=== PATIENT | male | born 1970 | race Hispanic/Latino ===

== ENCOUNTER 2018-07-17 14:35 | Emergency (ER) | payer OTHER ==
--- OUTSIDE RECORDS SUMMARY | 2018-07-17 14:46 | XMS REPORT | Continuity of Care Document ---
:1970 Author Organization Interface Problems Problem Status Onset Classification Date Comments Source Date Reported M62.838 OTHER 04/29/20 Diagnosis 06/28/2017 SNF: MUSCLE SPASM 17 [facility] M62.81 MUSCLE 04/29/20 Diagnosis 06/28/2017 SNF: WEAKNESS 17 [facility] E11.69 TYPE 2 04/29/20 Diagnosis 06/28/2017 SNF: DIABETES MELLITUS 17 [place] - WITH OTHER [facility] SPECIFIED [place] COMPLICATION G62.9 04/29/20 Diagnosis 06/28/2017 SNF: POLYNEUROPATHY, [place] UNSPECIFIED [facility] R27.9 UNSPECIFIED 04/29/20 Diagnosis 06/28/2017 SNF: LACK OF 17 [place] - COORDINATION [facility] G89.18 OTHER ACUTE 04/29/20 Diagnosis 06/28/2017 SNF: POSTPROCEDURAL 17 [place] - PAIN [facility] Abnormal gait 04/29/20 Diagnosis 06/28/2017 SNF: 17 [facility] G47.00 INSOMNIA, 04/29/20 Diagnosis 06/28/2017 SNF: UNSPECIFIED [facility] M62.59 MUSCLE 04/29/20 Diagnosis 06/28/2017 SNF: WASTING AND 17 [place] - ATROPHY, NOT [place] ELSEWHERE [place] CLASSIFIED, MULTIPLE SITES K59.00 04/29/20 Diagnosis 06/28/2017 SNF: CONSTIPATION, 17 [place] - UNSPECIFIED [facility] S82.102D 04/28/20 Diagnosis 06/28/2017 SNF: UNSPECIFIED 17 [place] - FRACTURE OF UPPER [facility] END OF LEFT TIBIA, [place] SUBSEQUENT ENCOUNTER FOR CLOSED FRACTURE WITH ROUTINE HEALING Z51.89 ENCOUNTER 04/28/20 Diagnosis 06/28/2017 SNF: FOR OTHER 17 [place] - SPECIFIED [facility] AFTERCARE [facility] G89.11 ACUTE PAIN 04/28/20 Diagnosis 06/28/2017 [facility] S52.501D 04/28/20 Diagnosis 06/28/2017 SNF: UNSPECIFIED 17 [place] - FRACTURE OF THE [place] LOWER END OF RIGHT [place] RADIUS, SUBSEQUENT ENCOUNTER FOR CLOSED FRACTURE WITH ROUTINE HEALING E11.9 TYPE 2 04/28/20 Diagnosis 06/28/2017 SNF: DIABETES MELLITUS 17 [place] - WITHOUT [place] COMPLICATIONS [place] Z47.89 ENCOUNTER 04/28/20 Diagnosis 06/28/2017 SNF: FOR OTHER 17 [place] - ORTHOPEDIC [place] AFTERCARE [place] Z91.81 HISTORY OF 04/28/20 Diagnosis 06/28/2017 [facility]: [facility]ING [facility] [place] [facility] [place] R WRIST FX Active 04/11/[address] CLOSED RT RADIAL Active 04/11/20 [facility] FX, LISFRANC Medical DISLOCATIO Center NEW CONSULT - Active 05/16/20 [facility] PANCREATIC MASS [address] [place] [address] Center 782.3 - EDEMA Active 01/23/20 [facility] [place] Diabetes Resolved Problem 05/01/2017 [facility] History of Resolved Problem 05/01/2017 [facility] multiple endocrine Medical neoplasia type 2 Center (<span ID="[id number]"> Confirmed</span>) UNSP FRACTURE OF Active [facility] RIGHT FOREARM, Medical INIT FOR Center DISLOCATION OF Active [facility] TARSOMETATARSAL Medical JOINT OF Center DISPLACED Active [facility] BICONDYLAR Medical FRACTURE OF LEFT Center TI Medications Medication Details Route Status Patient Ordering Order Source Instructions Provider Date Lantus Solution 26 UNIT(S) Subcutaneou Active 06/21/ SNF: 100 UNIT/ML SUBCUTANEOUSL s 2017 [place] - Y EVERY 12 [place] HOURS FOR [place] TYPE2 DM W/O COMPLICATIONS Lantus Solution Inject 24 Subcutaneou Active 06/04/ SNF: 100 UNIT/ML unit s 2016 [place] - subcutaneousl [place] y every 12 [place] hours related to TYPE 2 DIABETES MELLITUS WITHOUT COMPLICATIONS (E11.9) DiazePAM Tablet Give 1 tablet Oral Active 06/01/ SNF: 5 MG by mouth as 2017 [place] - needed for [place] anxiety [place] Ambien Tablet 10 Give 1 tablet Oral Active 05/25/ SNF: MG by mouth at 2017 [place] - bedtime for [place] Insomnia [facility] Lantus Solution Inject 22 Subcutaneou Active 05/20/ SNF: 100 UNIT/ML unit s 2017 [place] - subcutaneousl [place] y every 12 [place] hours related to TYPE 2 DIABETES MELLITUS WITHOUT COMPLICATIONS (E11.9) DiazePAM Tablet Give 1 tablet Oral Active 05/16/ SNF: 5 MG by mouth 2016 [place] - every 24 [place] hours as [place] needed for insomnia/anxi ety for 14 Days Give at bedtime Ambien Tablet 5 Give 2 tablet Oral Active 05/14/ SNF: MG by mouth at 2017 [place] - bedtime for [facility] insomnia for [place] 10 Days Give a total of 2 tabs to=10mg Ambien Tablet 5 Give 1 tablet Oral Active 05/12/ SNF: MG by mouth at 2017 [place] - bedtime for [facility] insomnia [facility] Zolpidem Give 1 tablet Oral Inactive 05/07/ SNF: Tartrate Tablet by mouth as 2017 [place] - 5 MG needed for [facility] insomnia PRN [place] at bedtime TraMADol HCl Give 1 tablet Oral Active 05/06/ SNF: Tablet 50 MG by mouth 2016 [place] - every 6 hours [place] as needed for [place] pain DiazePAM Tablet Give 1 tablet Oral Active 05/06/ SNF: 5 MG by mouth 2016 [place] - every 24 [place] hours as [place] needed for insomnia/anxi ety Give at bedtime Tylenol with Give 1 tablet Oral Active 05/06/ SNF: Codeine #3 by mouth 2016 [place] - Tablet 300-30 MG every 6 hours [place] as needed for [place] pain per Dr. Tashi blunt TraMADol HCl Give 1 tablet Oral Active 05/05/ SNF: Tablet 50 MG by mouth 2016 [place] - every 6 hours [place] as needed for [place] pain for 2 Weeks Zolpidem Give 1 tablet Oral Active 05/05/ SNF: Tartrate Tablet by mouth as 2016 [place] - 5 MG needed for [facility] insomnia for [place] 14 Days daily at bedtime Calcium Tablet Give 1 tablet Oral Active 05/05/ SNF: 600 MG by mouth two 2016 [place] - times a day [place] for [place] supplement Lantus Solution Inject 18 Subcutaneou Active 05/03/ SNF: 100 UNIT/ML unit s 2017 [place] - subcutaneousl [place] y every 12 [place] hours related to TYPE 2 DIABETES MELLITUS WITHOUT COMPLICATIONS (E11.9) Acetaminophen Give 2 tablet Oral Active 05/03/ SNF: Tablet 500 MG by mouth 2016 [place] - three times a [place] day for pain [place] (give 2 tabs to equal 1000 mg) NovoLOG Solution Inject 5 unit Subcutaneou Active 05/02/ SNF: 100 UNIT/ML subcutaneousl s 2017 [place] - y one time [place] only related [place] to TYPE 2 DIABETES MELLITUS WITHOUT COMPLICATIONS (E11.9) for 1 Day Baclofen Tablet Give 10 mg by Oral Inactive 05/01/ SNF: mouth two 2016 [place] - times a day [place] related to [facility] ENCOUNTER FOR OTHER ORTHOPEDIC AFTERCARE (Z47.89) Insulin Aspart Inject 5 unit Subcutaneou Active 05/01/ SNF: Solution 100 subcutaneousl s 2017 [place] - UNIT/ML y one time [place] only for [place] [id number] for 1 Day NovoLOG Solution Inject as per Subcutaneou Active SNF: 100 UNIT/ML sliding s 2017 [place] - scale: if 0 [place] - 150=0; Village 151+=5, subcutaneousl y before meals related to TYPE 2 DIABETES MELLITUS WITHOUT COMPLICATIONS (E11.9) Do not give if BS <150 NovoLOG Solution Inject 5 unit Subcutaneou Inactive 04/30/ SNF: 100 UNIT/ML subcutaneousl s 2017 [place] - y before [facility] meals related [place] to TYPE 2 DIABETES MELLITUS WITHOUT COMPLICATIONS (E11.9) Baclofen Tablet Give 5 mg by Oral Active 04/30/ SNF: mouth at 2017 [place] - bedtime [place] related to [place] ENCOUNTER FOR OTHER ORTHOPEDIC AFTERCARE (Z47.89) Acetaminophen Give 2 tablet Oral Active SNF: Tablet 500 MG by mouth 2016 [place] - three times a [place] day for pain [place] NovoLOG Solution Inject 5 unit Subcutaneou Active SNF: 100 UNIT/ML subcutaneousl s 2017 [place] - y before [facility] meals related [place] to TYPE 2 DIABETES MELLITUS WITHOUT COMPLICATIONS (E11.9) Lisinopril 1 TAB(S) BY Oral Active SNF: Tablet 5 MG MOUTH DAILY 2017 [place] - (HOLD FOR SBP [facility] [place] Cholecalciferol Give 1 tablet Oral Active SNF: Tablet 2000 UNIT by mouth one 2017 [place] - time a day [facility] for [place] supplement Lantus Solution Inject 27 Subcutaneou Active 04/29/ SNF: 100 UNIT/ML unit s 2017 [place] - subcutaneousl [place] y one time a [place] day related to TYPE 2 DIABETES MELLITUS WITHOUT COMPLICATIONS (E11.9) Docusate Sodium Give 1 Oral Active 04/29/ SNF: Capsule capsule by 2017 [place] - mouth two [place] times a day [place] for constipation Gabapentin 1 CAP(S) BY Oral Active : Capsule 300 MG MOUTH EVERY 8 2016 [place] - HOURS [place] [facility] Methocarbamol 2 TAB(S) BY Oral Active : Tablet 500 MG MOUTH EVERY 8 2016 [place] - HOURS [place] ([id number]) [facility] Enoxaparin 0.3 CC/ML Subcutaneou Active : Sodium Solution SUBCUTANEOUSL s 2016 [place] - 30 MG/0.3ML Y EVERY 12 [place] HOURS [facility] (0.3ML=30MG) Acetaminophen Give 2 tablet Oral Active : Tablet 500 MG by mouth 2016 [place] - every 6 hours [place] for pain [facility] Zolpidem Give 1 tablet Oral Active : Tartrate Tablet by mouth as 2017 [place] - 5 MG needed for [place] insomnia [facility] daily at bedtime TraMADol HCl Give 2 tablet Oral Active : Tablet 50 MG by mouth 2016 [place] - every 6 hours [place] as needed for [place] pain for 7 Days give 2 50mg tabs to equal 100mg Tuberculin PPD Inject 0.1 ml Intradermal Active : Solution 5 intradermally 2016 [place] - UNIT/0.1ML one time only [place] for TB SKIN [place] for 3 Days Document administratio n, 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 of [facility] tramadol 100 mg=2 tab, Active [place] hydrochloride 50 PO, Q6Hnow, 2016 Medical MG Oral Tablet PRN Pain Center 1-3/Temp > 100.4 F, X 7 day, # 30 tab, 0 Refill(s) zolpidem 5 mg 5 mg=1 tab, Active [place] oral tablet PO, Bedtime, 2017 Medical PRN Insomnia, Center 0 Refill(s) methocarbamol 1,000 mg=2 Active [place] 500 mg oral tab, PO, 2017 Medical tablet Q8Hnow, 0 Center Refill(s) lisinopril 5 mg 5 mg=1 tab, Active [facility] [place] oral tablet PO, Daily, 0 2016 Medical Refill(s) Center gabapentin 300 300 mg=1 cap, Active [place] MG Oral Capsule PO, Q8Hnow, 0 2016 Medical Refill(s) [place] Docusate Sodium 100 mg=1 cap, Active [place] 100 MG Oral PO, BID, 0 2016 Medical Capsule Refill(s) [place] Enoxaparin 30 mg=0.3 mL, Active [facility] SUB-Q, Q12H, 2017 Medical 0 Refill(s) [place] acetaminophen 1,000 mg=2 Active [facility] 500 mg oral tab, PO, 2016 Medical tablet Q6Hnow, 0 [place] Refill(s) Insulin Glargine 27 unit, Active [facility] 100 UNT/ML SUB-Q, Daily, 2017 Medical Injectable 0 Refill(s) [place] Solution Ambien 5 mg, 1 tab, No Longer [place] Route: PO, Active 2016 Medical Drug form: Center TAB, Bedtime, Dosing Weight 109.091, kg, PRN Insomnia, Start date: 04/27/17 10:18:00 MEDICATION TECH, Duration: 30 day, Stop date: 05/27/17 10:17:00 CSTNotes: (Same As: Ambien) potassium 20 mEq, 1 Inactive [place] chloride 20 mEq tab, Route: 2017 Medical oral tablet, PO, Drug [place] extended release form: ERTAB, ONCE, Dosing Weight 109.091, kg, Start date: 04/26/17 10:08:00 MEDICATION TECH, Stop date: 04/26/17 10:08:00 CSTNotes: (Same as: K-Dur 20) "Do Not Crush" With food and full glass of water Cholecalciferol 50,000 Inactive [place] IntlUnit, 2016 Medical Route: PO, [place] Drug form: TAB, qWeek, Dosing Weight 109.091, kg, Start date: 04/26/17 9:00:00 MEDICATION TECH, Duration: 30 day, Stop date: 05/26/17 8:59:00 MEDICATION TECH Lisinopril 5 mg, 1 tab, No Longer [facility] Route: PO, Active 2016 Medical Drug form: Center TAB, Daily, Dosing Weight 109.091, kg, Start date: 04/26/17 9:00:00 MEDICATION TECH, Duration: 30 day, Stop date: 05/26/17 8:59:00 CSTNotes: (Same as: Prinivil, Zestril) Vitamin D2 50,000 No Longer [place] IntlUnit, 1 Active 2016 Medical cap, Route: Center PO, Drug form: CAP, qWeek, Start date: 04/26/17 9:00:00 MEDICATION TECH, Duration: 30 day, Stop date: 05/24/17 9:00:00 CSTNotes: (Same as: Vitamin D) "Do Not Crush" Ambien 5 mg, 1 tab, No Longer [place] Route: PO, Active 2016 Medical Drug form: Center TAB, Bedtime, Dosing Weight 109.091, kg, PRN Insomnia, Start date: 04/24/17 18:28:00 MEDICATION TECH, Duration: 30 day, Stop date: 05/24/17 18:27:00 CSTNotes: (Same As: Ambien) Robaxin 1,000 mg, 2 No Longer [place] tab, Route: Active 2016 Medical PO, Drug Center form: TAB, Q8Hnow, Dosing Weight 109.091, kg, Start date: 04/23/17 10:00:00 MEDICATION TECH, Duration: 30 day, Stop date: 05/23/17 9:59:00 CSTNotes: (Same as:Robaxin) Cefazolin 2 gm, Route: No Longer [place] IVP, ABXQ8H, Active 2016 Medical Dosing Weight Center 109.091, kg, Start date: 04/21/17 20:00:00 MEDICATION TECH, Duration: 3 doses or times, Stop date: 04/22/17 12:00:00 MEDICATION TECH, ABX Indication: Surgical ProphylaxisNo ginger: (Same As: Pritesh Xie) MEDICATION WASTE Product Size: 1000 mg Product Wasted: ___ mg ropivacaine Route: NERVE No Longer [place] BLOCK, Active 2016 Medical Continuous Center Rate: 6, ml/hr, Side: Right Dosing Site: Sciatic popliteal, CROSSING GATEMAN dose 3 mL, CROSSING GATEMAN dose lockout: 30 minutes, 1 Hour limit: 12 mL, 200, mL, Start date: 04/21/17 15:52:00 MEDICATION TECH, Duration: 30, day, Drug Form: INJ, Total volume: 2...Notes: Same as: Naropin Insulin regular 10 unit, Inactive [facility] Route: IV, 2017 Medical ONCE, Dosing Center Weight 109.091, kg, Start date: 04/21/17 15:43:00 MEDICATION TECH, Stop date: 04/21/17 15:43:00 MEDICATION TECH Insulin regular 5 unit, Inactive [facility] Route: IV, 2016 Medical ONCE, Dosing Center Weight 109.091, kg, Start date: 04/21/17 14:54:00 MEDICATION TECH, Stop date: 04/21/17 14:54:00 MEDICATION TECH Promethazine 6.25 mg, Inactive [facility] Route: IVPB, 2016 Medical ONCE, Dosing Center Weight 109.091, kg, PRN Nausea & Vomiting, Start date: 04/21/17 14:54:00 MEDICATION TECH Ondansetron 4 mg, Route: Inactive [facility] IVP, ONCE, 2016 Medical Dosing Weight Center 109.091, kg, PRN Nausea & Vomiting, Start date: 04/21/17 14:54:00 MEDICATION TECH Hydralazine 10 mg, Route: Inactive [facility] IVP, Q20Min, 2016 Medical Dosing Weight Center 109.091, kg, PRN Elevated BP, Start date: 04/21/17 14:54:00 MEDICATION TECH, Duration: 2 doses or times, Stop date: Limited # of times Labetalol 10 mg, Route: Inactive [facility] IVP, Q5Min, 2016 Medical Dosing Weight Center 109.091, kg, PRN Elevated BP, Start date: 04/21/17 14:54:00 MEDICATION TECH, Duration: 5 doses or times, Stop date: Limited # of times esmolol 10 mg, Route: Inactive [facility] IVP, Q5Min, 2016 Medical Dosing Weight Center 109.091, kg, PRN Other -See Comment, Start date: 04/21/17 14:54:00 MEDICATION TECH, Duration: 5 doses or times, Stop date: Limited # of times Metoprolol 1 mg, Route: Inactive [facility] IVP, Q5Min, 2016 Medical Dosing Weight Center 109.091, kg, PRN Other -See Comment, Start date: 04/21/17 14:54:00 MEDICATION TECH, Duration: 5 doses or times, Stop date: Limited # of times Oxycodone 5 mg, Route: Inactive [place] PO, Drug 2016 Medical form: TAB, Center Q4H, Dosing Weight 109.091, kg, PRN Pain Score 4-6, Start date: 04/21/17 14:54:00 MEDICATION TECH, Duration: 30 day, Stop date: 05/21/17 14:53:00 MEDICATION TECH Flumazenil 0.2 mg, Inactive [facility] Route: IVP, 2016 Medical PRN, Dosing Center Weight 109.091, kg, PRN Benzodiazepin e Reversal, Initial dose, Start date: 04/21/17 14:54:00 MEDICATION TECH, Duration: 30 day, Stop date: 05/21/17 14:53:00 MEDICATION TECH Hydromorphone 0.5 mg, Inactive [facility] Route: IVP, 2016 Medical Q5Min, Dosing Center Weight 109.091, kg, PRN Pain Score 7-10, Start date: 04/21/17 14:54:00 MEDICATION TECH, Duration: 4 doses or times, Stop date: Limited # of times Naloxone 0.4 mg, Inactive [facility] Route: IVP, 2016 Medical Q2MIN, Dosing Center Weight 109.091, kg, PRN Narcotic Reversal, Start date: 04/21/17 14:54:00 MEDICATION TECH, Duration: 8 doses or times, Stop date: Limited # of times Meperidine 12.5 mg, Inactive [facility] Route: IVP, 2016 Medical Q30Min, Center Dosing Weight 109.091, kg, PRN Other -See Comment, For shivering, Start date: 04/21/17 14:54:00 MEDICATION TECH, Duration: 2 doses or times, Stop date: Limited # of times famotidine Route: IV, Inactive [place] (ANES) Drug form: 2017 Medical INJ, ONCE, Center Stop date: 04/21/17 14:35:00 MEDICATION TECH neostigmine Route: IV, Inactive [facility] (ANES) Drug form: 2017 Medical INJ, ONCE, Center Stop date: 04/21/17 14:30:00 MEDICATION TECH ondansetron Route: IV, Inactive [facility] (ANES) Drug form: 2017 Medical INJ, ONCE, Center Stop date: 04/21/17 14:30:00 MEDICATION TECH glycopyrrolate Route: IV, Inactive [place] (ANES) Drug form: 2017 Medical INJ, ONCE, Center Stop date: 04/21/17 14:30:00 MEDICATION TECH acetaminophen Route: IV, Inactive [place] (ANES) 10 mg Drug form: 2017 Medical INJ, Start Center date: 04/21/17 12:40:00 MEDICATION TECH, Stop date: 04/21/17 13:40:00 MEDICATION TECH niCARdipine Route: IV, Inactive [place] (ANES) Drug form: 2017 Medical INJ, ONCE, Center Stop date: 04/21/17 12:25:00 MEDICATION TECH hydromorphone Route: IV, Inactive [place] (ANES) Drug form: 2017 Medical INJ, ONCE, Center Stop date: 04/21/17 12:20:00 MEDICATION TECH fentaNYL (ANES) Route: IV, Inactive [place] Drug form: 2016 Medical INJ, ONCE, Center Stop date: 04/21/17 12:15:00 MEDICATION TECH rocuronium Route: IV, Inactive [place] (ANES) Drug form: 2016 Medical INJ, ONCE, Center Stop date: 04/21/17 12:15:00 MEDICATION TECH propofol (ANES) Route: IV, Inactive [place] Drug form: 2017 Medical INJ, ONCE, Center Stop date: 04/21/17 12:15:00 MEDICATION TECH lidocaine (ANES) Route: IV, Inactive [place] Drug form: 2016 Medical INJ, ONCE, Center Stop date: 04/21/17 12:15:00 MEDICATION TECH midazolam (ANES) Route: IV, Inactive [place] Drug form: 2016 Medical SOLN, ONCE, Center Stop date: 04/21/17 12:15:00 MEDICATION TECH ceFAZolin (ANES) Route: IV, Inactive [place] Drug form: 2017 Medical INJ, ONCE, Center Stop date: 04/21/17 11:55:00 MEDICATION TECH Lactated Ringers Route: IV, Inactive [place] Injection IV Total Volume: 2017 Medical (ANES) 1000 mL 1,000, Start Center date: 04/21/17 11:01:00 MEDICATION TECH, Stop date: 04/21/17 12:01:00 MEDICATION TECH D5W 1,000 mL 1,000 mL, Inactive [place] Rate: 100 2017 Medical ml/hr, Infuse Center over: 10 hr, Route: IV, Dosing Weight 109.091 kg, Total Volume: 1,000, Start date: 04/21/17 7:18:00 MEDICATION TECH, Duration: 30 day, Stop date: 05/21/17 7:17:00 MEDICATION TECH, 2.29, m2 normal saline 1,000 mL, No Longer [place] 0.9% IV 1,000 mL Rate: 75 Active 2017 Medical ml/hr, Infuse Center over: 13.3 hr, Route: IV, Dosing Weight 109.091 kg, Total Volume: 1,000, Priority: NOW, Start date: 04/20/17 20:16:00 MEDICATION TECH, Duration: 30 day, Stop date: 05/20/17 20:15:00 MEDICATION TECH, 2.29, m2 Lactulose 667 10 gm, 15 mL, No Longer [place] MG/ML Oral Route: PO, Active 2016 Medical Solution Drug form: [place] SYRP, BID, Dosing Weight 109.091, kg, Start date: 04/16/17 11:00:00 MEDICATION TECH, Duration: 3 day, Stop date: 04/19/17 9:00:00 CSTNotes: (Same as:Chronulac) Milk of Magnesia 30 ml, Route: Inactive [place] PO, Drug 2017 Medical Form: [facility], [place] Dosing Weight 109.091, kg, ONCE, Start date: 04/16/17 9:40:00 MEDICATION TECH, Stop date: 04/16/17 9:40:00 CSTNotes: (Same as: Milk of Magnesia, MOM) Morphine 2 mg, 0.5 mL, No Longer [place] Route: IVP, Active 2017 Medical Drug form: [place] SOLN, Q2H, Dosing Weight 109.091, kg, PRN Pain Score 7-10, Start date: 04/15/17 3:13:00 MEDICATION TECH, Duration: 30 day, Stop date: 05/15/17 3:12:00 CSTNotes: (Same as:MORPhine Sulfate) Morphine 2 mg, 0.5 mL, Inactive [place] Route: IVP, 2016 Medical Drug form: [place] SOLN, ONCE, Dosing Weight 109.091, kg, Start date: 04/14/17 23:17:00 MEDICATION TECH, Stop date: 04/14/17 23:17:00 CSTNotes: (Same as:MORPhine Sulfate) sennosides, RETIREMENT 17.2 mg, 2 No Longer [place] tab, Route: Active 2016 Medical PO, Drug Center Form: TAB, Dosing Weight 109.091, kg, Bedtime, Start date: 04/12/17 21:00:00 CDT, Duration: 30 day, Stop date: 05/11/17 21:00:00 CSTNotes: (Same as: Senokot) NovoLOG 70/30 20 unit, Inactive [facility] Route: SUB-Q, 2016 Medical ONCE, Dosing Center Weight 109.091, kg, Start date: 04/12/17 20:22:00 CDT, Stop date: 04/12/17 20:22:00 CDT insulin glargine 27 unit, 0.27 No Longer [place] mL, Route: Active 2016 Medical SUB-Q, Drug Center form: SOLN, Daily, Start date: 04/12/17 15:00:00 CDT, Stop date: 05/12/17 9:00:00 CSTNotes: Same as: Lantus) Do not hold insulin without contacting prescriber WASTE: F/P - Black; E - Municipal Trash Bin 1.5 ML Insulin 30 unit, No Longer [place] Glargine 300 SUB-Q, Daily, Active 2016 Medical UNT/ML Prefilled 0 Refill(s) Center Syringe [Toujeo] NovoLog 20 unit, No Longer [facility] SUB-Q, Active 2016 Medical TID-Before Center Meals, 0 Refill(s) Insulin regular 10 unit, Inactive [facility] Route: IV, 2016 Medical ONCE, Dosing Center Weight 109.091, kg, Start date: 04/12/17 9:44:00 CDT, Stop date: 04/12/17 9:44:00 CDT ketAMINE (ANES) Route: IV, Inactive [facility] Drug form: 2016 Medical INJ, ONCE, Center Stop date: 04/12/17 9:42:00 CDT Ondansetron 4 mg, 2 mL, Inactive [facility] Route: IVP2016 Medical Drug form: Center INJ, ONCE, Dosing Weight 109.091, kg, PRN Nausea & Vomiting, Start date: 04/12/17 9:41:00 CDTNotes: (Same as: Zofran) MEDICATION WASTE Product Size: 4 mg Product Wasted: ___ mg Hydralazine 10 mg, 0.5 Inactive [place] mL, Route: 2016 Medical IVP, Drug Center form: INJ, Q20Min, Dosing Weight 109.091, kg, PRN Elevated BP, Start date: 04/12/17 9:41:00 CDT, Duration: 2 doses or times, Stop date: Limited # of timesNotes: (Same as: Apresoline) Push over 5 minutes Metoprolol 1 mg, 1 mL, Inactive [facility] Route: IVP2016 Medical Drug form: Center INJ, Q5Min, Dosing Weight 109.091, kg, PRN Other -See Comment, Start date: 04/12/17 9:41:00 CDT, Duration: 5 doses or times, Stop date: Limited # of timesNotes: (Same as: Lopressor) Push over 2 minutes esmolol 10 mg, 1 mL, Inactive [facility] Route: IVP2016 Medical Drug form: Center INJ, Q5Min, Dosing Weight 109.091, kg, PRN Other -See Comment, Start date: 04/12/17 9:41:00 CDT, Duration: 5 doses or times, Stop date: Limited # of timesNotes: (Same as: Brevibloc) Labetalol 10 mg, 2 mL, Inactive [facility] Route: IVP2016 Medical Drug form: Center INJ, Q5Min, Dosing Weight 109.091, kg, PRN Elevated BP, Start date: 04/12/17 9:41:00 CDT, Duration: 5 doses or times, Stop date: Limited # of times Naloxone 0.4 mg, 1 mL, Inactive [facility] Route: IVP2016 Medical Drug form: Center INJ, Q2MIN, Dosing Weight 109.091, kg, PRN Narcotic Reversal, Start date: 04/12/17 9:41:00 CDT, Duration: 8 doses or times, Stop date: Limited # of timesNotes: (Same as: Narcan) Flumazenil 0.2 mg, 2 mL, Inactive [place] Route: IVP, 2016 Medical Drug form: Center INJ, PRN, Dosing Weight 109.091, kg, PRN Benzodiazepin e Reversal, Initial dose, Start date: 04/12/17 9:41:00 CDT, Duration: 1 day, Stop date: 04/13/17 8:40:00 CSTNotes: (Same as: Romazicon) Hydromorphone 0.5 mg, 0.25 Inactive [place] mL, Route: 2017 Medical IVP, Drug Center form: INJ, Q5Min, Dosing Weight 109.091, kg, PRN Pain Score 7-10, Start date: 04/12/17 9:41:00 CDT, Duration: 4 doses or times, Stop date: Limited # of timesNotes: (Same as: Dilaudid) Oxycodone 5 mg, 1 tab, Inactive [facility] Route: PO, 2016 Medical Drug form: Center TAB, Q4H, Dosing Weight 109.091, kg, PRN Pain Score 4-6, Start date: 04/12/17 9:41:00 CDT, Duration: 1 day, Stop date: 04/13/17 9:40:00 CSTNotes: (Same as: Roxicodone) neostigmine Route: IV, Inactive [facility] (ANES) Drug form: 2017 Medical INJ, ONCE, Center Stop date: 04/12/17 9:31:00 CDT phenylephrine Route: IV, Inactive [facility] (ANES) Drug form: 2017 Medical INJ, ONCE, Center Stop date: 04/12/17 9:31:00 CDT midazolam (ANES) Route: IV, Inactive [facility] Drug form: 2017 Medical SOLN, ONCE, Center Stop date: 04/12/17 9:31:00 CDT dexamethasone Route: IV, Inactive [facility] (ANES) Drug form: 2017 Medical INJ, ONCE, Center Stop date: 04/12/17 9:31:00 CDT glycopyrrolate Route: IV, Inactive [facility] (ANES) Drug form: 2016 Medical INJ, ONCE, Center Stop date: 04/12/17 9:31:00 CDT ondansetron Route: IV, Inactive [place] (ANES) Drug form: 2017 Medical INJ, ONCE, Center Stop date: 04/12/17 9:31:00 CDT fentaNYL (ANES) Route: IV, Inactive [facility] Drug form: 2017 Medical INJ, ONCE, Center Stop date: 04/12/17 9:31:00 CDT propofol (ANES) Route: IV, Inactive [facility] Drug form: 2017 Medical INJ, ONCE, Center Stop date: 04/12/17 9:31:00 CDT ro[place] Route: IV, Inactive [facility] (ANES) Drug form: 2017 Medical INJ, ONCE, Center Stop date: 04/12/17 9:31:00 CDT lidocaine (ANES) Route: IV, Inactive [facility] Drug form: 2016 Medical INJ, ONCE, Center Stop date: 04/12/17 9:31:00 CDT Insulin regular Route: IV, Inactive [place] (ANES) Drug form: 2016 Medical INJ, ONCE, Center Stop date: 04/12/17 9:25:00 CDT ceFAZolin (ANES) Route: IV, Inactive [facility] Drug form: 2017 Medical INJ, ONCE, Center Stop date: 04/12/17 9:20:00 CDT Docusate 100 mg, 1 No Longer [place] cap, Route: Active 2016 Medical PO, Drug Center form: CAP, BID, Dosing Weight 109.091, kg, Start date: 04/12/17 9:00:00 CDT, Duration: 30 day, Stop date: 05/11/17 17:00:00 CSTNotes: (Same as: Colace) (Do Not Crush) POLYETHYLENE 17 gm, 1 pkt, No Longer [facility] GLYCOL [id number] Route: PO, Active 2016 Medical Drug form: Center PWDR, Daily, Dosing Weight 109.091, kg, Start date: 04/12/17 9:00:00 CDT, Duration: 30 day, Stop date: 05/11/17 9:00:00 CSTNotes: Dissolve in 8 oz of water or juice. (Same as: Miralax) Enoxaparin 30 mg, 0.3 No Longer [place] mL, Route: Active 2016 Medical SUB-Q, Drug Center form: INJ, Q12H, Dosing Weight 109.091, kg, Start date: 04/12/17 9:00:00 CDT, Duration: 30 day, Stop date: 05/11/17 21:00:00 CSTNotes: (Same as: Lovenox) ketAMINE (ANES) Route: IV, Inactive [facility] (ANES) Drug form: 2016 Medical INJ, Start Center date: 04/12/17 8:49:00 CDT, Stop date: 04/12/17 9:49:00 CDT dexmedetomidine Route: IV, Inactive [facility] (ANES) (ANES) Drug form: 2016 Medical INJ, Start Center date: 04/12/17 8:48:00 CDT, Stop date: 04/12/17 9:48:00 CDT LR 1000 mL INJ Route: IV, Inactive [facility] (ANES) Total Volume: 2016 Medical 1,000, Start Center date: 04/12/17 8:27:00 CDT, Stop date: 04/12/17 9:27:00 CDT gabapentin 300 mg, 1 No Longer [facility] cap, Route: Active 2016 Medical PO, Drug Center form: CAP, Q8Hnow, Dosing Weight 109.091, kg, Start date: 04/12/17 5:00:00 CDT, Duration: 30 day, Stop date: 05/12/17 0:00:00 CSTNotes: (Same as: Neurontin) Acetaminophen 1,000 mg, 2 No Longer [facility] tab, Route: Active 2016 Medical PO, Drug Center form: TAB, Q6Hnow, Dosing Weight 109.091, kg, Start date: 04/12/17 5:00:00 CDT, Duration: 30 day, Stop date: 05/12/17 0:00:00 CSTNotes: Max acetaminophen 4000 mg/day (4 gm/day). (Same as: Tylenol Extra Strength) NovoLIN L 0 Refill(s) Inactive [place] [address] [facility] Insulin Lispro 2 unit, 0.02 No Longer [place] mL, Route: Active 2016 Medical SUB-Q, Drug Center form: SOLN, Bedtime, Dosing Weight 109.091, kg, PRN Blood Glucose Results, Start date: 04/12/17 4:18:00 CDT, Duration: 30 day, Stop date: 05/12/17 4:17:00 CSTNotes: (Same as: Humalog ) Roll in palms of hands gently; Do not shake `vigorously. "Single Patient Use Only " (Restricted to patients requiring a dose > 60 units) WASTE: F/P - Black; E - Municipal Trash Bin Stable for 28 days at room temperature. Expires in days from _Date Dextrose 50% 25 gm, 50 mL, No Longer [place] Syringe Route: IVP, Active 2016 Medical Drug Form: [place] INJ, Dosing Weight 109.091, kg, PRN, PRN Blood Glucose Results, Start date: 04/12/17 4:18:00 CDT, Duration: 30 day, Stop date: 05/12/17 3:17:00 MEDICATION TECH Glucagon 1 mg, Route: No Longer [place] IM, Drug Active 2016 Medical form: [place] PDR/INJ, PRN, Dosing Weight 109.091, kg, PRN Blood Glucose Results, Start date: 04/12/17 4:18:00 CDT, Duration: 30 day, Stop date: 05/12/17 3:17:00 MEDICATION TECH Melatonin 3 mg, 1 tab, No Longer [place] Route: PO, Active 2016 Medical Drug form: [place] TAB, Bedtime, Dosing Weight 109.091, kg, PRN Insomnia, Start date: 04/12/17 4:17:00 CDT, Duration: 30 day, Stop date: 05/12/17 4:16:00 CSTNotes: (Same as: Melatonin) Oxycodone 5 mg, 1 tab, No Longer [place] Hydrochloride 5 Route: PO, Active 2016 Medical MG Oral Tablet Drug form: [place] TAB, Q4H, Dosing Weight 109.091, kg, PRN Pain Score 4-6, Start date: 04/12/17 4:17:00 CDT, Duration: 30 day, Stop date: 05/12/17 4:16:00 CSTNotes: (Same as: Roxicodone) Morphine 2 mg, 0.5 mL, No Longer [place] Route: IVP, Active 2016 Medical Drug form: Center SOLN, Q4H, Dosing Weight 109.091, kg, PRN Pain Score 7-10, Start date: 04/12/17 4:17:00 CDT, Duration: 30 day, Stop date: 05/12/17 4:16:00 CSTNotes: (Same as:MORPhine Sulfate) Tramadol 100 mg, 2 No Longer [place] tab, Route: Active 2016 Medical PO, Drug Center form: TAB, Q6Hnow, Dosing Weight 109.091, kg, Start date: 04/12/17 4:17:00 CDT, Duration: 30 day, Stop date: 05/12/17 6:00:00 CSTNotes: Not to exceed 400mg/day. (Same As: Ultram) Saline Flush 10 ml, Route: No Longer [place] 0.9% IVP, Drug Active 2016 Medical Form: INJ, Center Dosing Weight 109.091, kg, PRN, PRN Line Flush, Start date: 04/12/17 4:16:00 CDT, Duration: 30 day, Stop date: 05/12/17 3:15:00 CSTNotes: (Same as: BD Posiflush) Ondansetron 4 mg, 2 mL, No Longer [place] Route: IVP, Active 2016 Medical Drug form: Center INJ, Q6H, Dosing Weight 109.091, kg, PRN Nausea & Vomiting, Start date: 04/12/17 4:16:00 CDT, Duration: 30 day, Stop date: 05/12/17 4:15:00 CSTNotes: (Same as: Zofran) MEDICATION WASTE Product Size: 4 mg Product Wasted: ___ mg sodium chloride 1,000 mL, No Longer [place] 0.9% 1000 ml INJ Rate: 125 Active 2017 Medical 1,000 mL ml/hr, Infuse Center over: 8 hr, Route: IV, Dosing Weight 109.091 kg, Total Volume: 1,000, Start date: 04/12/17 4:16:00 CDT, Duration: 30 day, Stop date: 05/12/17 4:15:00 MEDICATION TECH Morphine 4 mg, 1 mL, Inactive [place] Route: IVP, 2016 Medical Drug form: [place] SOLN, ONCE, Dosing Weight 109.091, kg, Priority: STAT, Start date: 04/12/17 2:45:00 CDT, Stop date: 04/12/17 2:45:00 CDTNotes: (Same as:MORPhine Sulfate) Morphine 4 mg, 1 mL, No Longer [place] Route: IVP, Active 2016 Medical Drug form: [place] SOLN, ONCE, Dosing Weight 109.091, kg, Priority: STAT, Start date: 04/11/17 21:45:00 CDT, Stop date: 04/11/17 21:45:00 CDTNotes: (Same as:MORPhine Sulfate) Zofran 4 mg, 2 mL, No Longer [place] Route: IVP, Active 2016 Medical Drug form: [place] INJ, ONCE, Dosing Weight 109.091, kg, Priority: STAT, Start date: 04/11/17 21:45:00 CDT, Stop date: 04/11/17 21:45:00 CDTNotes: (Same as: Zofran) MEDICATION WASTE Product Size: 4 mg Product Wasted: ___ mg Allergies, Adverse Reactions, Alerts Substance Category Reaction Severity Reaction Status Date Comments Source type Reported Immunizations Immunization Date Site Status Last Updated Comments Source Given Influenza, Not Given SNF: [facility] seasonal, 7 - [place] injectable [facility] pneumococcal Not Given SNF: [facility] polysaccharide 7 - [place] vaccine, 23 valent [facility] tuberculin skin completed jerrica SNF: [facility] test; purified 7 kathryn RN - [facility] protein derivative [facility] solution, intradermal Results Order Name Results Value Reference Date Interpretation Comments Source Range Blood sugar Blood sugar 258 mmol/L 06/27 [facility] Blood sugar Blood sugar 104 mmol/L 06/27 SNF: [facility] - [facility] Blood sugar Blood sugar 107 mmol/L 06/27 [facility] Blood sugar 107 mmol/L 06/27 [facility] Blood sugar Blood sugar 299 mmol/L 06/27 [facility]: [facility] Blood sugar Blood sugar 119 mmol/L 06/26 SN[facility]: [facility] Blood sugar Blood sugar 200 mmol/L 06/26 SN[facility]: /[facility] Blood sugar Blood sugar 99 mmol/L 06/26 SN[facility]: [facility] Blood sugar Blood sugar 99 mmol/L 06/26 SN[facility]: /2017 [facility] Blood sugar Blood sugar 232 mmol/L 06/26 SN[facility]: [facility] Blood sugar Blood sugar 136 mmol/L 06/25 SNF: /2017 [facility] Blood sugar Blood sugar 264 mmol/L 06/25 SNF: /2017 [facility] Blood sugar Blood sugar 148 mmol/L 06/25 SNF: /2017 [facility] Blood sugar Blood sugar 148 mmol/L 06/25 SNF: /2017 [facility] Blood sugar Blood sugar 214 mmol/L 06/25 SNF: /2017 [facility] Blood sugar Blood sugar 230 mmol/L 06/24 SNF: /2017 [facility] Blood sugar Blood sugar 89 mmol/L 06/24 SNF: /2017 [facility] Blood sugar Blood sugar 87 mmol/L 06/24 SNF: /2017 [facility] Blood sugar Blood sugar 87 mmol/L 06/24 [facility]: [facility] Blood sugar Blood sugar 277 mmol/L 06/24 SNF: /2017 [facility] Blood sugar Blood sugar 210 mmol/L 06/23 SNF: /[facility] Blood sugar Blood sugar 124 mmol/L 06/23 SNF: /2017 [facility] Blood sugar Blood sugar 164 mmol/L 06/23 SNF: /2017 [facility] Blood sugar Blood sugar 164 mmol/L 06/23 SNF: /2017 [facility] Blood sugar Blood sugar 169 mmol/L 06/23 SNF: /2017 [facility] Blood sugar Blood sugar 211 mmol/L 06/22 SNF: /2017 [facility] Blood sugar Blood sugar 988 mmol/L 06/22 SNF: /2017 [facility] Blood sugar Blood sugar 121 mmol/L 06/22 SNF: /2017 [facility] Blood sugar Blood sugar 121 mmol/L 06/22 SNF: /2017 [facility] Blood sugar Blood sugar 151 mmol/L 06/22 SNF: /2017 [facility] Blood sugar Blood sugar 137 mmol/L 06/21 SNF: /2017 [facility] Blood sugar Blood sugar 173 mmol/L 06/21 SNF: /2017 [facility] Blood sugar Blood sugar 133 mmol/L 06/21 SNF: /2017 [facility] Blood sugar Blood sugar 260 mmol/L 06/21 SNF: /2017 [facility] Blood sugar Blood sugar 112 mmol/L 06/20 SNF: /2017 [facility] Blood sugar Blood sugar 159 mmol/L 06/20 SNF: /2017 [facility] Blood sugar Blood sugar 226 mmol/L 06/20 SNF: /2017 [facility] Blood sugar Blood sugar 226 mmol/L 06/20 SNF: /2017 [facility] Blood sugar Blood sugar 173 mmol/L 06/20 SNF: /2017 [facility] Blood sugar Blood sugar 154 mmol/L 06/19 SNF: /2017 [facility] Blood sugar Blood sugar 321 mmol/L 06/19 SNF: /2017 [facility] Blood sugar Blood sugar 141 mmol/L 06/19 SNF: /2017 [facility] Blood sugar Blood sugar 141 mmol/L 06/19 SNF: /2017 [facility] Blood sugar Blood sugar 275 mmol/L 06/19 SNF: /2017 [facility] Blood sugar Blood sugar 141 mmol/L 06/18 SNF: /2017 [facility] Blood sugar Blood sugar 134 mmol/L 06/18 SNF: /2017 [facility] Blood sugar Blood sugar 123 mmol/L 06/18 SNF: /2017 [facility] Blood sugar Blood sugar 123 mmol/L 06/18 SNF: /2017 [facility] Blood sugar Blood sugar 180 mmol/L 06/18 SNF: /2017 [facility] Blood sugar Blood sugar 279 mmol/L 06/17 SNF: /2017 [facility] Blood sugar Blood sugar 127 mmol/L 06/17 SNF: /2017 [facility] Blood sugar Blood sugar 163 mmol/L 06/17 SNF: /2017 [facility] Blood sugar Blood sugar 163 mmol/L 06/17 SNF: /2017 [facility] Blood sugar Blood sugar 278 mmol/L 06/17 SNF: /2017 [facility] Blood sugar Blood sugar 147 mmol/L 06/16 SNF: /2017 [facility] Blood sugar Blood sugar 196 mmol/L 06/16 SNF: /2017 [facility] Blood sugar Blood sugar 129 mmol/L 06/16 SNF: /2017 [facility] Blood sugar Blood sugar 129 mmol/L 06/16 SNF: /2017 [facility] Blood sugar Blood sugar 209 mmol/L 06/16 SNF: /2017 [facility] Blood sugar Blood sugar 169 mmol/L 06/15 SNF: /2017 [facility] Blood sugar Blood sugar 250 mmol/L 06/15 SNF: /2017 [facility] Blood sugar Blood sugar 108 mmol/L 06/15 SNF: /2017 [facility] Blood sugar Blood sugar 108 mmol/L 06/15 SNF: /2017 [facility] Blood sugar Blood sugar 187 mmol/L 06/15 SNF: /2017 [facility] Blood sugar Blood sugar 122 mmol/L 06/14 SNF: /2017 [facility] Blood sugar Blood sugar 202 mmol/L 06/14 SNF: /2017 [facility] Blood sugar Blood sugar 79 mmol/L 06/14 SNF: /2017 [facility] Blood sugar Blood sugar 79 mmol/L 06/14 SNF: /2017 [facility] Blood sugar Blood sugar 258 mmol/L 06/14 SNF: /2017 [facility] Blood sugar Blood sugar 151 mmol/L 06/13 SNF: /2017 [facility] Blood sugar Blood sugar 165 mmol/L 06/13 SNF: /2017 [facility] Blood sugar Blood sugar 110 mmol/L 06/13 SNF: /2017 [facility] Blood sugar Blood sugar 110 mmol/L 06/13 SNF: /2017 [facility] Blood sugar Blood sugar 161 mmol/L 06/13 SNF: /2017 [facility] Blood sugar Blood sugar 137 mmol/L 06/12 SNF: /2017 [facility] Blood sugar Blood sugar 171 mmol/L 06/12 SNF: /2017 [facility] Blood sugar Blood sugar 89 mmol/L 06/12 SNF: /2017 [facility] Blood sugar Blood sugar 89 mmol/L 06/12 SNF: /2017 [facility] Blood sugar Blood sugar 127 mmol/L 06/12 SNF: /2017 [facility] Blood sugar Blood sugar 123 mmol/L 06/11 SNF: /2017 [facility] Blood sugar Blood sugar 107 mmol/L 06/11 SNF: /2017 [facility] Blood sugar Blood sugar 107 mmol/L 06/11 SNF: /2017 [facility] Blood sugar Blood sugar 140 mmol/L 06/11 SNF: /2017 [facility] Blood sugar Blood sugar 162 mmol/L 06/10 SNF: /2017 [facility] Blood sugar Blood sugar 183 mmol/L 06/10 SNF: /2017 [facility] Blood sugar Blood sugar 140 mmol/L 06/10 SNF: /2017 [facility] Blood sugar Blood sugar 140 mmol/L 06/10 SNF: /2017 [facility] Blood sugar Blood sugar 318 mmol/L 06/10 SNF: /2017 [facility] Blood sugar Blood sugar 136 mmol/L 06/09 SNF: /2017 [facility] Blood sugar Blood sugar 102 mmol/L 06/09 SNF: /2017 [facility] Blood sugar Blood sugar 102 mmol/L 06/09 SNF: /2017 [facility] Blood sugar Blood sugar 204 mmol/L 06/09 SNF: /2017 [facility] Blood sugar Blood sugar 127 mmol/L 06/08 SNF: /2016 [facility] Blood sugar Blood sugar 135 mmol/L 06/08 SNF: /2016 [facility] Blood sugar Blood sugar 89 mmol/L 06/08 SNF: /2016 [facility] Blood sugar Blood sugar 89 mmol/L 06/08 SNF: /2016 [facility] Blood sugar Blood sugar 294 mmol/L 06/08 SNF: /2016 [facility] Blood sugar Blood sugar 235 mmol/L 06/07 SNF: /2016 [facility] Blood sugar Blood sugar 109 mmol/L 06/07 SNF: /2016 [facility] Blood sugar Blood sugar 132 mmol/L 06/07 SNF: /2016 [facility] Blood sugar Blood sugar 132 mmol/L 06/07 SNF: /2016 [facility] Blood sugar Blood sugar 193 mmol/L 06/07 SNF: /2016 [facility] Blood sugar Blood sugar 199 mmol/L 06/06 SNF: /2016 [facility] Blood sugar Blood sugar 95 mmol/L 06/06 SNF: /2016 [facility] Blood sugar Blood sugar 239 mmol/L 06/06 SNF: /2016 [facility] Blood sugar Blood sugar 239 mmol/L 06/06 SNF: /2016 [facility] Blood sugar Blood sugar 275 mmol/L 06/06 SNF: /2016 [facility] Blood sugar Blood sugar 112 mmol/L 06/05 SNF: /2016 [facility] Blood sugar Blood sugar 121 mmol/L 06/05 SNF: /2016 [facility] Blood sugar Blood sugar 288 mmol/L 06/05 SNF: /2016 [facility] Blood sugar Blood sugar 288 mmol/L 06/05 SNF: /2016 [facility] Blood sugar Blood sugar 278 mmol/L 06/05 SNF: /2016 [facility] Blood sugar Blood sugar 89 mmol/L 06/04 SNF: /2016 [facility] Blood sugar Blood sugar 89 mmol/L 06/04 SNF: /2016 [facility] Blood sugar Blood sugar 121 mmol/L 06/04 SNF: /2016 [facility] Blood sugar Blood sugar 204 mmol/L 06/04 SNF: /2016 [facility] [place] Blood sugar Blood sugar 204 mmol/L 06/04 SNF: /2016 [facility] Blood sugar Blood sugar 262 mmol/L 06/04 SNF: /2016 [facility] Blood sugar Blood sugar 141 mmol/L 06/03 SNF: /2016 [facility] Blood sugar Blood sugar 200 mmol/L 06/03 SNF: /2016 [facility] Blood sugar Blood sugar 185 mmol/L 06/03 SNF: /2016 [facility] Blood sugar Blood sugar 185 mmol/L 06/03 SNF: /2016 [facility] Blood sugar Blood sugar 119 mmol/L 06/03 SNF: /2016 [facility] Blood sugar Blood sugar 289 mmol/L 06/02 SNF: /2016 [facility] Blood sugar Blood sugar 103 mmol/L 06/02 SNF: /2016 [facility] Blood sugar Blood sugar 255 mmol/L 06/02 SNF: /2016 [facility] Blood sugar Blood sugar 130 mmol/L 06/01 SNF: /2016 [facility] Blood sugar Blood sugar 238 mmol/L 06/01 SNF: /2016 [facility] Blood sugar Blood sugar 203 mmol/L 06/01 SNF: /2016 [facility] Blood sugar Blood sugar 203 mmol/L 06/01 SNF: /2016 [facility] Blood sugar Blood sugar 330 mmol/L 06/01 SNF: /2016 [facility] Blood sugar Blood sugar 107 mmol/L 05/31 SNF: /2016 [facility] Blood sugar Blood sugar 93 mmol/L 05/31 SNF: /2016 [facility] Blood sugar Blood sugar 129 mmol/L 05/31 SNF: /2016 [facility] Blood sugar Blood sugar 129 mmol/L 05/31 SNF: /2016 [facility] Blood sugar Blood sugar 222 mmol/L 05/31 SNF: /2016 [facility] Blood sugar Blood sugar 133 mmol/L 05/30 SNF: /2016 [facility] Blood sugar Blood sugar 201 mmol/L 05/30 SNF: /2016 [facility] Blood sugar Blood sugar 128 mmol/L 05/30 SNF: /2016 [facility] Blood sugar Blood sugar 128 mmol/L 05/30 SNF: /2016 [facility] Blood sugar Blood sugar 243 mmol/L 05/30 SNF: /2016 [facility] Blood sugar Blood sugar 128 mmol/L 05/29 SNF: /2016 [facility] Blood sugar Blood sugar 176 mmol/L 05/29 SNF: /2016 [facility] Blood sugar Blood sugar 139 mmol/L 05/29 SNF: /2016 [facility] Blood sugar Blood sugar 139 mmol/L 05/29 SNF: /2016 [facility] Blood sugar Blood sugar 153 mmol/L 05/29 SNF: /2016 [facility] Blood sugar Blood sugar 225 mmol/L 05/28 SNF: /2016 [facility] Blood sugar Blood sugar 176 mmol/L 05/28 SNF: /2016 [facility] Blood sugar Blood sugar 186 mmol/L 05/28 SNF: /2016 [facility] Blood sugar Blood sugar 186 mmol/L 05/28 SNF: /2016 [facility] Blood sugar Blood sugar 245 mmol/L 05/28 SNF: /2016 [facility] Blood sugar Blood sugar 203 mmol/L 05/27 SNF: /2016 [facility] Blood sugar Blood sugar 129 mmol/L 05/27 SNF: /2016 [facility] Blood sugar Blood sugar 129 mmol/L 05/27 SNF: /2016 [facility] Blood sugar Blood sugar 208 mmol/L 05/27 SNF: /2016 [facility] Blood sugar Blood sugar 144 mmol/L 05/26 SNF: /2016 [facility] Blood sugar Blood sugar 143 mmol/L 05/26 SNF: /2016 [facility] Blood sugar Blood sugar 144 mmol/L 05/26 SNF: /2016 [facility] Blood sugar Blood sugar 144 mmol/L 05/26 SNF: /2016 [facility] Blood sugar Blood sugar 168 mmol/L 05/26 SNF: /2016 [facility] Blood sugar Blood sugar 174 mmol/L 05/25 SNF: /2016 [facility] Blood sugar Blood sugar 144 mmol/L 05/25 SNF: /2016 [facility] Blood sugar Blood sugar 156 mmol/L 05/25 SNF: /2016 [facility] Blood sugar Blood sugar 156 mmol/L 05/25 SNF: /2016 [facility] Blood sugar Blood sugar 250 mmol/L 05/25 SNF: /2016 [facility] Blood sugar Blood sugar 119 mmol/L 05/24 SNF: /2016 [facility] Blood sugar Blood sugar 149 mmol/L 05/24 SNF: /2016 [facility] Blood sugar Blood sugar 150 mmol/L 05/24 SNF: /2016 [facility] Blood sugar Blood sugar 150 mmol/L 05/24 SNF: /2016 [facility] Blood sugar Blood sugar 207 mmol/L 05/24 SNF: /2016 [facility] Blood sugar Blood sugar 143 mmol/L 05/23 SNF: /2016 [facility] Blood sugar Blood sugar 178 mmol/L 05/23 SNF: /2016 [facility] Blood sugar Blood sugar 138 mmol/L 05/23 SNF: /2016 [facility] Blood sugar Blood sugar 138 mmol/L 05/23 SNF: /2016 [facility] Blood sugar Blood sugar 192 mmol/L 05/23 SNF: /2016 [facility] Blood sugar Blood sugar 65 mmol/L 05/22 SNF: /2016 [facility] Blood sugar Blood sugar 137 mmol/L 05/22 SNF: /2016 [facility] Blood sugar Blood sugar 202 mmol/L 05/22 SNF: /2016 [facility] Blood sugar Blood sugar 202 mmol/L 05/22 SNF: /2016 [facility] Blood sugar Blood sugar 218 mmol/L 05/22 SNF: /2016 [facility] Blood sugar Blood sugar 105 mmol/L 05/21 SNF: /2016 [facility] Blood sugar Blood sugar 177 mmol/L 05/21 SNF: /2016 [facility] Blood sugar Blood sugar 170 mmol/L 05/21 SNF: /2016 [facility] Blood sugar Blood sugar 170 mmol/L 05/21 SNF: /2016 [facility] Blood sugar Blood sugar 140 mmol/L 05/21 SNF: /2016 [facility] Blood sugar Blood sugar 201 mmol/L 05/20 SNF: /2016 [facility] Blood sugar Blood sugar 168 mmol/L 05/20 SNF: /2016 [facility] Blood sugar Blood sugar 124 mmol/L 05/20 SNF: /2016 [facility] Blood sugar Blood sugar 124 mmol/L 05/20 SNF: /2016 [facility] Blood sugar Blood sugar 217 mmol/L 05/20 SNF: /2016 [facility] Blood sugar Blood sugar 162 mmol/L 05/19 SNF: /2016 [facility] Blood sugar Blood sugar 242 mmol/L 05/19 SNF: /2016 [facility] Blood sugar Blood sugar 285 mmol/L 05/19 SNF: /2016 [facility] Blood sugar Blood sugar 203 mmol/L 05/18 SNF: /2016 [facility] Blood sugar Blood sugar 213 mmol/L 05/18 SNF: /2016 [facility] Blood sugar Blood sugar 128 mmol/L 05/18 SNF: /2016 [facility] Blood sugar Blood sugar 128 mmol/L 05/18 SNF: /2016 [facility] Blood sugar Blood sugar 184 mmol/L 05/18 SNF: /2016 [facility] Blood sugar Blood sugar 215 mmol/L 05/17 SNF: /2016 [facility] Blood sugar Blood sugar 176 mmol/L 05/17 SNF: /2016 [facility] Blood sugar Blood sugar 84 mmol/L 05/17 SNF: /2016 [facility] Blood sugar Blood sugar 84 mmol/L 05/17 SNF: /2016 [facility] Blood sugar Blood sugar 221 mmol/L 05/17 SNF: /2016 [facility] Blood sugar Blood sugar 115 mmol/L 05/16 SNF: /2016 [facility] Blood sugar Blood sugar 127 mmol/L 05/16 SNF: /2016 [facility] Blood sugar Blood sugar 115 mmol/L 05/16 SNF: /2016 [facility] Blood sugar Blood sugar 115 mmol/L 05/16 SNF: /2016 [facility] Blood sugar Blood sugar 270 mmol/L 05/16 SNF: /2016 [facility] Blood sugar Blood sugar 103 mmol/L 05/15 SNF: /2016 [facility] Blood sugar Blood sugar 154 mmol/L 05/15 SNF: /2016 [facility] Blood sugar Blood sugar 128 mmol/L 05/15 SNF: /2016 [facility] Blood sugar Blood sugar 128 mmol/L 05/15 SNF: /2016 [facility] Blood sugar Blood sugar 132 mmol/L 05/15 SNF: /2016 [facility] Blood sugar Blood sugar 315 mmol/L 05/14 [facility] /[facility] Blood sugar Blood sugar 107 mmol/L 05/14 SN[facility] /2016 [facility] Blood sugar Blood sugar 131 mmol/L 05/14 SNF: /2016 [facility] Blood sugar Blood sugar 131 mmol/L 05/14 SNF: /2016 [facility] Blood sugar Blood sugar 190 mmol/L 05/14 SNF: /2016 [facility] Blood sugar Blood sugar 204 mmol/L 05/13 SNF: /2016 [facility] Blood sugar Blood sugar 185 mmol/L 05/13 SNF: /2016 [facility] Blood sugar Blood sugar 128 mmol/L 05/13 SNF: /2016 [facility] Blood sugar Blood sugar 128 mmol/L 05/13 SNF: /2016 [facility] Blood sugar Blood sugar 162 mmol/L 05/13 SNF: /2016 [facility] Blood sugar Blood sugar 158 mmol/L 05/12 SNF: /2016 [facility] Blood sugar Blood sugar 199 mmol/L 05/12 SNF: /2016 [facility] Blood sugar Blood sugar 128 mmol/L 05/12 SNF: /2016 [facility] Blood sugar Blood sugar 128 mmol/L 05/12 SNF: /2016 [facility] Blood sugar Blood sugar 179 mmol/L 05/12 SNF: /2016 [facility] Blood sugar Blood sugar 146 mmol/L 05/11 SNF: /2016 [facility] Blood sugar Blood sugar 86 mmol/L 05/11 SNF: /2016 [facility] Blood sugar Blood sugar 116 mmol/L 05/11 SNF: /2016 [facility] Blood sugar Blood sugar 116 mmol/L 05/11 SNF: /2016 [facility] Blood sugar Blood sugar 222 mmol/L 05/11 SNF: /2016 [facility] Blood sugar Blood sugar 155 mmol/L 05/10 SNF: /2016 [facility] Blood sugar Blood sugar 101 mmol/L 05/10 SNF: /2016 [facility] Blood sugar Blood sugar 101 mmol/L 05/10 SNF: /2016 [facility] Blood sugar Blood sugar 101 mmol/L 05/10 SNF: /2016 [facility] Blood sugar Blood sugar 163 mmol/L 05/10 SNF: /2016 [facility] Blood sugar Blood sugar 166 mmol/L 05/09 SNF: /2016 [facility] Blood sugar Blood sugar 135 mmol/L 05/09 SNF: /2016 [facility] Blood sugar Blood sugar 116 mmol/L 05/09 SNF: /2016 [facility] Blood sugar Blood sugar 116 mmol/L 05/09 SNF: /2016 [facility] Blood sugar Blood sugar 165 mmol/L 05/09 SNF: /2016 [facility] Blood sugar Blood sugar 133 mmol/L 05/08 SNF: /2016 [facility] Blood sugar Blood sugar 137 mmol/L 05/08 SNF: /2016 [facility] Blood sugar Blood sugar 168 mmol/L 05/08 SNF: /2016 [facility] Blood sugar Blood sugar 168 mmol/L 05/08 SNF: /2016 [facility] Blood sugar Blood sugar 207 mmol/L 05/08 SNF: /2016 [facility] Blood sugar Blood sugar 147 mmol/L 05/07 SNF: /2016 [facility] Blood sugar Blood sugar 180 mmol/L 05/07 SNF: /2016 [facility] Blood sugar Blood sugar 180 mmol/L 05/07 SNF: /2016 [facility] Blood sugar Blood sugar 166 mmol/L 05/07 SNF: /2016 [facility] Blood sugar Blood sugar 131 mmol/L 05/06 SNF: /2016 [facility] Blood sugar Blood sugar 121 mmol/L 05/06 SNF: /2016 [facility] Blood sugar Blood sugar 119 mmol/L 05/06 SNF: /2016 [facility] Blood sugar Blood sugar 119 mmol/L 05/06 SNF: /2016 [facility] Blood sugar Blood sugar 145 mmol/L 05/06 SNF: /2016 [facility] Blood sugar Blood sugar 92 mmol/L 05/05 SNF: /2016 [facility] Blood sugar Blood sugar 161 mmol/L 05/05 SNF: /2016 [facility] Blood sugar Blood sugar 203 mmol/L 05/05 SNF: /2016 [facility] Blood sugar Blood sugar 203 mmol/L 05/05 SNF: /2016 [facility] Blood sugar Blood sugar 141 mmol/L 05/05 SNF: /2016 [facility] Blood sugar Blood sugar 177 mmol/L 05/04 SNF: /2016 [facility] Blood sugar Blood sugar 113 mmol/L 05/04 SNF: /2016 [facility] Blood sugar Blood sugar 148 mmol/L 05/04 SNF: /2016 [facility] Blood sugar Blood sugar 148 mmol/L 05/04 SNF: /2016 [facility] Blood sugar Blood sugar 243 mmol/L 05/04 SNF: /2016 [facility] Blood sugar Blood sugar 132 mmol/L 05/03 SNF: /2016 [facility] Blood sugar Blood sugar 221 mmol/L 05/03 SNF: /2016 [facility] Blood sugar Blood sugar 144 mmol/L 05/03 SNF: /2016 [facility] Blood sugar Blood sugar 144 mmol/L 05/03 SNF: /2016 [facility] Blood sugar Blood sugar 288 mmol/L 05/02 SNF: /2016 [facility] Blood sugar Blood sugar 341 mmol/L 05/02 SNF: /2016 [facility] Blood sugar Blood sugar 314 mmol/L 05/02 SNF: /2016 [facility] Blood sugar Blood sugar 341 mmol/L 05/02 SNF: /2016 [facility] Blood sugar Blood sugar 341 mmol/L 05/02 SNF: [facility] Blood sugar Blood sugar 185 mmol/L 05/01 SNF: [facility] Blood sugar Blood sugar 81 mmol/L 05/01 SNF: [facility] Blood sugar Blood sugar 178 mmol/L 05/01 SNF: /2016 [facility] Blood sugar Blood sugar 178 mmol/L 05/01 SNF: [facility] Blood sugar Blood sugar 209 mmol/L 05/01 SNF: /2016 [facility] Blood sugar Blood sugar 220 mmol/L 05/01 SNF: /2016 [facility] Blood sugar Blood sugar 148 mmol/L 04/30 SNF: /2016 [facility] Blood sugar Blood sugar 143 mmol/L 04/30 SNF: [facility] Blood sugar Blood sugar 200 mmol/L 04/30 SNF: [facility] Blood sugar Blood sugar 151 mmol/L 04/30 SNF: [facility] Blood sugar Blood sugar 198 mmol/L 04/29 SNF: [facility] Blood sugar Blood sugar 173 mmol/L 04/29 SNF: [facility] CHEM PANEL Magnesium Lvl 2.1 mg/dL 1.8 - 2.4 04/28 [facility]2016 [facility] CHEM PANEL eGFR 109 04/28 Result Comment: The eGFR is calculated using the CKD-EPI formula. In most young, healthy individuals the eGFR will be >90 mL/ min/1.73m2. The eGFR declines with age. An eGFR of 60-89 may be normal in [facility] mL/min/1.7 some populations, particularly the elderly, for whom the CKD-EPI formula has not been extensively validated. Use of the eGFR is not recommended in the following populations: [address] Individuals with unstable creatinine concentrations, including patients and those with serious co-morbid conditions. Patients with extremes in muscle mass or diet. The data above are obtained from the National Kidney Disease Education Program (NKDEP) which additionally recommends that when the eGFR is used in patients with extremes of body mass index for purposes of drug dosing, the eGFR should be multiplied by the estimated BMI. CHEM PANEL Glucose Lvl 113 mg/dL 70 - 99 04/28 [facility] CHEM PANEL Creatinine 0.77 mg/dL 0.50 - 04/28 [facility] Lvl 1.40 /2016 [facility] CHEM PANEL BUN 11 mg/dL 7 - 22 04/28 [facility] CHEM PANEL Calcium Lvl 10.3 mg/dL 8.5 - 10.5 04/28 [facility] CHEM PANEL CO2 25 meq/L 24 - 32 04/28 [facility] CHEM PANEL Chloride Lvl 103 meq/L 95 - 109 04/28 [facility] CHEM PANEL Potassium Lvl 3.6 meq/L 3.5 - 5.1 04/28 [facility] CHEM PANEL Sodium Lvl 137 meq/L 135 - 145 04/28 2016 [facility] CHEM PANEL AGAP 12.6 meq/L 10.0 - 04/28 [facility] 20.0 [facility] HEMATOLOGY RBC 4.33 M/CMM 4.70 - 04/28 [facility] 6.10 [facility] HEMATOLOGY WBC 8.4 K/CMM 3.7 - 10.4 04/28 [facility] HEMATOLOGY MCH 30.1 pg 27.0 - 04/28 [facility] 31.0 [facility] HEMATOLOGY MCHC 34.6 g/dL 32.0 - 04/28 [facility] 36.0 [facility] HEMATOLOGY RDW 13.2 % 11.5 - 04/28 [place] 14. [facility] HEMATOLOGY MPV 8.9 fL 7.4 - 10.4 04/28 [facility] HEMATOLOGY Platelet 857 K/CMM 133 - 450 04/28 [facility] HEMATOLOGY Hgb 13.1 g/dL 14.0 - 04/28 [place] 18.0 [facility] HEMATOLOGY MCV 87.1 fL 80.0 - 04/28 [place] 94.0 [facility] HEMATOLOGY Hct 37.8 % 42.0 - 04/28 54.0 [facility] HEMATOLOGY Monocytes # 0.6 K/CMM 0.0 - 0.8 04/28 [facility] HEMATOLOGY Eosinophils # 0.4 K/CMM 0.0 - 0.5 04/28 [facility] HEMATOLOGY Basophils 0.4 % 0.0 - 1.0 04/28 [facility] HEMATOLOGY Lymphocytes # 2.7 K/CMM 1.0 - 5.5 04/28 [facility] HEMATOLOGY Segs-Bands # 4.7 K/CMM 1.5 - 8.1 04/28 [facility] HEMATOLOGY Lymphocytes 31.5 % 20.0 - 04/28 [facility] 40.0 [facility] HEMATOLOGY Monocytes 7.6 % 2.0 - 12.0 04/28 [facility] HEMATOLOGY Eosinophils 4.9 % 0.0 - 4.0 04/28 [facility] HEMATOLOGY Segs 55.6 % 45.0 - 04/28 [facility] 75.0 [facility] Foot series Foot series EXAM: XR RIGHT FOOT 3 VIEWS 04/28 - [facility] DX DX - [facility] This report was dictated by a Transportation Escort/Fellow. I have personally reviewed the images as Center well as the Resident's interpretation and agree with the findings. DATE: 04/28/2017 8:01 AM MEDICATION TECH Read by: Lars Golden MD Resident: Lars Golden MD Dictated Date/time: 04/28/17 10:28 Electronically Signed by: Curtis Perez MD 04/28/17 18:19 FINAL REPORT INDICATION: Fracture COMPARISON: Foot radiograph dated 04/21/2017. TECHNIQUE: AP, lateral and oblique radiographs of the foot FINDINGS: Overlying cast material limits evaluation of fine bony detail. Redemonstration of internal fixation of the comminuted joint depression type calcaneal fracture with intra-articular extension. There is unchanged alignment of the stabilization hardware. A Kevin wi re is again seen transfixing the comminuted displaced fractures through the 1st metatarsal with unchanged alignment. No new fracture or malalignment is identified. Soft tissue swelling about the foot is seen. IMPRESSION: Unchanged internal fixation of the comminuted joint depression type calcaneal fracture with intra-articular extension and stable placement of a Kevin wire transfixing the comminuted displaced fractu re through the 1st metatarsal. No new fracture or malalignment is identified. MOLECULAR C difficile Negative Negative 04/27 [facility] DIAGNOSTIC Medical (04/27/17 8:44 AM) Center CHEM PANEL Magnesium Lvl 1.9 mg/dL 1.8 - 2.4 04/[address] [facility] [address] ELECTROLYTE AGAP 14.5 meq/L 10.0 - 04/27 [facility] 20.0 [facility] ELECTROLYTE eGFR 107 04/27 Result Comment: The eGFR is calculated using the CKD-EPI formula. In most young, healthy individuals the eGFR will be > 90 mL/min/1.73m2. The eGFR declines with age. An eGFR of 60-89 may be normal in [facility] mL/min/1.7 /2016 some populations, particularly the elderly, for whom the CKD-EPI formula has not been extensively validated. Use of the eGFR is not recommended in the following populations: [address] Individuals with unstable creatinine concentrations, including patients and those with serious co-morbid conditions. Patients with extremes in muscle mass or diet. The data above are obtained from the National Kidney Disease Education Program (NKDEP) which additionally recommends that when the eGFR is used in patients with extremes of body mass index for purposes of drug dosing, the eGFR should be multiplied by the estimated BMI. ELECTROLYTE CO2 25 meq/L 24 - 32 04/[address] ELECTROLYTE Calcium Lvl 10.0 mg/dL 8.5 - 10.5 04/[address] ELECTROLYTE Chloride Lvl 102 meq/L 95 - 109 04/[address] ELECTROLYTE Creatinine 0.80 mg/dL 0.50 - 04/27 [facility] Lvl 1.40 [facility] ELECTROLYTE Sodium Lvl 138 meq/L 135 - 145 04/[address] ELECTROLYTE Potassium Lvl 3.5 meq/L 3.5 - 5.1 04/[address] ELECTROLYTE Glucose Lvl 123 mg/dL 70 - 99 04/[address] ELECTROLYTE BUN 9 mg/dL 7 - 22 04/[address] HEMATOLOGY Basophils # 0.1 K/CMM 0.0 - 0.2 04/[address] HEMATOLOGY Eosinophils # 0.5 K/CMM 0.0 - 0.5 04/[address] HEMATOLOGY Monocytes # 0.8 K/CMM 0.0 - 0.8 04/[address] HEMATOLOGY Segs-Bands # 5.0 K/CMM 1.5 - 8.1 04/[address] HEMATOLOGY Lymphocytes # 2.7 K/CMM 1.0 - 5.5 04/27 [facility] HEMATOLOGY Basophils 1.0 % 0.0 - 1.0 04/27 [facility] HEMATOLOGY Lymphocytes 29.9 % 20.0 - 04/27 [place] 40.0 [facility] HEMATOLOGY Segs 55.4 % 45.0 - 04/27 [place] 75.0 [facility] HEMATOLOGY Monocytes 8.6 % 2.0 - 12.0 04/27 [facility] HEMATOLOGY Eosinophils 5.1 % 0.0 - 4.0 04/27 [facility] HEMATOLOGY Hgb 13.4 g/dL 14.0 - 04/27 [place] 18.0 [facility] HEMATOLOGY Hct 39.9 % 42.0 - 04/27 [place] 54.0 [facility] HEMATOLOGY RBC 4.50 M/CMM 4.70 - 04/27 [place] 6.10 [facility] HEMATOLOGY RDW 13.1 % 11.5 - 04/27 [place] 14.5 [facility] HEMATOLOGY MCH 29.8 pg 27.0 - 04/27 [place] 31.0 [facility] HEMATOLOGY MCHC 33.6 g/dL 32.0 - 04/27 [place] 36.0 [facility] HEMATOLOGY WBC 9.0 K/CMM 3.7 - 10.4 04/27 [facility] HEMATOLOGY MCV 88.6 fL 80.0 - 04/27 [place] 94.0 [facility] HEMATOLOGY MPV 9.3 fL 7.4 - 10.4 04/27 [facility] HEMATOLOGY Platelet 884 K/CMM 133 - 450 04/27 [facility] CHEM PANEL Magnesium Lvl 2.0 mg/dL 1.8 - 2.4 04/26 [facility] ELECTROLYTE AGAP 14.3 meq/L 10.0 - 04/26 [facility] S 20.0 [facility] ELECTROLYTE Creatinine 0.74 mg/dL 0.50 - 04/26 [facility] Lvl 1.40 [facility] ELECTROLYTE Sodium Lvl 140 meq/L 135 - 145 04/26 [facility] ELECTROLYTE Potassium Lvl 3.3 meq/L 3.5 - 5.1 04/26 [facility] ELECTROLYTE Glucose Lvl 98 mg/dL 70 - 99 04/[address] ELECTROLYTE BUN 9 mg/dL 7 - 22 04/[address] ELECTROLYTE eGFR 111 04/26 Result Comment: The eGFR is calculated using the CKD-EPI formula. In most young, healthy individuals the eGFR will be > 90 mL/min/1.73m2. The eGFR declines with age. An eGFR of 60-89 may be normal in [facility] mL/min/1. some populations, particularly the elderly, for whom the CKD-EPI formula has not been extensively validated. Use of the eGFR is not recommended in the following populations: [address] Individuals with unstable creatinine concentrations, including patients and those with serious co-morbid conditions. Patients with extremes in muscle mass or diet. The data above are obtained from the National Kidney Disease Education Program (NKDEP) which additionally recommends that when the eGFR is used in patients with extremes of body mass index for purposes of drug dosing, the eGFR should be multiplied by the estimated BMI. ELECTROLYTE Chloride Lvl 103 meq/L 95 - 109 04/[address] ELECTROLYTE CO2 26 meq/L 24 - 32 04/[address] ELECTROLYTE Calcium Lvl 9.8 mg/dL 8.5 - 10.5 04/[address] HEMATOLOGY Monocytes 8.1 % 2.0 - 12.0 04/[address] HEMATOLOGY Basophils 1.2 % 0.0 - 1.0 04/[address] HEMATOLOGY Eosinophils 4.3 % 0.0 - 4.0 04/[address] HEMATOLOGY Basophils # 0.1 K/CMM 0.0 - 0.2 04/[address] HEMATOLOGY Eosinophils # 0.4 K/CMM 0.0 - 0.5 04/[address] HEMATOLOGY Segs-Bands # 6.0 K/CMM 1.5 - 8.1 04/[address] HEMATOLOGY Lymphocytes # 2.7 K/CMM 1.0 - 5.5 04/[address] HEMATOLOGY Monocytes # 0.8 K/CMM 0.0 - 0.8 04/[address] HEMATOLOGY Segs 59.6 % 45.0 - 04/26 [facility] 75.0 /2016 [facility] HEMATOLOGY Lymphocytes 26.8 % 20.0 - 04/26 40.0 [facility] HEMATOLOGY MPV 9.1 fL 7.4 - 10.4 04/26 [facility] HEMATOLOGY Hct 37.8 % 42.0 - 04/26 [facility] 54.0 [facility] HEMATOLOGY MCV 88.8 fL 80.0 - 04/26 94.0 [facility] HEMATOLOGY MCHC 33.5 g/dL 32.0 - 04/26 [facility] 36.0 [facility] HEMATOLOGY MCH 29.7 pg 27.0 - 04/26 [facility] 31.0 [facility] HEMATOLOGY RDW 13.0 % 11.5 - 04/26 [facility] 14.5 [facility] HEMATOLOGY Platelet 903 K/CMM 133 - 450 04/[address] [place] [address] HEMATOLOGY WBC 10.1 K/CMM 3.7 - 10.4 04/[address] [place] [address] HEMATOLOGY RBC 4.26 M/CMM 4.70 - 04/26 [place] 6.10 [facility] HEMATOLOGY Hgb 12.7 g/dL 14.0 - 04/26 [facility] 18.0 [facility] HEMATOLOGY Basophils # 0.1 K/CMM 0.0 - 0.2 04/24 [facility] [address] [place] [address] CHEM PANEL Globulin 3.8 g/dL 2.7 - 4.2 04/23 [facility] [address] [place] [address] CHEM PANEL B/C Ratio 10 6 - 25 04/[address] CHEM PANEL A/G Ratio 0.7 0.7 - 1.6 04/[address] [place] [address] CHEM PANEL Alk Phos 149 unit/L 39 - 136 04/[address] CHEM PANEL AST 16 unit/L 0 - 37 04/[address] CHEM PANEL Bili Total 0.6 mg/dL 0.2 - 1.3 04/23 [facility] [address] [place] [address] CHEM PANEL Albumin Lvl 2.8 g/dL 3.5 - 5.0 04/[address] CHEM PANEL ALT 16 unit/L 0 - 65 04/[address] CHEM PANEL Total Protein 6.6 g/dL 6.4 - 8.4 04/[address] BLOOD BANK Antibody Scrn Negative 04/21 [facility] Medical (04/21/17 8:14 AM) [place] BLOOD BANK ABO/Rh O POS 04/21 [facility] Calcaneus Calcaneus EXAM: XR CALCANEUS 2 VIEWS 04/21 - [facility] series DX series - [facility] This report was dictated by a Transportation Escort/Fellow. I have personally reviewed the images as Center well as the Resident's interpretation and agree with the findings. DATE: 04/21/2017 9:50 AM MEDICATION TECH Read by: Faby Murcia MD Resident: Faby Murcia MD Dictated Date/time: 04/21/17 14:44 Electronically Signed by: Curtis Perez MD 04/21/17 17:03 FINAL REPORT INDICATION: Post Op Alignment - Post Op Alignment COMPARISON: 04/11/2017 right foot radiograph. TECHNIQUE: Axial and lateral radiographs of the calcaneus FINDINGS: The patient is status post internal fixation of the comminuted joint-depression type calcaneal fracture with intra-articular extension. Hardware projects in satisfactory alignment. A Kirschne r wire transfixes the comminuted displaced fracturs through the 1st metatarsal with improved alignment of fracture fragments. No new acute fracture or malalignment is identified. Surrounding soft tissue swelling is present. IMPRESSION 1. Interval fixation of comminuted joint depression type calcaneal fracture.. Satisfactory appearance of the hardware. 2. Interval fixation of the comminuted fracture through the 1st metatarsal , with improved alignment of fracture fragments. CHEM PANEL Vitamin D, 17.9 ng/mL 30.0 - 04/17 [facility] 25-OH, Total 100.0 [facility] HEMATOLOGY RBC Morph Normal 04/14 [facility] (04/14/17 4:45 AM) [place] HEMATOLOGY Plt Morph Normal 04/14 [facility] (04/14/17 4:45 AM) [place] HEMATOLOGY PTT 35.6 s 22.9 - 04/13 [place] 35.8 /2016 [facility] HEMATOLOGY PT 14.0 s 12.0 - 04/13 [facility] 14.7 [facility] HEMATOLOGY INR 1.08 0.85 - 04/13 [facility] 1. [facility] SPECIAL Hgb A1C 11.0 % <=5.6 % 04/13 [facility] CHEMISTRY [facility] Wrist Wrist EXAM: XR WRIST 3 VIEWS 04/13 - [facility] complete DX complete DX /2016 - [facility] DATE: 04/13/2017 8:50 AM MEDICATION TECH Read by: Hernan Smith MD Dictated Date/time: 04/13/17 15:00 Electronically Signed by: Hernan Smith MD 04/13/17 15:02 FINAL REPORT INDICATION: Right distal radius fracture post splint placement COMPARISON: Right wrist series 04/12/2017 TECHNIQUE: PA, lateral and oblique radiographs of the wrist Laterality: Right FINDINGS: Slightly improved alignment of the minimally displaced comminuted intra-articular distal radius fracture post closed reduction and splinting. Minimal step-off of the articular surface. Neutral tilt of the distal radius articular surface. Unchanged displaced dorsal triquetral avulsion fracture. Wrist soft tissue swelling. IMPRESSION: 1. Slight improved alignment of minimally displaced intra-articular distal radius fracture post closed reduction and splinting. 2. Unchanged dorsal triquetral avulsion fracture. URINE AND UA Turbidity Clear Clear 04/12 [facility] [address] [place] [address] (04/12/17 3:33 PM) [place] URINE AND UA pH 6.0 5.0 - 8.0 04/[address] URINE AND UA Protein 30 mg/dL Negative 04/12 [facility] mg/dL /[address] [place] [address] URINE AND UA Glucose >=1000 Negative 04/12 [facility] mg/dL mg/dL [facility] URINE AND UA Spec Grav 1.029 <=1.030 04/[address] URINE AND UA Ketones 20 mg/dL Negative 04/12 [facility] mg/dL [address] [place] [address] URINE AND UA Bili Negative Negative 04/12 [facility] [address] [place] [address] *NA* [place] (04/12/17 3:33 PM) URINE AND UA Nitrite Negative Negative 04/12 [facility] [address] [place] [address] (04/12/17 3:33 PM) [place] URINE AND UA Leuk Est Negative Negative 04/12 [facility] [address] [place] [address] (04/12/17 3:33 PM) [place] URINE AND UA Color Yellow Yellow 04/12 [facility] [address] [place] [address] *NA* [place] (04/12/17 3:33 PM) URINE AND UA Blood Negative Negative 04/12 [facility] [address] [place] [address] (04/12/17 3:33 PM) [place] URINE AND UA <=1.0 0.1 - 1.0 04/12 [facility] Urobilinogen mg/dL /2016 [facility] URINE AND UA Sq Epi None Seen 04/12 [facility] STOOL [facility] URINE AND UA WBC 5 /HPF 0 - 5 04/12 [facility] STOOL [facility] URINE AND UA RBC 1 /HPF 0 - 2 04/12 [facility] URINE AND UA Mucus Few /LPF None Seen 04/12 [facility] STOOL /LPF /2016 [facility] BLOOD BANK ABO/Rh O POS 04/12 [facility] RESULTS [facility] BLOOD BANK Antibody Scrn Negative 04/12 [facility] RESULTS Medical (04/12/17 4:29 AM) Center Tibia Tibia fibula EXAM: XR LEFT TIBIA-FIBULA 2 VIEWS 04/12 - [facility] fibula series - Medical series DX EXAM: XR LEFT ANKLE 3 VIEWS This report was dictated by a Transportation Escort/Fellow. I have personally reviewed the images as Center well as the Resident's interpretation and agree with the findings. Read by: Mendoza Nieto MD Resident: Mendoza Nieto MD Dictated Date/time: 04/12/17 06:28 DATE: 04/12/2017 2:02 AM CDT Electronically Signed by: Randolph Hutchinson 04/12/17 07:23 FINAL REPORT INDICATION: - fall COMPARISON: Knee radiograph dated 04/11/2017. TECHNIQUE: 2 views of the tibia-fibula, 3 views of the ankle FINDINGS: The leg binders somewhat limits evaluation. Tibia-fibula: Redemonstration of a lateral tibial plateau fracture. Comminuted fractures of the fibular head. Knee joint lipohemarthrosis. Ankle: No acute fracture or malalignment is identified. The ankle mortise is congruent. Soft tissues: Mild soft tissue swelling about the knee. IMPRESSION: 1. Interval splinting. 2. Redemonstration of comminuted minimally displaced fibular head and lateral tibial plateau fractures. [place] SECTION: ER Ankle 3 Ankle 3 views EXAM: XR LEFT TIBIA-FIBULA 2 VIEWS 04/12 - [facility] views DX DX - Medical EXAM: XR LEFT ANKLE 3 VIEWS This report was dictated by a Transportation Escort/Fellow. I have personally reviewed the images as Center well as the Resident's interpretation and agree with the findings. Read by: Mendoza Nieto MD Resident: Mendoza Nieto MD Dictated Date/time: 04/12/17 06:28 DATE: 04/12/2017 2:02 AM CDT Electronically Signed by: Randolph Hutchinson 04/12/17 07:23 FINAL REPORT INDICATION: - fall COMPARISON: Knee radiograph dated 04/11/2017. TECHNIQUE: 2 views of the tibia-fibula, 3 views of the ankle FINDINGS: The leg binders somewhat limits evaluation. Tibia-fibula: Redemonstration of a lateral tibial plateau fracture. Comminuted fractures of the fibular head. Knee joint lipohemarthrosis. Ankle: No acute fracture or malalignment is identified. The ankle mortise is congruent. Soft tissues: Mild soft tissue swelling about the knee. IMPRESSION: 1. Interval splinting. 2. Redemonstration of comminuted minimally displaced fibular head and lateral tibial plateau fractures. [place] SECTION: ER Knee wo Knee wo EXAM: CT LEFT KNEE WITHOUT CONTRAST 04/12 - [facility] contrast CT contrast CT /2016 - [facility] DATE: 04/12/2017 1:33 AM CDT Read by: Hernan Smith MD Dictated Date/time: 04/12/17 08:27 Electronically Signed by: Hernan Smith MD 04/12/17 08:32 FINAL REPORT INDICATION: Left tibial plateau fracture. COMPARISON: Left knee series 04/11/2017 TECHNIQUE: Noncontrast helical CT imaging of the left knee with multiplanar formats. Additional 3-D volume rendered images were obtained on scanner workstation. DLP: 185 mGy*cm DISCUSSION: There is nondisplaced impacted fracture of the lateral tibial plateau. Hairline coronal and sagittal fracture lines through the articular surface of the lateral tibial plateau. Minimally displaced commi nution of the fibular head with minimal widening of the proximal tibiofibular joint. No fracture of the patella or distal femur identified. Moderate lipohemarthrosis. Mild knee soft tissue swelling. IMPRESSION: 1. Nondisplaced impacted fracture of the lateral tibial plateau. 2. Minimally displaced comminution of the fibular head. 3. Moderate lipohemarthrosis. Foot wo Foot wo EXAM: CT RIGHT FOOT WITHOUT CONTRAST 04/12 [facility] contrast CT contrast CT /2016 [facility] DATE: 04/11/2017 11:26 PM CDT Read by: Hernan Smith MD Dictated Date/time: 04/12/17 08:37 Electronically Signed by: Hernan Smith MD 04/12/17 08:55 FINAL REPORT INDICATION: Right foot pain and fracture COMPARISON: Right foot radiographs 04/11/2017 TECHNIQUE: Noncontrast helical CT imaging of the right foot with multiplanar reformats. Additional 3-D volume rendered images were obtained on the scanner workstation. DLP: 186 mGy*cm DISCUSSION: Distal Leg: Distal tibia is intact. There is small bony avulsion of the fibular attachment of the superior peroneal retinaculum with minimal subluxation of the peroneal tendons. Hindfoot: The talus is intact. There is comminuted joint depression type calcaneal fracture. Fracture extends along the lateral and posterior margin of the posterior facet with the entire posterior fac et being attached to the constant fragment. No malalignment of the subtalar joint. No tongue-type component to the fracture. There is comminution of the cuboid facet with up to 6 mm depression. Midfoot: Tiny nondisplaced avulsion fracture of the navicular tubercle at the posterior tibial insertion. Tiny avulsed bone fragments at the plantar aspect of the navicular. Minimally displaced transve rse fracture to the dorsal aspect of the lateral cuneiform. LisFranc Joint: Comminuted minimally displaced first metatarsal base fracture. No malalignment of the first TMT joint. There is approximately 25 degrees plantar and medial angulation at the proximal met aphysis of the first metatarsal. Comminuted minimally displaced intra- articular second metatarsal base fracture with mild widening along the dorsal aspect second TMT joint. No fracture or malalignment of the third-fifth TMT joints. Footfoot: Completely displaced fracture through the second metatarsal neck with the metatarsal head displaced dorsal and laterally with 1 cm overriding of fracture fragments. There are minimally displac ed fractures of the fourth and fifth metatarsal necks. Minimally displaced comminuted intra-articular fracture of the first proximal phalanx head. Soft tissue: Diffuse soft tissue swelling of the ankle and hindfoot. No focal hematoma identified. IMPRESSION: 1. Comminuted joint depression type calcaneal fracture with intact posterior facet attached the constant fragment. Comminution and 6 mm depression of the cuboid facet. 2. Comminuted, intra-articular fractures of the first and second metatarsal bases. Minimal widening of the dorsal aspect of the second TMT joint. Otherwise normal alignment of the Lisfranc joint. 3. Extra-articular transverse fracture through the dorsal aspect of the lateral cuneiform. 4. Small bony avulsion of the fibular attachment of the superior peroneal retinaculum with minimal subluxation of the peroneal tendons. 5. Fracture of the second-fourth metatarsal necks. There is complete dorsal and lateral displacement of the second metatarsal head. 6. Minimally displaced comminuted intra-articular fracture of the first proximal phalanx head. 7. Tiny nondisplaced avulsion fracture of the navicular tubercle at the posterior tibial insertion. Tiny avulsed bone fragments at the plantar aspect of the navicular. Wrist Wrist EXAM: XR RIGHT WRIST 3 VIEWS 04/12 - [facility] complete DX complete DX - Medical This report was dictated by a Transportation Escort/Fellow. I have personally reviewed the images as Center well as the Resident's interpretation and agree with the findings. DATE: 04/12/2017 12:04 AM CDT Read by: Mendoza Nieto MD Resident: Mendoza Nieto MD Dictated Date/time: 04/12/17 04:18 Electronically Signed by: Randolph Hutchinson 04/12/17 06:54 FINAL REPORT INDICATION: - fall COMPARISON: Forearm radiograph from same day TECHNIQUE: PA, lateral and oblique radiographs of the wrist. FINDINGS: Comminuted, minimally displaced distal radial intra-articular fracture, with a sagittally oriented fracture line extending proximally into the distal radial metadiaphysis. Mildly displaced fracture of the triquetrum. Mild soft tissue swelling about the wrist. IMPRESSION: 1. Comminuted, minimally displaced distal radial intra-articular fracture , with a sagittally oriented fracture line extending proximally into the distal radial metadiaphysis. 2. Mildly displaced fracture of the triquetrum. [place] SECTION: ER Ankle 3 Ankle 3 views EXAM: XR RIGHT ANKLE 3 VIEWS 04/11 - [place] views DX DX - Medical EXAM: XR RIGHT FOOT 3 VIEWS This report was dictated by a Transportation Escort/Fellow. I have personally reviewed the images as Center well as the Resident's interpretation and agree with the findings. Read by: Mendoza Nieto MD Resident: Mendoza Nieto MD Dictated Date/time: 04/11/17 22:05 DATE: 04/11/2017 9:06 PM CDT Electronically Signed by: Kemar Rodriguez MD 04/12/17 01:10 FINAL REPORT INDICATION: - fell from ladder, lisfranc, malleolar fx? COMPARISON: None. TECHNIQUE: 3 views of the ankle, 3 views of the foot. FINDINGS: Overlying splint material limits fine bony and soft tissue evaluation. No definite ankle fractures noted. Comminuted joint depression type calcaneal fracture present with intra- articular involvement at the calcaneocuboid and subtalar joints. Comminuted fracture of the first metatarsal proximally, with questionable intra-articular extension. Comminuted and displaced fractures of the second through fourth metatarsal heads with probable intra-articular involvement. Possible comminuted intra-articular fracture of the fifth digit proximal phalanx distally. Questionable fracture through the second digit proximal phalanx base. Questionable fracture through the first digit proximal phalanx distal shaft. IMPRESSION: Comminuted joint depression type calcaneal fracture with intra-articular involvement at the calcaneocuboid and subtalar joints. Comminuted fracture of the first metatarsal proximally with questionable intra-articular extension. Comminuted and displaced fractures of the 2nd-4th metatarsal heads with probable intra-articular involvement. Possible intra-articular fracture of the fifth digit proximal phalanx distally. Questionable fracture through the second digit proximal phalanx base. Questionable fracture through the first digit proximal phalanx distal shaft. Elbow 3 Elbow 3 views EXAM: XR RIGHT FOREARM 2 VIEWS 04/11 - [facility] views DX - Medical EXAM: XR RIGHT ELBOW 3 VIEWS This report was dictated by a Transportation Escort/Fellow. I have personally reviewed the images as Center well as the Resident's interpretation and agree with the findings. Read by: Saad Esquivel MD Resident: Saad Esquivel MD Dictated Date/time: 04/11/17 22:10 DATE: 04/11/2017 9:06 PM CDT Electronically Signed by: Kemar Rodriguez MD 04/12/17 01:29 FINAL REPORT INDICATION: - radius fx COMPARISON: None. TECHNIQUE: 2 views of the forearm, 3 views of the elbow [place] SECTION: ER FINDINGS: Overlying splint decreases bone and soft tissue visibility. Forearm: Minimally displaced longitudinal distal radial metadiaphyseal intra- articular fracture present. Minimally displaced triquetral fracture on the dorsum of the wrist. Elbow: No acute fracture or malalignment is identified. No elbow joint effusion is present. Soft tissues: Soft tissue evaluation is obscured by overlying splint material. IMPRESSION: Minimally displaced longitudinal fracture of the distal radial metadiaphysis. Minimally displaced triquetral fracture on the dorsum of the wrist. Knee 3 Knee 3 views EXAM: XR LEFT KNEE 3 VIEWS 04/11 - [place] views DX DX - Medical This report was dictated by a Transportation Escort/Fellow. I have personally reviewed the images as Center well as the Resident's interpretation and agree with the findings. DATE: 04/11/2017 9:06 PM CDT Read by: Mendoza Nieto MD Resident: Mendoza Nieto MD Dictated Date/time: 04/11/17 22:14 Electronically Signed by: Kemar Rodriguez MD 04/12/17 01:19 FINAL REPORT INDICATION: - left knee tender COMPARISON: None. TECHNIQUE: 3 views of the knee FINDINGS: Nondisplaced fracture of the lateral tibial plateau noted. Minimally displaced fracture through the fibular head. Joint alignment is normal. Large lipohemarthrosis present. Mild soft tissue swelling about the lateral aspect of the knee. IMPRESSION: Nondisplaced fracture of the lateral tibial plateau. Minimally displaced fracture of the fibular head. Large lipohemarthrosis of the knee. Foot series Foot series EXAM: XR RIGHT ANKLE 3 VIEWS 04/11 - [place] DX DX - Medical EXAM: XR RIGHT FOOT 3 VIEWS This report was dictated by a Transportation Escort/Fellow. I have personally reviewed the images as Center well as the Resident's interpretation and agree with the findings. Read by: Mendoza Nieto MD Resident: Mendoza Nieto MD Dictated Date/time: 04/11/17 22:05 DATE: 04/11/2017 9:06 PM CDT Electronically Signed by: Kemar Rodriguez MD 04/12/17 01:10 FINAL REPORT INDICATION: - fell from ladder, lisfranc, malleolar fx? COMPARISON: None. TECHNIQUE: 3 views of the ankle, 3 views of the foot. FINDINGS: Overlying splint material limits fine bony and soft tissue evaluation. No definite ankle fractures noted. Comminuted joint depression type calcaneal fracture present with intra- articular involvement at the calcaneocuboid and subtalar joints. Comminuted fracture of the first metatarsal proximally, with questionable intra-articular extension. Comminuted and displaced fractures of the second through fourth metatarsal heads with probable intra-articular involvement. Possible comminuted intra-articular fracture of the fifth digit proximal phalanx distally. Questionable fracture through the second digit proximal phalanx base. Questionable fracture through the first digit proximal phalanx distal shaft. IMPRESSION: Comminuted joint depression type calcaneal fracture with intra-articular involvement at the calcaneocuboid and subtalar joints. Comminuted fracture of the first metatarsal proximally with questionable intra-articular extension. Comminuted and displaced fractures of the 2nd-4th metatarsal heads with probable intra-articular involvement. Possible intra-articular fracture of the fifth digit proximal phalanx distally. Questionable fracture through the second digit proximal phalanx base. Questionable fracture through the first digit proximal phalanx distal shaft. Forearm 2 Forearm 2 EXAM: XR RIGHT FOREARM 2 VIEWS 04/11 - [facility] views DX views - Medical EXAM: XR RIGHT ELBOW 3 VIEWS This report was dictated by a Transportation Escort/Fellow. I have personally reviewed the images as Center well as the Resident's interpretation and agree with the findings. Read by: Saad Esquivel MD Resident: Saad Esquivel MD Dictated Date/time: 04/11/17 22:10 DATE: 04/11/2017 9:06 PM CDT Electronically Signed by: Kemar Rodriguez MD 04/12/17 01:29 FINAL REPORT INDICATION: - radius fx COMPARISON: None. TECHNIQUE: 2 views of the forearm, 3 views of the elbow [place] SECTION: ER FINDINGS: Overlying splint decreases bone and soft tissue visibility. Forearm: Minimally displaced longitudinal distal radial metadiaphyseal intra- articular fracture present. Minimally displaced triquetral fracture on the dorsum of the wrist. Elbow: No acute fracture or malalignment is identified. No elbow joint effusion is present. Soft tissues: Soft tissue evaluation is obscured by overlying splint material. IMPRESSION: Minimally displaced longitudinal fracture of the distal radial metadiaphysis. Minimally displaced triquetral fracture on the dorsum of the wrist. Vital Signs Vital Sign Value Date Comments Source Systolic (mm Hg) 147 06/27/2017 SN[facility]: [facility] [place] Diastolic (mm Hg) 96 06/27/2017 SNF: [facility] Temperature Oral (F) 97.8 F 06/27/2017 [facility] Heart Rate 69 {beats}/min 06/27/2017 [facility]: [facility] [place] Respitory Rate 20 06/27/2017 SNF: [facility] [place] Systolic (mm Hg) 118 06/27/2017 SNF: [facility] [place] Diastolic (mm Hg) 61 06/27/2017 [facility] Systolic (mm Hg) 124 06/26/2017 SNF: [facility] [place] Diastolic (mm Hg) 68 06/26/2017 SNF: [facility] [place] Systolic (mm Hg) 144 06/25/2017 [facility]: [facility] Diastolic (mm Hg) 81 06/25/2017 SN[facility]: [facility] Systolic (mm Hg) 114 06/24/2017 SN[facility]: [facility] Diastolic (mm Hg) 72 06/24/2017 SNF: [facility] Temperature Oral (F) 97.9 F 06/24/2017 SN[facility]: [facility] Heart Rate 69 {beats}/min 06/24/2017 SN[facility]: [facility] Respitory Rate 18 06/24/2017 SN[facility]: [facility] Systolic (mm Hg) 125 06/24/2017 [place] [facility] [place] Diastolic (mm Hg) 71 06/24/2017 [facility] Weight 207.2 06/23/2017 SNF: [facility] [place] Systolic (mm Hg) 142 06/23/2017 SNF: [facility] [place] Diastolic (mm Hg) 96 06/23/2017 SNF: [facility] [place] Systolic (mm Hg) 123 06/22/2017 SNF: [facility] [place] Diastolic (mm Hg) 79 06/22/2017 [facility] Temperature Oral (F) 97.6 F 06/22/2017 SNF: [facility] [place] Heart Rate 70 {beats}/min 06/22/2017 SNF: [facility] [place] Respitory Rate 20 06/22/2017 SNF: [facility] [place] Systolic (mm Hg) 114 06/22/2017 SNF: [facility] [place] Diastolic (mm Hg) 74 06/22/2017 SNF: [facility] [place] Systolic (mm Hg) 122 06/21/2017 SNF: [facility] [place] Diastolic (mm Hg) 80 06/21/2017 SNF: [facility] [place] Temperature Oral (F) 97.9 F 06/21/2017 SNF: [facility] [place] Heart Rate 77 {beats}/min 06/21/2017 SNF: [facility] [place] Respitory Rate 20 06/21/2017 SNF: [facility] [place] Systolic (mm Hg) 126 06/21/2017 SNF: [facility] [place] Diastolic (mm Hg) 88 06/21/2017 SNF: [facility] [place] Systolic (mm Hg) 126 06/20/2017 SNF: [facility] [place] Diastolic (mm Hg) 89 06/20/2017 SNF: [facility] [place] Systolic (mm Hg) 144 06/19/2017 SNF: [facility] [place] Diastolic (mm Hg) 95 06/19/2017 SNF: [facility] [place] Temperature Oral (F) 96.9 F 06/19/2017 SNF: [facility] [place] Heart Rate 75 {beats}/min 06/19/2017 SNF: [facility] [place] Respitory Rate 18 06/19/2017 SNF: [facility] [place] Systolic (mm Hg) 151 06/19/2017 SNF: [facility] [place] Diastolic (mm Hg) 99 06/19/2017 SNF: [facility] [place] Systolic (mm Hg) 133 06/18/2017 SNF: [facility] [place] Diastolic (mm Hg) 86 06/18/2017 SNF: [facility] [place] Systolic (mm Hg) 145 06/17/2017 SNF: [facility] [place] Diastolic (mm Hg) 87 06/17/2017 SNF: [facility] [place] Heart Rate 81 {beats}/min 06/17/2017 SNF: [facility] [place] Systolic (mm Hg) 112 06/16/2017 [facility] Diastolic (mm Hg) 70 06/16/2017 SNF: [facility] [place] Systolic (mm Hg) 114 06/15/2017 SNF: [facility] [place] Diastolic (mm Hg) 77 06/15/2017 SNF: [facility] Temperature Oral (F) 98 F 06/15/2017 SN[facility]: [facility] Heart Rate 68 {beats}/min 06/15/2017 SN[facility]: [facility] Respitory Rate 18 06/15/2017 SN[facility]: [facility] Systolic (mm Hg) 124 06/15/2017 SN[facility]: [facility] Diastolic (mm Hg) 77 06/15/2017 SNF: [facility] [place] Systolic (mm Hg) 131 06/14/2017 SN[facility]: [facility] Diastolic (mm Hg) 92 06/14/2017 SN[facility]: [facility] Systolic (mm Hg) 130 06/13/2017 SN[facility]: [facility] [place] Diastolic (mm Hg) 81 06/13/2017 SNF: [facility] Temperature Oral (F) 98.4 F 06/13/2017 SNF: [facility] [place] Heart Rate 111 {beats}/min 06/13/2017 [facility]: [facility] Respitory Rate 20 06/13/2017 SN[facility]: [facility] [place] Systolic (mm Hg) 153 06/13/2017 SN[facility]: [facility] [place] Diastolic (mm Hg) 77 06/13/2017 SN[facility]: [facility] Systolic (mm Hg) 137 06/12/2017 SN[facility]: [facility] Diastolic (mm Hg) 82 06/12/2017 SN[facility]: [facility] Systolic (mm Hg) 117 06/11/2017 SN[facility]: [facility] Diastolic (mm Hg) 70 06/11/2017 SNF: [facility] Temperature Oral (F) 97.2 F 06/11/2017 SNF: [facility] [place] Heart Rate 82 {beats}/min 06/11/2017 SN[facility]: [facility] Respitory Rate 18 06/11/2017 SN[facility]: [facility] Systolic (mm Hg) 123 06/11/2017 [facility] Diastolic (mm Hg) 70 06/11/2017 SNF: [facility] [place] Systolic (mm Hg) 135 06/10/2017 SNF: [facility] [place] Diastolic (mm Hg) 102 06/10/2017 [facility]: [facility] Temperature Oral (F) 97.6 F 06/10/2017 SNF: [facility] [place] Heart Rate 90 {beats}/min 06/10/2017 SNF: [facility] [place] Respitory Rate 18 06/10/2017 SNF: [facility] [place] Systolic (mm Hg) 124 06/10/2017 SNF: [facility] [place] Diastolic (mm Hg) 83 06/10/2017 SNF: [facility] [place] Systolic (mm Hg) 126 06/09/2017 SNF: [facility] [place] Diastolic (mm Hg) 86 06/09/2017 [facility]: [facility] Temperature Oral (F) 96.7 F 06/09/2017 SN[facility]: [facility] [place] Heart Rate 84 {beats}/min 06/09/2017 SNF: [facility] [place] Respitory Rate 20 06/09/2017 SNF: [facility] [place] Systolic (mm Hg) 132 06/09/2017 SNF: [facility] [place] Diastolic (mm Hg) 74 06/09/2017 [facility] Systolic (mm Hg) 124 06/08/2017 SN[facility]: [facility] Diastolic (mm Hg) 83 06/08/2017 [facility]: [facility] Temperature Oral (F) 96.5 F 06/08/2017 SN[facility]: [facility] [place] Heart Rate 93 {beats}/min 06/08/2017 SNF: [facility] [place] Respitory Rate 20 06/08/2017 SNF: [facility] [place] Systolic (mm Hg) 108 06/08/2017 SNF: [facility] [place] Diastolic (mm Hg) 81 06/08/2017 [facility] Systolic (mm Hg) 123 06/07/2017 SNF: [facility] [place] Diastolic (mm Hg) 82 06/07/2017 SNF: [facility] [place] Temperature Oral (F) 97 F 06/07/2017 SNF: [facility] [place] Heart Rate 74 {beats}/min 06/07/2017 SNF: [facility] [place] Respitory Rate 16 06/07/2017 SNF: [facility] [place] Systolic (mm Hg) 120 06/07/2017 SNF: [facility] [place] Diastolic (mm Hg) 74 06/07/2017 SNF: [facility] [place] Systolic (mm Hg) 118 06/06/2017 SNF: [facility] [place] Diastolic (mm Hg) 73 06/06/2017 SNF: [facility] [place] Temperature Oral (F) 97.7 F 06/06/2017 SNF: [facility] [place] Heart Rate 78 {beats}/min 06/06/2017 SNF: [facility] [place] Respitory Rate 18 06/06/2017 SNF: [facility] [place] Systolic (mm Hg) 135 06/06/2017 SNF: [facility] [place] Diastolic (mm Hg) 74 06/06/2017 SNF: [facility] [place] Systolic (mm Hg) 119 06/05/2017 SNF: [facility] [place] Diastolic (mm Hg) 75 06/05/2017 SNF: [facility] [place] Temperature Oral (F) 97.5 F 06/05/2017 SNF: [facility] [place] Heart Rate 76 {beats}/min 06/05/2017 SNF: [facility] [place] Respitory Rate 18 06/05/2017 SNF: [facility] [place] Systolic (mm Hg) 121 06/05/2017 SNF: [facility] [place] Diastolic (mm Hg) 67 06/05/2017 SNF: [facility] [place] Systolic (mm Hg) 135 06/04/2017 SNF: [facility] [place] Diastolic (mm Hg) 99 06/04/2017 SNF: [facility] [place] Systolic (mm Hg) 117 06/03/2017 SNF: [facility] [place] Diastolic (mm Hg) 78 06/03/2017 SNF: [facility] [place] Systolic (mm Hg) 118 06/02/2017 SNF: [facility] [place] Diastolic (mm Hg) 73 06/02/2017 SN[facility]: [facility] [place] Temperature Oral (F) 97.7 F 06/02/2017 SNF: [facility] [place] Heart Rate 69 {beats}/min 06/02/2017 [facility] [facility] [place] Respitory Rate 18 06/02/2017 SNF: [facility] [place] Systolic (mm Hg) 146 06/02/2017 SNF: [facility] [place] Diastolic (mm Hg) 63 06/02/2017 SNF: [facility] [place] Systolic (mm Hg) 139 06/01/2017 SNF: [facility] [place] Diastolic (mm Hg) 94 06/01/2017 SNF: [facility] [place] Temperature Oral (F) 98.4 F 06/01/2017 [facility] Heart Rate 83 {beats}/min 06/01/2017 [facility] 18 06/01/2017 SN[facility]: [facility] [place] Systolic (mm Hg) 124 06/01/2017 [facility] Diastolic (mm Hg) 76 06/01/2017 [facility] Temperature Oral (F) 98.9 F 06/01/2017 [facility] Heart Rate 85 {beats}/min 06/01/2017 [facility] Resp[facility] Rate 18 06/01/2017 SNF: [facility] [place] Systolic (mm Hg) 117 06/01/2017 SNF: [facility] [place] Diastolic (mm Hg) 67 06/01/2017 [facility] Systolic (mm Hg) 117 05/31/2017 SN[facility] [facility] [place] Diastolic (mm Hg) 73 05/31/2017 [facility] Temperature Oral (F) 97.6 F 05/31/2017 [facility] Heart Rate 79 {beats}/min 05/31/2017 SNF: [facility] - [place] Respitory Rate 18 05/31/2017 SNF: [facility] [place] Systolic (mm Hg) 141 05/31/2017 SNF: [facility] [place] Diastolic (mm Hg) 78 05/31/2017 SNF: [facility] [place] Systolic (mm Hg) 135 05/30/2017 SNF: [facility] [place] Diastolic (mm Hg) 95 05/30/2017 SNF: [facility] [place] Temperature Oral (F) 98.2 F 05/30/2017 SNF: [facility] [place] Heart Rate 85 {beats}/min 05/30/2017 SNF: [facility] [place] Respitory Rate 18 05/30/2017 SNF: [facility] [place] Systolic (mm Hg) 135 05/30/2017 SNF: [facility] [place] Diastolic (mm Hg) 95 05/30/2017 SNF: [facility] [place] Systolic (mm Hg) 119 05/29/2017 SNF: [facility] [place] Diastolic (mm Hg) 86 05/29/2017 SNF: [facility] - [place] Temperature Oral (F) 97.7 F 05/29/2017 [facility] Heart Rate 96 {beats}/min 05/29/2017 SNF: [facility] - [place] Respitory Rate 20 05/29/2017 SNF: [facility] [place] Systolic (mm Hg) 147 05/29/2017 SNF: [facility] [place] Diastolic (mm Hg) 84 05/29/2017 SNF: [facility] [place] Systolic (mm Hg) 129 05/28/2017 SNF: [facility] [place] Diastolic (mm Hg) 67 05/28/2017 [facility] Temperature Oral (F) 98.2 F 05/28/2017 [facility] Heart Rate 90 {beats}/min 05/28/2017 SNF: [facility] - [place] Respitory Rate 22 05/28/2017 SNF: [facility] [place] Systolic (mm Hg) 140 05/28/2017 SNF: [facility] [place] Diastolic (mm Hg) 96 05/28/2017 SNF: [facility] [place] Systolic (mm Hg) 134 05/27/2017 SNF: [facility] [place] Diastolic (mm Hg) 93 05/27/2017 SNF: [facility] - [place] Temperature Oral (F) 97.4 F 05/27/2017 [facility] Heart Rate 88 {beats}/min 05/27/2017 [facility] Respitory Rate 19 05/27/2017 [facility] Systolic (mm Hg) 128 05/27/2017 [facility] Diastolic (mm Hg) 98 05/27/2017 [facility] Systolic (mm Hg) 101 05/26/2017 [facility] Diastolic (mm Hg) 55 05/26/2017 [facility] Temperature Oral (F) 97.4 F 05/26/2017 [facility] Heart Rate 82 {beats}/min 05/26/2017 [facility] Resp[facility] Rate 18 05/26/2017 SN[facility]: [facility] Systolic (mm Hg) 131 05/26/2017 SNF: [facility] Diastolic (mm Hg) 93 05/26/2017 SN[facility]: [facility] Systolic (mm Hg) 122 05/25/2017 [facility] Diastolic (mm Hg) 80 05/25/2017 [facility] Temperature Oral (F) 98.8 F 05/25/2017 SN[facility]: [facility] Heart Rate 85 {beats}/min 05/25/2017 [facility] Resp[facility] Rate 18 05/25/2017 SN[facility]: [facility] Systolic (mm Hg) 121 05/25/2017 SN[facility]: [facility] Diastolic (mm Hg) 72 05/25/2017 SN[facility]: [facility] Systolic (mm Hg) 133 05/24/2017 [facility] Diastolic (mm Hg) 90 05/24/2017 [facility]: [facility] Temperature Oral (F) 98.3 F 05/24/2017 SN[facility]: [facility] Heart Rate 82 {beats}/min 05/24/2017 [facility] Resp[facility] Rate 18 05/24/2017 SNF: [facility] [place] Systolic (mm Hg) 152 05/24/2017 SNF: [facility] [place] Diastolic (mm Hg) 69 05/24/2017 SNF: [facility] [place] Systolic (mm Hg) 122 05/23/2017 SNF: [facility] [place] Diastolic (mm Hg) 73 05/23/2017 SNF: [facility] [place] Temperature Oral (F) 97.4 F 05/23/2017 SNF: [facility] [place] Heart Rate 65 {beats}/min 05/23/2017 SNF: [facility] [place] Respitory Rate 18 05/23/2017 SNF: [facility] [place] Systolic (mm Hg) 125 05/23/2017 SNF: [facility] [place] Diastolic (mm Hg) 71 05/23/2017 SNF: [facility] [place] Systolic (mm Hg) 136 05/22/2017 SNF: [facility] [place] Diastolic (mm Hg) 82 05/22/2017 SNF: [facility] [place] Systolic (mm Hg) 134 05/21/2017 SNF: [facility] [place] Diastolic (mm Hg) 95 05/21/2017 SNF: [facility] [place] Systolic (mm Hg) 142 05/20/2017 SNF: [facility] [place] Diastolic (mm Hg) 90 05/20/2017 SNF: [facility] [place] Temperature Oral (F) 96.7 F 05/20/2017 SNF: [facility] [place] Heart Rate 95 {beats}/min 05/20/2017 SNF: [facility] [place] Respitory Rate 16 05/20/2017 SNF: [facility] [place] Systolic (mm Hg) 106 05/20/2017 SNF: [facility] [place] Diastolic (mm Hg) 74 05/20/2017 SNF: [facility] [place] Temperature Oral (F) 98.4 F 05/19/2017 SNF: [facility] [place] Heart Rate 116 {beats}/min 05/19/2017 SNF: [facility] [place] Respitory Rate 16 05/19/2017 SNF: [facility] [place] Systolic (mm Hg) 128 05/19/2017 SNF: [facility] [place] Diastolic (mm Hg) 91 05/19/2017 SNF: [facility] [place] Temperature Oral (F) 98.4 F 05/19/2017 SNF: [facility] [place] Heart Rate 78 {beats}/min 05/19/2017 SNF: [facility] [place] Respitory Rate 18 05/19/2017 SNF: [facility] [place] Systolic (mm Hg) 122 05/19/2017 SNF: [facility] [place] Diastolic (mm Hg) 74 05/19/2017 SNF: [facility] [place] Systolic (mm Hg) 139 05/18/2017 SNF: [facility] [place] Diastolic (mm Hg) 90 05/18/2017 SNF: [facility] [place] Temperature Oral (F) 97.3 F 05/18/2017 SNF: [facility] [place] Heart Rate 80 {beats}/min 05/18/2017 SNF: [facility] [place] Respitory Rate 18 05/18/2017 SNF: [facility] [place] Systolic (mm Hg) 126 05/18/2017 SNF: [facility] [place] Diastolic (mm Hg) 74 05/18/2017 SNF: [facility] [place] Systolic (mm Hg) 116 05/17/2017 SNF: [facility] [place] Diastolic (mm Hg) 69 05/17/2017 SNF: [facility] [place] Temperature Oral (F) 97 F 05/17/2017 SNF: [facility] [place] Heart Rate 82 {beats}/min 05/17/2017 SNF: [facility] [place] Respitory Rate 18 05/17/2017 SNF: [facility] [place] Systolic (mm Hg) 129 05/17/2017 SNF: [facility] [place] Diastolic (mm Hg) 69 05/17/2017 SNF: [facility] [place] Systolic (mm Hg) 116 05/16/2017 SNF: [facility] [place] Diastolic (mm Hg) 77 05/16/2017 SNF: [facility] [place] Heart Rate 79 {beats}/min 05/16/2017 SNF: [facility] [place] Systolic (mm Hg) 145 05/16/2017 SNF: [facility] [place] Diastolic (mm Hg) 102 05/16/2017 SNF: [facility] [place] Systolic (mm Hg) 145 05/15/2017 SNF: [facility] [place] Diastolic (mm Hg) 95 05/15/2017 SNF: [facility] [place] Systolic (mm Hg) 135 05/14/2017 SNF: [facility] [place] Diastolic (mm Hg) 84 05/14/2017 SNF: [facility] [place] Systolic (mm Hg) 130 05/13/2017 SNF: [facility] [place] Diastolic (mm Hg) 96 05/13/2017 [facility] Heart Rate 86 {beats}/min 05/13/2017 SNF: [facility] [place] Temperature Oral (F) 98.4 F 05/13/2017 SNF: [facility] [place] Heart Rate 73 {beats}/min 05/13/2017 SNF: [facility] [place] Respitory Rate 20 05/13/2017 SNF: [facility] [place] Systolic (mm Hg) 120 05/13/2017 SNF: [facility] [place] Diastolic (mm Hg) 69 05/13/2017 SNF: [facility] [place] Systolic (mm Hg) 127 05/12/2017 SNF: [facility] [place] Diastolic (mm Hg) 78 05/12/2017 [facility] Temperature Oral (F) 97.4 F 05/12/2017 SNF: [facility] [place] Heart Rate 59 {beats}/min 05/12/2017 SNF: [facility] [place] Respitory Rate 18 05/12/2017 SNF: [facility] [place] Systolic (mm Hg) 115 05/12/2017 [facility]: [facility] [place] Diastolic (mm Hg) 56 05/12/2017 [facility] Temperature Oral (F) 97 F 05/12/2017 [facility] Heart Rate 74 {beats}/min 05/12/2017 SNF: [facility] [place] Respitory Rate 20 05/12/2017 SNF: [facility] [place] Systolic (mm Hg) 117 05/12/2017 SNF: [facility] [place] Diastolic (mm Hg) 66 05/12/2017 SNF: [facility] [place] Systolic (mm Hg) 115 05/11/2017 SNF: [facility] [place] Diastolic (mm Hg) 84 05/11/2017 [facility] Temperature Oral (F) 97.6 F 05/11/2017 SNF: [facility] [place] Heart Rate 75 {beats}/min 05/11/2017 SNF: [facility] [place] Respitory Rate 18 05/11/2017 SNF: [facility] [place] Systolic (mm Hg) 122 05/11/2017 SNF: [facility] [place] Diastolic (mm Hg) 75 05/11/2017 SNF: [facility] [place] Temperature Oral (F) 97.6 F 05/11/2017 SNF: [facility] [place] Heart Rate 70 {beats}/min 05/11/2017 SNF: [facility] [place] Respitory Rate 20 05/11/2017 SNF: [facility] [place] Systolic (mm Hg) 121 05/11/2017 SNF: [facility] [place] Diastolic (mm Hg) 73 05/11/2017 SNF: [facility] [place] Systolic (mm Hg) 127 05/10/2017 SNF: [facility] [place] Diastolic (mm Hg) 83 05/10/2017 SNF: [facility] [place] Temperature Oral (F) 97.2 F 05/10/2017 SNF: [facility] [place] Heart Rate 76 {beats}/min 05/10/2017 SNF: [facility] [place] Respitory Rate 16 05/10/2017 SNF: [facility] [place] Systolic (mm Hg) 125 05/10/2017 SNF: [facility] [place] Diastolic (mm Hg) 76 05/10/2017 SNF: [facility] [place] Temperature Oral (F) 97.4 F 05/10/2017 SNF: [facility] [place] Heart Rate 74 {beats}/min 05/10/2017 SNF: [facility] [place] Respitory Rate 18 05/10/2017 SNF: [facility] [place] Systolic (mm Hg) 122 05/10/2017 SNF: [facility] [place] Diastolic (mm Hg) 74 05/10/2017 SNF: [facility] [place] Height 66 05/09/2017 SNF: [facility] [place] Weight 210.8 05/09/2017 SNF: [facility] [place] Systolic (mm Hg) 137 05/09/2017 SNF: [facility] [place] Diastolic (mm Hg) 96 05/09/2017 SNF: [facility] [place] Temperature Oral (F) 97.7 F 05/09/2017 SNF: [facility] [place] Heart Rate 67 {beats}/min 05/09/2017 SNF: [facility] [place] Respitory Rate 10 05/09/2017 SNF: [facility] [place] Systolic (mm Hg) 116 05/09/2017 SNF: [facility] [place] Diastolic (mm Hg) 71 05/09/2017 SNF: [facility] [place] Systolic (mm Hg) 127 05/08/2017 SNF: [facility] [place] Diastolic (mm Hg) 89 05/08/2017 SNF: [facility] [place] Systolic (mm Hg) 139 05/07/2017 SNF: [facility] [place] Diastolic (mm Hg) 80 05/07/2017 SNF: [facility] [place] Systolic (mm Hg) 125 05/05/2017 SNF: [facility] [place] Diastolic (mm Hg) 85 05/05/2017 SNF: [facility] [place] Heart Rate 80 {beats}/min 05/05/2017 SNF: [facility] [place] Systolic (mm Hg) 135 05/04/2017 SNF: [facility] [place] Diastolic (mm Hg) 93 05/04/2017 SNF: [facility] [place] Systolic (mm Hg) 123 05/03/2017 SNF: [facility] [place] Diastolic (mm Hg) 72 05/03/2017 SNF: [facility] [place] Temperature Oral (F) 98.9 F 05/02/2017 SNF: [facility] [place] Heart Rate 102 {beats}/min 05/02/2017 SNF: [facility] [place] Respitory Rate 20 05/02/2017 SNF: [facility] [place] Systolic (mm Hg) 115 05/02/2017 SNF: [facility] [place] Diastolic (mm Hg) 73 05/02/2017 SNF: [facility] [place] Systolic (mm Hg) 130 05/02/2017 SNF: [facility] [place] Diastolic (mm Hg) 98 05/02/2017 SNF: [facility] [place] Heart Rate 111 {beats}/min 05/02/2017 [facility] [facility] [place] Systolic (mm Hg) 136 05/01/2017 [facility]: [facility] [place] Diastolic (mm Hg) 84 05/01/2017 SN[facility]: [facility] [place] Systolic (mm Hg) 132 04/30/2017 SNF: [facility] [place] Diastolic (mm Hg) 89 04/30/2017 [facility]: [facility] [place] Temperature Oral (F) 97.5 F 04/30/2017 SN[facility]: [facility] [place] Heart Rate 77 {beats}/min 04/30/2017 SNF: [facility] [place] Respitory Rate 18 04/30/2017 SNF: [facility] [place] Systolic (mm Hg) 124 04/30/2017 SNF: [facility] [place] Diastolic (mm Hg) 77 04/30/2017 SNF: [facility] [place] Systolic (mm Hg) 128 04/29/2017 SNF: [facility] [place] Diastolic (mm Hg) 87 04/29/2017 [place] [facility] [place] Temperature Oral (F) 98.2 F 04/29/2017 [facility]: [facility] [place] Heart Rate 69 {beats}/min 04/29/2017 SNF: [facility] [place] Respitory Rate 22 04/29/2017 SNF: [facility] [place] Systolic (mm Hg) 147 04/29/2017 SNF: [facility] [place] Diastolic (mm Hg) 82 04/29/2017 [facility]: [facility] [place] Temperature Oral (F) 97.7 F 04/29/2017 SNF: [facility] [place] Respitory Rate 18 04/29/2017 SNF: [facility] [place] Heart Rate 77 {beats}/min 04/29/2017 SNF: [facility] [place] Systolic (mm Hg) 139 04/29/2017 SNF: [facility] [place] Diastolic (mm Hg) 75 04/29/2017 SNF: [facility] [place] Heart Rate 75 04/28/2017 [facility] Temperature Oral (F) 97.9 F 04/28/2017 [facility] Systolic (mm Hg) 133 04/28/2017 [facility] Diastolic (mm Hg) 82 04/28/2017 [facility] Respitory Rate 18 04/28/2017 [facility] Heart Rate 75 04/28/2017 [facility] Temperature Oral (F) 98.2 F 04/28/2017 [facility] Systolic (mm Hg) 124 04/28/2017 [facility] Diastolic (mm Hg) 76 04/28/2017 [facility] Respitory Rate 18 04/28/2017 [facility] Respitory Rate 18 04/28/2017 [facility] Temperature Oral (F) 98.6 F 04/28/2017 [facility] Systolic (mm Hg) 131 04/28/2017 [facility] Diastolic (mm Hg) 79 04/28/2017 [facility] Heart Rate 76 04/28/2017 [facility] Weight 109.091 04/12/2017 [facility] BMI Calculated 38.82 04/12/2017 [facility] Height 167.64 cm 04/12/2017 [facility] BMI Calculated 38.82 04/12/2017 [facility] Weight 109.091 04/12/2017 [facility] Height 167.64 cm 04/12/2017 [facility] Encounters Location Location Encounter Encounter Reason Attending ADM DC Status Source Details Type Number For Provider Date Date Visit OD [id number] - DAMON 01/27 Active [facility] /2011 [facility] Inpatient [id number] Nayana Cueva 04/12 04/28 [facility] /2016 [facility] Procedures Procedure Code Date Perfomer Comments Source Cholecystectomy [id number] [facility] Excision of pancreas [id number] [facility]
--- OUTSIDE RECORDS SUMMARY | 2018-07-17 14:48 | XMS REPORT | Summary of Care ---
:[address] [facility] Address [address] [place] [id number] Encounter HQ Anaidr_pa(FIN) [id number] Date(s): 04/11/17 - 04/28/[address] Professional Services provided by [facility] [place] [address]- Discharge Disposition: Longterm Facility Attending Physician: Steve Henley MD Admitting Physician: Nayana Cueva DO Vital Signs Most recent to oldest 1 2 3 [Reference Range]: Height 167.64 cm 167.64 cm (04/12/17 5:18 AM) (04/11/17 8:33 PM) Temperature Oral [96.4-99.1 97.9 DegF 98.2 DegF 98.6 DegF DegF] (04/28/17 4:10 PM) (04/28/17 12:19 PM) (04/28/17 8:10 AM) Blood Pressure 133/82 mmHg 124/76 mmHg 131/79 mmHg [90-140/60-90 mmHg] (04/28/17 4:10 PM) (04/28/17 12:19 PM) (04/28/17 8:10 AM ) Respiratory Rate [14-20 18 BRMIN 18 BRMIN 18 BRMIN BRMIN] (04/28/17 4:10 PM) (04/28/17 12:19 PM) (04/28/17 8:10 AM) Peripheral Pulse Rate 75 bpm 75 bpm 76 bpm [60-100 bpm] (04/28/17 4:10 PM) (04/28/17 12:19 PM) (04/28/17 8:10 AM) Weight 109.091 kg 109.091 kg (04/12/17 5:18 AM) (04/11/17 8:33 PM) Body Mass Index 38.82 m2 38.82 m2 (04/12/17 5:18 AM) (04/11/17 8:33 PM) Problem List Condition Effective Dates Status Health Status Informant Diabetes(Confirmed) Resolved 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 (Same as: Tylenol Extra Strength) Start Date: 04/12/17 Stop Date: 04/28/17 Status: Discontinuedacetaminophen (ANES) 10 mg Route: IV, Drug form: INJ, Start date: 04/21/17 12:40:00 OPERATIONS REPRESENTATIVE, Stop date: 13:40:00 OPERATIONS REPRESENTATIVE Start Date: 04/21/17 Stop Date: 04/21/17 Status: Completedacetaminophen 500 mg oral tablet 1,000 mg=2 tab, PO, Q6Hnow, 0 Refill(s) Start Date: 04/28/17 Status: OrderedAmbien 5 mg, 1 tab, Route: PO, Drug form: TAB, Bedtime, Dosing Weight 109.091, kg, PRN Insomnia, Start date: 04/27/17 10:18:00 OPERATIONS REPRESENTATIVE, Duration: 30 day, Stop date: 10:17:00 OPERATIONS REPRESENTATIVE Notes: (Same As: Ambien) Start Date: 04/27/17 Stop Date: 04/28/17 Status: DiscontinuedAmbien 5 mg, 1 tab, Route: PO, Drug form: TAB, Bedtime, Dosing Weight 109.091, kg, PRN Insomnia, Start date: 04/24/17 18:28:00 OPERATIONS REPRESENTATIVE, Duration: 30 day, Stop date: 18:27:00 OPERATIONS REPRESENTATIVE Notes: (Same As: Ambien) Start Date: 04/24/17 Stop Date: 04/28/17 Status: DiscontinuedANES esmolol 10 mg, 1 mL, Route: IVP, Drug form: INJ, Q5Min, Dosing Weight 109.091, kg, PRN Other -See Comment, Start date: 04/12/17 9:41:00 CDT, Duration: 5 doses or times , Stop date: Limited # of times Notes: (Same as: Brevibloc) Start Date: 04/12/17 Stop Date: 04/12/17 Status: DiscontinuedANES esmolol 10 mg, Route: IVP, Q5Min, Dosing Weight 109.091, kg, PRN Other -See Comment, Start date: 04/21/17 14:54:00 OPERATIONS REPRESENTATIVE, Duration: 5 doses or times, Stop date: Limited # of times Start Date: 04/21/17 Stop Date: 04/21/17 Status: DiscontinuedANES flumazenil 0.2 mg, 2 mL, Route: IVP, Drug form: INJ, PRN, Dosing Weight 109.091, kg, PRN Benzodiazepine Reversal, Initial dose, Start date: 04/12/17 9:41:00 CDT, Duration: 1 day, Stop date: 04/13/17 8:40:00 OPERATIONS REPRESENTATIVE Notes: (Same as: Romazicon) Start Date: 04/12/17 Stop Date: 04/12/17 Status: DiscontinuedANES flumazenil 0.2 mg, Route: IVP, PRN, Dosing Weight 109.091, kg, PRN Benzodiazepine Reversal , Initial dose, Startdate: 04/21/17 14:54:00 OPERATIONS REPRESENTATIVE, Duration: 30 day, Stop date: 05/21/17 14:53:00 OPERATIONS REPRESENTATIVE Start Date: 04/21/17 Stop Date: 04/21/17 Status: DiscontinuedANES hydrALAZINE 10 mg, 0.5 mL, Route: IVP, Drug form: INJ, Q20Min, Dosing Weight 109.091, kg, PRN Elevated BP, Startdate: 04/12/17 9:41:00 CDT, Duration: 2 doses or times, Stop date: Limited # of times Notes: (Same as: Apresoline)Push over 5 minutes Start Date: 04/12/17 Stop Date: 04/12/17 Status: DiscontinuedANES hydrALAZINE 10 mg, Route: IVP, Q20Min, Dosing Weight 109.091, kg, PRN Elevated BP, Start date: 04/21/17 14:54:00CST, Duration: 2 doses or times, Stop date: Limited # of times Start Date: 04/21/17 Stop Date: 04/21/17 Status: DiscontinuedANES HYDROmorphone 0.5 mg, 0.25 mL, Route: IVP, Drug form: INJ, Q5Min, Dosing Weight 109.091, kg, PRN Pain Score 7-10, Start date: 04/12/17 9:41:00 CDT, Duration: 4 doses or times, Stop date: Limited # of times Notes: (Same as: Dilaudid) Start Date: 04/12/17 Stop Date: 04/12/17 Status: DiscontinuedANES HYDROmorphone 0.5 mg, Route: IVP, Q5Min, Dosing Weight 109.091, kg, PRN Pain Score 7-10, Start date: 04/21/17 14:54:00 OPERATIONS REPRESENTATIVE, Duration: 4 doses or times, Stop date: Limited # of times Start Date: 04/21/17 Stop Date: 04/21/17 Status: DiscontinuedANES labetalol 10 mg, 2 mL, Route: IVP, Drug form: INJ, Q5Min, Dosing Weight 109.091, kg, PRN Elevated BP, Start date: 04/12/17 9:41:00 CDT, Duration: 5 doses or times, Stop date: Limited # of times Start Date: 04/12/17 Stop Date: 04/12/17 Status: DiscontinuedANES labetalol 10 mg, Route: IVP, Q5Min, Dosing Weight 109.091, kg, PRN Elevated BP, Start date : 04/21/17 14:54:00 OPERATIONS REPRESENTATIVE, Duration: 5 doses or times, Stop date: Limited # of times Start Date: 04/21/17 Stop Date: 04/21/17 Status: DiscontinuedANES meperidine 12.5 mg, Route: IVP, Q30Min, Dosing Weight 109.091, kg, PRN Other -See Comment, For shivering, Startdate: 04/21/17 14:54:00 OPERATIONS REPRESENTATIVE, Duration: 2 doses or times, Stop date: Limited # of times Start Date: 04/21/17 Stop Date: 04/21/17 Status: DiscontinuedANES metoprolol 1 mg, 1 mL, Route: IVP, Drug form: INJ, Q5Min, Dosing Weight 109.091, kg, PRN Other -See Comment, Start date: 04/12/17 9:41:00 CDT, Duration: 5 doses or times , Stop date: Limited # of times Notes: (Same as: Lopressor)Push over 2 minutes Start Date: 04/12/17 Stop Date: 04/12/17 Status: DiscontinuedANES metoprolol 1 mg, Route: IVP, Q5Min, Dosing Weight 109.091, kg, PRN Other -See Comment, Start date: 04/21/17 14:54:00 OPERATIONS REPRESENTATIVE, Duration: 5 doses or times, Stop date: Limited # of times Start Date: 04/21/17 Stop Date: 04/21/17 Status: DiscontinuedANES naloxone 0.4 mg, 1 mL, Route: IVP, Drug form: INJ, Q2MIN, Dosing Weight 109.091, kg, PRN Narcotic Reversal, Start date: 04/12/17 9:41:00 CDT, Duration: 8 doses or times , Stop date: Limited # of times Notes: (Same as: Narcan) Start Date: 04/12/17 Stop Date: 04/12/17 Status: DiscontinuedANES naloxone 0.4 mg, Route: IVP, Q2MIN, Dosing Weight 109.091, kg, PRN Narcotic Reversal, Start date: 04/21/17 14:54:00 OPERATIONS REPRESENTATIVE, Duration: 8 doses or times, Stop date: Limited # of times Start Date: 04/21/17 Stop Date: 04/21/17 Status: DiscontinuedANES ondansetron 4 mg, 2 mL, Route: IVP, Drug form: INJ, ONCE, Dosing Weight 109.091, kg, PRN Nausea & Vomiting, Start date: 04/12/17 9:41:00 CDT Notes: (Same as: Meri) MEDICATION WASTE Product Size: 4 mgProduct Wasted: ___ mg Start Date: 04/12/17 Stop Date: 04/12/17 Status: DiscontinuedANES ondansetron 4 mg, Route: IVP, ONCE, Dosing Weight 109.091, kg, PRN Nausea & Vomiting, Start date: 04/21/17 14:54:00 OPERATIONS REPRESENTATIVE Start Date: 04/21/17 Stop Date: 04/21/17 Status: DiscontinuedANES oxyCODONE 5 mg, 1 tab, Route: PO, Drug form: TAB, Q4H, Dosing Weight 109.091, kg, PRN Pain Score 4-6, Start date: 04/12/17 9:41:00 CDT, Duration: 1 day, Stop date: 9:40:00 OPERATIONS REPRESENTATIVE Notes: (Same as: Roxicodone) Start Date: 04/12/17 Stop Date: 04/12/17 Status: DiscontinuedANES oxyCODONE 5 mg, Route: PO, Drug form: TAB, Q4H, Dosing Weight 109.091, kg, PRN Pain Score 4-6, Start date: 04/21/17 14:54:00 OPERATIONS REPRESENTATIVE, Duration: 30 day, Stop date: 05/21/17 14 :53:00 OPERATIONS REPRESENTATIVE Start Date: 04/21/17 Stop Date: 04/21/17 Status: DiscontinuedANES promethazine 6.25 mg, Route: IVPB, ONCE, Dosing Weight 109.091, kg, PRN Nausea & Vomiting , Start date: 04/21/17 14:54:00 OPERATIONS REPRESENTATIVE Start Date: 04/21/17 Stop Date: 04/21/17 Status: DiscontinuedceFAZolin (ANES) Route: IV, Drug form: INJ, ONCE, Stop date: 04/12/17 9:20:00 CDT Start Date: 04/12/17 Stop Date: 04/12/17 Status: CompletedceFAZolin (ANES) Route: IV, Drug form: INJ, ONCE, Stop date: 04/21/17 11:55:00 OPERATIONS REPRESENTATIVE Start Date: 04/21/17 Stop Date: 04/21/17 Status: CompletedceFAZolin (SCIP) + sterile water 20 mL 2 gm, Route: IVP, ABXQ8H, Dosing Weight 109.091, kg, Start date: 04/21/17 20:00: 00 OPERATIONS REPRESENTATIVE, Duration: 3 doses or times, Stop date: 04/22/17 12:00:00 OPERATIONS REPRESENTATIVE, ABX Indication: Surgical Prophylaxis Notes: (Same As: Pritesh Xie) MEDICATION WASTE Product Size: 1000 mgProduct Wasted: ___ mg Start Date: 04/21/17 Stop Date: 04/22/17 Status: Completedcholecalciferol 50,000 IntlUnit, Route: PO, Drug form: TAB, qWeek, Dosing Weight 109.091, kg, Start date: 04/26/17 9:00:00 OPERATIONS REPRESENTATIVE, Duration: 30 day, Stop date: 05/26/17 8:59:00 OPERATIONS REPRESENTATIVE Start Date: 04/26/17 Stop Date: 04/26/17 Status: GyojpecH8M 1,000 mL 1,000 mL, Rate: 100 ml/hr, Infuse over: 10 hr, Route: IV, Dosing Weight 109.091 kg, Total Volume: 1,000, Start date: 04/21/17 7:18:00 OPERATIONS REPRESENTATIVE, Duration: 30 day, Stop date: 05/21/17 7:17:00 OPERATIONS REPRESENTATIVE, 2.29, m2 Start Date: 04/21/17 Stop Date: 04/21/17 Status: Discontinueddexamethasone (ANES) Route: IV, Drug form: INJ, ONCE, Stop date: 04/12/17 9:31:00 CDT Start Date: 04/12/17 Stop Date: 04/12/17 Status: Completeddexmedetomidine (ANES) (ANES) Route: IV, Drug form: INJ, Start date: 04/12/17 8:48:00 CDT, Stop date: 9:48:00 CDT Start Date: 04/12/17 Stop Date: 04/12/17 Status: CompletedDextrose 50% Syringe 25 gm, 50 mL, Route: IVP, Drug Form: INJ, Dosing Weight 109.091, kg, PRN, PRN Blood Glucose Results,Start date: 04/12/17 4:18:00 CDT, Duration: 30 day, Stop date: 05/12/17 3:17:00 OPERATIONS REPRESENTATIVE Start Date: 04/12/17 Stop Date: 04/28/17 Status: DiscontinuedDextrose 50% Syringe 12.5 gm, 25 mL, Route: IVP, Drug Form: INJ, Dosing Weight 109.091, kg, PRN, PRN Blood Glucose Results, Start date: 04/12/17 4:18:00 CDT, Duration: 30 day, Stop date: 05/12/17 3:17:00 OPERATIONS REPRESENTATIVE Start Date: 04/12/17 Stop Date: 04/28/17 Status: Discontinueddocusate 100 mg, 1 cap, Route: PO, Drug form: CAP, BID, Dosing Weight 109.091, kg, Start date: 04/12/17 9:00:00 CDT, Duration: 30 day, Stop date: 05/11/17 17:00:00 OPERATIONS REPRESENTATIVE Notes: (Same as: Colace) (Do Not Crush) Start Date: 04/12/17 Stop Date: 04/28/17 Status: Discontinueddocusate sodium 100 mg oral capsule 100 mg=1 cap, PO, BID, 0 Refill(s) Start Date: 04/28/17 Status: Orderedenoxaparin 30 mg=0.3 mL, SUB-Q, Q12H, 0 Refill(s) Start Date: 04/28/17 Status: Orderedenoxaparin 30 mg, 0.3 mL, Route: SUB-Q, Drug form: INJ, Q12H, Dosing Weight 109.091, kg, Start date: 04/12/17 9:00:00 CDT, Duration: 30 day, Stop date: 05/11/17 21:00: 00 OPERATIONS REPRESENTATIVE Notes: (Same as: Lovenox) Start Date: 04/12/17 Stop Date: 04/28/17 Status: Discontinuedfamotidine (ANES) Route: IV, Drug form: INJ, ONCE, Stop date: 04/21/17 14:35:00 OPERATIONS REPRESENTATIVE Start Date: 04/21/17 Stop Date: 04/21/17 Status: CompletedfentaNYL (ANES) Route: IV, Drug form: INJ, ONCE, Stop date: 04/12/17 9:31:00 CDT Start Date: 04/12/17 Stop Date: 04/12/17 Status: CompletedfentaNYL (ANES) Route: IV, Drug form: INJ, ONCE, Stop date: 04/21/17 12:15:00 OPERATIONS REPRESENTATIVE Start Date: 04/21/17 Stop Date: 04/21/17 Status: Completedgabapentin 300 mg, 1 cap, Route: PO, Drug form: CAP, Q8Hnow, Dosing Weight 109.091, kg, Start date: 04/12/17 5:00:00 CDT, Duration: 30 day, Stop date: 05/12/17 0:00:00 OPERATIONS REPRESENTATIVE Notes: (Same as: Neurontin) Start Date: 04/12/17 Stop Date: 04/28/17 Status: Discontinuedgabapentin 300 mg oral capsule 300 mg=1 cap, PO, Q8Hnow, 0 Refill(s) Start Date: 04/28/17 Status: Orderedglucagon 1 mg, Route: IM, Drug form: PDR/INJ, PRN, Dosing Weight 109.091, kg, PRN Blood Glucose Results, Start date: 04/12/17 4:18:00 CDT, Duration: 30 day, Stop date: 05/12/17 3:17:00 OPERATIONS REPRESENTATIVE Start Date: 04/12/17 Stop Date: 04/28/17 Status: Discontinuedglycopyrrolate (ANES) Route: IV, Drug form: INJ, ONCE, Stop date: 04/21/17 14:30:00 OPERATIONS REPRESENTATIVE Start Date: 04/21/17 Stop Date: 04/21/17 Status: Completedglycopyrrolate (ANES) Route: IV, Drug form: INJ, ONCE, Stop date: 04/12/17 9:31:00 CDT Start Date: 04/12/17 Stop Date: 04/12/17 Status: Completedhydromorphone (ANES) Route: IV, Drug form: INJ, ONCE, Stop date: 04/21/17 12:20:00 OPERATIONS REPRESENTATIVE Start Date: 04/21/17 Stop Date: 04/21/17 Status: Completedinsulin glargine 27 unit, 0.27 mL, Route: SUB-Q, Drug form: SOLN, Daily, Start date: 04/12/17 15: 00:00 CDT, Stop date: 05/12/17 9:00:00 OPERATIONS REPRESENTATIVE Notes: Same as: Lantus)Do not hold insulin without contacting prescriberWASTE: F /P - Black; E - Municipal Trash Bin Start Date: 04/12/17 Stop Date: 04/28/17 Status: Discontinuedinsulin glargine 100 units/mL subcutaneous solution 27 unit, SUB-Q, Daily, 0 Refill(s) Start Date: 04/28/17 Status: Orderedinsulin lispro 2 unit, 0.02 mL, Route: SUB-Q, Drug form: SOLN, Bedtime, Dosing Weight 109.091, kg, PRN Blood Glucose Results, Start date: 04/12/17 4:18:00 CDT, Duration: 30 day, Stop date: 05/12/17 4:17:00 OPERATIONS REPRESENTATIVE Notes: (Same as: Humalog ) Roll in palms of hands gently; Do not shake ` vigorously. "Single PatientUse Only " (Restricted to patients requiring a dose > 60 units)WASTE: F/P - Black; E - Municipal Trash Bin Stable for 28 days at room temperature.Expires in days from Date Start Date: 04/12/17 Stop Date: 04/28/17 Status: Discontinuedinsulin lispro 3 unit, 0.03 mL, Route: SUB-Q, Drug form: SOLN, Bedtime, Dosing Weight 109.091, kg, PRN Blood Glucose Results, Start date: 04/12/17 4:18:00 CDT, Duration: 30 day, Stop date: 05/12/17 4:17:00 OPERATIONS REPRESENTATIVE Notes: (Same as: Humalog ) Roll in palms of hands gently; Do not shake ` vigorously. "Single PatientUse Only " (Restricted to patients requiring a dose > 60 units)WASTE: F/P - Black; E - Municipal Trash Bin Stable for 28 days at room temperature.Expires in days from Date Start Date: 04/12/17 Stop Date: 04/28/17 Status: Discontinuedinsulin lispro 4 unit, 0.04 mL, Route: SUB-Q, Drug form: SOLN, Bedtime, Dosing Weight 109.091, kg, PRN Blood Glucose Results, Start date: 04/12/17 4:18:00 CDT, Duration: 30 day, Stop date: 05/12/17 4:17:00 OPERATIONS REPRESENTATIVE Notes: (Same as: Humalog ) Roll in palms of hands gently; Do not shake ` vigorously. "Single PatientUse Only " (Restricted to patients requiring a dose > 60 units)WASTE: F/P - Black; E - Municipal Trash Bin Stable for 28 days at room temperature.Expires in days from Date Start Date: 04/12/17 Stop Date: 04/28/17 Status: Discontinuedinsulin lispro 1 unit, 0.01 mL, Route: SUB-Q, Drug form: SOLN, Bedtime, Dosing Weight 109.091, kg, PRN Blood Glucose Results, Start date: 04/12/17 4:18:00 CDT, Duration: 30 day, Stop date: 05/12/17 4:17:00 OPERATIONS REPRESENTATIVE Notes: (Same as: Humalog ) Roll in palms of hands gently; Do not shake ` vigorously. "Single PatientUse Only " (Restricted to patients requiring a dose > 60 units)WASTE: F/P - Black; E - Municipal Trash Bin Stable for 28 days at room temperature.Expires in days from Date Start Date: 04/12/17 Stop Date: 04/28/17 Status: Discontinuedinsulin lispro 4 unit, 0.04 mL, Route: SUB-Q, Drug form: SOLN, TID-Before Meals, Dosing Weight 109.091, kg, PRN Blood Glucose Results, Start date: 04/12/17 4:18:00 CDT, Duration: 30 day, Stop date: 05/12/17 4:17:00 OPERATIONS REPRESENTATIVE Notes: (Same as: Humalog ) Roll in palms of hands gently; Do not shake ` vigorously. "Single PatientUse Only " (Restricted to patients requiring a dose > 60 units)WASTE: F/P - Black; E - Municipal Trash Bin Stable for 28 days at room temperature.Expires in days from Date Start Date: 04/12/17 Stop Date: 04/28/17 Status: Discontinuedinsulin lispro 2 unit, 0.02 mL, Route: SUB-Q, Drug form: SOLN, TID-Before Meals, Dosing Weight 109.091, kg, PRN Blood Glucose Results, Start date: 04/12/17 4:18:00 CDT, Duration: 30 day, Stop date: 05/12/17 4:17:00 OPERATIONS REPRESENTATIVE Notes: (Same as: Humalog ) Roll in palms of hands gently; Do not shake ` vigorously. "Single PatientUse Only " (Restricted to patients requiring a dose > 60 units)WASTE: F/P - Black; E - Municipal Trash Bin Stable for 28 days at room temperature.Expires in days from Date Start Date: 04/12/17 Stop Date: 04/28/17 Status: Discontinuedinsulin lispro 6 unit, 0.06 mL, Route: SUB-Q, Drug form: SOLN, TID-Before Meals, Dosing Weight 109.091, kg, PRN Blood Glucose Results, Start date: 04/12/17 4:18:00 CDT, Duration: 30 day, Stop date: 05/12/17 4:17:00 OPERATIONS REPRESENTATIVE Notes: (Same as: Humalog ) Roll in palms of hands gently; Do not shake ` vigorously. "Single PatientUse Only " (Restricted to patients requiring a dose > 60 units)WASTE: F/P - Black; E - Municipal Trash Bin Stable for 28 days at room temperature.Expires in days from Date Start Date: 04/12/17 Stop Date: 04/28/17 Status: Discontinuedinsulin lispro 8 unit, 0.08 mL, Route: SUB-Q, Drug form: SOLN, TID-Before Meals, Dosing Weight 109.091, kg, PRN Blood Glucose Results, Start date: 04/12/17 4:18:00 CDT, Duration: 30 day, Stop date: 05/12/17 4:17:00 OPERATIONS REPRESENTATIVE Notes: (Same as: Humalog ) Roll in palms of hands gently; Do not shake ` vigorously. "Single PatientUse Only " (Restricted to patients requiring a dose > 60 units)WASTE: F/P - Black; E - Municipal Trash Bin Stable for 28 days at room temperature.Expires in days from Date Start Date: 04/12/17 Stop Date: 04/28/17 Status: Discontinuedinsulin lispro 10 unit, 0.1 mL, Route: SUB-Q, Drug form: SOLN, TID-Before Meals, Dosing Weight 109.091, kg, PRN Blood Glucose Results, Start date: 04/12/17 4:18:00 CDT, Duration: 30 day, Stop date: 05/12/17 4:17:00 OPERATIONS REPRESENTATIVE Notes: (Same as: Humalog ) Roll in palms of hands gently; Do not shake ` vigorously. "Single PatientUse Only " (Restricted to patients requiring a dose > 60 units)WASTE: F/P - Black; E - Municipal Trash Bin Stable for 28 days at room temperature.Expires in days from Date Start Date: 04/12/17 Stop Date: 04/28/17 Status: DiscontinuedInsulin regular 5 unit, Route: IV, ONCE, Dosing Weight 109.091, kg, Start date: 04/21/17 14:54: 00 OPERATIONS REPRESENTATIVE, Stop date: 04/21/17 14:54:00 OPERATIONS REPRESENTATIVE Start Date: 04/21/17 Stop Date: 04/21/17 Status: CompletedInsulin regular 10 unit, Route: IV, ONCE, Dosing Weight 109.091, kg, Start date: 04/21/17 15:43: 00 OPERATIONS REPRESENTATIVE, Stop date: 04/21/17 15:43:00 OPERATIONS REPRESENTATIVE Start Date: 04/21/17 Stop Date: 04/21/17 Status: CompletedInsulin regular 10 unit, Route: IV, ONCE, Dosing Weight 109.091, kg, Start date: 04/12/17 9:44: 00 CDT, Stop date: 04/12/17 9:44:00 CDT Start Date: 04/12/17 Stop Date: 04/12/17 Status: CompletedInsulin regular (ANES) Route: IV, Drug form: INJ, ONCE, Stop date: 04/12/17 9:25:00 CDT Start Date: 04/12/17 Stop Date: 04/12/17 Status: CompletedketAMINE (ANES) Route: IV, Drug form: INJ, ONCE, Stop date: 04/12/17 9:42:00 CDT Start Date: 04/12/17 Stop Date: 04/12/17 Status: CompletedketAMINE (ANES) (ANES) Route: IV, Drug form: INJ, Start date: 04/12/17 8:49:00 CDT, Stop date: 9:49:00 CDT Start Date: 04/12/17 Stop Date: 04/12/17 Status: DeletedLactated Ringers Injection IV (ANES) 1000 mL Route: IV, Total Volume: 1,000, Start date: 04/21/17 11:01:00 OPERATIONS REPRESENTATIVE, Stop date: 12:01:00 OPERATIONS REPRESENTATIVE Start Date: 04/21/17 Stop Date: 04/21/17 Status: Completedlactulose 10 g/15 mL oral syrup 10 gm, 15 mL, Route: PO, Drug form: SYRP, BID, Dosing Weight 109.091, kg, Start date: 04/16/17 11:00:00 OPERATIONS REPRESENTATIVE, Duration: 3 day, Stop date: 04/19/17 9:00:00 OPERATIONS REPRESENTATIVE Notes: (Same as:Chronulac) Start Date: 04/16/17 Stop Date: 04/19/17 Status: Completedlidocaine (ANES) Route: IV, Drug form: INJ, ONCE, Stop date: 04/12/17 9:31:00 CDT Start Date: 04/12/17 Stop Date: 04/12/17 Status: Completedlidocaine (ANES) Route: IV, Drug form: INJ, ONCE, Stop date: 04/21/17 12:15:00 OPERATIONS REPRESENTATIVE Start Date: 04/21/17 Stop Date: 04/21/17 Status: Completedlisinopril 5 mg, 1 tab, Route: PO, Drug form: TAB, Daily, Dosing Weight 109.091, kg, Start date: 04/26/17 9:00:00 OPERATIONS REPRESENTATIVE, Duration: 30 day, Stop date: 05/26/17 8:59:00 OPERATIONS REPRESENTATIVE Notes: (Same as: Prinivil, Zestril) Start Date: 04/26/17 Stop Date: 04/28/17 Status: Discontinuedlisinopril 5 mg oral tablet 5 mg=1 tab, PO, Daily, 0 Refill(s) Start Date: 04/28/17 Status: OrderedLR 1000 mL INJ (ANES) Route: IV, Total Volume: 1,000, Start date: 04/12/17 8:27:00 CDT, Stop date: 09/23 9:27:00 CDT Start Date: 04/12/17 Stop Date: 04/12/17 Status: Completedmelatonin 3 mg, 1 tab, Route: PO, Drug form: TAB, Bedtime, Dosing Weight 109.091, kg, PRN Insomnia, Start date: 04/12/17 4:17:00 CDT, Duration: 30 day, Stop date: 4:16:00 OPERATIONS REPRESENTATIVE Notes: (Same as: Melatonin) Start Date: 04/12/17 Stop Date: 04/28/17 Status: Discontinuedmethocarbamol 500 mg oral tablet 1,000 mg=2 tab, PO, Q8Hnow, 0 Refill(s) Start Date: 04/28/17 Status: Orderedmidazolam (ANES) Route: IV, Drug form: SOLN, ONCE, Stop date: 04/12/17 9:31:00 CDT Start Date: 04/12/17 Stop Date: 04/12/17 Status: Completedmidazolam (ANES) Route: IV, Drug form: SOLN, ONCE, Stop date: 04/21/17 12:15:00 OPERATIONS REPRESENTATIVE Start Date: 04/21/17 Stop Date: 04/21/17 Status: CompletedMilk of Magnesia 30 ml, Route: PO, Drug Form: SUSP, Dosing Weight 109.091, kg, ONCE, Start date: 04/16/17 9:40:00 OPERATIONS REPRESENTATIVE, Stop date: 04/16/17 9:40:00 OPERATIONS REPRESENTATIVE Notes: (Same as: Milk of Magnesia, MOM) Start Date: 04/16/17 Stop Date: 04/16/17 Status: Completedmorphine Sulfate 4 mg, 1 mL, Route: IVP, Drug form: SOLN, ONCE, Dosing Weight 109.091, kg, Priority: STAT, Start date: 04/12/17 2:45:00 CDT, Stop date: 04/12/17 2:45:00 CDT Notes: (Same as:MORPhine Sulfate) Start Date: 04/12/17 Stop Date: 04/12/17 Status: Completedmorphine Sulfate 4 mg, 1 mL, Route: IVP, Drug form: SOLN, ONCE, Dosing Weight 109.091, kg, Priority: STAT, Start date: 04/11/17 21:45:00 CDT, Stop date: 04/11/17 21:45:00 CDT Notes: (Same as:MORPhine Sulfate) Start Date: 04/11/17 Stop Date: 04/12/17 Status: Completedmorphine Sulfate 2 mg, 0.5 mL, Route: IVP, Drug form: SOLN, Q2H, Dosing Weight 109.091, kg, PRN Pain Score 7-10, Start date: 04/15/17 3:13:00 OPERATIONS REPRESENTATIVE, Duration: 30 day, Stop date: 05/15/17 3:12:00 OPERATIONS REPRESENTATIVE Notes: (Same as:MORPhine Sulfate) Start Date: 04/15/17 Stop Date: 04/22/17 Status: Discontinuedmorphine Sulfate 2 mg, 0.5 mL, Route: IVP, Drug form: SOLN, Q4H, Dosing Weight 109.091, kg, PRN Pain Score 7-10, Start date: 04/12/17 4:17:00 CDT, Duration: 30 day, Stop date: 05/12/17 4:16:00 OPERATIONS REPRESENTATIVE Notes: (Same as:MORPhine Sulfate) Start Date: 04/12/17 Stop Date: 04/14/17 Status: Discontinuedmorphine Sulfate 2 mg, 0.5 mL, Route: IVP, Drug form: SOLN, ONCE, Dosing Weight 109.091, kg, Start date: 04/14/17 23:17:00 OPERATIONS REPRESENTATIVE, Stop date: 04/14/17 23:17:00 OPERATIONS REPRESENTATIVE Notes: (Same as:MORPhine Sulfate) Start Date: 04/14/17 Stop Date: 04/14/17 Status: Completedneostigmine (ANES) Route: IV, Drug form: INJ, ONCE, Stop date: 04/21/17 14:30:00 OPERATIONS REPRESENTATIVE Start Date: 04/21/17 Stop Date: 04/21/17 Status: Completedneostigmine (ANES) Route: IV, Drug form: INJ, ONCE, Stop date: 04/12/17 9:31:00 CDT Start Date: 04/12/17 Stop Date: 04/12/17 Status: CompletedniCARdipine (ANES) Route: IV, Drug form: INJ, ONCE, Stop date: 04/21/17 12:25:00 OPERATIONS REPRESENTATIVE Start Date: 04/21/17 Stop Date: 04/21/17 Status: Completednormal saline 0.9% IV 1,000 mL 1,000 mL, Rate: 75 ml/hr, Infuse over: 13.3 hr, Route: IV, Dosing Weight 109.091 kg, Total Volume: 1,000, Priority: NOW, Start date: 04/20/17 20:16:00 OPERATIONS REPRESENTATIVE, Duration: 30 day, Stop date: 05/20/17 20:15:00 OPERATIONS REPRESENTATIVE, 2.29, m2 Start Date: 04/20/17 Stop Date: 04/28/17 Status: DiscontinuedNovoLIN L 0 Refill(s) Start Date: 04/12/17 Stop Date: 04/12/17 Status: DeletedNovoLOG 20 unit, SUB-Q, TID-Before Meals, 0 Refill(s) Start Date: 04/12/17 Stop Date: 04/28/17 Status: DiscontinuedNovoLOG 70/30 20 unit, Route: SUB-Q, ONCE, Dosing Weight 109.091, kg, Start date: 04/12/17 20: 22:00 CDT, Stop date: 04/12/17 20:22:00 CDT Start Date: 04/12/17 Stop Date: 04/12/17 Status: Discontinuedondansetron 4 mg, 2 mL, Route: IVP, Drug form: INJ, Q6H, Dosing Weight 109.091, kg, PRN Nausea & Vomiting, Start date: 04/12/17 4:16:00 CDT, Duration: 30 day, Stop date: 05/12/17 4:15:00 OPERATIONS REPRESENTATIVE Notes: (Same as: Meri) MEDICATION WASTE Product Size: 4 mgProduct Wasted: ___ mg Start Date: 04/12/17 Stop Date: 04/28/17 Status: Discontinuedondansetron (ANES) Route: IV, Drug form: INJ, ONCE, Stop date: 04/21/17 14:30:00 OPERATIONS REPRESENTATIVE Start Date: 04/21/17 Stop Date: 04/21/17 Status: Completedondansetron (ANES) Route: IV, Drug form: INJ, ONCE, Stop date: 04/12/17 9:31:00 CDT Start Date: 04/12/17 Stop Date: 04/12/17 Status: CompletedoxyCODONE 5 mg immediate release 5 mg, 1 tab, Route: PO, Drug form: TAB, Q4H, Dosing Weight 109.091, kg, PRN Pain Score 4-6, Start date: 04/12/17 4:17:00 CDT, Duration: 30 day, Stop date: 05/12/17 4:16:00 OPERATIONS REPRESENTATIVE Notes: (Same as: Roxicodone) Start Date: 04/12/17 Stop Date: 04/28/17 Status: DiscontinuedoxyCODONE 5 mg immediate release 10 mg, 2 tab, Route: PO, Drug form: TAB, Q4H, Dosing Weight 109.091, kg, PRN Pain Score 7-10, Start date: 04/12/17 4:17:00 CDT, Duration: 30 day, Stop date: 05/12/17 4:16:00 OPERATIONS REPRESENTATIVE Notes: (Same as: Roxicodone) Start Date: 04/12/17 Stop Date: 04/28/17 Status: Discontinuedphenylephrine (ANES) Route: IV, Drug form: INJ, ONCE, Stop date: 04/12/17 9:31:00 CDT Start Date: 04/12/17 Stop Date: 04/12/17 Status: Completedpolyethylene glycol 3350 17 gm, 1 pkt, Route: PO, Drug form: PWDR, Daily, Dosing Weight 109.091, kg, Start date: 04/12/17 9:00:00 CDT, Duration: 30 day, Stop date: 05/11/17 9:00:00 OPERATIONS REPRESENTATIVE Notes: Dissolve in 8 oz of water or juice.(Same as: Miralax) Start Date: 04/12/17 Stop Date: 04/24/17 Status: Discontinuedpotassium chloride 20 mEq oral tablet, extended release 20 mEq, 1 tab, Route: PO, Drug form: ERTAB, ONCE, Dosing Weight 109.091, kg, Start date: 04/26/17 10:08:00 OPERATIONS REPRESENTATIVE, Stop date: 04/26/17 10:08:00 OPERATIONS REPRESENTATIVE Notes: (Same as: K-Dur 20)"Do Not Crush" With food and full glass of water Start Date: 04/26/17 Stop Date: 04/26/17 Status: Completedpropofol (ANES) Route: IV, Drug form: INJ, ONCE, Stop date: 04/12/17 9:31:00 CDT Start Date: 04/12/17 Stop Date: 04/12/17 Status: Completedpropofol (ANES) Route: IV, Drug form: INJ, ONCE, Stop date: 04/21/17 12:15:00 OPERATIONS REPRESENTATIVE Start Date: 04/21/17 Stop Date: 04/21/17 Status: CompletedRobaxin 1,000 mg, 2 tab, Route: PO, Drug form: TAB, Q8Hnow, Dosing Weight 109.091, kg, Start date: 04/23/17 10:00:00 OPERATIONS REPRESENTATIVE, Duration: 30 day, Stop date: 05/23/17 9:59: 00 OPERATIONS REPRESENTATIVE Notes: (Same as:Robaxin) Start Date: 04/23/17 Stop Date: 04/28/17 Status: Discontinuedrocuronium (ANES) Route: IV, Drug form: INJ, ONCE, Stop date: 04/12/17 9:31:00 CDT Start Date: 04/12/17 Stop Date: 04/12/17 Status: Completedrocuronium (ANES) Route: IV, Drug form: INJ, ONCE, Stop date: 04/21/17 12:15:00 OPERATIONS REPRESENTATIVE Start Date: 04/21/17 Stop Date: 04/21/17 Status: CompletedRopivacaine 0.2% nerve block CADD 200 mL Route: NERVE BLOCK, Continuous Rate: 6, ml/hr, Side: Right Dosing Site: Sciatic popliteal, NURSE UNIT MANAGER dose 3 mL, NURSE UNIT MANAGER dose lockout: 30 minutes, 1 Hour limit: 12 mL, 200 , mL, Start date: 04/21/17 15:52:00 OPERATIONS REPRESENTATIVE, Duration: 30, day, Drug Form: INJ, Total volume: 2... Notes: Same as: Naropin Start Date: 04/21/17 Stop Date: 04/28/17 Status: DiscontinuedSaline Flush 0.9% 10 ml, Route: IVP, Drug Form: INJ, Dosing Weight 109.091, kg, PRN, PRN Line Flush, Start date: 04/12/17 4:16:00 CDT, Duration: 30 day, Stop date: 05/12/17 3 :15:00 OPERATIONS REPRESENTATIVE Notes: (Same as: BD Posiflush) Start Date: 04/12/17 Stop Date: 04/28/17 Status: Discontinuedsenna 17.2 mg, 2 tab, Route: PO, Drug Form: TAB, Dosing Weight 109.091, kg, Bedtime, Start date: 04/12/17 21:00:00 CDT, Duration: 30 day, Stop date: 05/11/17 21:00: 00 OPERATIONS REPRESENTATIVE Notes: (Same as: Mary Grace) Start Date: 04/12/17 Stop Date: 04/25/17 Status: Discontinuedsodium chloride 0.9% 1000 ml INJ 1,000 mL 1,000 mL, Rate: 125 ml/hr, Infuse over: 8 hr, Route: IV, Dosing Weight 109.091 kg, Total Volume: 1,000, Start date: 04/12/17 4:16:00 CDT, Duration: 30 day, Stop date: 05/12/17 4:15:00 OPERATIONS REPRESENTATIVE Start Date: 04/12/17 Stop Date: 04/15/17 Status: DiscontinuedToujeo SoloStar 300 units/mL subcutaneous solution 30 unit, SUB-Q, Daily, 0 Refill(s) Start Date: 04/12/17 Stop Date: 04/28/17 Status: Discontinuedtramadol 100 mg, 2 tab, Route: PO, Drug form: TAB, Q6Hnow, Dosing Weight 109.091, kg, Start date: 04/12/17 4:17:00 CDT, Duration: 30 day, Stop date: 05/12/17 6:00:00 OPERATIONS REPRESENTATIVE Notes: Not to exceed 400mg/day. (Same As: Ultram) Start Date: 04/12/17 Stop Date: 04/28/17 Status: Discontinuedtramadol 50 mg oral tablet 100 mg=2 tab, PO, Q6Hnow, PRN Pain 1-3/Temp > 100.4 F, X 7 day, # 30 tab, 0 Refill(s) Start Date: 04/28/17 Stop Date: 05/05/17 Status: OrderedVitamin D2 50,000 IntlUnit, 1 cap, Route: PO, Drug form: CAP, qWeek, Start date: 04/26/17 9 :00:00 OPERATIONS REPRESENTATIVE, Duration: 30 day, Stop date: 05/24/17 9:00:00 OPERATIONS REPRESENTATIVE Notes: (Same as: Vitamin D) "Do Not Crush" Start Date: 04/26/17 Stop Date: 04/28/17 Status: DiscontinuedZofran 4 mg, 2 mL, Route: IVP, Drug form: INJ, ONCE, Dosing Weight 109.091, kg, Priority: STAT, Start date:04/11/17 21:45:00 CDT, Stop date: 04/11/17 21:45:00 CDT Notes: (Same as: Zofran) MEDICATION WASTE Product Size: 4 mgProduct Wasted: ___ mg Start Date: 04/11/17 Stop Date: 04/12/17 Status: Completedzolpidem 5 mg oral tablet 5 mg=1 tab, PO, Bedtime, PRN Insomnia, 0 Refill(s) Start Date: 04/28/17 Status: Ordered Results BLOOD BANK RESULTS Most recent to oldest [Reference Range]: 1 2 3 ABO/Rh O POS O POS *Unknown* *Unknown* (04/21/17 8:14 AM) (04/12/17 4:29 AM) Antibody Scrn Negative Negative (04/21/17 8:14 AM) (04/12/17 4:29 AM) ELECTROLYTES Most recent to oldest 1 2 3 [Reference Range]: Sodium Lvl [135-145 mEq/L] 137 mEq/L 138 mEq/L 140 mEq/L (04/28/17 5:46 AM) (04/27/17 6:01 AM) (04/26/17 6:07 AM) Potassium Lvl [3.5-5.1 3.6 mEq/L 3.5 mEq/L 3.3 mEq/L mEq/L] (04/28/17 5:46 AM) (04/27/17 6:01 AM) *LOW* (04/26/17 6:07 AM) Chloride Lvl [95-109 mEq/L] 103 mEq/L 102 mEq/L 103 mEq/L (04/28/17 5:46 AM) (04/27/17 6:01 AM) (04/26/17 6:07 AM) CO2 [24-32 mEq/L] 25 mEq/L 25 mEq/L 26 mEq/L (04/28/17 5:46 AM) (04/27/17 6:01 AM) (04/26/17 6:07 AM) AGAP [10.0-20.0 mEq/L] 12.6 mEq/L 14.5 mEq/L 14.3 mEq/L (04/28/17 5:46 AM) (04/27/17 6:01 AM) (04/26/17 6:07 AM) CHEM PANEL Most recent to oldest 1 2 3 [Reference Range]: Creatinine Lvl [0.50-1.40 0.77 mg/dL 0.80 mg/dL 0.74 mg/dL mg/dL] (04/28/17 5:46 AM) (04/27/17 6:01 AM) (04/26/17 6:07 AM) eGFR 109 mL/min/1.73m2 1 107 mL/min/1.73m2 2 111 mL/min/1.73m2 3 *NA* *NA* *NA* (04/28/17 5:46 AM) (04/27/17 6:01 AM) (04/26/17 6:07 AM) BUN [7-22 mg/dL] 11 mg/dL 9 mg/dL 9 mg/dL (04/28/17 5:46 AM) (04/27/17 6:01 AM) (04/26/17 6:07 AM) B/C Ratio [6-25] 10 (04/23/17 4:50 AM) Glucose Lvl [70-99 mg/dL] 113 mg/dL 123 mg/dL 98 mg/dL *HI* *HI* (04/26/17 6:07 AM) (04/28/17 5:46 AM) (04/27/17 6:01 AM) Total Protein [6.4-8.4 6.6 g/dL g/dL] (04/23/17 4:50 AM) Albumin Lvl [3.5-5.0 g/dL] 2.8 g/dL *LOW* (04/23/17 4:50 AM) Globulin [2.7-4.2 g/dL] 3.8 g/dL (04/23/17 4:50 AM) A/G Ratio [0.7-1.6] 0.7 (04/23/17 4:50 AM) Calcium Lvl [8.5-10.5 10.3 mg/dL 10.0 mg/dL 9.8 mg/dL mg/dL] (04/28/17 5:46 AM) (04/27/17 6:01 AM) (04/26/17 6:07 AM) Magnesium Lvl [1.8-2.4 2.1 mg/dL 1.9 mg/dL 2.0 mg/dL mg/dL] (04/28/17 5:46 AM) (04/27/17 6:01 AM) (04/26/17 6:07 AM) ALT [0-65 unit/L] 16 unit/L (04/23/17 4:50 AM) AST [0-37 unit/L] 16 unit/L (04/23/17 4:50 AM) Alk Phos [39-136 unit/L] 149 unit/L *HI* (04/23/17 4:50 AM) Bili Total [0.2-1.3 mg/dL] 0.6 mg/dL (04/23/17 4:50 AM) Vitamin D, 25-OH, Total 17.9 ng/mL [30.0-100.0 ng/mL] *LOW* (04/17/17 5:23 AM) 1Result Comment: The eGFR is calculated using the CKD-EPI formula. In most young , healthy individualsthe eGFR will be >90 mL/min/1.73m2. The eGFR declines with age. An eGFR of 60-89 may be normal insome populations, particularly the elderly, for whom the CKD-EPI formula has not been extensively validated. Use of the eGFR is not recommended in the following populations: Individuals with unstable creatinine concentrations, including patients and those with serious co-morbid conditions. Patients with extremes in muscle mass or diet. The data above are obtained from the National Kidney Disease Education Program ( NKDEP) which additionally recommends that when the eGFR is used in patients with extremes of body mass index for purposesof drug dosing, the eGFR should be multiplied by the estimated BMI.2Result Comment: The eGFR is calculated using the CKD-EPI formula. In most young, healthy individualsthe eGFR will be >90 mL/min/1.73m2. The eGFR declines with age. An eGFR of 60-89 may be normal insome populations, particularly the elderly, for whom the CKD-EPI formula has not been extensively validated. Use of the eGFR is not recommended in the following populations: Individuals with unstable creatinine concentrations, including patients and those with serious co-morbid conditions. Patients with extremes in muscle mass or diet. The data above are obtained from the National Kidney Disease Education Program ( NKDEP) which additionally recommends that when the eGFR is used in patients with extremes of body mass index for purposesof drug dosing, the eGFR should be multiplied by the estimated BMI.3Result Comment: The eGFR is calculated using the CKD-EPI formula. In most young, healthy individualsthe eGFR will be >90 mL/min/1.73m2. The eGFR declines with age. An eGFR of 60-89 may be normal insome populations, particularly the elderly, for whom the CKD-EPI formula has not been extensively validated. Use of the eGFR is not recommended in the following populations: Individuals with unstable creatinine concentrations, including patients and those with serious co-morbid conditions. Patients with extremes in muscle mass or diet. The data above are obtained from the National Kidney Disease Education Program ( NKDEP) which additionally recommends that when the eGFR is used in patients with extremes of body mass index for purposesof drug dosing, the eGFR should be multiplied by the estimated BMI.SPECIAL CHEMISTRY Most recent to oldest [Reference Range]: 1 2 3 Hgb A1C [<=5.6 %] 11.0 % *HI* (04/13/17 5:18 AM) URINE AND STOOL Most recent to oldest [Reference Range]: 1 2 3 UA Turbidity [Clear] Clear (04/12/17 3:33 PM) UA Color [Yellow] Yellow *NA* (04/12/17 3:33 PM) UA pH [5.0-8.0] 6.0 (04/12/17 3:33 PM) UA Spec Grav [<=1.030] 1.029 (04/12/17 3:33 PM) UA Glucose [Negative mg/dL] >=1000 mg/dL *ABN* (04/12/17 3:33 PM) UA Blood [Negative] Negative (04/12/17 3:33 PM) UA Ketones [Negative mg/dL] 20 mg/dL *ABN* (04/12/17 3:33 PM) UA Protein [Negative mg/dL] 30 mg/dL *ABN* (04/12/17 3:33 PM) UA Urobilinogen [0.1-1.0 mg/dL] <=1.0 mg/dL *NA* (04/12/17 3:33 PM) UA Bili [Negative] Negative *NA* (04/12/17 3:33 PM) UA Leuk Est [Negative] Negative (04/12/17 3:33 PM) UA Nitrite [Negative] Negative (04/12/17 3:33 PM) UA WBC [0-5 /HPF] 5 /HPF (04/12/17 3:33 PM) UA RBC [0-2 /HPF] 1 /HPF (04/12/17 3:33 PM) UA Sq Epi None Seen *NA* (04/12/17 3:33 PM) UA Mucus [None Seen /LPF] Few /LPF *NA* (04/12/17 3:33 PM) HEMATOLOGY Most recent to oldest 1 2 3 [Reference Range]: WBC [3.7-10.4 K/CMM] 8.4 K/CMM 9.0 K/CMM 10.1 K/CMM (04/28/17 5:46 AM) (04/27/17 6:01 AM) (04/26/17 6:07 AM) RBC [4.70-6.10 M/CMM] 4.33 M/CMM 4.50 M/CMM 4.26 M/CMM *LOW* *LOW* *LOW* (04/28/17 5:46 AM) (04/27/17 6:01 AM) (04/26/17 6:07 AM) Hgb [14.0-18.0 g/dL] 13.1 g/dL 13.4 g/dL 12.7 g/dL *LOW* *LOW* *LOW* (04/28/17 5:46 AM) (04/27/17 6:01 AM) (04/26/17 6:07 AM) Hct [42.0-54.0 %] 37.8 % 39.9 % 37.8 % *LOW* *LOW* *LOW* (04/28/17 5:46 AM) (04/27/17 6:01 AM) (04/26/17 6:07 AM) MCV [80.0-94.0 fL] 87.1 fL 88.6 fL 88.8 fL (04/28/17 5:46 AM) (04/27/17 6:01 AM) (04/26/17 6:07 AM) MCH [27.0-31.0 pg] 30.1 pg 29.8 pg 29.7 pg (04/28/17 5:46 AM) (04/27/17 6:01 AM) (04/26/17 6:07 AM) MCHC [32.0-36.0 g/dL] 34.6 g/dL 33.6 g/dL 33.5 g/dL (04/28/17 5:46 AM) (04/27/17 6:01 AM) (04/26/17 6:07 AM) RDW [11.5-14.5 %] 13.2 % 13.1 % 13.0 % (04/28/17 5:46 AM) (04/27/17 6:01 AM) (04/26/17 6:07 AM) Platelet [133-450 K/CMM] 857 K/CMM 884 K/CMM 903 K/CMM *HI* *HI* *HI* (04/28/17 5:46 AM) (04/27/17 6:01 AM) (04/26/17 6:07 AM) MPV [7.4-10.4 fL] 8.9 fL 9.3 fL 9.1 fL (04/28/17 5:46 AM) (04/27/17 6:01 AM) (04/26/17 6:07 AM) Segs [45.0-75.0 %] 55.6 % 55.4 % 59.6 % (04/28/17 5:46 AM) (04/27/17 6:01 AM) (04/26/17 6:07 AM) Lymphocytes [20.0-40.0 %] 31.5 % 29.9 % 26.8 % (04/28/17 5:46 AM) (04/27/17 6:01 AM) (04/26/17 6:07 AM) Monocytes [2.0-12.0 %] 7.6 % 8.6 % 8.1 % (04/28/17 5:46 AM) (04/27/17 6:01 AM) (04/26/17 6:07 AM) Eosinophils [0.0-4.0 %] 4.9 % 5.1 % 4.3 % *HI* *HI* *HI* (04/28/17 5:46 AM) (04/27/17 6:01 AM) (04/26/17 6:07 AM) Basophils [0.0-1.0 %] 0.4 % 1.0 % 1.2 % (04/28/17 5:46 AM) (04/27/17 6:01 AM) *HI* (04/26/17 6:07 AM) Segs-Bands # [1.5-8.1 4.7 K/CMM 5.0 K/CMM 6.0 K/CMM K/CMM] (04/28/17 5:46 AM) (04/27/17 6:01 AM) (04/26/17 6:07 AM) Lymphocytes # [1.0-5.5 2.7 K/CMM 2.7 K/CMM 2.7 K/CMM K/CMM] (04/28/17 5:46 AM) (04/27/17 6:01 AM) (04/26/17 6:07 AM) Monocytes # [0.0-0.8 K/CMM] 0.6 K/CMM 0.8 K/CMM 0.8 K/CMM (04/28/17 5:46 AM) (04/27/17 6:01 AM) (04/26/17 6:07 AM) Eosinophils # [0.0-0.5 0.4 K/CMM 0.5 K/CMM 0.4 K/CMM K/CMM] (04/28/17 5:46 AM) (04/27/17 6:01 AM) (04/26/17 6:07 AM) Basophils # [0.0-0.2 K/CMM] 0.1 K/CMM 0.1 K/CMM 0.1 K/CMM (04/27/17 6:01 AM) (04/26/17 6:07 AM) (04/24/17 3:17 AM) RBC Morph Normal (04/14/17 4:45 AM) Plt Morph Normal (04/14/17 4:45 AM) PT [12.0-14.7 seconds] 14.0 seconds (04/13/17 5:18 AM) INR [0.85-1.17] 1.08 (04/13/17 5:18 AM) PTT [22.9-35.8 seconds] 35.6 seconds (04/13/17 5:18 AM) MOLECULAR DIAGNOSTIC Most recent to oldest [Reference Range]: 1 2 3 C difficile DNA [Negative] Negative (04/27/17 8:44 AM) Immunizations No data available for this section Procedures Procedure Date Related Diagnosis Body Site Cholecystectomy Excision of pancreas Social History Social History Type Response Substance Abuse Use: None. Alcohol Never Smoking Status Never smoker; Ready to change: No; Concerns about tobacco use in household: No; Exposure to Tobacco Smoke None; Cigarette Smoking Last 365 Days No; Reg Smoking Cessation Counseling No Assessment and Plan Extracted from: Title: ORTHO TRAUMA Author: Dionne Bridges Date: 04/28/17 Progress Note - Daily [facility] Completed: Friday, APR 28, 2017, 10: 19 by Dionne Bridges RM: [id number] - 01, 3JP ARTIE BETTENCOURT JR 46y (: 1970) M Attending: Steve Henley MD Service: Internal Medicine Reason for Admission: CLOSED RT RADIAL FX, LISFRANC DISLOCATION, CLOSED FX Working DRG: Foot procedures w CC Code status: Full Code [Ordered] Current diet: Isolation: Contact [Ordered] Allergies: NKDA SUBJECTIVE Patient doing well. Waiting for transfer to a SNF. OBJECTIVE 24hr Labs 04/28 0845 POC Performing Locatio See Note Glucose POC 135 H 04/28 0546 Glucose Lvl 113 H BUN 11 Creatinine Lvl 0.77 Sodium Lvl 137 Potassium Lvl 3.6 Chloride Lvl 103 CO2 25 AGAP 12.6 Calcium Lvl 10.3 eGFR 109 Magnesium Lvl 2.1 WBC 8.4 RBC 4.33 L Hgb 13.1 L Hct 37.8 L MCV 87.1 MCH 30.1 MCHC 34.6 RDW 13.2 Platelet 857 H MPV 8.9 Segs 55.6 Monocytes 7.6 Lymphocytes 31.5 Eosinophils 4.9 H Basophils 0.4 Segs-Bands # 4.7 Lymphocytes # 2.7 Monocytes # 0.6 Eosinophils # 0.4 04/27 1158 POC Performing Locatio See Note Glucose POC 117 H 04/27 0844 C difficile DNA Negative [place] still necessary (Yes/No): Line still necessary (Yes/No): Vitals Tmp(F) Pulse BP RR SpO2 FIO2 04/28 08:10 98.6 76 131/79 18 97 --- 04/28 05:41 98.6 71 126/79 18 98 --- 04/28 00:00 98.4 72 142/89 18 98 --- 04/27 20:16 98.3 79 128/78 18 97 --- 04/27 15:41 98.6 70 123/74 18 96 --- 24 Hr Tmax: 98.9F (37.17c) at 04/27 11:21 Vital Signs are the last 5 in the past 48 hours. Date Wt(kg) Wt(lb) Ht(cm) Ht(in) Method 04/12 109.09 240.00 167.64 66.00 Measured 04/11 (initial) 109.09 240.00 Estimated 04/11 167.64 66.00 Stated I&O Record In Out Bal 04/28 24hr Tot 0 0 0 04/27 24hr Tot 0 0 0 Medications (30) Active Scheduled Meds (9): 04/12/17 acetaminophen 1,000 mg PO Q6Hnow 04/12/17 docusate 100 mg PO BID 04/12/17 enoxaparin 30 mg SUB-Q Q12H 04/26/17 ergocalciferol (Vitamin D2) 50,000 IntlUnit PO qWeek 04/12/17 gabapentin 300 mg PO Q8Hnow 04/12/17 insulin glargine 27 unit SUB-Q Daily 0 ml/hr 04/26/17 lisinopril 5 mg PO Daily 04/23/17 methocarbamol (Robaxin) 1,000 mg PO Q8Hnow 04/12/17 tramadol 100 mg PO Q6Hnow Unscheduled Meds: None PRN Meds (19): 04/12/17 Dextrose 50% in Water IV (Dextrose 50% Syringe) 12.5 gm IVP PRN 04/12/17 Dextrose 50% in Water IV (Dextrose 50% Syringe) 25 gm IVP PRN 04/12/17 glucagon 1 mg IM PRN 04/12/17 insulin lispro 2 unit SUB-Q TID-Before Meals 04/12/17 insulin lispro 4 unit SUB-Q TID-Before Meals 04/12/17 insulin lispro 6 unit SUB-Q TID-Before Meals 04/12/17 insulin lispro 8 unit SUB-Q TID-Before Meals 04/12/17 insulin lispro 10 unit SUB-Q TID-Before Meals 04/12/17 insulin lispro 1 unit SUB-Q Bedtime 04/12/17 insulin lispro 2 unit SUB-Q Bedtime 04/12/17 insulin lispro 3 unit SUB-Q Bedtime 04/12/17 insulin lispro 4 unit SUB-Q Bedtime 04/12/17 melatonin 3 mg PO Bedtime 04/12/17 ondansetron 4 mg IVP Q6H 04/12/17 oxyCODONE (oxyCODONE 5 mg immediate release) 5 mg PO Q4H 04/12/17 oxyCODONE (oxyCODONE 5 mg immediate release) 10 mg PO Q4H 04/12/17 sodium chloride (Saline Flush 0.9%) 10 ml IVP PRN 04/24/17 zolpidem (Ambien) 5 mg PO Bedtime 04/27/17 zolpidem (Ambien) 5 mg PO Bedtime One Time Meds: None Continuous Infusions (2): 04/20/17 Sodium Chloride 0.9% IV 1,000 mL (normal saline 0.9% IV 1,000 mL) 1, 000 mL 75 ml/hr 04/21/17 ropivacaine 200 mL (Ropivacaine 0.2% nerve block CADD 200 mL) 200 mL 6 ml/hr PHYSICAL EXAM LLE: brisk CR, SILT DP/SP/T/saph/sural, +EHL/FHL/GSC/TA, knee immobilizer in place RLE: brisk CR, SILT DP/SP/T, +EHL/FHL/GSC/TA, splint c/d/i ASSESSMENT 1. R tibial plateau fx - non op 2. R calc fx POD 7 ORIF R calc 3. R Lisfranc fx/dl PLAN 1. Pain: pain well controlled 2. Current DVT prophylaxis: Lovenox, LLE ANGELA/SCD 3. Anemia: NA 4. I.D.: no antibiotics from Ortho standpoint 5. PT/OT: following 6. Anticipated dispo: SNF 7. Bowel egimen: Colace 8. Please call if you have any questions. For nights or weekends please page the Ortho resident professor of public administration. 9. Dressings: Ortho to change. 10. WBS/activity: NWB BLE 11. patient will need Lovenox 30mg BID for 21 days. 12. requested Ortho Hand service to see patient and possibly change RUE surgar tong splint to a short arm cast. 13. Ortho Trauma to follow up R foot films. Dionne Bridges PA-C Physician Cellular Biologist [facility] MSN [id number] Extracted from: Title: History and Physical Author: Marzena Chan MD Date: 04/12/17 46yo M with a PMH of MEN 1 with pancreatic lesion s/p biopsy, now with DM who presents after fall from 10-15 foot ladder. Pt found to have multiple traumatic fractures and pending OR today. Acute pain due to trauma - Start multimodal therapy + bowel regimen as per orders - Reports pain currently controlled Closed fracture of left tibial plateau - ORS following, brace in place - No intervention planned per ortho note, f/u recs - PT consult post-op - pain control as above Ordered: Admit/Condition, 04/12/17 4:16:00 CDT, Status: Inpatient, Acute, Expected LOS: 2 Midnights, Steve Henley MD, Naveed SINGH Review/Approve Yes, Isolation: No Isolation/Standard Precautions Admit/Condition, 04/12/17 2:17:00 CDT, Status: Inpatient, Acute, Location: 6 or 8 ng, Expected LOS: 3 or Greater Midnights, Steve Henley MD, Naveed SINGH Review/Approve Yes Closed right radial fracture - ORS following, per note no surgery planned at this time - Dressing in place, f/u ORS recommendations - pain control as above - OT consult Ordered: Admit/Condition, 04/12/17 4:16:00 CDT, Status: Inpatient, Acute, Expected LOS: 2 Midnights, Steve Henley MD, Naveed SINGH Review/Approve Yes, Isolation: No Isolation/Standard Precautions Admit/Condition, 04/12/17 2:17:00 CDT, Status: Inpatient, Acute, Location: 6 or 8 ng, Expected LOS: 3 or Greater Midnights, Steve Henley MD, Admit MD Review/Approve Yes Fractured metatarsal bone - ORS following and planning CRPP - pain control as above - PT consult post-op - NWB RLE History of type 1 MEN - Continue outpt management - s/p parathyroidectomy and followed at [facility] Leukocytosis - Likely reactive to multiple trauma fx, cont to monitor for signs of infection Lisfranc dislocation - ORS following, appreciate input - Pending ORIF today, NPO - pain control as above Ordered: Admit/Condition, 04/12/17 4:16:00 CDT, Status: Inpatient, Acute, Expected LOS: 2 Midnights, Steve Henley MD, Admit MD Review/Approve Yes, Isolation: No Isolation/Standard Precautions Admit/Condition, 04/12/17 2:17:00 CDT, Status: Inpatient, Acute, Location: 6 or 8 ng, Expected LOS: 3 or Greater Midnights, Steve Henley MD, Admit MD Review/Approve Yes Pre-op evaluation Denies past medical history ofischemic heart disease, prior heart failure, renal insufficiency, or cerebrovascular disease. Pt does have DM. Prior surgeries: parathyroidectomy in 20s, cholecystectomy and pancreatic biopsy more recently Able to perform > 4 METS Low-moderate risk for low-intermediate risk surgery EKG pending, not done in ED No prior left heart cath or stress test RCRI:1 points Proceed to OR pending EKG Risk and benefits to be discussedwith surgeon Right calcaneal fracture - NWB RLE per ORS - Pending delayed fashion ORIF today, NPO - pain control as above - PT consult post-op - CT scan pending Type 2 diabetes, HbA1C goal < 7% - 2/2 MEN - Pt currently NPO - SSI and diabetic diet once eating - Check A1C lovenox sq pending OR
--- OUTSIDE RECORDS SUMMARY | 2018-07-17 14:49 | XMS REPORT | Summary of Care ---
:1970 Author Name Orquidea Kern Address [facility] Unavailable , Care Team Providers Name Role Phone CONSTANZA PARADA M.D. Unavailable Unavailable Constanza Parada MD Unavailable Unavailable Unavailable Unavailable Unavailable Functional Status Name Dates Details Functional status health issues are not documented Status: Name Dates Details Cognitive status health issues are not documented Status: Problems Name Dates Details Closed displaced fracture of first metatarsal bone of right foot (825.25, S92.311A) Status: Active Right wrist pain (719.43, M25.531) Status: Active Other closed intra-articular fracture of distal end of right radius, initial encounter (813.42, S52.571A) Status: Active Closed displaced fracture of triquetrum of right wrist, initial encounter ( 814.03, S62.111A) Status: Active Knee injury, left, initial encounter (959.7, S89.92XA) Status: Active Closed displaced intra-articular fracture of right calcaneus (825.0, S92.061A) Status: Active Fracture of lateral malleolus of right ankle (824.2, S82.61XA) Status: Active Medications Name Dates Details DiazePAM 5 MG Oral Tablet i po q bedtime prn insomnia and anxiety Quantity: 30 Refills: 0 CONSTANZA PARADA M.D. Start : 06-May-2017 Active Acetaminophen-Codeine #3 300-30 MG Oral Tablet i-ii po q 6-8H prn pain Quantity: 50 Refills: 0 CONSTANZA PARADA M.D. Start : 06-May-2017 Active TraMADol HCl - 50 MG Oral Tablet i po q 6-8H PRN Pain Quantity: 50 Refills: 0 CONSTANZA PARADA M.D. Start : 06-May-2017 Active Allergies and Adverse Reactions Name Dates Details No Known Drug Allergies (Allergy) Status: Active Procedures Procedure Dates Details [U] XR CALCANEUS (HEEL) 2 VWS, MIN. RIGHT 97490 Date: 21-Apr-2018 [U] XRAY FOOT MIN 3 VWS RIGHT [id number] Date: 21-Apr-2018 Immunization Name Dates Details Immunizations not documented Social History Name Dates Details Unknown if ever smoked Vital Signs Date Test Result Details No Known Vitals to report Results Date Description Value Details Results not documented Plan of Care Name Dates Details Planned Observations Planned Goals not documented Planned Encounters Appointment; CONSTANZA PARADA M.D. On: 28-Apr-2018 14:00 Interventions Provided Labs/Procedures/Imaging[U] XR CALCANEUS (HEEL) 2 VWS, MIN. RIGHT 01597; To Be Done: 28 Apr 2018[U] XRAY FOOT MIN 3 VWS RIGHT [id number]; To Be Done: 28 Apr 2018 Instructions Name Dates Details Instructions not documented Encounters Appointment; CONSTANZA PARADA M.D. On: 06-May-2017 9:00 Encounter Diagnosis: Problem not documented Appointment; NANCY DURAN M.D. On: 07-May-2017 13:00 Encounter Diagnosis: Problem not documented Appointment; NANCY DURAN M.D. On: 21-May-2017 13:00 Encounter Diagnosis: Problem not documented Appointment; CONSTANZA PARADA M.D. On: 10-Jun-2017 9:30 Encounter Diagnosis: Problem not documented Appointment; CONSTANZA PARADA M.D. On: 22-Jul-2017 10:15 Encounter Diagnosis: Problem not documented Appointment; CONSTANZA PARADA M.D. On: 30-Sep-2017 10:00 Encounter Diagnosis: Problem not documented Appointment; CONSTANZA PARADA M.D. On: 23-Dec-2017 14:00 Encounter Diagnosis: Problem not documented Appointment; CONSTANZA PARADA M.D. On: 28-Apr-2018 14:00 Encounter Diagnosis: Problem not documented
--- OUTSIDE RECORDS SUMMARY | 2018-07-17 14:49 | XMS REPORT ---
:1970 Author Name Lalit MARGYLanette Address [address] [facility] Unavailable [facility] [id number] Care Team Providers Name Role Phone Dr. Alexis Ochoa Unavailable Unavailable Allergies Type Substance Reaction Status propensity to adverse reactions No active allergies found for Resident Problems Problem Effective Dates Problem Status S82.102D UNSPECIFIED FRACTURE OF UPPER END OF LEFT 04/28/2017 Active TIBIA, SUBSEQUENT ENCOUNTER FOR CLOSED FRACTURE WITH ROUTINE HEALING M62.838 OTHER MUSCLE SPASM 04/29/2017 Active M62.81 MUSCLE WEAKNESS (GENERALIZED) 04/29/2017 Active E11.69 TYPE 2 DIABETES MELLITUS WITH OTHER SPECIFIED 04/29/2017 Active COMPLICATION Z51.89 ENCOUNTER FOR OTHER SPECIFIED AFTERCARE 04/28/2017 Active G62.9 POLYNEUROPATHY, UNSPECIFIED 04/29/2017 Active G89.11 ACUTE PAIN DUE TO TRAUMA 04/28/2017 Active S52.501D UNSPECIFIED FRACTURE OF THE LOWER END OF 04/28/2017 Active RIGHT RADIUS, SUBSEQUENT ENCOUNTER FOR CLOSED FRACTURE WITH ROUTINE HEALING E11.9 TYPE 2 DIABETES MELLITUS WITHOUT COMPLICATIONS 04/28/2017 Active Z47.89 ENCOUNTER FOR OTHER ORTHOPEDIC AFTERCARE 04/28/2017 Active R27.9 UNSPECIFIED LACK OF COORDINATION 04/29/2017 Active G89.18 OTHER ACUTE POSTPROCEDURAL PAIN 04/29/2017 Active Abnormal gait (finding) 04/29/2017 Active G47.00 INSOMNIA, UNSPECIFIED 04/29/2017 Active Z91.81 HISTORY OF FALLING 04/28/2017 Active M62.59 MUSCLE WASTING AND ATROPHY, NOT ELSEWHERE 04/29/2017 Active CLASSIFIED, MULTIPLE SITES K59.00 CONSTIPATION, UNSPECIFIED 04/29/2017 Active Medications Medication Dose Form Route Sig Text Dates Status Zolpidem Tartrate 1 tablet Tablet Oral Give 1 tablet by 04/28/20 Aborted Tablet 5 MG mouth as needed 17 for insomnia 17:45:00 daily at bedtime 017 11:10:00 Acetaminophen 2 tablet Tablet Oral Give 2 tablet by 04/28/20 Aborted Tablet 500 MG mouth every 6 17 hours for pain 18:00:00 017 13:39:00 Enoxaparin Sodium 30 mg Solution Subcutaneous 0.3 CC/ML 04/28/20 Aborted Solution 30 SUBCUTANEOUSLY 17 MG/0.3ML EVERY 12 HOURS 20:00:00 (0.3ML=30MG) 017 8:13:00 Gabapentin Capsule 1 capsule Capsule Oral 1 CAP(S) BY MOUTH 04/28/20 Aborted 300 MG EVERY 8 HOURS 17 22:00:00 017 10:00:00 Methocarbamol 2 tablet Tablet Oral 2 TAB(S) BY MOUTH 04/28/20 Aborted Tablet 500 MG EVERY 8 HOURS 17 ([id number]) 22:00:00 017 15:33:00 Lisinopril Tablet 1 tablet Tablet Oral 1 TAB(S) BY MOUTH 04/29/20 Aborted 5 MG DAILY (HOLD FOR 17 SBP <110) 8:00:00 06/27/19 18 19:59:00 Cholecalciferol 1 tablet Tablet Oral Give 1 tablet by 04/29/20 Aborted Tablet 2000 UNIT mouth one time a 17 day for 8:00:00 supplement 06/27/19 18 19:59:00 NovoLOG Solution 5 unit Solution Subcutaneous Inject 5 unit 04/29/20 Aborted 100 UNIT/ML subcutaneously 17 before meals 16:00:00 related to TYPE 2 DIABETES MELLITUS 017 WITHOUT 9:37:00 COMPLICATIONS (E11.9) Baclofen Tablet 5 mg Tablet Oral Give 5 mg by 04/29/20 Aborted mouth at bedtime 17 related to 20:00:00 ENCOUNTER FOR OTHER ORTHOPEDIC 017 AFTERCARE 11:05:00 (Z47.89) Acetaminophen 2 tablet Tablet Oral Give 2 tablet by 04/29/20 Aborted Tablet 500 MG mouth three times 17 a day for pain 20:00:00 017 16:47:00 NovoLOG Solution Solution Subcutaneous Inject as per 04/30/20 Aborted 100 UNIT/ML sliding scale: if 17 0 - 150=0; 12:00:00 151+=5, subcutaneously 018 before meals 19:59:00 related to TYPE 2 DIABETES MELLITUS WITHOUT COMPLICATIONS (E11.9) Do not give if BS <150 NovoLOG Solution 5 unit Solution Subcutaneous Inject 5 unit 04/30/20 Aborted 100 UNIT/ML subcutaneously 17 before meals 11:00:00 related to TYPE 2 DIABETES MELLITUS 017 WITHOUT 9:42:00 COMPLICATIONS (E11.9) Baclofen Tablet 10 mg Tablet Oral Give 10 mg by 04/30/20 Aborted mouth two times a 17 day related to 20:00:00 ENCOUNTER FOR OTHER ORTHOPEDIC 017 AFTERCARE 11:38:00 (Z47.89) Baclofen Tablet 10 mg Tablet Oral Give 10 mg by 04/30/20 Aborted mouth two times a 17 day for muscle 20:00:00 spasms related to ENCOUNTER FOR 017 OTHER ORTHOPEDIC 13:56:00 AFTERCARE (Z47.89) Lantus Solution 27 unit Solution Subcutaneous Inject 27 unit 04/29/20 Aborted 100 UNIT/ML subcutaneously 17 one time a day 8:00:00 related to TYPE 2 05/02/20 DIABETES MELLITUS 17 WITHOUT 19:03:00 COMPLICATIONS (E11.9) Docusate Sodium 1 capsule Capsule Oral Give 1 capsule by 04/29/20 Aborted Capsule mouth two times a 17 day for 8:00:00 constipation 05/07/20 17 17:21:00 Acetaminophen 2 tablet Tablet Oral Give 2 tablet by 05/02/20 Aborted Tablet 500 MG mouth three times 17 a day for pain 20:00:00 (give 2 tabs to equal 1000 mg) 017 15:55:00 Calcium Tablet 600 1 tablet Tablet Oral Give 1 tablet by 05/05/20 Aborted MG mouth two times a 17 day for 16:00:00 supplement 017 18:15:00 Tylenol with 1 tablet Tablet Oral Give 1 tablet by 05/06/20 Aborted Codeine #3 Tablet mouth every 6 17 300-30 MG hours as needed 13:30:00 for pain per Tashi blunt 018 19:59:00 DiazePAM Tablet 5 1 tablet Tablet Oral Give 1 tablet by 05/06/20 Aborted MG mouth every 24 17 hours as needed 13:45:00 for insomnia/anxiety 017 Give at bedtime 10:36:00 TraMADol HCl 1 tablet Tablet Oral Give 1 tablet by 05/06/20 Aborted Tablet 50 MG mouth every 6 17 hours as needed 18:00:00 for pain 018 19:59:00 Zolpidem Tartrate 1 tablet Tablet Oral Give 1 tablet by 05/06/20 Aborted Tablet 5 MG mouth as needed 17 for insomnia PRN 22:05:00 at bedtime 017 22:05:00 Lantus Solution 18 unit Solution Subcutaneous Inject 18 unit 05/03/20 Aborted 100 UNIT/ML subcutaneously 17 every 12 hours 8:00:00 related to TYPE 2 05/19/20 DIABETES MELLITUS 17 WITHOUT 15:41:00 COMPLICATIONS (E11.9) Ambien Tablet 5 MG 1 tablet Tablet Oral Give 1 tablet by 05/11/20 Aborted mouth at bedtime 17 for insomnia 20:00:00 017 14:43:00 Lantus Solution 22 unit Solution Subcutaneous Inject 22 unit 05/19/20 Aborted 100 UNIT/ML subcutaneously 17 every 12 hours 20:00:00 related to TYPE 2 DIABETES MELLITUS 017 WITHOUT 18:04:00 COMPLICATIONS (E11.9) Ambien Tablet 10 1 tablet Tablet Oral Give 1 tablet by 05/24/20 Aborted MG mouth at bedtime 17 for Insomnia 22:00:00 018 19:59:00 DiazePAM Tablet 5 1 tablet Tablet Oral Give 1 tablet by 06/01/20 Aborted MG mouth as needed 17 for anxiety 2:45:00 06/27/19 18 19:59:00 Lantus Solution 24 unit Solution Subcutaneous Inject 24 unit 06/03/20 Aborted 100 UNIT/ML subcutaneously 17 every 12 hours 20:00:00 related to TYPE 2 DIABETES MELLITUS 018 WITHOUT 13:45:00 COMPLICATIONS (E11.9) Lantus Solution 26 unit Solution Subcutaneous 26 UNIT(S) 06/20/19 Aborted 100 UNIT/ML SUBCUTANEOUSLY 18 EVERY 12 HOURS 20:00:00 FOR TYPE2 DM W/O COMPLICATIONS 018 19:59:00 Tuberculin PPD 0.1 ml Solution Intradermal Inject 0.1 ml 04/28/20 Completed Solution 5 intradermally one 17 UNIT/0.1ML time only for TB 17:17:00 SKIN for 3 Days Document 017 administration, 17:16:00 lot # & deal architect in immunization section of [facility] Insulin Aspart 5 unit Solution Subcutaneous Inject 5 unit 04/30/20 Completed Solution 100 subcutaneously 17 UNIT/ML one time only for 20:00:00 GF=195 for 1 Day 017 19:59:00 NovoLOG Solution 5 unit Solution Subcutaneous Inject 5 unit 05/02/20 Completed 100 UNIT/ML subcutaneously 17 one time only 11:40:00 related to TYPE 2 DIABETES MELLITUS 017 WITHOUT 11:39:00 COMPLICATIONS (E11.9) for 1 Day TraMADol HCl 2 tablet Tablet Oral Give 2 tablet by 04/28/20 Completed Tablet 50 MG mouth every 6 17 hours as needed 17:45:00 for pain for 7 Days give 2 50mg 017 tabs to equal 17:44:00 100mg Zolpidem Tartrate 1 tablet Tablet Oral Give 1 tablet by 05/05/20 Aborted Tablet 5 MG mouth as needed 17 for insomnia for 17:45:00 14 Days daily at bedtime 017 13:23:00 TraMADol HCl 1 tablet Tablet Oral Give 1 tablet by 05/05/20 Aborted Tablet 50 MG mouth every 6 17 hours as needed 18:00:00 for pain for 2 Weeks 017 13:37:00 Zolpidem Tartrate 1 tablet Tablet Oral Give 1 tablet by 05/06/20 Aborted Tablet 5 MG mouth as needed 17 for insomnia for 22:05:00 14 Days PRN at bedtime 017 10:40:00 Ambien Tablet 5 MG 2 tablet Tablet Oral Give 2 tablet by 05/13/20 Completed mouth at bedtime 17 for insomnia for 20:00:00 10 Days Give a total of 2 tabs 017 to=10mg 19:59:00 DiazePAM Tablet 5 1 tablet Tablet Oral Give 1 tablet by 05/16/20 Completed MG mouth every 24 17 hours as needed 13:45:00 for insomnia/anxiety 017 for 14 Days Give 13:44:00 at bedtime Results Date Test Result Interpretation Reference Range Status Notes Blood sugar 04/29/2017 Blood sugar 173.0 mmol/L 8:56:34 04/29/2017 Blood sugar 198.0 mmol/L 16:30:01 04/30/2017 Blood sugar 151.0 mmol/L 6:45:07 04/30/2017 Blood sugar 200.0 mmol/L 9:34:50 04/30/2017 Blood sugar 143.0 mmol/L 11:54:07 04/30/2017 Blood sugar 148.0 mmol/L 16:55:51 04/30/2017 Blood sugar 220.0 mmol/L 20:00:00 04/30/2017 Blood sugar 209.0 mmol/L 21:00:00 05/01/2017 Blood sugar 178.0 mmol/L 9:32:48 05/01/2017 Blood sugar 178.0 mmol/L 9:34:34 05/01/2017 Blood sugar 81.0 mmol/L 12:18:10 05/01/2017 Blood sugar 185.0 mmol/L 16:48:00 05/02/2017 Blood sugar 341.0 mmol/L 8:25:42 05/02/2017 Blood sugar 341.0 mmol/L 8:32:38 05/02/2017 Blood sugar 314.0 mmol/L 11:46:51 05/02/2017 Blood sugar 341.0 mmol/L 11:47:08 05/02/2017 Blood sugar 288.0 mmol/L 16:29:24 05/03/2017 Blood sugar 144.0 mmol/L 7:58:50 05/03/2017 Blood sugar 144.0 mmol/L 7:59:20 05/03/2017 Blood sugar 221.0 mmol/L 12:14:20 05/03/2017 Blood sugar 132.0 mmol/L 16:06:17 05/03/2017 Blood sugar 243.0 mmol/L 20:20:49 05/04/2017 Blood sugar 148.0 mmol/L 7:43:51 05/04/2017 Blood sugar 148.0 mmol/L 7:44:04 05/04/2017 Blood sugar 113.0 mmol/L 12:31:55 05/04/2017 Blood sugar 177.0 mmol/L 16:18:00 05/04/2017 Blood sugar 141.0 mmol/L 20:20:48 05/05/2017 Blood sugar 203.0 mmol/L 7:52:25 05/05/2017 Blood sugar 203.0 mmol/L 7:52:38 05/05/2017 Blood sugar 161.0 mmol/L 12:04:08 05/05/2017 Blood sugar 92.0 mmol/L 16:52:30 05/05/2017 Blood sugar 145.0 mmol/L 21:32:24 05/06/2017 Blood sugar 119.0 mmol/L 7:47:23 05/06/2017 Blood sugar 119.0 mmol/L 7:55:51 05/06/2017 Blood sugar 121.0 mmol/L 12:22:39 05/06/2017 Blood sugar 131.0 mmol/L 17:01:03 05/06/2017 Blood sugar 166.0 mmol/L 21:09:33 05/07/2017 Blood sugar 180.0 mmol/L 8:45:10 05/07/2017 Blood sugar 180.0 mmol/L 8:45:36 05/07/2017 Blood sugar 147.0 mmol/L 17:37:03 05/07/2017 Blood sugar 207.0 mmol/L 19:45:37 05/08/2017 Blood sugar 168.0 mmol/L 8:42:54 05/08/2017 Blood sugar 168.0 mmol/L 8:43:16 05/08/2017 Blood sugar 137.0 mmol/L 12:28:18 05/08/2017 Blood sugar 133.0 mmol/L 17:51:57 05/08/2017 Blood sugar 165.0 mmol/L 19:49:03 05/09/2017 Blood sugar 116.0 mmol/L 8:18:59 05/09/2017 Blood sugar 116.0 mmol/L 8:21:06 05/09/2017 Blood sugar 135.0 mmol/L 12:13:22 05/09/2017 Blood sugar 166.0 mmol/L 16:20:33 05/09/2017 Blood sugar 163.0 mmol/L 19:47:47 05/10/2017 Blood sugar 101.0 mmol/L 8:19:33 05/10/2017 Blood sugar 101.0 mmol/L 8:20:50 05/10/2017 Blood sugar 101.0 mmol/L 11:59:00 05/10/2017 Blood sugar 155.0 mmol/L 16:46:38 05/10/2017 Blood sugar 222.0 mmol/L 21:45:27 05/11/2017 Blood sugar 116.0 mmol/L 8:27:40 05/11/2017 Blood sugar 116.0 mmol/L 8:28:01 05/11/2017 Blood sugar 86.0 mmol/L 12:09:00 05/11/2017 Blood sugar 146.0 mmol/L 17:52:46 05/11/2017 Blood sugar 179.0 mmol/L 20:41:20 05/12/2017 Blood sugar 128.0 mmol/L 8:02:13 05/12/2017 Blood sugar 128.0 mmol/L 8:03:13 05/12/2017 Blood sugar 199.0 mmol/L 11:58:10 05/12/2017 Blood sugar 158.0 mmol/L 17:37:19 05/12/2017 Blood sugar 162.0 mmol/L 21:17:49 05/13/2017 Blood sugar 128.0 mmol/L 7:43:39 05/13/2017 Blood sugar 128.0 mmol/L 7:44:15 05/13/2017 Blood sugar 185.0 mmol/L 11:48:46 05/13/2017 Blood sugar 204.0 mmol/L 16:10:24 05/13/2017 Blood sugar 190.0 mmol/L 22:01:14 05/14/2017 Blood sugar 131.0 mmol/L 8:03:49 05/14/2017 Blood sugar 131.0 mmol/L 8:05:45 05/14/2017 Blood sugar 107.0 mmol/L 12:22:52 05/14/2017 Blood sugar 315.0 mmol/L 17:44:03 05/14/2017 Blood sugar 132.0 mmol/L 19:54:05 05/15/2017 Blood sugar 128.0 mmol/L 8:03:40 05/15/2017 Blood sugar 128.0 mmol/L 8:03:49 05/15/2017 Blood sugar 154.0 mmol/L 12:11:17 05/15/2017 Blood sugar 103.0 mmol/L 16:34:09 05/15/2017 Blood sugar 270.0 mmol/L 21:15:49 05/16/2017 Blood sugar 115.0 mmol/L 7:54:21 05/16/2017 Blood sugar 115.0 mmol/L 7:54:38 05/16/2017 Blood sugar 127.0 mmol/L 12:09:49 05/16/2017 Blood sugar 115.0 mmol/L 17:11:56 05/16/2017 Blood sugar 221.0 mmol/L 20:57:14 05/17/2017 Blood sugar 84.0 mmol/L 8:04:18 05/17/2017 Blood sugar 84.0 mmol/L 8:04:43 05/17/2017 Blood sugar 176.0 mmol/L 13:12:25 05/17/2017 Blood sugar 215.0 mmol/L 16:38:15 05/17/2017 Blood sugar 184.0 mmol/L 19:48:48 05/18/2017 Blood sugar 128.0 mmol/L 7:33:55 05/18/2017 Blood sugar 128.0 mmol/L 7:34:38 05/18/2017 Blood sugar 213.0 mmol/L 12:01:23 05/18/2017 Blood sugar 203.0 mmol/L 17:13:07 05/18/2017 Blood sugar 285.0 mmol/L 21:03:04 05/19/2017 Blood sugar 242.0 mmol/L 12:48:52 05/19/2017 Blood sugar 162.0 mmol/L 17:24:05 05/19/2017 Blood sugar 217.0 mmol/L 21:53:12 05/20/2017 Blood sugar 124.0 mmol/L 8:37:24 05/20/2017 Blood sugar 124.0 mmol/L 8:40:03 05/20/2017 Blood sugar 168.0 mmol/L 12:50:41 05/20/2017 Blood sugar 201.0 mmol/L 17:47:00 05/20/2017 Blood sugar 140.0 mmol/L 22:15:14 05/21/2017 Blood sugar 170.0 mmol/L 8:17:24 05/21/2017 Blood sugar 170.0 mmol/L 8:22:40 05/21/2017 Blood sugar 177.0 mmol/L 12:29:08 05/21/2017 Blood sugar 105.0 mmol/L 16:28:14 05/21/2017 Blood sugar 218.0 mmol/L 19:15:12 05/22/2017 Blood sugar 202.0 mmol/L 8:32:29 05/22/2017 Blood sugar 202.0 mmol/L 8:33:25 05/22/2017 Blood sugar 137.0 mmol/L 11:38:16 05/22/2017 Blood sugar 65.0 mmol/L 17:18:57 05/22/2017 Blood sugar 192.0 mmol/L 20:33:25 05/23/2017 Blood sugar 138.0 mmol/L 8:07:28 05/23/2017 Blood sugar 138.0 mmol/L 8:09:58 05/23/2017 Blood sugar 178.0 mmol/L 12:22:23 05/23/2017 Blood sugar 143.0 mmol/L 16:13:58 05/23/2017 Blood sugar 207.0 mmol/L 20:03:19 05/24/2017 Blood sugar 150.0 mmol/L 7:39:36 05/24/2017 Blood sugar 150.0 mmol/L 7:39:55 05/24/2017 Blood sugar 149.0 mmol/L 12:27:58 05/24/2017 Blood sugar 119.0 mmol/L 16:37:12 05/24/2017 Blood sugar 250.0 mmol/L 20:59:17 05/25/2017 Blood sugar 156.0 mmol/L 8:10:28 05/25/2017 Blood sugar 156.0 mmol/L 8:10:43 05/25/2017 Blood sugar 144.0 mmol/L 12:07:28 05/25/2017 Blood sugar 174.0 mmol/L 18:22:51 05/25/2017 Blood sugar 168.0 mmol/L 19:19:09 05/26/2017 Blood sugar 144.0 mmol/L 7:59:29 05/26/2017 Blood sugar 144.0 mmol/L 7:59:39 05/26/2017 Blood sugar 143.0 mmol/L 12:19:10 05/26/2017 Blood sugar 144.0 mmol/L 16:11:34 05/26/2017 Blood sugar 208.0 mmol/L 20:50:08 05/27/2017 Blood sugar 129.0 mmol/L 7:31:48 05/27/2017 Blood sugar 129.0 mmol/L 7:32:04 05/27/2017 Blood sugar 203.0 mmol/L 16:59:31 05/27/2017 Blood sugar 245.0 mmol/L 20:17:53 05/28/2017 Blood sugar 186.0 mmol/L 8:02:27 05/28/2017 Blood sugar 186.0 mmol/L 8:02:48 05/28/2017 Blood sugar 176.0 mmol/L 11:44:22 05/28/2017 Blood sugar 225.0 mmol/L 17:33:40 05/28/2017 Blood sugar 153.0 mmol/L 21:25:42 05/29/2017 Blood sugar 139.0 mmol/L 8:21:31 05/29/2017 Blood sugar 139.0 mmol/L 8:21:55 05/29/2017 Blood sugar 176.0 mmol/L 12:30:20 05/29/2017 Blood sugar 128.0 mmol/L 16:32:01 05/29/2017 Blood sugar 243.0 mmol/L 22:06:41 05/30/2017 Blood sugar 128.0 mmol/L 8:26:48 05/30/2017 Blood sugar 128.0 mmol/L 8:27:39 05/30/2017 Blood sugar 201.0 mmol/L 13:03:18 05/30/2017 Blood sugar 133.0 mmol/L 16:27:24 05/30/2017 Blood sugar 222.0 mmol/L 21:21:07 05/31/2017 Blood sugar 129.0 mmol/L 7:53:57 05/31/2017 Blood sugar 129.0 mmol/L 7:54:09 05/31/2017 Blood sugar 93.0 mmol/L 12:57:22 05/31/2017 Blood sugar 107.0 mmol/L 16:40:08 05/31/2017 Blood sugar 330.0 mmol/L 19:44:53 06/01/2017 Blood sugar 203.0 mmol/L 7:41:42 06/01/2017 Blood sugar 203.0 mmol/L 7:41:53 06/01/2017 Blood sugar 238.0 mmol/L 11:27:50 06/01/2017 Blood sugar 130.0 mmol/L 17:47:57 06/01/2017 Blood sugar 255.0 mmol/L 22:52:49 06/02/2017 Blood sugar 103.0 mmol/L 7:32:02 06/02/2017 Blood sugar 289.0 mmol/L 11:38:24 06/02/2017 Blood sugar 119.0 mmol/L 20:31:58 06/03/2017 Blood sugar 185.0 mmol/L 9:00:25 06/03/2017 Blood sugar 185.0 mmol/L 9:00:38 06/03/2017 Blood sugar 200.0 mmol/L 12:12:16 06/03/2017 Blood sugar 141.0 mmol/L 16:29:20 06/03/2017 Blood sugar 262.0 mmol/L 22:30:59 06/04/2017 Blood sugar 204.0 mmol/L 8:16:04 06/04/2017 Blood sugar 204.0 mmol/L 8:16:33 06/04/2017 Blood sugar 121.0 mmol/L 12:05:51 06/04/2017 Blood sugar 89.0 mmol/L 17:44:55 06/04/2017 Blood sugar 89.0 mmol/L 17:46:34 06/04/2017 Blood sugar 278.0 mmol/L 21:00:44 06/05/2017 Blood sugar 288.0 mmol/L 7:56:35 06/05/2017 Blood sugar 288.0 mmol/L 7:56:54 06/05/2017 Blood sugar 121.0 mmol/L 12:12:43 06/05/2017 Blood sugar 112.0 mmol/L 17:02:31 06/05/2017 Blood sugar 275.0 mmol/L 21:29:46 06/06/2017 Blood sugar 239.0 mmol/L 8:11:48 06/06/2017 Blood sugar 239.0 mmol/L 8:12:02 06/06/2017 Blood sugar 95.0 mmol/L 12:07:13 06/06/2017 Blood sugar 199.0 mmol/L 16:59:24 06/06/2017 Blood sugar 193.0 mmol/L 19:52:37 06/07/2017 Blood sugar 132.0 mmol/L 8:11:32 06/07/2017 Blood sugar 132.0 mmol/L 8:11:45 06/07/2017 Blood sugar 109.0 mmol/L 11:52:48 06/07/2017 Blood sugar 235.0 mmol/L 16:08:59 06/07/2017 Blood sugar 294.0 mmol/L 21:03:23 06/08/2017 Blood sugar 89.0 mmol/L 8:39:29 06/08/2017 Blood sugar 89.0 mmol/L 8:39:37 06/08/2017 Blood sugar 135.0 mmol/L 12:21:10 06/08/2017 Blood sugar 127.0 mmol/L 17:10:27 06/08/2017 Blood sugar 204.0 mmol/L 21:59:12 06/09/2017 Blood sugar 102.0 mmol/L 7:55:29 06/09/2017 Blood sugar 102.0 mmol/L 7:56:41 06/09/2017 Blood sugar 136.0 mmol/L 12:10:57 06/09/2017 Blood sugar 318.0 mmol/L 20:48:35 06/10/2017 Blood sugar 140.0 mmol/L 8:13:21 06/10/2017 Blood sugar 140.0 mmol/L 8:16:34 06/10/2017 Blood sugar 183.0 mmol/L 12:25:51 06/10/2017 Blood sugar 162.0 mmol/L 17:10:26 06/10/2017 Blood sugar 140.0 mmol/L 20:27:20 06/11/2017 Blood sugar 107.0 mmol/L 8:54:30 06/11/2017 Blood sugar 107.0 mmol/L 12:35:25 06/11/2017 Blood sugar 123.0 mmol/L 16:35:23 06/11/2017 Blood sugar 127.0 mmol/L 21:58:09 06/12/2017 Blood sugar 89.0 mmol/L 8:43:10 06/12/2017 Blood sugar 89.0 mmol/L 8:44:53 06/12/2017 Blood sugar 171.0 mmol/L 12:21:28 06/12/2017 Blood sugar 137.0 mmol/L 16:53:49 06/12/2017 Blood sugar 161.0 mmol/L 21:55:59 06/13/2017 Blood sugar 110.0 mmol/L 8:21:30 06/13/2017 Blood sugar 110.0 mmol/L 8:23:59 06/13/2017 Blood sugar 165.0 mmol/L 12:06:44 06/13/2017 Blood sugar 151.0 mmol/L 16:23:06 06/13/2017 Blood sugar 258.0 mmol/L 22:04:10 06/14/2017 Blood sugar 79.0 mmol/L 7:41:45 06/14/2017 Blood sugar 79.0 mmol/L 7:43:41 06/14/2017 Blood sugar 202.0 mmol/L 13:57:53 06/14/2017 Blood sugar 122.0 mmol/L 15:43:00 06/14/2017 Blood sugar 187.0 mmol/L 19:27:55 06/15/2017 Blood sugar 108.0 mmol/L 8:44:29 06/15/2017 Blood sugar 108.0 mmol/L 8:44:39 06/15/2017 Blood sugar 250.0 mmol/L 11:54:06 06/15/2017 Blood sugar 169.0 mmol/L 15:58:00 06/15/2017 Blood sugar 209.0 mmol/L 20:28:42 06/16/2017 Blood sugar 129.0 mmol/L 8:39:32 06/16/2017 Blood sugar 129.0 mmol/L 8:41:44 06/16/2017 Blood sugar 196.0 mmol/L 12:29:27 06/16/2017 Blood sugar 147.0 mmol/L 16:32:58 06/16/2017 Blood sugar 278.0 mmol/L 21:59:35 06/17/2017 Blood sugar 163.0 mmol/L 7:30:01 06/17/2017 Blood sugar 163.0 mmol/L 7:30:14 06/17/2017 Blood sugar 127.0 mmol/L 11:28:45 06/17/2017 Blood sugar 279.0 mmol/L 16:30:41 06/17/2017 Blood sugar 180.0 mmol/L 21:57:47 06/18/2017 Blood sugar 123.0 mmol/L 8:43:30 06/18/2017 Blood sugar 123.0 mmol/L 8:43:42 06/18/2017 Blood sugar 134.0 mmol/L 12:04:25 06/18/2017 Blood sugar 141.0 mmol/L 16:23:12 06/18/2017 Blood sugar 275.0 mmol/L 21:39:14 06/19/2017 Blood sugar 141.0 mmol/L 7:01:40 06/19/2017 Blood sugar 141.0 mmol/L 7:01:56 06/19/2017 Blood sugar 321.0 mmol/L 12:24:07 06/19/2017 Blood sugar 154.0 mmol/L 18:13:55 06/19/2017 Blood sugar 173.0 mmol/L 19:31:00 06/20/2017 Blood sugar 226.0 mmol/L 8:05:29 06/20/2017 Blood sugar 226.0 mmol/L 8:05:45 06/20/2017 Blood sugar 159.0 mmol/L 11:55:30 06/20/2017 Blood sugar 112.0 mmol/L 16:42:32 06/20/2017 Blood sugar 260.0 mmol/L 20:37:22 06/21/2017 Blood sugar 133.0 mmol/L 8:14:23 06/21/2017 Blood sugar 173.0 mmol/L 12:14:54 06/21/2017 Blood sugar 137.0 mmol/L 16:29:14 06/21/2017 Blood sugar 151.0 mmol/L 19:49:28 06/22/2017 Blood sugar 121.0 mmol/L 8:15:33 06/22/2017 Blood sugar 121.0 mmol/L 8:15:48 06/22/2017 Blood sugar 988.0 mmol/L 11:55:41 06/22/2017 Blood sugar 211.0 mmol/L 16:49:29 06/22/2017 Blood sugar 169.0 mmol/L 20:26:26 06/23/2017 Blood sugar 164.0 mmol/L 8:28:48 06/23/2017 Blood sugar 164.0 mmol/L 8:29:00 06/23/2017 Blood sugar 124.0 mmol/L 12:05:50 06/23/2017 Blood sugar 210.0 mmol/L 18:04:20 06/23/2017 Blood sugar 277.0 mmol/L 19:23:30 06/24/2017 Blood sugar 87.0 mmol/L 8:09:12 06/24/2017 Blood sugar 87.0 mmol/L 8:09:34 06/24/2017 Blood sugar 89.0 mmol/L 11:36:48 06/24/2017 Blood sugar 230.0 mmol/L 17:32:25 06/24/2017 Blood sugar 214.0 mmol/L 21:18:46 06/25/2017 Blood sugar 148.0 mmol/L 8:13:35 06/25/2017 Blood sugar 148.0 mmol/L 8:13:49 06/25/2017 Blood sugar 264.0 mmol/L 12:09:34 06/25/2017 Blood sugar 136.0 mmol/L 16:33:21 06/25/2017 Blood sugar 232.0 mmol/L 22:04:38 06/26/2017 Blood sugar 99.0 mmol/L 8:48:58 06/26/2017 Blood sugar 99.0 mmol/L 8:49:10 06/26/2017 Blood sugar 200.0 mmol/L 12:01:55 06/26/2017 Blood sugar 119.0 mmol/L 16:31:55 06/26/2017 Blood sugar 299.0 mmol/L 21:37:13 06/27/2017 Blood sugar 107.0 mmol/L 7:31:41 06/27/2017 Blood sugar 107.0 mmol/L 7:32:00 06/27/2017 Blood sugar 104.0 mmol/L 12:12:40 06/27/2017 Blood sugar 258.0 mmol/L 16:00:12 Vital signs Description Observation Date INTRAVASCULAR SYSTOLIC 139.0 mm[Hg] 04/28/2017 22:49:00 INTRAVASCULAR DIASTOLIC 75.0 mm[Hg] 04/28/2017 22:49:00 HEART BEAT 77.0 {beats}/min 04/28/2017 22:50:00 RESPIRATION RATE 18.0 /min 04/28/2017 22:53:00 BODY TEMPERATURE 97.7 [degF] 04/28/2017 23:01:00 BODY TEMPERATURE 98.2 [degF] 04/29/2017 1:12:00 HEART BEAT 69.0 {beats}/min 04/29/2017 1:12:00 RESPIRATION RATE 22.0 /min 04/29/2017 1:12:00 INTRAVASCULAR SYSTOLIC 147.0 mm[Hg] 04/29/2017 1:12:00 INTRAVASCULAR DIASTOLIC 82.0 mm[Hg] 04/29/2017 1:12:00 PAIN LEVEL 8.0 {score} 04/29/2017 4:38:25 PAIN LEVEL 2.0 {score} 04/29/2017 5:19:34 INTRAVASCULAR SYSTOLIC 128.0 mm[Hg] 04/29/2017 8:07:01 INTRAVASCULAR DIASTOLIC 87.0 mm[Hg] 04/29/2017 8:07:01 PAIN LEVEL 2.0 {score} 04/29/2017 20:43:18 BODY TEMPERATURE 97.5 [degF] 04/30/2017 0:56:00 HEART BEAT 77.0 {beats}/min 04/30/2017 0:56:00 RESPIRATION RATE 18.0 /min 04/30/2017 0:56:00 INTRAVASCULAR SYSTOLIC 124.0 mm[Hg] 04/30/2017 0:56:00 INTRAVASCULAR DIASTOLIC 77.0 mm[Hg] 04/30/2017 0:56:00 PAIN LEVEL 9.0 {score} 04/30/2017 3:21:04 PAIN LEVEL 2.0 {score} 04/30/2017 4:14:20 PAIN LEVEL 0.0 {score} 04/30/2017 9:47:16 INTRAVASCULAR SYSTOLIC 132.0 mm[Hg] 04/30/2017 9:47:37 INTRAVASCULAR DIASTOLIC 89.0 mm[Hg] 04/30/2017 9:47:37 PAIN LEVEL 0.0 {score} 04/30/2017 14:42:59 PAIN LEVEL 6.0 {score} 05/01/2017 2:40:00 PAIN LEVEL 2.0 {score} 05/01/2017 5:29:20 PAIN LEVEL 4.0 {score} 05/01/2017 8:48:12 INTRAVASCULAR SYSTOLIC 136.0 mm[Hg] 05/01/2017 8:48:31 INTRAVASCULAR DIASTOLIC 84.0 mm[Hg] 05/01/2017 8:48:31 PAIN LEVEL 4.0 {score} 05/01/2017 13:20:39 PAIN LEVEL 3.0 {score} 05/01/2017 19:38:31 INTRAVASCULAR SYSTOLIC 130.0 mm[Hg] 05/02/2017 10:12:00 INTRAVASCULAR DIASTOLIC 98.0 mm[Hg] 05/02/2017 10:12:00 HEART BEAT 111.0 {beats}/min 05/02/2017 10:12:00 PAIN LEVEL 0.0 {score} 05/02/2017 10:17:20 PAIN LEVEL 4.0 {score} 05/02/2017 14:24:43 BODY TEMPERATURE 98.9 [degF] 05/02/2017 14:47:00 HEART BEAT 102.0 {beats}/min 05/02/2017 14:47:00 RESPIRATION RATE 20.0 /min 05/02/2017 14:47:00 INTRAVASCULAR SYSTOLIC 115.0 mm[Hg] 05/02/2017 14:47:00 INTRAVASCULAR DIASTOLIC 73.0 mm[Hg] 05/02/2017 14:47:00 PAIN LEVEL 5.0 {score} 05/02/2017 19:56:45 INTRAVASCULAR SYSTOLIC 123.0 mm[Hg] 05/03/2017 10:35:43 INTRAVASCULAR DIASTOLIC 72.0 mm[Hg] 05/03/2017 10:35:43 INTRAVASCULAR SYSTOLIC 135.0 mm[Hg] 05/04/2017 7:54:30 INTRAVASCULAR DIASTOLIC 93.0 mm[Hg] 05/04/2017 7:54:30 PAIN LEVEL 3.0 {score} 05/04/2017 7:54:58 PAIN LEVEL 2.0 {score} 05/04/2017 12:53:26 PAIN LEVEL 3.0 {score} 05/04/2017 12:58:15 PAIN LEVEL 3.0 {score} 05/04/2017 15:12:18 PAIN LEVEL 0.0 {score} 05/04/2017 20:17:05 PAIN LEVEL 2.0 {score} 05/04/2017 23:05:13 PAIN LEVEL 1.0 {score} 05/05/2017 0:09:20 INTRAVASCULAR SYSTOLIC 125.0 mm[Hg] 05/05/2017 9:07:00 INTRAVASCULAR DIASTOLIC 85.0 mm[Hg] 05/05/2017 9:07:00 HEART BEAT 80.0 {beats}/min 05/05/2017 9:07:00 PAIN LEVEL 0.0 {score} 05/05/2017 19:19:40 PAIN LEVEL 2.0 {score} 05/05/2017 22:45:33 PAIN LEVEL 2.0 {score} 05/05/2017 23:43:00 PAIN LEVEL 6.0 {score} 05/06/2017 12:28:15 PAIN LEVEL 4.0 {score} 05/06/2017 13:52:37 PAIN LEVEL 4.0 {score} 05/06/2017 13:54:43 PAIN LEVEL 4.0 {score} 05/06/2017 22:43:01 PAIN LEVEL 1.0 {score} 05/07/2017 0:15:57 PAIN LEVEL 4.0 {score} 05/07/2017 9:37:21 INTRAVASCULAR SYSTOLIC 139.0 mm[Hg] 05/07/2017 9:37:30 INTRAVASCULAR DIASTOLIC 80.0 mm[Hg] 05/07/2017 9:37:30 PAIN LEVEL 5.0 {score} 05/07/2017 22:35:43 PAIN LEVEL 7.0 {score} 05/07/2017 23:51:36 PAIN LEVEL 2.0 {score} 05/08/2017 2:21:07 PAIN LEVEL 8.0 {score} 05/08/2017 5:41:46 PAIN LEVEL 1.0 {score} 05/08/2017 8:05:07 PAIN LEVEL 3.0 {score} 05/08/2017 11:11:34 INTRAVASCULAR SYSTOLIC 127.0 mm[Hg] 05/08/2017 11:11:50 INTRAVASCULAR DIASTOLIC 89.0 mm[Hg] 05/08/2017 11:11:50 PAIN LEVEL 4.0 {score} 05/08/2017 13:31:03 PAIN LEVEL 3.0 {score} 05/08/2017 20:48:35 BODY TEMPERATURE 97.7 [degF] 05/08/2017 21:42:00 HEART BEAT 67.0 {beats}/min 05/08/2017 21:42:00 RESPIRATION RATE 10.0 /min 05/08/2017 21:42:00 INTRAVASCULAR SYSTOLIC 116.0 mm[Hg] 05/08/2017 21:42:00 INTRAVASCULAR DIASTOLIC 71.0 mm[Hg] 05/08/2017 21:42:00 PAIN LEVEL 3.0 {score} 05/09/2017 0:11:00 PAIN LEVEL 0.0 {score} 05/09/2017 4:41:12 PAIN LEVEL 0.0 {score} 05/09/2017 10:33:48 INTRAVASCULAR SYSTOLIC 137.0 mm[Hg] 05/09/2017 10:33:55 INTRAVASCULAR DIASTOLIC 96.0 mm[Hg] 05/09/2017 10:33:55 BODY WEIGHT (MEASURED) 210.8 [lb_av] 05/09/2017 13:57:00 PAIN LEVEL 0.0 {score} 05/09/2017 13:59:19 BODY HEIGHT (MEASURED) 66.0 [in_i] 05/09/2017 14:05:00 BODY TEMPERATURE 97.4 [degF] 05/09/2017 19:25:00 HEART BEAT 74.0 {beats}/min 05/09/2017 19:25:00 RESPIRATION RATE 18.0 /min 05/09/2017 19:25:00 INTRAVASCULAR SYSTOLIC 122.0 mm[Hg] 05/09/2017 19:25:00 INTRAVASCULAR DIASTOLIC 74.0 mm[Hg] 05/09/2017 19:25:00 PAIN LEVEL 2.0 {score} 05/09/2017 22:39:17 BODY TEMPERATURE 97.2 [degF] 05/09/2017 23:33:00 HEART BEAT 76.0 {beats}/min 05/09/2017 23:33:00 RESPIRATION RATE 16.0 /min 05/09/2017 23:33:00 INTRAVASCULAR SYSTOLIC 125.0 mm[Hg] 05/09/2017 23:33:00 INTRAVASCULAR DIASTOLIC 76.0 mm[Hg] 05/09/2017 23:33:00 PAIN LEVEL 8.0 {score} 05/09/2017 23:37:44 PAIN LEVEL 5.0 {score} 05/10/2017 0:59:58 PAIN LEVEL 2.0 {score} 05/10/2017 3:20:41 PAIN LEVEL 2.0 {score} 05/10/2017 3:20:51 PAIN LEVEL 8.0 {score} 05/10/2017 4:48:04 PAIN LEVEL 2.0 {score} 05/10/2017 5:29:29 INTRAVASCULAR SYSTOLIC 127.0 mm[Hg] 05/10/2017 9:27:43 INTRAVASCULAR DIASTOLIC 83.0 mm[Hg] 05/10/2017 9:27:43 PAIN LEVEL 0.0 {score} 05/10/2017 9:30:59 PAIN LEVEL 0.0 {score} 05/10/2017 14:34:58 BODY TEMPERATURE 97.6 [degF] 05/10/2017 22:38:00 HEART BEAT 70.0 {beats}/min 05/10/2017 22:38:00 RESPIRATION RATE 20.0 /min 05/10/2017 22:38:00 INTRAVASCULAR SYSTOLIC 121.0 mm[Hg] 05/10/2017 22:38:00 INTRAVASCULAR DIASTOLIC 73.0 mm[Hg] 05/10/2017 22:38:00 PAIN LEVEL 4.0 {score} 05/10/2017 23:58:11 BODY TEMPERATURE 97.6 [degF] 05/11/2017 0:51:00 HEART BEAT 75.0 {beats}/min 05/11/2017 0:51:00 RESPIRATION RATE 18.0 /min 05/11/2017 0:51:00 INTRAVASCULAR SYSTOLIC 122.0 mm[Hg] 05/11/2017 0:51:00 INTRAVASCULAR DIASTOLIC 75.0 mm[Hg] 05/11/2017 0:51:00 PAIN LEVEL 2.0 {score} 05/11/2017 1:39:34 PAIN LEVEL 2.0 {score} 05/11/2017 1:39:48 PAIN LEVEL 9.0 {score} 05/11/2017 3:29:50 PAIN LEVEL 2.0 {score} 05/11/2017 5:37:56 INTRAVASCULAR SYSTOLIC 115.0 mm[Hg] 05/11/2017 10:31:02 INTRAVASCULAR DIASTOLIC 84.0 mm[Hg] 05/11/2017 10:31:02 PAIN LEVEL 2.0 {score} 05/11/2017 10:33:07 BODY TEMPERATURE 97.0 [degF] 05/11/2017 19:07:00 HEART BEAT 74.0 {beats}/min 05/11/2017 19:07:00 RESPIRATION RATE 20.0 /min 05/11/2017 19:07:00 INTRAVASCULAR SYSTOLIC 117.0 mm[Hg] 05/11/2017 19:07:00 INTRAVASCULAR DIASTOLIC 66.0 mm[Hg] 05/11/2017 19:07:00 BODY TEMPERATURE 97.4 [degF] 05/12/2017 0:08:00 HEART BEAT 59.0 {beats}/min 05/12/2017 0:08:00 RESPIRATION RATE 18.0 /min 05/12/2017 0:08:00 INTRAVASCULAR SYSTOLIC 115.0 mm[Hg] 05/12/2017 0:08:00 INTRAVASCULAR DIASTOLIC 56.0 mm[Hg] 05/12/2017 0:08:00 PAIN LEVEL 3.0 {score} 05/12/2017 9:50:59 INTRAVASCULAR SYSTOLIC 127.0 mm[Hg] 05/12/2017 9:51:10 INTRAVASCULAR DIASTOLIC 78.0 mm[Hg] 05/12/2017 9:51:10 PAIN LEVEL 8.0 {score} 05/12/2017 21:19:32 BODY TEMPERATURE 98.4 [degF] 05/12/2017 23:23:00 HEART BEAT 73.0 {beats}/min 05/12/2017 23:23:00 RESPIRATION RATE 20.0 /min 05/12/2017 23:23:00 INTRAVASCULAR SYSTOLIC 120.0 mm[Hg] 05/12/2017 23:23:00 INTRAVASCULAR DIASTOLIC 69.0 mm[Hg] 05/12/2017 23:23:00 INTRAVASCULAR SYSTOLIC 130.0 mm[Hg] 05/13/2017 8:43:00 INTRAVASCULAR DIASTOLIC 96.0 mm[Hg] 05/13/2017 8:43:00 HEART BEAT 86.0 {beats}/min 05/13/2017 8:43:00 PAIN LEVEL 8.0 {score} 05/14/2017 4:42:20 PAIN LEVEL 2.0 {score} 05/14/2017 5:34:23 INTRAVASCULAR SYSTOLIC 135.0 mm[Hg] 05/14/2017 7:53:25 INTRAVASCULAR DIASTOLIC 84.0 mm[Hg] 05/14/2017 7:53:25 INTRAVASCULAR SYSTOLIC 145.0 mm[Hg] 05/15/2017 10:05:53 INTRAVASCULAR DIASTOLIC 95.0 mm[Hg] 05/15/2017 10:05:53 PAIN LEVEL 6.0 {score} 05/15/2017 21:15:09 PAIN LEVEL 3.0 {score} 05/15/2017 22:21:10 INTRAVASCULAR SYSTOLIC 145.0 mm[Hg] 05/16/2017 8:14:02 INTRAVASCULAR DIASTOLIC 102.0 mm[Hg] 05/16/2017 8:14:02 INTRAVASCULAR SYSTOLIC 116.0 mm[Hg] 05/16/2017 14:57:00 INTRAVASCULAR DIASTOLIC 77.0 mm[Hg] 05/16/2017 14:57:00 HEART BEAT 79.0 {beats}/min 05/16/2017 14:57:00 BODY TEMPERATURE 97.0 [degF] 05/16/2017 22:46:00 HEART BEAT 82.0 {beats}/min 05/16/2017 22:46:00 RESPIRATION RATE 18.0 /min 05/16/2017 22:46:00 INTRAVASCULAR SYSTOLIC 129.0 mm[Hg] 05/16/2017 22:46:00 INTRAVASCULAR DIASTOLIC 69.0 mm[Hg] 05/16/2017 22:46:00 PAIN LEVEL 4.0 {score} 05/17/2017 0:54:01 PAIN LEVEL 0.0 {score} 05/17/2017 5:06:29 INTRAVASCULAR SYSTOLIC 116.0 mm[Hg] 05/17/2017 10:54:46 INTRAVASCULAR DIASTOLIC 69.0 mm[Hg] 05/17/2017 10:54:46 BODY TEMPERATURE 97.3 [degF] 05/17/2017 23:52:00 HEART BEAT 80.0 {beats}/min 05/17/2017 23:52:00 RESPIRATION RATE 18.0 /min 05/17/2017 23:52:00 INTRAVASCULAR SYSTOLIC 126.0 mm[Hg] 05/17/2017 23:52:00 INTRAVASCULAR DIASTOLIC 74.0 mm[Hg] 05/17/2017 23:52:00 INTRAVASCULAR SYSTOLIC 139.0 mm[Hg] 05/18/2017 9:28:15 INTRAVASCULAR DIASTOLIC 90.0 mm[Hg] 05/18/2017 9:28:15 BODY TEMPERATURE 98.4 [degF] 05/18/2017 23:26:00 HEART BEAT 78.0 {beats}/min 05/18/2017 23:26:00 RESPIRATION RATE 18.0 /min 05/18/2017 23:26:00 INTRAVASCULAR SYSTOLIC 122.0 mm[Hg] 05/18/2017 23:26:00 INTRAVASCULAR DIASTOLIC 74.0 mm[Hg] 05/18/2017 23:26:00 BODY TEMPERATURE 98.4 [degF] 05/19/2017 14:38:00 HEART BEAT 116.0 {beats}/min 05/19/2017 14:38:00 RESPIRATION RATE 16.0 /min 05/19/2017 14:38:00 INTRAVASCULAR SYSTOLIC 128.0 mm[Hg] 05/19/2017 14:38:00 INTRAVASCULAR DIASTOLIC 91.0 mm[Hg] 05/19/2017 14:38:00 BODY TEMPERATURE 96.7 [degF] 05/19/2017 23:12:00 HEART BEAT 95.0 {beats}/min 05/19/2017 23:12:00 RESPIRATION RATE 16.0 /min 05/19/2017 23:12:00 INTRAVASCULAR SYSTOLIC 106.0 mm[Hg] 05/19/2017 23:12:00 INTRAVASCULAR DIASTOLIC 74.0 mm[Hg] 05/19/2017 23:12:00 PAIN LEVEL 6.0 {score} 05/20/2017 6:55:46 PAIN LEVEL 2.0 {score} 05/20/2017 9:41:22 INTRAVASCULAR SYSTOLIC 142.0 mm[Hg] 05/20/2017 9:42:07 INTRAVASCULAR DIASTOLIC 90.0 mm[Hg] 05/20/2017 9:42:07 INTRAVASCULAR SYSTOLIC 134.0 mm[Hg] 05/21/2017 8:13:19 INTRAVASCULAR DIASTOLIC 95.0 mm[Hg] 05/21/2017 8:13:19 INTRAVASCULAR SYSTOLIC 136.0 mm[Hg] 05/22/2017 9:52:31 INTRAVASCULAR DIASTOLIC 82.0 mm[Hg] 05/22/2017 9:52:31 BODY TEMPERATURE 97.4 [degF] 05/23/2017 0:36:00 HEART BEAT 65.0 {beats}/min 05/23/2017 0:36:00 RESPIRATION RATE 18.0 /min 05/23/2017 0:36:00 INTRAVASCULAR SYSTOLIC 125.0 mm[Hg] 05/23/2017 0:36:00 INTRAVASCULAR DIASTOLIC 71.0 mm[Hg] 05/23/2017 0:36:00 INTRAVASCULAR SYSTOLIC 122.0 mm[Hg] 05/23/2017 9:25:40 INTRAVASCULAR DIASTOLIC 73.0 mm[Hg] 05/23/2017 9:25:40 BODY TEMPERATURE 98.3 [degF] 05/23/2017 23:18:00 HEART BEAT 82.0 {beats}/min 05/23/2017 23:18:00 RESPIRATION RATE 18.0 /min 05/23/2017 23:18:00 INTRAVASCULAR SYSTOLIC 152.0 mm[Hg] 05/23/2017 23:18:00 INTRAVASCULAR DIASTOLIC 69.0 mm[Hg] 05/23/2017 23:18:00 PAIN LEVEL 5.0 {score} 05/24/2017 0:50:34 PAIN LEVEL 0.0 {score} 05/24/2017 6:02:42 INTRAVASCULAR SYSTOLIC 133.0 mm[Hg] 05/24/2017 9:15:58 INTRAVASCULAR DIASTOLIC 90.0 mm[Hg] 05/24/2017 9:15:58 BODY TEMPERATURE 98.8 [degF] 05/24/2017 23:35:00 HEART BEAT 85.0 {beats}/min 05/24/2017 23:35:00 RESPIRATION RATE 18.0 /min 05/24/2017 23:35:00 INTRAVASCULAR SYSTOLIC 121.0 mm[Hg] 05/24/2017 23:35:00 INTRAVASCULAR DIASTOLIC 72.0 mm[Hg] 05/24/2017 23:35:00 INTRAVASCULAR SYSTOLIC 122.0 mm[Hg] 05/25/2017 10:56:18 INTRAVASCULAR DIASTOLIC 80.0 mm[Hg] 05/25/2017 10:56:18 BODY TEMPERATURE 97.4 [degF] 05/26/2017 0:04:00 HEART BEAT 82.0 {beats}/min 05/26/2017 0:04:00 RESPIRATION RATE 18.0 /min 05/26/2017 0:04:00 INTRAVASCULAR SYSTOLIC 131.0 mm[Hg] 05/26/2017 0:04:00 INTRAVASCULAR DIASTOLIC 93.0 mm[Hg] 05/26/2017 0:04:00 PAIN LEVEL 8.0 {score} 05/26/2017 6:21:42 INTRAVASCULAR SYSTOLIC 101.0 mm[Hg] 05/26/2017 10:32:31 INTRAVASCULAR DIASTOLIC 55.0 mm[Hg] 05/26/2017 10:32:31 PAIN LEVEL 0.0 {score} 05/26/2017 14:17:25 BODY TEMPERATURE 97.4 [degF] 05/26/2017 23:49:00 HEART BEAT 88.0 {beats}/min 05/26/2017 23:49:00 RESPIRATION RATE 19.0 /min 05/26/2017 23:49:00 INTRAVASCULAR SYSTOLIC 128.0 mm[Hg] 05/26/2017 23:49:00 INTRAVASCULAR DIASTOLIC 98.0 mm[Hg] 05/26/2017 23:49:00 INTRAVASCULAR SYSTOLIC 134.0 mm[Hg] 05/27/2017 7:15:56 INTRAVASCULAR DIASTOLIC 93.0 mm[Hg] 05/27/2017 7:15:56 BODY TEMPERATURE 98.2 [degF] 05/28/2017 3:49:00 HEART BEAT 90.0 {beats}/min 05/28/2017 3:49:00 RESPIRATION RATE 22.0 /min 05/28/2017 3:49:00 INTRAVASCULAR SYSTOLIC 140.0 mm[Hg] 05/28/2017 3:49:00 INTRAVASCULAR DIASTOLIC 96.0 mm[Hg] 05/28/2017 3:49:00 INTRAVASCULAR SYSTOLIC 129.0 mm[Hg] 05/28/2017 8:09:24 INTRAVASCULAR DIASTOLIC 67.0 mm[Hg] 05/28/2017 8:09:24 BODY TEMPERATURE 97.7 [degF] 05/28/2017 23:39:00 HEART BEAT 96.0 {beats}/min 05/28/2017 23:39:00 RESPIRATION RATE 20.0 /min 05/28/2017 23:39:00 INTRAVASCULAR SYSTOLIC 147.0 mm[Hg] 05/28/2017 23:39:00 INTRAVASCULAR DIASTOLIC 84.0 mm[Hg] 05/28/2017 23:39:00 PAIN LEVEL 7.0 {score} 05/29/2017 1:51:56 PAIN LEVEL 1.0 {score} 05/29/2017 3:07:45 INTRAVASCULAR SYSTOLIC 119.0 mm[Hg] 05/29/2017 8:14:37 INTRAVASCULAR DIASTOLIC 86.0 mm[Hg] 05/29/2017 8:14:37 BODY TEMPERATURE 98.2 [degF] 05/29/2017 23:33:00 HEART BEAT 85.0 {beats}/min 05/29/2017 23:33:00 RESPIRATION RATE 18.0 /min 05/29/2017 23:33:00 INTRAVASCULAR SYSTOLIC 135.0 mm[Hg] 05/29/2017 23:33:00 INTRAVASCULAR DIASTOLIC 95.0 mm[Hg] 05/29/2017 23:33:00 PAIN LEVEL 7.0 {score} 05/29/2017 23:51:32 PAIN LEVEL 2.0 {score} 05/30/2017 0:49:00 INTRAVASCULAR SYSTOLIC 135.0 mm[Hg] 05/30/2017 8:15:24 INTRAVASCULAR DIASTOLIC 95.0 mm[Hg] 05/30/2017 8:15:24 BODY TEMPERATURE 97.6 [degF] 05/30/2017 23:27:00 HEART BEAT 79.0 {beats}/min 05/30/2017 23:27:00 RESPIRATION RATE 18.0 /min 05/30/2017 23:27:00 INTRAVASCULAR SYSTOLIC 141.0 mm[Hg] 05/30/2017 23:27:00 INTRAVASCULAR DIASTOLIC 78.0 mm[Hg] 05/30/2017 23:27:00 PAIN LEVEL 8.0 {score} 05/31/2017 1:13:02 PAIN LEVEL 1.0 {score} 05/31/2017 5:04:18 INTRAVASCULAR SYSTOLIC 117.0 mm[Hg] 05/31/2017 10:45:31 INTRAVASCULAR DIASTOLIC 73.0 mm[Hg] 05/31/2017 10:45:31 BODY TEMPERATURE 98.9 [degF] 05/31/2017 21:08:00 HEART BEAT 85.0 {beats}/min 05/31/2017 21:08:00 RESPIRATION RATE 18.0 /min 05/31/2017 21:08:00 INTRAVASCULAR SYSTOLIC 117.0 mm[Hg] 05/31/2017 21:08:00 INTRAVASCULAR DIASTOLIC 67.0 mm[Hg] 05/31/2017 21:08:00 BODY TEMPERATURE 98.4 [degF] 06/01/2017 0:13:00 HEART BEAT 83.0 {beats}/min 06/01/2017 0:13:00 RESPIRATION RATE 18.0 /min 06/01/2017 0:13:00 INTRAVASCULAR SYSTOLIC 124.0 mm[Hg] 06/01/2017 0:13:00 INTRAVASCULAR DIASTOLIC 76.0 mm[Hg] 06/01/2017 0:13:00 PAIN LEVEL 7.0 {score} 06/01/2017 2:40:47 PAIN LEVEL 1.0 {score} 06/01/2017 5:28:18 INTRAVASCULAR SYSTOLIC 139.0 mm[Hg] 06/01/2017 8:28:40 INTRAVASCULAR DIASTOLIC 94.0 mm[Hg] 06/01/2017 8:28:40 BODY TEMPERATURE 97.7 [degF] 06/01/2017 23:19:00 HEART BEAT 69.0 {beats}/min 06/01/2017 23:19:00 RESPIRATION RATE 18.0 /min 06/01/2017 23:19:00 INTRAVASCULAR SYSTOLIC 146.0 mm[Hg] 06/01/2017 23:19:00 INTRAVASCULAR DIASTOLIC 63.0 mm[Hg] 06/01/2017 23:19:00 PAIN LEVEL 3.0 {score} 06/02/2017 0:58:34 PAIN LEVEL 0.0 {score} 06/02/2017 5:08:57 INTRAVASCULAR SYSTOLIC 118.0 mm[Hg] 06/02/2017 11:26:45 INTRAVASCULAR DIASTOLIC 73.0 mm[Hg] 06/02/2017 11:26:45 PAIN LEVEL 3.0 {score} 06/03/2017 0:32:39 PAIN LEVEL 0.0 {score} 06/03/2017 5:06:13 INTRAVASCULAR SYSTOLIC 117.0 mm[Hg] 06/03/2017 8:55:28 INTRAVASCULAR DIASTOLIC 78.0 mm[Hg] 06/03/2017 8:55:28 PAIN LEVEL 7.0 {score} 06/04/2017 1:52:24 PAIN LEVEL 0.0 {score} 06/04/2017 3:27:04 INTRAVASCULAR SYSTOLIC 135.0 mm[Hg] 06/04/2017 9:19:53 INTRAVASCULAR DIASTOLIC 99.0 mm[Hg] 06/04/2017 9:19:53 BODY TEMPERATURE 97.5 [degF] 06/04/2017 23:14:00 HEART BEAT 76.0 {beats}/min 06/04/2017 23:14:00 RESPIRATION RATE 18.0 /min 06/04/2017 23:14:00 INTRAVASCULAR SYSTOLIC 121.0 mm[Hg] 06/04/2017 23:14:00 INTRAVASCULAR DIASTOLIC 67.0 mm[Hg] 06/04/2017 23:14:00 PAIN LEVEL 7.0 {score} 06/05/2017 2:16:53 PAIN LEVEL 2.0 {score} 06/05/2017 3:46:11 INTRAVASCULAR SYSTOLIC 119.0 mm[Hg] 06/05/2017 10:51:33 INTRAVASCULAR DIASTOLIC 75.0 mm[Hg] 06/05/2017 10:51:33 BODY TEMPERATURE 97.7 [degF] 06/05/2017 23:53:00 HEART BEAT 78.0 {beats}/min 06/05/2017 23:53:00 RESPIRATION RATE 18.0 /min 06/05/2017 23:53:00 INTRAVASCULAR SYSTOLIC 135.0 mm[Hg] 06/05/2017 23:53:00 INTRAVASCULAR DIASTOLIC 74.0 mm[Hg] 06/05/2017 23:53:00 PAIN LEVEL 3.0 {score} 06/06/2017 1:48:00 PAIN LEVEL 0.0 {score} 06/06/2017 4:47:49 INTRAVASCULAR SYSTOLIC 118.0 mm[Hg] 06/06/2017 9:45:23 INTRAVASCULAR DIASTOLIC 73.0 mm[Hg] 06/06/2017 9:45:23 BODY TEMPERATURE 97.0 [degF] 06/07/2017 0:13:00 HEART BEAT 74.0 {beats}/min 06/07/2017 0:13:00 RESPIRATION RATE 16.0 /min 06/07/2017 0:13:00 INTRAVASCULAR SYSTOLIC 120.0 mm[Hg] 06/07/2017 0:13:00 INTRAVASCULAR DIASTOLIC 74.0 mm[Hg] 06/07/2017 0:13:00 PAIN LEVEL 7.0 {score} 06/07/2017 0:30:43 PAIN LEVEL 2.0 {score} 06/07/2017 4:43:18 INTRAVASCULAR SYSTOLIC 123.0 mm[Hg] 06/07/2017 10:53:22 INTRAVASCULAR DIASTOLIC 82.0 mm[Hg] 06/07/2017 10:53:22 BODY TEMPERATURE 96.5 [degF] 06/07/2017 23:19:00 HEART BEAT 93.0 {beats}/min 06/07/2017 23:19:00 RESPIRATION RATE 20.0 /min 06/07/2017 23:19:00 INTRAVASCULAR SYSTOLIC 108.0 mm[Hg] 06/07/2017 23:19:00 INTRAVASCULAR DIASTOLIC 81.0 mm[Hg] 06/07/2017 23:19:00 PAIN LEVEL 7.0 {score} 06/08/2017 2:27:15 PAIN LEVEL 2.0 {score} 06/08/2017 3:21:39 INTRAVASCULAR SYSTOLIC 124.0 mm[Hg] 06/08/2017 9:14:05 INTRAVASCULAR DIASTOLIC 83.0 mm[Hg] 06/08/2017 9:14:05 BODY TEMPERATURE 96.7 [degF] 06/08/2017 23:31:00 HEART BEAT 84.0 {beats}/min 06/08/2017 23:31:00 RESPIRATION RATE 20.0 /min 06/08/2017 23:31:00 INTRAVASCULAR SYSTOLIC 132.0 mm[Hg] 06/08/2017 23:31:00 INTRAVASCULAR DIASTOLIC 74.0 mm[Hg] 06/08/2017 23:31:00 PAIN LEVEL 7.0 {score} 06/09/2017 0:56:30 PAIN LEVEL 0.0 {score} 06/09/2017 5:02:34 INTRAVASCULAR SYSTOLIC 126.0 mm[Hg] 06/09/2017 10:44:23 INTRAVASCULAR DIASTOLIC 86.0 mm[Hg] 06/09/2017 10:44:23 BODY TEMPERATURE 97.6 [degF] 06/09/2017 23:05:00 HEART BEAT 90.0 {beats}/min 06/09/2017 23:05:00 RESPIRATION RATE 18.0 /min 06/09/2017 23:05:00 INTRAVASCULAR SYSTOLIC 124.0 mm[Hg] 06/09/2017 23:05:00 INTRAVASCULAR DIASTOLIC 83.0 mm[Hg] 06/09/2017 23:05:00 PAIN LEVEL 8.0 {score} 06/10/2017 1:30:00 PAIN LEVEL 2.0 {score} 06/10/2017 5:24:00 INTRAVASCULAR SYSTOLIC 135.0 mm[Hg] 06/10/2017 8:02:20 INTRAVASCULAR DIASTOLIC 102.0 mm[Hg] 06/10/2017 8:02:20 PAIN LEVEL 7.0 {score} 06/10/2017 8:02:32 PAIN LEVEL 7.0 {score} 06/10/2017 12:00:00 PAIN LEVEL 2.0 {score} 06/10/2017 14:18:24 BODY TEMPERATURE 97.2 [degF] 06/10/2017 23:43:00 HEART BEAT 82.0 {beats}/min 06/10/2017 23:43:00 RESPIRATION RATE 18.0 /min 06/10/2017 23:43:00 INTRAVASCULAR SYSTOLIC 123.0 mm[Hg] 06/10/2017 23:43:00 INTRAVASCULAR DIASTOLIC 70.0 mm[Hg] 06/10/2017 23:43:00 PAIN LEVEL 6.0 {score} 06/11/2017 3:12:53 PAIN LEVEL 0.0 {score} 06/11/2017 5:05:42 INTRAVASCULAR SYSTOLIC 117.0 mm[Hg] 06/11/2017 10:09:19 INTRAVASCULAR DIASTOLIC 70.0 mm[Hg] 06/11/2017 10:09:19 PAIN LEVEL 7.0 {score} 06/11/2017 10:10:01 PAIN LEVEL 5.0 {score} 06/11/2017 12:51:46 PAIN LEVEL 5.0 {score} 06/11/2017 13:26:33 PAIN LEVEL 2.0 {score} 06/11/2017 22:22:32 INTRAVASCULAR SYSTOLIC 137.0 mm[Hg] 06/12/2017 10:56:02 INTRAVASCULAR DIASTOLIC 82.0 mm[Hg] 06/12/2017 10:56:02 BODY TEMPERATURE 98.4 [degF] 06/12/2017 23:38:00 HEART BEAT 111.0 {beats}/min 06/12/2017 23:38:00 RESPIRATION RATE 20.0 /min 06/12/2017 23:38:00 INTRAVASCULAR SYSTOLIC 153.0 mm[Hg] 06/12/2017 23:38:00 INTRAVASCULAR DIASTOLIC 77.0 mm[Hg] 06/12/2017 23:38:00 INTRAVASCULAR SYSTOLIC 130.0 mm[Hg] 06/13/2017 9:23:40 INTRAVASCULAR DIASTOLIC 81.0 mm[Hg] 06/13/2017 9:23:40 PAIN LEVEL 7.0 {score} 06/14/2017 0:58:55 PAIN LEVEL 1.0 {score} 06/14/2017 1:30:35 INTRAVASCULAR SYSTOLIC 131.0 mm[Hg] 06/14/2017 7:39:21 INTRAVASCULAR DIASTOLIC 92.0 mm[Hg] 06/14/2017 7:39:21 BODY TEMPERATURE 98.0 [degF] 06/14/2017 23:09:00 HEART BEAT 68.0 {beats}/min 06/14/2017 23:09:00 RESPIRATION RATE 18.0 /min 06/14/2017 23:09:00 INTRAVASCULAR SYSTOLIC 124.0 mm[Hg] 06/14/2017 23:09:00 INTRAVASCULAR DIASTOLIC 77.0 mm[Hg] 06/14/2017 23:09:00 INTRAVASCULAR SYSTOLIC 114.0 mm[Hg] 06/15/2017 7:54:10 INTRAVASCULAR DIASTOLIC 77.0 mm[Hg] 06/15/2017 7:54:10 PAIN LEVEL 1.0 {score} 06/16/2017 3:26:52 PAIN LEVEL 0.0 {score} 06/16/2017 6:47:37 INTRAVASCULAR SYSTOLIC 112.0 mm[Hg] 06/16/2017 10:49:07 INTRAVASCULAR DIASTOLIC 70.0 mm[Hg] 06/16/2017 10:49:07 INTRAVASCULAR SYSTOLIC 145.0 mm[Hg] 06/17/2017 7:22:00 INTRAVASCULAR DIASTOLIC 87.0 mm[Hg] 06/17/2017 7:22:00 HEART BEAT 81.0 {beats}/min 06/17/2017 7:22:00 PAIN LEVEL 5.0 {score} 06/17/2017 17:19:04 PAIN LEVEL 3.0 {score} 06/17/2017 18:42:57 INTRAVASCULAR SYSTOLIC 133.0 mm[Hg] 06/18/2017 7:49:13 INTRAVASCULAR DIASTOLIC 86.0 mm[Hg] 06/18/2017 7:49:13 BODY TEMPERATURE 96.9 [degF] 06/18/2017 23:10:00 HEART BEAT 75.0 {beats}/min 06/18/2017 23:10:00 RESPIRATION RATE 18.0 /min 06/18/2017 23:10:00 INTRAVASCULAR SYSTOLIC 151.0 mm[Hg] 06/18/2017 23:10:00 INTRAVASCULAR DIASTOLIC 99.0 mm[Hg] 06/18/2017 23:10:00 INTRAVASCULAR SYSTOLIC 144.0 mm[Hg] 06/19/2017 8:07:56 INTRAVASCULAR DIASTOLIC 95.0 mm[Hg] 06/19/2017 8:07:56 INTRAVASCULAR SYSTOLIC 126.0 mm[Hg] 06/20/2017 8:50:33 INTRAVASCULAR DIASTOLIC 89.0 mm[Hg] 06/20/2017 8:50:33 BODY TEMPERATURE 97.9 [degF] 06/21/2017 5:14:00 HEART BEAT 77.0 {beats}/min 06/21/2017 5:14:00 RESPIRATION RATE 20.0 /min 06/21/2017 5:14:00 INTRAVASCULAR SYSTOLIC 126.0 mm[Hg] 06/21/2017 5:14:00 INTRAVASCULAR DIASTOLIC 88.0 mm[Hg] 06/21/2017 5:14:00 INTRAVASCULAR SYSTOLIC 122.0 mm[Hg] 06/21/2017 11:47:32 INTRAVASCULAR DIASTOLIC 80.0 mm[Hg] 06/21/2017 11:47:32 BODY TEMPERATURE 97.6 [degF] 06/22/2017 0:41:00 HEART BEAT 70.0 {beats}/min 06/22/2017 0:41:00 RESPIRATION RATE 20.0 /min 06/22/2017 0:41:00 INTRAVASCULAR SYSTOLIC 114.0 mm[Hg] 06/22/2017 0:41:00 INTRAVASCULAR DIASTOLIC 74.0 mm[Hg] 06/22/2017 0:41:00 INTRAVASCULAR SYSTOLIC 123.0 mm[Hg] 06/22/2017 8:09:48 INTRAVASCULAR DIASTOLIC 79.0 mm[Hg] 06/22/2017 8:09:48 PAIN LEVEL 6.0 {score} 06/23/2017 5:56:08 INTRAVASCULAR SYSTOLIC 142.0 mm[Hg] 06/23/2017 9:43:17 INTRAVASCULAR DIASTOLIC 96.0 mm[Hg] 06/23/2017 9:43:17 PAIN LEVEL 5.0 {score} 06/23/2017 9:43:37 BODY WEIGHT (MEASURED) 207.2 [lb_av] 06/23/2017 10:25:00 BODY TEMPERATURE 97.9 [degF] 06/23/2017 23:35:00 HEART BEAT 69.0 {beats}/min 06/23/2017 23:35:00 RESPIRATION RATE 18.0 /min 06/23/2017 23:35:00 INTRAVASCULAR SYSTOLIC 125.0 mm[Hg] 06/23/2017 23:35:00 INTRAVASCULAR DIASTOLIC 71.0 mm[Hg] 06/23/2017 23:35:00 INTRAVASCULAR SYSTOLIC 114.0 mm[Hg] 06/24/2017 7:37:51 INTRAVASCULAR DIASTOLIC 72.0 mm[Hg] 06/24/2017 7:37:51 INTRAVASCULAR SYSTOLIC 144.0 mm[Hg] 06/25/2017 7:52:09 INTRAVASCULAR DIASTOLIC 81.0 mm[Hg] 06/25/2017 7:52:09 INTRAVASCULAR SYSTOLIC 124.0 mm[Hg] 06/26/2017 10:25:16 INTRAVASCULAR DIASTOLIC 68.0 mm[Hg] 06/26/2017 10:25:16 BODY TEMPERATURE 97.8 [degF] 06/27/2017 0:06:00 HEART BEAT 69.0 {beats}/min 06/27/2017 0:06:00 RESPIRATION RATE 20.0 /min 06/27/2017 0:06:00 INTRAVASCULAR SYSTOLIC 118.0 mm[Hg] 06/27/2017 0:06:00 INTRAVASCULAR DIASTOLIC 61.0 mm[Hg] 06/27/2017 0:06:00 INTRAVASCULAR SYSTOLIC 147.0 mm[Hg] 06/27/2017 11:01:28 INTRAVASCULAR DIASTOLIC 96.0 mm[Hg] 06/27/2017 11:01:28 Immunizations Vaccine Date Status Reason Influenza, seasonal, injectable 05/13/2017 Refused Family Refused pneumococcal polysaccharide vaccine, 23 05/13/2017 Refused Family Refused valent tuberculin skin test; purified protein 04/29/2017 15:50:00 Completed derivative solution, intradermal Social History Smoking Status Start Date End Date Unknown if ever smoked 06/27/2017 21:00:47
--- NOTE | 2018-07-17 15:36 | RAD REPORT ---
EXAM DESCRIPTION: RAD - Chest Pa And Lat (2 Views) - 07/17/2018 3:16 pm CLINICAL HISTORY: Cough, weakness COMPARISON: None. TECHNIQUE: PA and lateral views of the chest were obtained. FINDINGS: The lungs are underinflated. No focal consolidation, mass or failure finding. No acute brooke g parenchymal process suspected. Heart size is normal and central vasculature is within normal limi ts. No pleural effusion or pneumothorax seen. No acute bony finding noted. No aortic abnormality. IMPRESSION: No acute cardiopulmonary process.
[2018-07-17 18:42] LABS: Absolute Lymphocytes (CBC) 1.9 K/uL (0.7-4.9); Absolute Monocytes 1.2 K/uL (0.1-1.3); Absolute Neutrophil 4.1 K/uL (1.8-8.0); Eosinophils % 0.9 % (0-4.4); Hematocrit 49.7 % (39.6-49.0); Lymphocytes % 25.6 % (15.3-44.8); MPV 9.2 fL (7.6-11.3); Monocytes % 16.5 % (3.3-12.3); Protime INR 1.1; RBC Red Blood Cell Count 5.65 M/uL (4.33-5.43)
[2018-07-17] MEDS ORDERED: NA CHLORIDE 0.9% 1,000 ML ONE (18:44)
[2018-07-17] MEDS ORDERED: ACETAMINOPHEN 325 MG TABLET ONE (18:44)
[2018-07-17 19:09] LABS: ALT/SGPT 38 U/L (12-78); AST/SGOT 38 U/L (15-37); Albumin 3.4 g/dL (3.4-5.0); Alkaline Phosphatase 128 U/L (45-117); BUN Blood Urea Nitrogen 16 mg/dL (7-18); Bicarbonate 26 mmol/L (21-32); Bilirubin Direct < 0.1 mg/dL (0-0.2); Bilirubin Total 0.2 mg/dL (0.2-1.0); Glucose Level 204 mg/dL (74-106); NT PRO-BNP 27 pg/mL (<125); Potassium 4.1 mmol/L (3.5-5.1); Protein, Total 7.6 g/dL (6.4-8.2); Sodium Level 137 mmol/L (136-145); Troponin (Emerg Dept Use Only) < 0.02 ng/mL (0.0-0.045)
[2018-07-17] MEDS ORDERED: OSELTAMIVIR 75 MG CAP ONE (20:22)
--- NOTE | 2018-07-17 20:24 | EDPHYS ---
Physician Documentation [facility] Name: Ketan Pierre Jr Age: 48 yrs Sex: Male : 1970 Arrival Date: 07/17/2018 Time: 14:38 Bed 27 Private MD: Unknown, Unknown ED Physician Rickie Jenkins HPI: 07/17 17:29 This 48 yrs old Male presents to ER via Ambulatory with complaints of Chest jmm Pain, Cough. 17:29 The patient or guardian reports cough. Onset: The symptoms/episode began/occurred jmm gradually, 2 day(s) ago. Associated signs and symptoms: Pertinent positives: chest pain, fever, sore throat. This is a 48 year old male with a history of dm, that presents to the ED with complaints of cough, chest pain, fever beginning 2 days ago. Patient states having a cough this past Friday which resolved. Patient was called in a zpack which the patient states has not provided relief. . Historical: - Allergies: 14:49 NKA; sv - Home Meds: 17:33 Insulin: Regular Sub-Q [Active]; mg2 - PMHx: 14:49 Diabetes - IDDM; pancreatic growth; sv - PSHx: 14:49 Cholecystectomy; parathyroid glands removed; most of pancreas removed; splenectomy; sv - Immunization history:: Flu vaccine is not up to date. - Social history:: Smoking status: Patient/guardian denies using tobacco. - Ebola Screening: : No symptoms or risks identified at this time. ROS: 17:29 Constitutional: Positive for body aches, fever. jmm 17:29 Cardiovascular: Positive for chest pain, with cough. 17:29 Respiratory: Positive for cough. 17:29 All other systems are negative. Exam: 17:29 Constitutional: This is a well developed, well nourished patient who is awake, alert, jmm and in no acute distress. Head/Face: atraumatic. Eyes: EOMI, no conjunctival erythema appreciated ENT: Moist Mucus Membranes Neck: Trachea midline, Supple Chest/axilla: Normal chest wall appearance and motion. 17:29 Cardiovascular: Regular rate and rhythm. No edema appreciated Back: Normal ROM Skin: General appearance color normal MS/ Extremity: Moves all extremities, no obvious deformities appreciated, no edema noted to the lower extremities Neuro: Awake and alert, normal gait Psych: Behavior is normal, Mood is normal, Patient is cooperative and pleasant 17:29 Cardiovascular: Rate: normal, Rhythm: regular. 17:29 Respiratory: the patient does not display signs of respiratory distress, Respirations: normal, Breath sounds: are clear throughout. 17:29 Abdomen/GI: Inspection: abdomen appears normal, Bowel sounds: normal, Palpation: abdomen is soft and non-tender, in all quadrants. Vital Signs: 14:50 BP 150 / 90; Pulse 93; Resp 16; Temp 99.8; Pulse Ox 96% ; Weight 95.25 kg; Height 5 ft. sv 6 in. (167.64 cm); 17:33 Pulse 84; Resp 18; Temp 99.7(O); Pulse Ox 97% on R/A; Pain 4/10; mg2 18:39 BP 143 / 94; Pulse 88; Resp 18; Temp 99.4(O); Pulse Ox 96% on R/A; mg2 19:47 BP 153 / 94; Pulse 82; Resp 18; Pulse Ox 96% on R/A; mg2 14:50 Body Mass Index 33.89 (95.25 kg, 167.64 cm) sv MDM: 18:00 Patient medically screened. tracie 20:23 Data reviewed: vital signs, nurses notes. Counseling: I had a detailed discussion with masoud the patient and/or guardian regarding: the historical points, exam findings, and any diagnostic results supporting the discharge/admit diagnosis, lab results, radiology results, the need for outpatient follow up, to return to the emergency department if symptoms worsen or persist or if there are any questions or concerns that arise at home. ED course: Patient is alert and non toxic in appearance in the ED. No signs of resp distress in the ED. Patient will be prescribde tamiflu due to history of splenectomy. Patient advised to follow up with Dr. Austin on Friday and otherwise advised to return to the ED if symptoms worsen. patient understood and agrees with the plan of care. . 07/17 14:53 Order name: Flu; Complete Time: 17:29 07/17 14:53 Order name: Strep; Complete Time: 17:29 07/17 15:29 Order name: Throat Culture [facility] 07/17 18:07 Order name: Basic Metabolic Panel; Complete Time: 19:14 [facility] 07/17 18:07 Order name: CBC with Diff [facility] 07/17 18:07 Order name: LFT's; Complete Time: 19:14 [facility] 07/17 14:53 Order name: Chest Pa And Lat (2 Views) XRAY; Complete Time: 17:29 sv 07/17 18:07 Order name: Magnesium; Complete Time: 19:14 [facility] 07/17 18:07 Order name: NT PRO-BNP; Complete Time: 19:14 [facility] 07/17 18:07 Order name: PT-INR; Complete Time: 18:49 [facility] 07/17 18:07 Order name: Troponin (emerg Dept Use Only); Complete Time: 19:14 [facility] 07/17 18:07 Order name: EKG; Complete Time: 18:08 [facility] 07/17 18:07 Order name: Cardiac monitoring; Complete Time: 18:39 [facility] 07/17 18:07 Order name: EKG - Nurse/Tech; Complete Time: 18:39 [facility] 07/17 18:07 Order name: IV Saline Lock; Complete Time: 18:39 [facility] 07/17 18:07 Order name: Labs collected and sent; Complete Time: 18:39 [facility] 07/17 18:07 Order name: O2 Per Protocol; Complete Time: 18:39 [facility] 07/17 18:07 Order name: O2 Sat Monitoring; Complete Time: 18:39 jmm Administered Medications: 18:38 Drug: NS 0.9% 1000 ml Route: IV; Rate: 1 bolus; Site: right antecubital; mg2 19:19 Follow up: Response: No adverse reaction; IV Status: Completed infusion mg2 18:38 Drug: Tylenol 650 mg Route: PO; mg2 19:19 Follow up: Response: No adverse reaction; Marked relief of symptoms mg2 20:13 Drug: Tamiflu 75 mg Route: PO; mg2 20:35 Follow up: Response: No adverse reaction bb Disposition: 07/17/18 20:24 Discharged to Home. Impression: Influenza due to certain identified influenza viruses. - Condition is Stable. - Discharge Instructions: Influenza, Adult. - Prescriptions for Tamiflu 75 mg Oral Capsule - take 1 tablet by ORAL route every 12 hours for 5 days; 10 tablet. - Medication Reconciliation Form, Thank You Letter, Antibiotic Education, Prescription Opioid Use, Work release form form. - Follow up: Arnie Austin MD; When: 1 - 2 days; Reason: Recheck today's complaints, Continuance of care, Re-evaluation by your physician. Addendum: 07/20/2018 09:05 Co-signature as Attending Physician, Rickie Jenkins MD I agree with the assessment and c rivas plan of care. Signatures: Dispatcher [employer] Verena Kevin, RN Rickie Ewing MD MD cha Mickail, Joel, PA PA Marlyn Mcdonough RN RN Valentino Chappell RN RN mg2 Corrections: (The following items were deleted from the chart) 07/17 20:35 20:24 07/17/2018 20:24 Discharged to Home. Impression: Influenza due to certain bb identified influenza viruses. Condition is Stable. Forms are Medication Reconciliation Form, Thank You Letter, Antibiotic Education, Prescription Opioid Use. Follow up: Arnie Austin; When: 1 - 2 days; Reason: Recheck today's complaints, Continuance of care, Re-evaluation by your physician. masoud
--- NOTE | 2018-07-17 20:24 | ER ---
Nurse's Notes [facility] Name: Ketan Pierre Jr Age: 48 yrs Sex: Male : 1970 Arrival Date: 07/17/2018 Time: 14:38 Bed 27 Private MD: Unknown, Unknown Diagnosis: Influenza due to certain identified influenza viruses Presentation: 07/17 14:47 Presenting complaint: Patient states: generalized weakness, fever Tmax 102, productive sv cough, chest pain with cough only since Friday. Transition of care: patient was not received from another setting of care. Onset of symptoms was July 10, 2018. Care prior to arrival: Medication(s) given: Tylenol, given at 1300 Zpack given by his PCP. 14:47 Method Of Arrival: Ambulatory sv 14:47 Acuity: ROCK 3 sv 17:33 Risk Assessment: Do you want to hurt yourself or someone else? Patient reports no mg2 desire to harm self or others. Initial Sepsis Screen: Does the patient meet any 2 criteria? No. Patient's initial sepsis screen is negative. Does the patient have a suspected source of infection? No. Patient's initial sepsis screen is negative. Triage Assessment: 14:51 General: Appears in no apparent distress. uncomfortable, Behavior is calm, cooperative, sv appropriate for age. Neuro: Level of Consciousness is awake, alert, obeys commands, Oriented to person, place, time, situation, Gait is steady. Respiratory: Reports cough that is productive, pain with cough Respiratory effort is even, unlabored, Respiratory pattern is regular, symmetrical. Historical: - Allergies: 14:49 NKA; sv - Home Meds: 17:33 Insulin: Regular Sub-Q [Active]; mg2 - PMHx: 14:49 Diabetes - IDDM; pancreatic growth; sv - PSHx: 14:49 Cholecystectomy; parathyroid glands removed; most of pancreas removed; splenectomy; sv - Immunization history:: Flu vaccine is not up to date. - Social history:: Smoking status: Patient/guardian denies using tobacco. - Ebola Screening: : No symptoms or risks identified at this time. Screenin:32 Abuse screen: Denies threats or abuse. Denies injuries from another. Nutritional mg2 screening: No deficits noted. Tuberculosis screening: No symptoms or risk factors identified. Fall Risk None identified. Assessment: 17:30 General: Appears in no apparent distress. comfortable, Behavior is calm, cooperative. mg2 Pain: Complains of pain in chest Pain does not radiate. Pain currently is 4 out of 10 on a pain scale. Quality of pain is described as aching, Pain began gradually, 2-3 days ago. Is intermittent. Neuro: Level of Consciousness is awake, alert, obeys commands, Oriented to person, place, time, situation. Cardiovascular: Capillary refill < 3 seconds Patient's skin is warm and dry. Respiratory: Airway is patent Respiratory effort is even, unlabored, Respiratory pattern is regular, symmetrical. Respiratory: Reports cough that is productive. GI: No signs and/or symptoms were reported involving the gastrointestinal system. : No signs and/or symptoms were reported regarding the genitourinary system. EENT: No signs and/or symptoms were reported regarding the EENT system. Derm: Skin is intact, is healthy with good turgor, Skin is pink, warm \T\ dry. normal. Musculoskeletal: Circulation, motion, and sensation intact. Capillary refill < 3 seconds. 20:33 Reassessment: Patient is alert, oriented x 3, equal unlabored respirations, skin bb warm/dry/pink. pt verbalized understanding of and agrees to plan of care discharge instructions given pt ambulated with steady gait to exit accompanied by family. Vital Signs: 14:50 BP 150 / 90; Pulse 93; Resp 16; Temp 99.8; Pulse Ox 96% ; Weight 95.25 kg; Height 5 ft. sv 6 in. (167.64 cm); 17:33 Pulse 84; Resp 18; Temp 99.7(O); Pulse Ox 97% on R/A; Pain 4/10; mg2 18:39 BP 143 / 94; Pulse 88; Resp 18; Temp 99.4(O); Pulse Ox 96% on R/A; mg2 19:47 BP 153 / 94; Pulse 82; Resp 18; Pulse Ox 96% on R/A; mg2 14:50 Body Mass Index 33.89 (95.25 kg, 167.64 cm) sv ED Course: 14:38 Patient arrived in ED. ag5 14:38 Unknown, Unknown is Private Physician. ag5 14:49 Triage completed. sv 14:51 Arm band placed on. sv 15:16 Chest Pa And Lat (2 Views) XRAY In Process Unspecified. EDMS 17:25 Valentino Cortez, RN is Primary Nurse. mg2 17:29 Doe Rodrigues PA is PHCP. [facility] 17:29 Rickie Jenkins MD is Attending Physician. [facility] 17:32 No provider procedures requiring assistance completed. Patient maintains SpO2 mg2 saturation greater than 95% on room air. 17:33 Patient has correct armband on for positive identification. Pulse ox on. NIBP on. Door mg2 closed. 18:39 Inserted saline lock: 20 gauge in right antecubital area, using aseptic technique. mg2 Blood collected. 20:24 Arnie Austin MD is Referral Physician. jmm 20:35 IV discontinued, intact, bleeding controlled, No redness/swelling at site. Pressure bb dressing applied. Administered Medications: 18:38 Drug: NS 0.9% 1000 ml Route: IV; Rate: 1 bolus; Site: right antecubital; mg2 19:19 Follow up: Response: No adverse reaction; IV Status: Completed infusion mg2 18:38 Drug: Tylenol 650 mg Route: PO; mg2 19:19 Follow up: Response: No adverse reaction; Marked relief of symptoms mg2 20:13 Drug: Tamiflu 75 mg Route: PO; mg2 20:35 Follow up: Response: No adverse reaction bb Outcome: 20:24 Discharge ordered by MD. [facility] 20:34 Discharged to home ambulatory, with family. bb 20:34 Condition: stable 20:34 Instructed on discharge instructions, follow up and referral plans. medication usage, Demonstrated understanding of instructions, follow-up care, medications, Prescriptions given X 1. 20:35 Patient left the ED. bb Signatures: Dispatcher [employer] ED[facility] Verena Franklin RN RN Doe Rodrigues PA PA [facility] Marlyn Cm RN RN bb Valentino Cortez, RN RN mg2 Mariah Warner ag5 Corrections: (The following items were deleted from the chart) 14:51 14:47 Care prior to arrival: Medication(s) given: Zpack given by his PCP sv sv 14:51 14:50 Pulse 93bpm; Resp 16bpm; Pulse Ox 96%; Temp 99.8F; 95.25 kg; Height 5 ft. 6 in.; sv BMI: 33.8; sv
[2018-07-17 22:02] LABS: Blood Morphology Comment NOT SEEN (NOT SEEN); Platelet Estimate ADEQ
--- NOTE | 2018-07-18 06:34 | EKG ---
Test Date: 2018-07-17 Test Time: 18:26:18 [employer] Machine Operator Helper: MG MEASUREMENT RESULTS: Intervals: Rate: 86 ID: [id number] QRSD: 98 QT: 348 QTc: 416 [place]: P: 60 ID: [id number] QRS: -52 T: 52 INTERPRETIVE STATEMENTS: Normal sinus rhythm Possible Left atrial enlargement Incomplete right bundle branch block Left axis Abnormal ECG No previous ECG available for comparison Electronically Signed On 07-18-18 06:27:21 CUPROUS CHLORIDE OPERATOR by Elio Villar
== END 2018-07-17 20:35 | disposition home or self-care (01) ==
LOC: ER 14:35
DX: J10.1 Influenza due to other identified influenza virus with other respiratory manifestations (principal); E11.9 Type 2 diabetes mellitus without complications; Z79.4 Long term (current) use of insulin
CPT/HCPCS: 36415; 71046; 80048; 80076; 83735; 83880; 84484; 85025; 85610; 87070; 87081; 87804; 93005; 96360; 99284; J7030

== ENCOUNTER 2018-09-19 00:43 | Emergency (ER) | payer OTHER ==
--- OUTSIDE RECORDS SUMMARY | 2018-09-19 00:57 | XMS REPORT | Continuity of Care Document ---
:1970 Author Organization Interface Problems Problem Status Onset Classification Date Comments Source Date Reported M62.838 OTHER 04/29/20 Diagnosis 06/28/2017 SNF: MUSCLE SPASM 17 [facility] M62.81 MUSCLE 04/29/20 Diagnosis 06/28/2017 SNF: WEAKNESS 17 [facility] E11.69 TYPE 2 04/29/20 Diagnosis 06/28/2017 SNF: DIABETES MELLITUS 17 [place] - WITH OTHER [facility] SPECIFIED [place] COMPLICATION G62.9 04/29/20 Diagnosis 06/28/2017 SNF: POLYNEUROPATHY, [place] UNSPECIFIED [facility] R27.9 UNSPECIFIED 04/29/20 Diagnosis 06/28/2017 SNF: LACK OF 17 [place] - COORDINATION [facility] G89.18 OTHER ACUTE 04/29/20 Diagnosis 06/28/2017 SNF: POSTPROCEDURAL 17 [place] - PAIN [facility] Abnormal gait 04/29/20 Diagnosis 06/28/2017 SNF: [facility] G47.00 INSOMNIA, 04/29/20 Diagnosis 06/28/2017 SNF: UNSPECIFIED [facility] M62.59 MUSCLE 04/29/20 Diagnosis 06/28/2017 SNF: WASTING AND 17 [place] - ATROPHY, NOT [place] ELSEWHERE [place] CLASSIFIED, MULTIPLE SITES K59.00 04/29/20 Diagnosis 06/28/2017 SNF: CONSTIPATION, 17 [place] - UNSPECIFIED [facility] S82.102D 04/28/20 Diagnosis 06/28/2017 SNF: UNSPECIFIED 17 [place] - FRACTURE OF UPPER [facility] END OF LEFT TIBIA, [place] SUBSEQUENT ENCOUNTER FOR CLOSED FRACTURE WITH ROUTINE HEALING Z51.89 ENCOUNTER 04/28/20 Diagnosis 06/28/2017 SNF: FOR OTHER 17 [place] - SPECIFIED [facility] AFTERCARE [facility] G89.11 ACUTE PAIN 04/28/20 Diagnosis 06/28/2017 [facility] S52.501D 04/28/20 Diagnosis 06/28/2017 SNF: UNSPECIFIED 17 [...] Diagnosis 06/28/2017 [facility]: FALLING [facility] [place] [facility] [place] R WRIST FX Active 04/11/[address] CLOSED RT RADIAL Active 04/11/20 [facility] FX, LISFRANC Medical DISLOCATIO Center NEW CONSULT - Active 05/16/20 [facility] PANCREATIC MASS [address] [place] [address] Center 782.3 - EDEMA Active 01/23/20 [facility] [place] Diabetes Resolved Problem 05/01/2017 [facility] History of Resolved Problem 05/01/2017 [facility] multiple endocrine Medical neoplasia type 2 Center (<span ID="[id number]"> Confirmed</span>) UNSP FRACTURE OF Active [facility] RIGHT FOREARM, Medical INIT FOR Center DISLOCATION OF Active [facility] TARSOMETATARSAL Medical JOINT OF Center DISPLACED Active [facility] BICONDYLAR Medical FRACTURE OF LEFT Center TI [...] 2017 [place] - bedtime for [place] Insomnia [facility] Lantus Solution Inject 22 Subcutaneou Active 05/20/ [...] mouth at 2017 [place] - bedtime for [facility] insomnia for [place] 10 Days Give a total of 2 tabs to=10mg Ambien Tablet 5 Give 1 tablet Oral Active 05/12/ SNF: MG by mouth at 2017 [place] - bedtime for [facility] insomnia [facility] Zolpidem Give 1 tablet Oral Inactive 05/07/ SNF: Tartrate Tablet by mouth as 2017 [place] - 5 MG needed for [facility] insomnia PRN [place] at bedtime TraMADol [...] 2016 [place] - 5 MG needed for [facility] insomnia for [place] 14 Days daily [...] - times a day [place] related to [facility] ENCOUNTER FOR OTHER ORTHOPEDIC AFTERCARE (Z47.89) Insulin Aspart Inject 5 unit Subcutaneou Active 05/01/ SNF: Solution 100 subcutaneousl s 2017 [place] - UNIT/ML y one time [place] only for [id number] for 1 Day NovoLOG Solution Inject as per Subcutaneou Active SNF: 100 UNIT/ML sliding s 2017 [place] - scale: if 0 [place] - 150=0; [place] 151+=5, subcutaneousl y before meals related to TYPE 2 DIABETES MELLITUS WITHOUT COMPLICATIONS (E11.9) Do not give if BS <150 NovoLOG Solution Inject 5 unit Subcutaneou Inactive 04/30/ SNF: 100 UNIT/ML subcutaneousl s 2017 [place] - y before [facility] meals related [place] to TYPE 2 DIABETES MELLITUS WITHOUT COMPLICATIONS (E11.9) Baclofen Tablet Give 5 mg by Oral Active 04/30/ SNF: mouth at 2017 [place] - bedtime [place] related to [place] ENCOUNTER FOR OTHER ORTHOPEDIC AFTERCARE (Z47.89) Acetaminophen Give 2 tablet Oral Active SNF: Tablet 500 MG by mouth 2016 [place] - three times a [place] day for pain [place] NovoLOG Solution Inject 5 unit Subcutaneou Active SNF: 100 UNIT/ML subcutaneousl s 2017 [place] - y before [facility] meals related [place] to TYPE 2 DIABETES MELLITUS WITHOUT COMPLICATIONS (E11.9) Lisinopril 1 TAB(S) BY Oral Active SNF: Tablet 5 MG MOUTH DAILY 2017 [place] - (HOLD FOR SBP [facility] [place] Cholecalciferol Give 1 tablet Oral Active SNF: Tablet 2000 UNIT by mouth one 2017 [place] - time a day [facility] for [place] supplement Lantus Solution Inject [...] EVERY 8 2016 [place] - HOURS [place] [facility] Methocarbamol 2 TAB(S) BY Oral Active : Tablet 500 MG MOUTH EVERY 8 2016 [place] - HOURS [place] ([id number]) [facility] Enoxaparin 0.3 CC/ML Subcutaneou Active : Sodium Solution SUBCUTANEOUSL s 2016 [place] - 30 MG/0.3ML Y EVERY 12 [place] HOURS [facility] (0.3ML=30MG) Acetaminophen Give 2 tablet Oral Active : Tablet 500 MG by mouth 2016 [place] - every 6 hours [place] for pain [facility] Zolpidem Give 1 tablet Oral Active : Tartrate Tablet by mouth as 2017 [place] - 5 MG needed for [place] insomnia [facility] daily at bedtime TraMADol HCl Give 2 [...] Days Document administratio n, 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 of [facility] tramadol [...] Capsule PO, Q8Hnow, 0 2016 Medical Refill(s) [place] Docusate Sodium 100 mg=1 cap, Active [place] 100 MG Oral PO, BID, 0 2016 Medical Capsule Refill(s) [place] Enoxaparin 30 mg=0.3 mL, Active [facility] SUB-Q, Q12H, 2017 Medical 0 Refill(s) [place] acetaminophen 1,000 mg=2 Active [facility] 500 mg oral tab, PO, 2016 Medical tablet Q6Hnow, 0 [place] Refill(s) Insulin Glargine 27 unit, Active [facility] 100 UNT/ML SUB-Q, Daily, 2017 Medical Injectable 0 Refill(s) [place] Solution Ambien 5 mg, 1 tab, No Longer [place] Route: PO, Active 2016 Medical Drug form: Center TAB, Bedtime, Dosing Weight 109.091, kg, PRN Insomnia, Start date: 04/27/17 10:18:00 FLEET ADMINISTRATIVE ASSISTANT, Duration: 30 day, Stop date: 05/27/17 10:17:00 CSTNotes: (Same As: Ambien) potassium 20 mEq, 1 Inactive [place] chloride 20 mEq tab, Route: 2017 Medical oral tablet, PO, Drug [place] extended release form: ERTAB, ONCE, Dosing Weight 109.091, kg, Start date: 04/26/17 10:08:00 FLEET ADMINISTRATIVE ASSISTANT, Stop date: 04/26/17 10:08:00 CSTNotes: (Same as: K-Dur 20) "Do Not Crush" With food and full glass of water Cholecalciferol 50,000 Inactive [place] IntlUnit, 2016 Medical Route: PO, [place] Drug form: TAB, qWeek, Dosing Weight 109.091, kg, Start date: 04/26/17 9:00:00 FLEET ADMINISTRATIVE ASSISTANT, Duration: 30 day, Stop date: 05/26/17 8:59:00 FLEET ADMINISTRATIVE ASSISTANT Lisinopril 5 mg, 1 tab, No Longer [facility] Route: PO, Active 2016 Medical Drug form: Center TAB, Daily, Dosing Weight 109.091, kg, Start date: 04/26/17 9:00:00 FLEET ADMINISTRATIVE ASSISTANT, Duration: 30 day, Stop date: 05/26/17 8:59:00 CSTNotes: (Same as: Prinivil, Zestril) Vitamin D2 50,000 No Longer [place] IntlUnit, 1 Active 2016 Medical cap, Route: Center PO, Drug form: CAP, qWeek, Start date: 04/26/17 9:00:00 FLEET ADMINISTRATIVE ASSISTANT, Duration: 30 day, Stop date: 05/24/17 9:00:00 CSTNotes: (Same as: Vitamin D) "Do Not Crush" Ambien 5 mg, 1 tab, No Longer [place] Route: PO, Active 2016 Medical Drug form: Center TAB, Bedtime, Dosing Weight 109.091, kg, PRN Insomnia, Start date: 04/24/17 18:28:00 FLEET ADMINISTRATIVE ASSISTANT, Duration: 30 day, Stop date: 05/24/17 18:27:00 CSTNotes: (Same As: Ambien) Robaxin 1,000 mg, 2 No Longer [place] tab, Route: Active 2016 Medical PO, Drug Center form: TAB, Q8Hnow, Dosing Weight 109.091, kg, Start date: 04/23/17 10:00:00 FLEET ADMINISTRATIVE ASSISTANT, Duration: 30 day, Stop date: 05/23/17 9:59:00 CSTNotes: (Same as:Robaxin) Cefazolin 2 gm, Route: No Longer [place] IVP, ABXQ8H, Active 2016 Medical Dosing Weight Center 109.091, kg, Start date: 04/21/17 20:00:00 FLEET ADMINISTRATIVE ASSISTANT, Duration: 3 doses or times, Stop date: 04/22/17 12:00:00 FLEET ADMINISTRATIVE ASSISTANT, ABX Indication: Surgical ProphylaxisNo ginger: (Same As: Pritesh Xie) MEDICATION WASTE Product Size: 1000 mg Product Wasted: ___ mg ropivacaine Route: NERVE No Longer [place] BLOCK, Active 2016 Medical Continuous Center Rate: 6, ml/hr, Side: Right Dosing Site: Sciatic popliteal, [place] dose 3 mL, [place] dose lockout: 30 minutes, 1 Hour limit: 12 mL, 200, mL, Start date: 04/21/17 15:52:00 FLEET ADMINISTRATIVE ASSISTANT, Duration: 30, day, Drug Form: INJ, Total volume: 2...Notes: Same as: Naropin Insulin regular 10 unit, Inactive [facility] Route: IV, 2017 Medical ONCE, Dosing Center Weight 109.091, kg, Start date: 04/21/17 15:43:00 FLEET ADMINISTRATIVE ASSISTANT, Stop date: 04/21/17 15:43:00 FLEET ADMINISTRATIVE ASSISTANT Insulin regular 5 unit, Inactive [facility] Route: IV, 2016 Medical ONCE, Dosing Center Weight 109.091, kg, Start date: 04/21/17 14:54:00 FLEET ADMINISTRATIVE ASSISTANT, Stop date: 04/21/17 14:54:00 FLEET ADMINISTRATIVE ASSISTANT Promethazine 6.25 mg, Inactive [facility] Route: IVPB, 2016 Medical ONCE, Dosing Center Weight 109.091, kg, PRN Nausea & Vomiting, Start date: 04/21/17 14:54:00 FLEET ADMINISTRATIVE ASSISTANT Ondansetron 4 mg, Route: Inactive [facility] IVP, ONCE, 2016 Medical Dosing Weight Center 109.091, kg, PRN Nausea & Vomiting, Start date: 04/21/17 14:54:00 FLEET ADMINISTRATIVE ASSISTANT Hydralazine 10 mg, Route: Inactive [facility] IVP, Q20Min, 2016 Medical Dosing Weight Center 109.091, kg, PRN Elevated BP, Start date: 04/21/17 14:54:00 FLEET ADMINISTRATIVE ASSISTANT, Duration: 2 doses or times, Stop date: Limited # of times Labetalol 10 mg, Route: Inactive [facility] IVP, Q5Min, 2016 Medical Dosing Weight Center 109.091, kg, PRN Elevated BP, Start date: 04/21/17 14:54:00 FLEET ADMINISTRATIVE ASSISTANT, Duration: 5 doses or times, Stop date: Limited # of times esmolol 10 mg, Route: Inactive [facility] IVP, Q5Min, 2016 Medical Dosing Weight Center 109.091, kg, PRN Other -See Comment, Start date: 04/21/17 14:54:00 FLEET ADMINISTRATIVE ASSISTANT, Duration: 5 doses or times, Stop date: Limited # of times Metoprolol 1 mg, Route: Inactive [facility] IVP, Q5Min, 2016 Medical Dosing Weight Center 109.091, kg, PRN Other -See Comment, Start date: 04/21/17 14:54:00 FLEET ADMINISTRATIVE ASSISTANT, Duration: 5 doses or times, Stop date: Limited # of times Oxycodone 5 mg, Route: Inactive [place] PO, Drug 2016 Medical form: TAB, Center Q4H, Dosing Weight 109.091, kg, PRN Pain Score 4-6, Start date: 04/21/17 14:54:00 FLEET ADMINISTRATIVE ASSISTANT, Duration: 30 day, Stop date: 05/21/17 14:53:00 FLEET ADMINISTRATIVE ASSISTANT Flumazenil 0.2 mg, Inactive [facility] Route: IVP, 2016 Medical PRN, Dosing Center Weight 109.091, kg, PRN Benzodiazepin e Reversal, Initial dose, Start date: 04/21/17 14:54:00 FLEET ADMINISTRATIVE ASSISTANT, Duration: 30 day, Stop date: 05/21/17 14:53:00 FLEET ADMINISTRATIVE ASSISTANT Hydromorphone 0.5 mg, Inactive [facility] Route: IVP, 2016 Medical Q5Min, Dosing Center Weight 109.091, kg, PRN Pain Score 7-10, Start date: 04/21/17 14:54:00 FLEET ADMINISTRATIVE ASSISTANT, Duration: 4 doses or times, Stop date: Limited # of times Naloxone 0.4 mg, Inactive [facility] Route: IVP, 2016 Medical Q2MIN, Dosing Center Weight 109.091, kg, PRN Narcotic Reversal, Start date: 04/21/17 14:54:00 FLEET ADMINISTRATIVE ASSISTANT, Duration: 8 doses or times, Stop date: Limited # of times Meperidine 12.5 mg, Inactive [facility] Route: IVP, 2016 Medical Q30Min, Center Dosing Weight 109.091, kg, PRN Other -See Comment, For shivering, Start date: 04/21/17 14:54:00 FLEET ADMINISTRATIVE ASSISTANT, Duration: 2 doses or times, Stop date: Limited # of times famotidine Route: IV, Inactive [place] (ANES) Drug form: 2017 Medical INJ, ONCE, Center Stop date: 04/21/17 14:35:00 FLEET ADMINISTRATIVE ASSISTANT neostigmine Route: IV, Inactive [facility] (ANES) Drug form: 2017 Medical INJ, ONCE, Center Stop date: 04/21/17 14:30:00 FLEET ADMINISTRATIVE ASSISTANT ondansetron Route: IV, Inactive [facility] (ANES) Drug form: 2017 Medical INJ, ONCE, Center Stop date: 04/21/17 14:30:00 FLEET ADMINISTRATIVE ASSISTANT glycopyrrolate Route: IV, Inactive [place] (ANES) Drug form: 2017 Medical INJ, ONCE, Center Stop date: 04/21/17 14:30:00 FLEET ADMINISTRATIVE ASSISTANT acetaminophen Route: IV, Inactive [place] (ANES) 10 mg Drug form: 2017 Medical INJ, Start Center date: 04/21/17 12:40:00 FLEET ADMINISTRATIVE ASSISTANT, Stop date: 04/21/17 13:40:00 FLEET ADMINISTRATIVE ASSISTANT niCARdipine Route: IV, Inactive [place] (ANES) Drug form: 2017 Medical INJ, ONCE, Center Stop date: 04/21/17 12:25:00 FLEET ADMINISTRATIVE ASSISTANT hydromorphone Route: IV, Inactive [place] (ANES) Drug form: 2017 Medical INJ, ONCE, Center Stop date: 04/21/17 12:20:00 FLEET ADMINISTRATIVE ASSISTANT fentaNYL (ANES) Route: IV, Inactive [place] Drug form: 2016 Medical INJ, ONCE, Center Stop date: 04/21/17 12:15:00 FLEET ADMINISTRATIVE ASSISTANT rocuronium Route: IV, Inactive [place] (ANES) Drug form: 2016 Medical INJ, ONCE, Center Stop date: 04/21/17 12:15:00 FLEET ADMINISTRATIVE ASSISTANT propofol (ANES) Route: IV, Inactive [place] Drug form: 2017 Medical INJ, ONCE, Center Stop date: 04/21/17 12:15:00 FLEET ADMINISTRATIVE ASSISTANT lidocaine (ANES) Route: IV, Inactive [place] Drug form: 2016 Medical INJ, ONCE, Center Stop date: 04/21/17 12:15:00 FLEET ADMINISTRATIVE ASSISTANT midazolam (ANES) Route: IV, Inactive [place] Drug form: 2016 Medical SOLN, ONCE, Center Stop date: 04/21/17 12:15:00 FLEET ADMINISTRATIVE ASSISTANT ceFAZolin (ANES) Route: IV, Inactive [place] Drug form: 2017 Medical INJ, ONCE, Center Stop date: 04/21/17 11:55:00 FLEET ADMINISTRATIVE ASSISTANT Lactated Ringers Route: IV, Inactive [place] Injection IV Total Volume: 2017 Medical (ANES) 1000 mL 1,000, Start Center date: 04/21/17 11:01:00 FLEET ADMINISTRATIVE ASSISTANT, Stop date: 04/21/17 12:01:00 FLEET ADMINISTRATIVE ASSISTANT D5W 1,000 mL 1,000 mL, Inactive [place] Rate: 100 2017 Medical ml/hr, Infuse Center over: 10 hr, Route: IV, Dosing Weight 109.091 kg, Total Volume: 1,000, Start date: 04/21/17 7:18:00 FLEET ADMINISTRATIVE ASSISTANT, Duration: 30 day, Stop date: 05/21/17 7:17:00 FLEET ADMINISTRATIVE ASSISTANT, 2.29, m2 normal saline 1,000 mL, No Longer [place] 0.9% IV 1,000 mL Rate: 75 Active 2017 Medical ml/hr, Infuse Center over: 13.3 hr, Route: IV, Dosing Weight 109.091 kg, Total Volume: 1,000, Priority: NOW, Start date: 04/20/17 20:16:00 FLEET ADMINISTRATIVE ASSISTANT, Duration: 30 day, Stop date: 05/20/17 20:15:00 FLEET ADMINISTRATIVE ASSISTANT, 2.29, m2 Lactulose 667 10 gm, 15 mL, No Longer [place] MG/ML Oral Route: PO, Active 2016 Medical Solution Drug form: [place] SYRP, BID, Dosing Weight 109.091, kg, Start date: 04/16/17 11:00:00 FLEET ADMINISTRATIVE ASSISTANT, Duration: 3 day, Stop date: 04/19/17 9:00:00 CSTNotes: (Same as:Chronulac) Milk of Magnesia 30 ml, Route: Inactive [place] PO, Drug 2017 Medical Form: [facility], [place] Dosing Weight 109.091, kg, ONCE, Start date: 04/16/17 9:40:00 FLEET ADMINISTRATIVE ASSISTANT, Stop date: 04/16/17 9:40:00 CSTNotes: (Same as: Milk of Magnesia, MOM) Morphine 2 mg, 0.5 mL, No Longer [place] Route: IVP, Active 2017 Medical Drug form: [place] SOLN, Q2H, Dosing Weight 109.091, kg, PRN Pain Score 7-10, Start date: 04/15/17 3:13:00 FLEET ADMINISTRATIVE ASSISTANT, Duration: 30 day, Stop date: 05/15/17 3:12:00 CSTNotes: (Same as:MORPhine Sulfate) Morphine 2 mg, 0.5 mL, Inactive [place] Route: IVP, 2016 Medical Drug form: [place] SOLN, ONCE, Dosing Weight 109.091, kg, Start date: 04/14/17 23:17:00 FLEET ADMINISTRATIVE ASSISTANT, Stop date: 04/14/17 23:17:00 CSTNotes: (Same as:MORPhine Sulfate) sennosides, JAIL 17.2 mg, 2 No Longer [place] tab, Route: Active 2016 Medical PO, Drug Center Form: TAB, Dosing Weight 109.091, kg, Bedtime, Start date: 04/12/17 21:00:00 CDT, Duration: 30 day, Stop date: 05/11/17 21:00:00 CSTNotes: (Same as: Senokot) NovoLOG 70/30 20 unit, Inactive [facility] Route: SUB-Q, 2016 Medical ONCE, Dosing Center [...] Syringe [Toujeo] NovoLog 20 unit, No Longer [facility] SUB-Q, Active 2016 Medical TID-Before Center Meals, 0 Refill(s) Insulin regular 10 unit, Inactive [facility] Route: IV, 2016 Medical ONCE, Dosing Center Weight 109.091, kg, Start date: 04/12/17 9:44:00 CDT, Stop date: 04/12/17 9:44:00 CDT ketAMINE (ANES) Route: IV, Inactive [facility] Drug form: 2016 Medical INJ, ONCE, Center Stop date: 04/12/17 9:42:00 CDT Ondansetron 4 mg, 2 mL, Inactive [facility] Route: IVP2016 Medical Drug form: Center INJ, ONCE, Dosing Weight 109.091, kg, PRN Nausea & Vomiting, Start date: 04/12/17 9:41:00 CDTNotes: (Same as: Zofran) MEDICATION WASTE Product Size: 4 mg Product Wasted: ___ mg Hydralazine 10 mg, 0.5 Inactive [place] mL, Route: 2016 Medical IVP, Drug Center form: INJ, Q20Min, Dosing Weight 109.091, kg, PRN Elevated BP, Start date: 04/12/17 9:41:00 CDT, Duration: 2 doses or times, Stop date: Limited # of timesNotes: (Same as: Apresoline) Push over 5 minutes Metoprolol 1 mg, 1 mL, Inactive [facility] Route: IVP2016 Medical Drug form: Center INJ, Q5Min, Dosing Weight 109.091, kg, PRN Other -See Comment, Start date: 04/12/17 9:41:00 CDT, Duration: 5 doses or times, Stop date: Limited # of timesNotes: (Same as: Lopressor) Push over 2 minutes esmolol 10 mg, 1 mL, Inactive [facility] Route: IVP2016 Medical Drug form: Center INJ, Q5Min, Dosing Weight 109.091, kg, PRN Other -See Comment, Start date: 04/12/17 9:41:00 CDT, Duration: 5 doses or times, Stop date: Limited # of timesNotes: (Same as: Brevibloc) Labetalol 10 mg, 2 mL, Inactive [facility] Route: IVP2016 Medical Drug form: Center INJ, Q5Min, Dosing Weight 109.091, kg, PRN Elevated BP, Start date: 04/12/17 9:41:00 CDT, Duration: 5 doses or times, Stop date: Limited # of times Naloxone 0.4 mg, 1 mL, Inactive [facility] Route: IVP2016 Medical Drug form: Center INJ, Q2MIN, Dosing Weight 109.091, kg, PRN Narcotic Reversal, Start date: 04/12/17 9:41:00 CDT, Duration: 8 doses or times, Stop date: Limited # of timesNotes: (Same as: Narcan) Flumazenil 0.2 mg, 2 mL, Inactive [place] Route: IVP, 2016 Medical Drug form: Center INJ, PRN, Dosing Weight 109.091, kg, PRN Benzodiazepin e Reversal, Initial dose, Start date: 04/12/17 9:41:00 CDT, Duration: 1 day, Stop date: 04/13/17 8:40:00 CSTNotes: (Same as: Romazicon) Hydromorphone 0.5 mg, 0.25 Inactive [place] mL, Route: 2017 Medical IVP, Drug Center form: INJ, Q5Min, Dosing Weight 109.091, kg, PRN Pain Score 7-10, Start date: 04/12/17 9:41:00 CDT, Duration: 4 doses or times, Stop date: Limited # of timesNotes: (Same as: Dilaudid) Oxycodone 5 mg, 1 tab, Inactive [facility] Route: PO, 2016 Medical Drug form: Center TAB, Q4H, Dosing Weight 109.091, kg, PRN Pain Score 4-6, Start date: 04/12/17 9:41:00 CDT, Duration: 1 day, Stop date: 04/13/17 9:40:00 CSTNotes: (Same as: Roxicodone) neostigmine Route: IV, Inactive [facility] (ANES) Drug form: 2017 Medical INJ, ONCE, Center Stop date: 04/12/17 9:31:00 CDT phenylephrine Route: IV, Inactive [facility] (ANES) Drug form: 2017 Medical INJ, ONCE, Center Stop date: 04/12/17 9:31:00 CDT midazolam (ANES) Route: IV, Inactive [facility] Drug form: 2017 Medical SOLN, ONCE, Center Stop date: 04/12/17 9:31:00 CDT dexamethasone Route: IV, Inactive [facility] (ANES) Drug form: 2017 Medical INJ, ONCE, Center Stop date: 04/12/17 9:31:00 CDT glycopyrrolate Route: IV, Inactive [facility] (ANES) Drug form: 2016 Medical INJ, ONCE, Center Stop date: 04/12/17 9:31:00 CDT ondansetron Route: IV, Inactive [place] (ANES) Drug form: 2017 Medical INJ, ONCE, Center Stop date: 04/12/17 9:31:00 CDT fentaNYL (ANES) Route: IV, Inactive [facility] Drug form: 2017 Medical INJ, ONCE, Center Stop date: 04/12/17 9:31:00 CDT propofol (ANES) Route: IV, Inactive [facility] Drug form: 2017 Medical INJ, ONCE, Center Stop date: 04/12/17 9:31:00 CDT rocuronium Route: IV, Inactive [place] (ANES) Drug form: 2017 Medical INJ, ONCE, Center Stop date: 04/12/17 9:31:00 CDT lidocaine (ANES) Route: IV, Inactive [facility] Drug form: 2016 Medical INJ, ONCE, Center Stop date: 04/12/17 9:31:00 CDT Insulin regular Route: IV, Inactive [place] (ANES) Drug form: 2016 Medical INJ, ONCE, Center Stop date: 04/12/17 9:25:00 CDT ceFAZolin (ANES) Route: IV, Inactive [facility] Drug form: 2017 Medical INJ, ONCE, Center [...] Miralax) Enoxaparin 30 mg, 0.3 No Longer [place] mL, Route: Active 2016 Medical SUB-Q, Drug Center form: INJ, Q12H, Dosing Weight 109.091, kg, Start date: 04/12/17 9:00:00 CDT, Duration: 30 day, Stop date: 05/11/17 21:00:00 CSTNotes: (Same as: Lovenox) ketAMINE (ANES) Route: IV, Inactive [facility] (ANES) Drug form: 2016 Medical INJ, Start Center date: 04/12/17 8:49:00 CDT, Stop date: 04/12/17 9:49:00 CDT dexmedetomidine Route: IV, Inactive [facility] (ANES) (ANES) Drug form: 2016 Medical INJ, Start Center date: 04/12/17 8:48:00 CDT, Stop date: 04/12/17 9:48:00 CDT LR 1000 mL INJ Route: IV, Inactive [facility] (ANES) Total Volume: 2016 Medical 1,000, Start Center date: 04/12/17 8:27:00 CDT, Stop date: 04/12/17 9:27:00 CDT gabapentin 300 mg, 1 No Longer [facility] cap, Route: Active 2016 Medical PO, Drug Center form: CAP, Q8Hnow, Dosing Weight 109.091, kg, Start date: 04/12/17 5:00:00 CDT, Duration: 30 day, Stop date: 05/12/17 0:00:00 CSTNotes: (Same as: Neurontin) Acetaminophen 1,000 mg, 2 No Longer [facility] tab, Route: Active 2016 Medical PO, Drug Center form: TAB, Q6Hnow, Dosing Weight 109.091, kg, Start date: 04/12/17 5:00:00 CDT, Duration: 30 day, Stop date: 05/12/17 0:00:00 CSTNotes: Max acetaminophen 4000 mg/day (4 gm/day). (Same as: Tylenol Extra Strength) NovoLIN L 0 Refill(s) Inactive [place] [id number] [facility] Insulin Lispro 2 unit, 0.02 No Longer [place] mL, Route: Active 2016 Medical SUB-Q, Drug [...] 50% 25 gm, 50 mL, No Longer [place] Syringe Route: IVP, Active 2016 Medical Drug Form: [place] INJ, Dosing Weight 109.091, kg, PRN, PRN Blood Glucose Results, Start date: 04/12/17 4:18:00 CDT, Duration: 30 day, Stop date: 05/12/17 3:17:00 FLEET ADMINISTRATIVE ASSISTANT Glucagon 1 mg, Route: No Longer [place] IM, Drug Active 2016 Medical form: [place] PDR/INJ, PRN, Dosing Weight 109.091, kg, PRN Blood Glucose Results, Start date: 04/12/17 4:18:00 CDT, Duration: 30 day, Stop date: 05/12/17 3:17:00 FLEET ADMINISTRATIVE ASSISTANT Melatonin 3 mg, 1 tab, No Longer [place] Route: PO, Active 2016 Medical Drug form: [place] TAB, Bedtime, Dosing Weight 109.091, kg, PRN Insomnia, Start date: 04/12/17 4:17:00 CDT, Duration: 30 day, Stop date: 05/12/17 4:16:00 CSTNotes: (Same as: Melatonin) Oxycodone 5 mg, 1 tab, No Longer [place] Hydrochloride 5 Route: PO, Active 2016 Medical MG Oral Tablet Drug form: [place] TAB, Q4H, Dosing Weight 109.091, kg, PRN Pain Score 4-6, Start date: 04/12/17 4:17:00 CDT, Duration: 30 day, Stop date: 05/12/17 4:16:00 CSTNotes: (Same as: Roxicodone) Morphine 2 mg, 0.5 mL, No Longer [place] Route: IVP, Active 2016 Medical Drug form: [facility] SOLN, Q4H, Dosing Weight 109.091, kg, PRN Pain Score 7-10, Start date: 04/12/17 4:17:00 CDT, Duration: 30 day, Stop date: 05/12/17 4:16:00 CSTNotes: (Same as:MORPhine Sulfate) Tramadol 100 mg, 2 No Longer [place] tab, Route: Active 2016 Medical PO, Drug Center form: TAB, Q6Hnow, Dosing Weight 109.091, kg, Start date: 04/12/17 4:17:00 CDT, Duration: 30 day, Stop date: 05/12/17 6:00:00 CSTNotes: Not to exceed 400mg/day. (Same As: Ultram) Saline Flush 10 ml, Route: No Longer [place] 0.9% IVP, Drug Active 2016 Medical Form: INJ, Center Dosing Weight 109.091, kg, PRN, PRN Line Flush, Start date: 04/12/17 4:16:00 CDT, Duration: 30 day, Stop date: 05/12/17 3:15:00 CSTNotes: (Same as: BD Posiflush) Ondansetron 4 mg, 2 mL, No Longer [place] Route: IVP, Active 2016 Medical Drug form: [facility] INJ, Q6H, Dosing Weight 109.091, kg, PRN Nausea & Vomiting, Start date: 04/12/17 4:16:00 CDT, Duration: 30 day, Stop date: 05/12/17 4:15:00 CSTNotes: (Same as: Zofran) MEDICATION WASTE Product Size: 4 mg Product Wasted: ___ mg sodium chloride 1,000 mL, No Longer [place] 0.9% 1000 ml INJ Rate: 125 Active 2017 Medical 1,000 mL ml/hr, Infuse Center over: 8 hr, Route: IV, Dosing Weight 109.091 kg, Total Volume: 1,000, Start date: 04/12/17 4:16:00 CDT, Duration: 30 day, Stop date: 05/12/17 4:15:00 FLEET ADMINISTRATIVE ASSISTANT Morphine 4 mg, 1 mL, Inactive [place] Route: IVP, 2016 Medical Drug form: [place] SOLN, ONCE, Dosing Weight 109.091, kg, Priority: STAT, Start date: 04/12/17 2:45:00 CDT, Stop date: 04/12/17 2:45:00 CDTNotes: (Same as:MORPhine Sulfate) Morphine 4 mg, 1 mL, No Longer [place] Route: IVP, Active 2016 Medical Drug form: [place] SOLN, ONCE, Dosing Weight 109.091, kg, Priority: STAT, Start date: 04/11/17 21:45:00 CDT, Stop date: 04/11/17 21:45:00 CDTNotes: (Same as:MORPhine Sulfate) Zofran 4 mg, 2 mL, No Longer [place] Route: IVP, Active 2016 Medical Drug form: [place] INJ, ONCE, Dosing Weight 109.091, kg, Priority: [...] SNF: [facility] seasonal, 7 - [place] injectable [facility] pneumococcal Not Given SNF: [facility] polysaccharide 7 - [place] vaccine, 23 valent [facility] tuberculin skin completed jerrica SNF: [facility] test; purified 7 kathryn RN - [facility] protein derivative [facility] solution, intradermal Results Order Name Results Value Reference Date Interpretation Comments Source Range Blood sugar Blood sugar 258 mmol/L 06/27 [facility] Blood sugar Blood sugar 104 mmol/L 06/27 SNF: [facility] - [facility] Blood sugar Blood sugar 107 mmol/L 06/27 [facility]: [facility] Blood sugar Blood sugar 107 mmol/L 06/27 SNF: /2017 [facility] Blood sugar Blood sugar 299 mmol/L 06/27 SNF: /2017 [facility] Blood sugar Blood sugar 119 mmol/L 06/26 SNF: /2017 [facility] Blood sugar Blood sugar 200 mmol/L 06/26 SNF: /2017 [facility] Blood sugar Blood sugar 99 mmol/L 06/26 SNF: /2017 [facility] Blood sugar Blood sugar 99 mmol/L 06/26 SNF: /2017 [facility] Blood sugar Blood sugar 232 mmol/L 06/26 SNF: /2017 [facility] Blood sugar Blood sugar 136 mmol/L 06/25 SNF: /2017 [facility] Blood sugar Blood sugar 264 mmol/L 06/25 SNF: /2017 [facility] Blood sugar Blood sugar 148 mmol/L 06/25 SNF: /2017 [facility] Blood sugar Blood sugar 148 mmol/L 06/25 SNF: /2017 [facility] Blood sugar Blood sugar 214 mmol/L 06/25 SNF: /2017 [facility] Blood sugar Blood sugar 230 mmol/L 06/24 SNF: /2017 [facility] Blood sugar Blood sugar 89 mmol/L 06/24 SNF: /2017 [facility] Blood sugar Blood sugar 87 mmol/L 06/24 SNF: /2017 [facility] Blood sugar Blood sugar 87 mmol/L 06/24 SNF: /2017 [facility] Blood sugar Blood sugar 277 mmol/L 06/24 SNF: /2017 [facility] Blood sugar Blood sugar 210 mmol/L 06/23 SNF: /2017 [facility] Blood sugar Blood sugar 124 mmol/L 06/23 SNF: /2017 [facility] Blood sugar Blood sugar 164 mmol/L 06/23 SNF: /2017 [facility] Blood sugar Blood sugar 164 mmol/L 06/23 SNF: /2017 [facility] Blood sugar Blood sugar 169 mmol/L 06/23 SNF: /2017 [facility] Blood sugar Blood sugar 211 mmol/L 06/22 SNF: /2017 [facility] Blood sugar Blood sugar 988 mmol/L 06/22 SNF: /2017 [facility] Blood sugar Blood sugar 121 mmol/L 06/22 SNF: /2017 [facility] Blood sugar Blood sugar 121 mmol/L 06/22 SNF: /2017 [facility] Blood sugar Blood sugar 151 mmol/L 06/22 SNF: /2017 [facility] Blood sugar Blood sugar 137 mmol/L 06/21 SNF: /2017 [facility] Blood sugar Blood sugar 173 mmol/L 06/21 SNF: /2017 [facility] Blood sugar Blood sugar 133 mmol/L 06/21 SNF: /2017 [facility] Blood sugar Blood sugar 260 mmol/L 06/21 SNF: /2017 [facility] Blood sugar Blood sugar 112 mmol/L 06/20 SNF: /2017 [facility] Blood sugar Blood sugar 159 mmol/L 06/20 SNF: /2017 [facility] Blood sugar Blood sugar 226 mmol/L 06/20 SNF: /2017 [facility] Blood sugar Blood sugar 226 mmol/L 06/20 SNF: /2017 [facility] Blood sugar Blood sugar 173 mmol/L 06/20 SNF: /2017 [facility] Blood sugar Blood sugar 154 mmol/L 06/19 SNF: /2017 [facility] Blood sugar Blood sugar 321 mmol/L 06/19 SNF: /2017 [facility] Blood sugar Blood sugar 141 mmol/L 06/19 SNF: /2017 [facility] Blood sugar Blood sugar 141 mmol/L 06/19 SNF: /2017 [facility] Blood sugar Blood sugar 275 mmol/L 06/19 SNF: /2017 [facility] Blood sugar Blood sugar 141 mmol/L 06/18 SNF: /2017 [facility] Blood sugar Blood sugar 134 mmol/L 06/18 SNF: /2017 [facility] Blood sugar Blood sugar 123 mmol/L 06/18 SNF: /2017 [facility] Blood sugar Blood sugar 123 mmol/L 06/18 SNF: /2017 [facility] Blood sugar Blood sugar 180 mmol/L 06/18 SNF: /2017 [facility] Blood sugar Blood sugar 279 mmol/L 06/17 SNF: /2017 [facility] Blood sugar Blood sugar 127 mmol/L 06/17 SNF: /2017 [facility] Blood sugar Blood sugar 163 mmol/L 06/17 SNF: /2017 [facility] Blood sugar Blood sugar 163 mmol/L 06/17 SNF: /2017 [facility] Blood sugar Blood sugar 278 mmol/L 06/17 SNF: /2017 [facility] Blood sugar Blood sugar 147 mmol/L 06/16 SNF: /2017 [facility] Blood sugar Blood sugar 196 mmol/L 06/16 SNF: /2017 [facility] Blood sugar Blood sugar 129 mmol/L 06/16 SNF: /2017 [facility] Blood sugar Blood sugar 129 mmol/L 06/16 SNF: /2017 [facility] Blood sugar Blood sugar 209 mmol/L 06/16 SNF: /2017 [facility] Blood sugar Blood sugar 169 mmol/L 06/15 SNF: /2017 [facility] Blood sugar Blood sugar 250 mmol/L 06/15 SNF: /2017 [facility] Blood sugar Blood sugar 108 mmol/L 06/15 SNF: /2017 [facility] Blood sugar Blood sugar 108 mmol/L 06/15 SNF: /2017 [facility] Blood sugar Blood sugar 187 mmol/L 06/15 SNF: /2017 [facility] Blood sugar Blood sugar 122 mmol/L 06/14 SNF: /2017 [facility] Blood sugar Blood sugar 202 mmol/L 06/14 SNF: /2017 [facility] Blood sugar Blood sugar 79 mmol/L 06/14 SNF: /2017 [facility] Blood sugar Blood sugar 79 mmol/L 06/14 SNF: /2017 [facility] Blood sugar Blood sugar 258 mmol/L 06/14 SNF: /2017 [facility] Blood sugar Blood sugar 151 mmol/L 06/13 SNF: /2017 [facility] Blood sugar Blood sugar 165 mmol/L 06/13 SNF: /2017 [facility] Blood sugar Blood sugar 110 mmol/L 06/13 SNF: /2017 [facility] Blood sugar Blood sugar 110 mmol/L 06/13 SNF: /2017 [facility] Blood sugar Blood sugar 161 mmol/L 06/13 SNF: /2017 [facility] Blood sugar Blood sugar 137 mmol/L 06/12 SNF: /2017 [facility] Blood sugar Blood sugar 171 mmol/L 06/12 SNF: /2017 [facility] Blood sugar Blood sugar 89 mmol/L 06/12 SNF: /2017 [facility] Blood sugar Blood sugar 89 mmol/L 06/12 SNF: /2017 [facility] Blood sugar Blood sugar 127 mmol/L 06/12 SNF: /2017 [facility] Blood sugar Blood sugar 123 mmol/L 06/11 SNF: /2017 [facility] Blood sugar Blood sugar 107 mmol/L 06/11 SNF: /2017 [facility] Blood sugar Blood sugar 107 mmol/L 06/11 SNF: /2017 [facility] Blood sugar Blood sugar 140 mmol/L 06/11 SNF: /2017 [facility] Blood sugar Blood sugar 162 mmol/L 06/10 SNF: /2017 [facility] Blood sugar Blood sugar 183 mmol/L 06/10 SNF: /2017 [facility] Blood sugar Blood sugar 140 mmol/L 06/10 SNF: /2017 [facility] Blood sugar Blood sugar 140 mmol/L 06/10 SNF: /2017 [facility] Blood sugar Blood sugar 318 mmol/L 06/10 SNF: /2017 [facility] Blood sugar Blood sugar 136 mmol/L 06/09 SNF: /2017 [facility] Blood sugar Blood sugar 102 mmol/L 06/09 SNF: /2017 [facility] Blood sugar Blood sugar 102 mmol/L 06/09 SNF: /2017 [facility] Blood sugar Blood sugar 204 mmol/L 06/09 SNF: /2017 [facility] Blood sugar Blood sugar 127 mmol/L 06/08 SNF: /2016 [facility] Blood sugar Blood sugar 135 mmol/L 06/08 SNF: /2016 [facility] Blood sugar Blood sugar 89 mmol/L 06/08 SNF: /2016 [facility] Blood sugar Blood sugar 89 mmol/L 06/08 SNF: /2016 [facility] Blood sugar Blood sugar 294 mmol/L 06/08 SNF: /2016 [facility] Blood sugar Blood sugar 235 mmol/L 06/07 SNF: /2016 [facility] Blood sugar Blood sugar 109 mmol/L 06/07 SNF: /2016 [facility] Blood sugar Blood sugar 132 mmol/L 06/07 SNF: /2016 [facility] Blood sugar Blood sugar 132 mmol/L 06/07 SNF: /2016 [facility] Blood sugar Blood sugar 193 mmol/L 06/07 SNF: /2016 [facility] Blood sugar Blood sugar 199 mmol/L 06/06 SNF: /2016 [facility] Blood sugar Blood sugar 95 mmol/L 06/06 SNF: /2016 [facility] Blood sugar Blood sugar 239 mmol/L 06/06 SNF: /2016 [facility] Blood sugar Blood sugar 239 mmol/L 06/06 SNF: /2016 [facility] Blood sugar Blood sugar 275 mmol/L 06/06 SNF: /2016 [facility] Blood sugar Blood sugar 112 mmol/L 06/05 SNF: /2016 [facility] Blood sugar Blood sugar 121 mmol/L 06/05 SNF: /2016 [facility] Blood sugar Blood sugar 288 mmol/L 06/05 SNF: /2016 [facility] Blood sugar Blood sugar 288 mmol/L 06/05 SNF: /2016 [facility] Blood sugar Blood sugar 278 mmol/L 06/05 SNF: /2016 [facility] Blood sugar Blood sugar 89 mmol/L 06/04 SNF: /2016 [facility] Blood sugar Blood sugar 89 mmol/L 06/04 SNF: /2016 [facility] Blood sugar Blood sugar 121 mmol/L 06/04 SNF: /2016 [facility] Blood sugar Blood sugar 204 mmol/L 06/04 SNF: /2016 [facility] [place] Blood sugar Blood sugar 204 mmol/L 06/04 SNF: /2016 [facility] Blood sugar Blood sugar 262 mmol/L 06/04 SNF: /2016 [facility] Blood sugar Blood sugar 141 mmol/L 06/03 SNF: /2016 [facility] Blood sugar Blood sugar 200 mmol/L 06/03 SNF: /2016 [facility] Blood sugar Blood sugar 185 mmol/L 06/03 SNF: /2016 [facility] Blood sugar Blood sugar 185 mmol/L 06/03 SNF: /2016 [facility] Blood sugar Blood sugar 119 mmol/L 06/03 SNF: /2016 [facility] Blood sugar Blood sugar 289 mmol/L 06/02 SNF: /2016 [facility] Blood sugar Blood sugar 103 mmol/L 06/02 SNF: /2016 [facility] Blood sugar Blood sugar 255 mmol/L 06/02 SNF: /2016 [facility] Blood sugar Blood sugar 130 mmol/L 06/01 SNF: /2016 [facility] Blood sugar Blood sugar 238 mmol/L 06/01 SNF: /2016 [facility] Blood sugar Blood sugar 203 mmol/L 06/01 SNF: /2016 [facility] Blood sugar Blood sugar 203 mmol/L 06/01 SNF: /2016 [facility] Blood sugar Blood sugar 330 mmol/L 06/01 SNF: /2016 [facility] Blood sugar Blood sugar 107 mmol/L 05/31 SNF: /2016 [facility] Blood sugar Blood sugar 93 mmol/L 05/31 SNF: /2016 [facility] Blood sugar Blood sugar 129 mmol/L 05/31 SNF: /2016 [facility] Blood sugar Blood sugar 129 mmol/L 05/31 SNF: /2016 [facility] Blood sugar Blood sugar 222 mmol/L 05/31 SNF: /2016 [facility] Blood sugar Blood sugar 133 mmol/L 05/30 SNF: /2016 [facility] Blood sugar Blood sugar 201 mmol/L 05/30 SNF: /2016 [facility] Blood sugar Blood sugar 128 mmol/L 05/30 SNF: /2016 [facility] Blood sugar Blood sugar 128 mmol/L 05/30 SNF: /2016 [facility] Blood sugar Blood sugar 243 mmol/L 05/30 SNF: /2016 [facility] Blood sugar Blood sugar 128 mmol/L 05/29 SNF: /2016 [facility] Blood sugar Blood sugar 176 mmol/L 05/29 SNF: /2016 [facility] Blood sugar Blood sugar 139 mmol/L 05/29 SNF: /2016 [facility] Blood sugar Blood sugar 139 mmol/L 05/29 SNF: /2016 [facility] Blood sugar Blood sugar 153 mmol/L 05/29 SNF: /2016 [facility] Blood sugar Blood sugar 225 mmol/L 05/28 SNF: /2016 [facility] Blood sugar Blood sugar 176 mmol/L 05/28 SNF: /2016 [facility] Blood sugar Blood sugar 186 mmol/L 05/28 SNF: /2016 [facility] Blood sugar Blood sugar 186 mmol/L 05/28 SNF: /2016 [facility] Blood sugar Blood sugar 245 mmol/L 05/28 SNF: /2016 [facility] Blood sugar Blood sugar 203 mmol/L 05/27 SNF: /2016 [facility] Blood sugar Blood sugar 129 mmol/L 05/27 SNF: /2016 [facility] Blood sugar Blood sugar 129 mmol/L 05/27 SNF: /2016 [facility] Blood sugar Blood sugar 208 mmol/L 05/27 SNF: /2016 [facility] Blood sugar Blood sugar 144 mmol/L 05/26 SNF: /2016 [facility] Blood sugar Blood sugar 143 mmol/L 05/26 SNF: /2016 [facility] Blood sugar Blood sugar 144 mmol/L 05/26 SNF: /2016 [facility] Blood sugar Blood sugar 144 mmol/L 05/26 SNF: /2016 [facility] Blood sugar Blood sugar 168 mmol/L 05/26 SNF: /2016 [facility] Blood sugar Blood sugar 174 mmol/L 05/25 SNF: /2016 [facility] Blood sugar Blood sugar 144 mmol/L 05/25 SNF: /2016 [facility] Blood sugar Blood sugar 156 mmol/L 05/25 SNF: /2016 [facility] Blood sugar Blood sugar 156 mmol/L 05/25 SNF: /2016 [facility] Blood sugar Blood sugar 250 mmol/L 05/25 SNF: /2016 [facility] Blood sugar Blood sugar 119 mmol/L 05/24 SNF: /2016 [facility] Blood sugar Blood sugar 149 mmol/L 05/24 SNF: /2016 [facility] Blood sugar Blood sugar 150 mmol/L 05/24 SNF: /2016 [facility] Blood sugar Blood sugar 150 mmol/L 05/24 SNF: /2016 [facility] Blood sugar Blood sugar 207 mmol/L 05/24 SNF: /2016 [facility] Blood sugar Blood sugar 143 mmol/L 05/23 SNF: /2016 [facility] Blood sugar Blood sugar 178 mmol/L 05/23 SNF: /2016 [facility] Blood sugar Blood sugar 138 mmol/L 05/23 SNF: /2016 [facility] Blood sugar Blood sugar 138 mmol/L 05/23 SNF: /2016 [facility] Blood sugar Blood sugar 192 mmol/L 05/23 SNF: /2016 [facility] Blood sugar Blood sugar 65 mmol/L 05/22 SNF: /2016 [facility] Blood sugar Blood sugar 137 mmol/L 05/22 SNF: /2016 [facility] Blood sugar Blood sugar 202 mmol/L 05/22 SNF: /2016 [facility] Blood sugar Blood sugar 202 mmol/L 05/22 SNF: /2016 [facility] Blood sugar Blood sugar 218 mmol/L 05/22 SNF: /2016 [facility] Blood sugar Blood sugar 105 mmol/L 05/21 SNF: /2016 [facility] Blood sugar Blood sugar 177 mmol/L 05/21 SNF: /2016 [facility] Blood sugar Blood sugar 170 mmol/L 05/21 SNF: /2016 [facility] Blood sugar Blood sugar 170 mmol/L 05/21 SNF: /2016 [facility] Blood sugar Blood sugar 140 mmol/L 05/21 SNF: /2016 [facility] Blood sugar Blood sugar 201 mmol/L 05/20 SNF: /2016 [facility] Blood sugar Blood sugar 168 mmol/L 05/20 SNF: /2016 [facility] Blood sugar Blood sugar 124 mmol/L 05/20 SNF: /2016 [facility] Blood sugar Blood sugar 124 mmol/L 05/20 SNF: /2016 [facility] Blood sugar Blood sugar 217 mmol/L 05/20 SNF: /2016 [facility] Blood sugar Blood sugar 162 mmol/L 05/19 SNF: /2016 [facility] Blood sugar Blood sugar 242 mmol/L 05/19 SNF: /2016 [facility] Blood sugar Blood sugar 285 mmol/L 05/19 SNF: /2016 [facility] Blood sugar Blood sugar 203 mmol/L 05/18 SNF: /2016 [facility] Blood sugar Blood sugar 213 mmol/L 05/18 SNF: /2016 [facility] Blood sugar Blood sugar 128 mmol/L 05/18 SNF: /2016 [facility] Blood sugar Blood sugar 128 mmol/L 05/18 SNF: /2016 [facility] Blood sugar Blood sugar 184 mmol/L 05/18 SNF: /2016 [facility] Blood sugar Blood sugar 215 mmol/L 05/17 SNF: /2016 [facility] Blood sugar Blood sugar 176 mmol/L 05/17 SNF: /2016 [facility] Blood sugar Blood sugar 84 mmol/L 05/17 SNF: /2016 [facility] Blood sugar Blood sugar 84 mmol/L 05/17 SNF: /2016 [facility] Blood sugar Blood sugar 221 mmol/L 05/17 SNF: /2016 [facility] Blood sugar Blood sugar 115 mmol/L 05/16 SNF: /2016 [facility] Blood sugar Blood sugar 127 mmol/L 05/16 SNF: /2016 [facility] Blood sugar Blood sugar 115 mmol/L 05/16 SNF: /2016 [facility] Blood sugar Blood sugar 115 mmol/L 05/16 SNF: /2016 [facility] Blood sugar Blood sugar 270 mmol/L 05/16 SNF: /2016 [facility] Blood sugar Blood sugar 103 mmol/L 05/15 SNF: /2016 [facility] Blood sugar Blood sugar 154 mmol/L 05/15 SNF: /2016 [facility] Blood sugar Blood sugar 128 mmol/L 05/15 SNF: /2016 [facility] Blood sugar Blood sugar 128 mmol/L 05/15 SNF: /2016 [facility] Blood sugar Blood sugar 132 mmol/L 05/15 SNF: /2016 [facility] Blood sugar Blood sugar 315 mmol/L 05/14 SNF: /2016 [facility] Blood sugar Blood sugar 107 mmol/L 05/14 SNF: /2016 [facility] Blood sugar Blood sugar 131 mmol/L 05/14 SNF: /2016 [facility] Blood sugar Blood sugar 131 mmol/L 05/14 SNF: /2016 [facility] Blood sugar Blood sugar 190 mmol/L 05/14 SNF: /2016 [facility] Blood sugar Blood sugar 204 mmol/L 05/13 SNF: /2016 [facility] Blood sugar Blood sugar 185 mmol/L 05/13 SNF: /2016 [facility] Blood sugar Blood sugar 128 mmol/L 05/13 SNF: /2016 [facility] Blood sugar Blood sugar 128 mmol/L 05/13 SNF: /2016 [facility] Blood sugar Blood sugar 162 mmol/L 05/13 SNF: /2016 [facility] Blood sugar Blood sugar 158 mmol/L 05/12 SNF: /2016 [facility] Blood sugar Blood sugar 199 mmol/L 05/12 SNF: /2016 [facility] Blood sugar Blood sugar 128 mmol/L 05/12 SNF: /2016 [facility] Blood sugar Blood sugar 128 mmol/L 05/12 SNF: /2016 [facility] Blood sugar Blood sugar 179 mmol/L 05/12 SNF: /2016 [facility] Blood sugar Blood sugar 146 mmol/L 05/11 SNF: /2016 [facility] Blood sugar Blood sugar 86 mmol/L 05/11 [facility]: /2016 [place] [facility] [facility] Blood sugar Blood sugar 116 mmol/L 05/11 SNF: /[facility] Blood sugar Blood sugar 116 mmol/L 05/11 SNF: /2016 [facility] Blood sugar Blood sugar 222 mmol/L 05/11 SNF: /2016 [facility] Blood sugar Blood sugar 155 mmol/L 05/10 SNF: /2016 [facility] Blood sugar Blood sugar 101 mmol/L 05/10 SNF: /[facility] Blood sugar Blood sugar 101 mmol/L 05/10 SNF: /2016 [facility] Blood sugar Blood sugar 101 mmol/L 05/10 SNF: /2016 [facility] Blood sugar Blood sugar 163 mmol/L 05/10 SNF: /2016 [facility] Blood sugar Blood sugar 166 mmol/L 05/09 SNF: /2016 [facility] Blood sugar Blood sugar 135 mmol/L 05/09 SNF: /2016 [facility] Blood sugar Blood sugar 116 mmol/L 05/09 SNF: /2016 [facility] Blood sugar Blood sugar 116 mmol/L 05/09 SNF: /2016 [facility] Blood sugar Blood sugar 165 mmol/L 05/09 SNF: /2016 [facility] Blood sugar Blood sugar 133 mmol/L 05/08 SNF: /2016 [facility] Blood sugar Blood sugar 137 mmol/L 05/08 SNF: /2016 [facility] Blood sugar Blood sugar 168 mmol/L 05/08 SNF: /2016 [facility] Blood sugar Blood sugar 168 mmol/L 05/08 SNF: /2016 [facility] Blood sugar Blood sugar 207 mmol/L 05/08 SNF: /2016 [facility] Blood sugar Blood sugar 147 mmol/L 05/07 SNF: /2016 [facility] Blood sugar Blood sugar 180 mmol/L 05/07 SNF: /2016 [facility] Blood sugar Blood sugar 180 mmol/L 05/07 SNF: /2016 [facility] Blood sugar Blood sugar 166 mmol/L 05/07 SNF: /2016 [facility] Blood sugar Blood sugar 131 mmol/L 05/06 SNF: /2016 [facility] Blood sugar Blood sugar 121 mmol/L 05/06 SNF: /2016 [facility] Blood sugar Blood sugar 119 mmol/L 05/06 SNF: /2016 [facility] Blood sugar Blood sugar 119 mmol/L 05/06 SNF: /2016 [facility] Blood sugar Blood sugar 145 mmol/L 05/06 SNF: /2016 [facility] Blood sugar Blood sugar 92 mmol/L 05/05 SNF: /2016 [facility] Blood sugar Blood sugar 161 mmol/L 05/05 SNF: /2016 [facility] Blood sugar Blood sugar 203 mmol/L 05/05 SNF: /2016 [facility] Blood sugar Blood sugar 203 mmol/L 05/05 SNF: /2016 [facility] Blood sugar Blood sugar 141 mmol/L 05/05 SNF: /2016 [facility] Blood sugar Blood sugar 177 mmol/L 05/04 SNF: /2016 [facility] Blood sugar Blood sugar 113 mmol/L 05/04 SNF: /2016 [facility] Blood sugar Blood sugar 148 mmol/L 05/04 SNF: /2016 [facility] Blood sugar Blood sugar 148 mmol/L 05/04 SNF: /2016 [facility] Blood sugar Blood sugar 243 mmol/L 05/04 SNF: /2016 [facility] Blood sugar Blood sugar 132 mmol/L 05/03 SNF: /2016 [facility] Blood sugar Blood sugar 221 mmol/L 05/03 SNF: /2016 [facility] Blood sugar Blood sugar 144 mmol/L 05/03 SNF: /2016 [facility] Blood sugar Blood sugar 144 mmol/L 05/03 SNF: /2016 [facility] Blood sugar Blood sugar 288 mmol/L 05/02 SNF: /2016 [facility] Blood sugar Blood sugar 341 mmol/L 05/02 SNF: /2016 [facility] Blood sugar Blood sugar 314 mmol/L 05/02 SNF: /2016 [facility] Blood sugar Blood sugar 341 mmol/L 05/02 SNF: /2016 [facility] Blood sugar Blood sugar 341 mmol/L 05/02 SNF: [facility] Blood sugar Blood sugar 185 mmol/L 05/01 SNF: [facility] Blood sugar Blood sugar 81 mmol/L 05/01 SNF: [facility] Blood sugar Blood sugar 178 mmol/L 05/01 SNF: /2016 [facility] Blood sugar Blood sugar 178 mmol/L 05/01 SNF: [facility] Blood sugar Blood sugar 209 mmol/L 05/01 SNF: /2016 [facility] Blood sugar Blood sugar 220 mmol/L 05/01 SNF: /2016 [facility] Blood sugar Blood sugar 148 mmol/L 04/30 SNF: /2016 [facility] Blood sugar Blood sugar 143 mmol/L 04/30 SNF: [facility] Blood sugar Blood sugar 200 mmol/L 04/30 SNF: [facility] Blood sugar Blood sugar 151 mmol/L 04/30 SNF: [facility] Blood sugar Blood sugar 198 mmol/L 04/29 SNF: [facility] Blood sugar Blood sugar 173 mmol/L 04/29 SNF: [facility] CHEM PANEL Magnesium Lvl 2.1 mg/dL 1.8 - 2.4 04/28 [facility]2016 [facility] CHEM PANEL eGFR 109 04/28 Result Comment: The eGFR is calculated using the CKD-EPI formula. In most young, healthy individuals the eGFR will be >90 mL/ min/1.73m2. The eGFR declines with age. An eGFR of 60-89 may be normal in [facility] mL/min/1.7 some populations, particularly the elderly, for whom the CKD-EPI formula has not been extensively validated. Use of the eGFR is not recommended in the following populations: [address] Individuals with unstable creatinine concentrations, including [...] Lvl 113 mg/dL 70 - 99 04/28 [facility] CHEM PANEL Creatinine 0.77 mg/dL 0.50 - 04/28 [facility] Lvl 1.40 /2016 [facility] CHEM PANEL BUN 11 mg/dL 7 - 22 04/28 [facility] CHEM PANEL Calcium Lvl 10.3 mg/dL 8.5 - 10.5 04/28 [facility] CHEM PANEL CO2 25 meq/L 24 - 32 04/28 [facility] CHEM PANEL Chloride Lvl 103 meq/L 95 - 109 04/28 [facility] CHEM PANEL Potassium Lvl 3.6 meq/L 3.5 - 5.1 04/28 [facility] CHEM PANEL Sodium Lvl 137 meq/L 135 - 145 04/28 2016 [facility] CHEM PANEL AGAP 12.6 meq/L 10.0 - 04/28 [facility] 20.0 [facility] HEMATOLOGY RBC 4.33 M/CMM 4.70 - 04/28 [facility] 6.10 [facility] HEMATOLOGY WBC 8.4 K/CMM 3.7 - 10.4 04/28 [facility] HEMATOLOGY MCH 30.1 pg 27.0 - 04/28 [facility] 31.0 [facility] HEMATOLOGY MCHC 34.6 g/dL 32.0 - 04/28 [facility] 36.0 [facility] HEMATOLOGY RDW 13.2 % 11.5 - 04/28 [place] 14. [facility] HEMATOLOGY MPV 8.9 fL 7.4 - 10.4 04/28 [facility] HEMATOLOGY Platelet 857 K/CMM 133 - 450 04/28 [facility] HEMATOLOGY Hgb 13.1 g/dL 14.0 - 04/28 [place] 18.0 [facility] HEMATOLOGY MCV 87.1 fL 80.0 - 04/28 [place] 94.0 [facility] HEMATOLOGY Hct 37.8 % 42.0 - 04/28 54.0 [facility] HEMATOLOGY Monocytes # 0.6 K/CMM 0.0 - 0.8 04/28 [facility] HEMATOLOGY Eosinophils # 0.4 K/CMM 0.0 - 0.5 04/28 [facility] HEMATOLOGY Basophils 0.4 % 0.0 - 1.0 04/28 [facility] HEMATOLOGY Lymphocytes # 2.7 K/CMM 1.0 - 5.5 04/28 [facility] HEMATOLOGY Segs-Bands # 4.7 K/CMM 1.5 - 8.1 04/28 [facility] HEMATOLOGY Lymphocytes 31.5 % 20.0 - 04/28 [facility] 40.0 [facility] HEMATOLOGY Monocytes 7.6 % 2.0 - 12.0 04/28 [facility] HEMATOLOGY Eosinophils 4.9 % 0.0 - 4.0 04/28 [facility] HEMATOLOGY Segs 55.6 % 45.0 - 04/28 [facility] 75.0 [facility] Foot series Foot series EXAM: XR RIGHT FOOT 3 VIEWS 04/28 - [facility] DX DX - [facility] This report was dictated by a Research Animal Facility Supervisor/Fellow. I have personally reviewed the images as Center well as the Resident's interpretation and agree with the findings. DATE: 04/28/2017 8:01 AM FLEET ADMINISTRATIVE ASSISTANT Read by: Lars Golden MD Resident: Lars [...] identified. MOLECULAR C difficile Negative Negative 04/27 [facility] DIAGNOSTIC Medical (04/27/17 8:44 AM) Center CHEM PANEL Magnesium Lvl 1.9 mg/dL 1.8 - 2.4 04/[address] ELECTROLYTE AGAP 14.5 meq/L 10.0 - 04/27 [facility] 20.0 [facility] ELECTROLYTE eGFR 107 04/27 Result Comment: The eGFR is calculated using the CKD-EPI formula. In most young, healthy individuals the eGFR will be > 90 mL/min/1.73m2. The eGFR declines with age. An eGFR of 60-89 may be normal in [facility] mL/min/1.7 /2016 some populations, particularly the elderly, for whom the CKD-EPI formula has not been extensively validated. Use of the eGFR is not recommended in the following populations: [address] Individuals with unstable creatinine concentrations, including [...] CO2 25 meq/L 24 - 32 04/[address] ELECTROLYTE Calcium Lvl 10.0 mg/dL 8.5 - 10.5 04/[address] ELECTROLYTE Chloride Lvl 102 meq/L 95 - 109 04/[address] ELECTROLYTE Creatinine 0.80 mg/dL 0.50 - 04/27 [facility] Lvl 1.40 [facility] ELECTROLYTE Sodium Lvl 138 meq/L 135 - 145 04/[address] ELECTROLYTE Potassium Lvl 3.5 meq/L 3.5 - 5.1 04/[address] ELECTROLYTE Glucose Lvl 123 mg/dL 70 - 99 04/[address] ELECTROLYTE BUN 9 mg/dL 7 - 22 04/[address] HEMATOLOGY Basophils # 0.1 K/CMM 0.0 - 0.2 04/[address] HEMATOLOGY Eosinophils # 0.5 K/CMM 0.0 - 0.5 04/[address] HEMATOLOGY Monocytes # 0.8 K/CMM 0.0 - 0.8 04/[address] HEMATOLOGY Segs-Bands # 5.0 K/CMM 1.5 - 8.1 04/[address] HEMATOLOGY Lymphocytes # 2.7 K/CMM 1.0 - 5.5 04/27 [facility] HEMATOLOGY Basophils 1.0 % 0.0 - 1.0 04/27 [facility] HEMATOLOGY Lymphocytes 29.9 % 20.0 - 04/27 [place] 40.0 [facility] HEMATOLOGY Segs 55.4 % 45.0 - 04/27 [place] 75.0 [facility] HEMATOLOGY Monocytes 8.6 % 2.0 - 12.0 04/27 [facility] HEMATOLOGY Eosinophils 5.1 % 0.0 - 4.0 04/27 [facility] HEMATOLOGY Hgb 13.4 g/dL 14.0 - 04/27 [place] 18.0 [facility] HEMATOLOGY Hct 39.9 % 42.0 - 04/27 [place] 54.0 [facility] HEMATOLOGY RBC 4.50 M/CMM 4.70 - 04/27 [place] 6.10 [facility] HEMATOLOGY RDW 13.1 % 11.5 - 04/27 [place] 14.5 [facility] HEMATOLOGY MCH 29.8 pg 27.0 - 04/27 [place] 31.0 [facility] HEMATOLOGY MCHC 33.6 g/dL 32.0 - 04/27 [place] 36.0 [facility] HEMATOLOGY WBC 9.0 K/CMM 3.7 - 10.4 04/27 [facility] HEMATOLOGY MCV 88.6 fL 80.0 - 04/27 [place] 94.0 [facility] HEMATOLOGY MPV 9.3 fL 7.4 - 10.4 04/27 [facility] HEMATOLOGY Platelet 884 K/CMM 133 - 450 04/27 [facility] CHEM PANEL Magnesium Lvl 2.0 mg/dL 1.8 - 2.4 04/26 [facility] ELECTROLYTE AGAP 14.3 meq/L 10.0 - 04/26 [facility] S 20.0 [facility] ELECTROLYTE Creatinine 0.74 mg/dL 0.50 - 04/26 [facility] Lvl 1.40 [facility] ELECTROLYTE Sodium Lvl 140 meq/L 135 - 145 04/26 [facility] ELECTROLYTE Potassium Lvl 3.3 meq/L 3.5 - 5.1 04/26 [facility] ELECTROLYTE Glucose Lvl 98 mg/dL 70 - 99 04/[address] ELECTROLYTE BUN 9 mg/dL 7 - 22 04/[address] ELECTROLYTE eGFR 111 04/26 Result Comment: The eGFR is calculated using the CKD-EPI formula. In most young, healthy individuals the eGFR will be > 90 mL/min/1.73m2. The eGFR declines with age. An eGFR of 60-89 may be normal in [facility] mL/min/1. some populations, particularly the elderly, for whom the CKD-EPI formula has not been extensively validated. Use of the eGFR is not recommended in the following populations: [address] Individuals with unstable creatinine concentrations, including [...] Lvl 103 meq/L 95 - 109 04/[address] ELECTROLYTE CO2 26 meq/L 24 - 32 04/[address] ELECTROLYTE Calcium Lvl 9.8 mg/dL 8.5 - 10.5 04/[address] HEMATOLOGY Monocytes 8.1 % 2.0 - 12.0 04/[address] HEMATOLOGY Basophils 1.2 % 0.0 - 1.0 04/[address] HEMATOLOGY Eosinophils 4.3 % 0.0 - 4.0 04/[address] HEMATOLOGY Basophils # 0.1 K/CMM 0.0 - 0.2 04/[address] HEMATOLOGY Eosinophils # 0.4 K/CMM 0.0 - 0.5 04/[address] HEMATOLOGY Segs-Bands # 6.0 K/CMM 1.5 - 8.1 04/[address] HEMATOLOGY Lymphocytes # 2.7 K/CMM 1.0 - 5.5 04/[address] HEMATOLOGY Monocytes # 0.8 K/CMM 0.0 - 0.8 04/[address] HEMATOLOGY Segs 59.6 % 45.0 - 04/26 [facility] 75.0 /2016 [facility] HEMATOLOGY Lymphocytes 26.8 % 20.0 - 04/26 40.0 [facility] HEMATOLOGY MPV 9.1 fL 7.4 - 10.4 04/26 [facility] HEMATOLOGY Hct 37.8 % 42.0 - 04/26 [facility] 54.0 [facility] HEMATOLOGY MCV 88.8 fL 80.0 - 04/26 94.0 [facility] HEMATOLOGY MCHC 33.5 g/dL 32.0 - 04/26 [facility] 36.0 [facility] HEMATOLOGY MCH 29.7 pg 27.0 - 04/26 [facility] 31.0 [facility] HEMATOLOGY RDW 13.0 % 11.5 - 04/26 [facility] 14.5 [facility] HEMATOLOGY Platelet 903 K/CMM 133 - 450 04/[address] [place] [address] HEMATOLOGY WBC 10.1 K/CMM 3.7 - 10.4 04/[address] [place] [address] HEMATOLOGY RBC 4.26 M/CMM 4.70 - 04/26 [place] 6.10 [facility] HEMATOLOGY Hgb 12.7 g/dL 14.0 - 04/26 [facility] 18.0 [facility] HEMATOLOGY Basophils # 0.1 K/CMM 0.0 - 0.2 04/24 [facility] [address] [place] [address] CHEM PANEL Globulin 3.8 g/dL 2.7 - 4.2 04/23 [facility] [address] [place] [address] CHEM PANEL B/C Ratio 10 6 - 25 04/[address] CHEM PANEL A/G Ratio 0.7 0.7 - 1.6 04/[address] [place] [address] CHEM PANEL Alk Phos 149 unit/L 39 - 136 04/[address] CHEM PANEL AST 16 unit/L 0 - 37 04/[address] CHEM PANEL Bili Total 0.6 mg/dL 0.2 - 1.3 04/23 [facility] [address] [place] [address] CHEM PANEL Albumin Lvl 2.8 g/dL 3.5 - 5.0 04/[address] CHEM PANEL ALT 16 unit/L 0 - 65 04/[address] CHEM PANEL Total Protein 6.6 g/dL 6.4 - 8.4 04/[address] BLOOD BANK Antibody Scrn Negative 04/21 [facility] Medical (04/21/17 8:14 AM) [place] BLOOD BANK ABO/Rh O POS 04/21 [facility] Calcaneus Calcaneus EXAM: XR CALCANEUS 2 VIEWS 04/21 - [facility] series DX series - [facility] This report was dictated by a Research Animal Facility Supervisor/Fellow. I have personally reviewed the images as Center well as the Resident's interpretation and agree with the findings. DATE: 04/21/2017 9:50 AM FLEET ADMINISTRATIVE ASSISTANT Read by: Faby Murcia MD Resident: Faby [...] Vitamin D, 17.9 ng/mL 30.0 - 04/17 [facility] 25-[place], Total 100.0 [facility] HEMATOLOGY RBC Morph Normal 04/14 [facility] (04/14/17 4:45 AM) [place] HEMATOLOGY Plt Morph Normal 04/14 [facility] (04/14/17 4:45 AM) [place] HEMATOLOGY PTT 35.6 s 22.9 - 04/13 [place] 35.8 /2016 [facility] HEMATOLOGY PT 14.0 s 12.0 - 04/13 [facility] 14.7 [facility] HEMATOLOGY INR 1.08 0.85 - 04/13 [facility] 1. [facility] SPECIAL Hgb A1C 11.0 % <=5.6 % 04/13 [facility] CHEMISTRY [facility] Wrist Wrist EXAM: XR WRIST 3 VIEWS 04/13 - [facility] complete DX complete DX /2016 - [facility] DATE: 04/13/2017 8:50 AM FLEET ADMINISTRATIVE ASSISTANT Read by: Hrenan Smith MD Dictated Date/time: 04/13/17 15:00 Electronically [...] URINE AND UA Turbidity Clear Clear 04/12 [facility] [address] [place] [address] (04/12/17 3:33 PM) [place] URINE AND UA pH 6.0 5.0 - 8.0 04/[address] URINE AND UA Protein 30 mg/dL Negative 04/12 [facility] mg/dL /[address] [place] [address] URINE AND UA Glucose >=1000 Negative 04/12 [facility] mg/dL mg/dL [facility] URINE AND UA Spec Grav 1.029 <=1.030 04/[address] URINE AND UA Ketones 20 mg/dL Negative 04/12 [facility] mg/dL [address] [place] [address] URINE AND UA Bili Negative Negative 04/12 [facility] [address] [place] [address] *NA* [place] (04/12/17 3:33 PM) URINE AND UA Nitrite Negative Negative 04/12 [facility] [address] [place] [address] (04/12/17 3:33 PM) [place] URINE AND UA Leuk Est Negative Negative 04/12 [facility] [address] [place] [address] (04/12/17 3:33 PM) [place] URINE AND UA Color Yellow Yellow 04/12 [facility] [address] [place] [address] *NA* [place] (04/12/17 3:33 PM) URINE AND UA Blood Negative Negative 04/12 [facility] [address] [place] [address] (04/12/17 3:33 PM) [place] URINE AND UA <=1.0 0.1 - 1.0 04/12 [facility] Urobilinogen mg/dL /2016 [facility] URINE AND UA Sq Epi None Seen 04/12 [facility] STOOL [facility] URINE AND UA WBC 5 /HPF 0 - 5 04/12 [facility] STOOL [facility] Center URINE AND UA RBC 1 /HPF 0 - 2 04/12 [facility] URINE AND UA Mucus Few /LPF None Seen 04/12 [facility] STOOL /LPF /2016 [facility] BLOOD BANK ABO/Rh O POS 04/12 [facility] RESULTS [facility] BLOOD BANK Antibody Scrn Negative 04/12 [facility] RESULTS Medical (04/12/17 4:29 AM) Center Tibia Tibia fibula EXAM: XR LEFT TIBIA-FIBULA 2 VIEWS 04/12 - [facility] fibula series - Medical series DX EXAM: XR LEFT ANKLE 3 VIEWS This report was dictated by a Research Animal Facility Supervisor/Fellow. I have personally reviewed the images as [...] XR LEFT TIBIA-FIBULA 2 VIEWS 04/12 - [facility] views DX DX - Medical EXAM: XR LEFT ANKLE 3 VIEWS This report was dictated by a Research Animal Facility Supervisor/Fellow. I have personally reviewed the images as [...] CT LEFT KNEE WITHOUT CONTRAST 04/12 - [facility] contrast CT contrast CT /2016 - [facility] DATE: 04/12/2017 1:33 AM CDT Read [...] EXAM: CT RIGHT FOOT WITHOUT CONTRAST 04/12 [facility] contrast CT contrast CT /2016 [facility] DATE: 04/11/2017 11:26 PM CDT Read by: [...] XR RIGHT WRIST 3 VIEWS 04/12 - [facility] complete DX complete DX - Medical This report was dictated by a Research Animal Facility Supervisor/Fellow. I have personally reviewed the images as [...] VIEWS This report was dictated by a Research Animal Facility Supervisor/Fellow. I have personally reviewed the images as [...] XR RIGHT FOREARM 2 VIEWS 04/11 - [facility] views DX - Medical EXAM: XR RIGHT ELBOW 3 VIEWS This report was dictated by a Research Animal Facility Supervisor/Fellow. I have personally reviewed the images as [...] Medical This report was dictated by a Research Animal Facility Supervisor/Fellow. I have personally reviewed the images as [...] fibular head. Large lipohemarthrosis of the knee. Forearm 2 Forearm 2 EXAM: XR RIGHT FOREARM 2 VIEWS 04/11 - [place] views DX views DX - Medical EXAM: XR RIGHT ELBOW 3 VIEWS This report was dictated by a Research Animal Facility Supervisor/Fellow. I have personally reviewed the images as [...] fracture on the dorsum of the wrist. Foot series Foot series EXAM: XR RIGHT ANKLE 3 VIEWS 04/11 - [facility] DX - Medical EXAM: XR RIGHT FOOT 3 VIEWS This report was dictated by a Research Animal Facility Supervisor/Fellow. I have personally reviewed the images as [...] the first digit proximal phalanx distal shaft. Vital Signs Vital Sign Value Date Comments Source Systolic (mm Hg) 147 06/27/2017 [facility] [place] Diastolic (mm Hg) 96 06/27/2017 [facility] Temperature Oral (F) 97.8 F 06/27/2017 [facility] Heart Rate 69 {beats}/min 06/27/2017 [facility] [place] Respitory Rate 20 06/27/2017 [facility] [place] Systolic (mm Hg) 118 06/27/2017 [facility]: [facility] [place] Diastolic (mm Hg) 61 06/27/2017 [facility] Systolic (mm Hg) 124 06/26/2017 SN[facility]: [facility] [place] Diastolic (mm Hg) 68 06/26/2017 [facility]: [facility] [place] Systolic (mm Hg) 144 06/25/2017 [facility] Diastolic (mm Hg) 81 06/25/2017 [facility] Systolic (mm Hg) 114 06/24/2017 [facility] Diastolic (mm Hg) 72 06/24/2017 SNF: [facility] Temperature Oral (F) 97.9 F 06/24/2017 [facility] Heart Rate 69 {beats}/min 06/24/2017 [facility] Respitory Rate 18 06/24/2017 [facility] Systolic (mm Hg) 125 06/24/2017 [place] [facility] [place] Diastolic (mm Hg) 71 06/24/2017 [facility] Weight 207.2 06/23/2017 [facility]: [facility] [place] Systolic (mm Hg) 142 06/23/2017 SN[facility]: [facility] [place] Diastolic (mm Hg) 96 06/23/2017 SN[facility]: [facility] [place] Systolic (mm Hg) 123 06/22/2017 SNF: [facility] [place] Diastolic (mm Hg) 79 06/22/2017 [facility] Temperature Oral (F) 97.6 F 06/22/2017 SN[facility]: [facility] [place] Heart Rate 70 {beats}/min 06/22/2017 [...] (mm Hg) 112 06/16/2017 [facility] Diastolic (mm Hg) 70 06/16/2017 SNF: [facility] [place] Systolic (mm Hg) 114 06/15/2017 SNF: [facility] [place] Diastolic (mm Hg) 77 06/15/2017 SNF: [facility] Temperature Oral (F) 98 F 06/15/2017 [facility] Heart Rate 68 {beats}/min 06/15/2017 [facility] Respitory Rate 18 06/15/2017 SN[facility]: [facility] Systolic (mm Hg) 124 06/15/2017 SN[facility]: [facility] Diastolic (mm Hg) 77 06/15/2017 SNF: [facility] [place] Systolic (mm Hg) 131 06/14/2017 SN[facility]: [facility] Diastolic (mm Hg) 92 06/14/2017 SN[facility]: [facility] Systolic (mm Hg) 130 06/13/2017 SN[facility]: [facility] Diastolic (mm Hg) 81 06/13/2017 SNF: [facility] Temperature Oral (F) 98.4 F 06/13/2017 SNF: [facility] [place] Heart Rate 111 {beats}/min 06/13/2017 [facility] Respitory Rate 20 06/13/2017 SN[facility]: [facility] Systolic (mm Hg) 153 06/13/2017 SN[facility]: [facility] Diastolic (mm Hg) 77 06/13/2017 SN[facility]: [facility] Systolic (mm Hg) 137 06/12/2017 SN[facility]: [facility] Diastolic (mm Hg) 82 06/12/2017 SN[facility]: [facility] Systolic (mm Hg) 117 06/11/2017 SN[facility]: [facility] Diastolic (mm Hg) 70 06/11/2017 SNF: [facility] Temperature Oral (F) 97.2 F 06/11/2017 SNF: [facility] [place] Heart Rate 82 {beats}/min 06/11/2017 SN[facility]: [facility] Respitory Rate 18 06/11/2017 SN[facility]: [facility] Systolic (mm Hg) 123 06/11/2017 [facility] Diastolic (mm Hg) 70 06/11/2017 SNF: [facility] [place] Systolic (mm Hg) 135 06/10/2017 SNF: [facility] [place] Diastolic (mm Hg) 102 06/10/2017 SN[facility]: [facility] [place] Temperature Oral (F) 97.6 F 06/10/2017 SNF: [facility] [place] Heart Rate 90 {beats}/min 06/10/2017 SNF: [facility] [place] Respitory Rate 18 06/10/2017 SNF: [facility] [place] Systolic (mm Hg) 124 06/10/2017 SNF: [facility] [place] Diastolic (mm Hg) 83 06/10/2017 SNF: [facility] [place] Systolic (mm Hg) 126 06/09/2017 [facility]: [facility] [place] Diastolic (mm Hg) 86 06/09/2017 [facility]: [facility] Temperature Oral (F) 96.7 F 06/09/2017 SN[facility]: [facility] Heart Rate 84 {beats}/min 06/09/2017 [facility]: [facility] [place] Respitory Rate 20 06/09/2017 SNF: [facility] [place] Systolic (mm Hg) 132 06/09/2017 SN[facility]: [facility] [place] Diastolic (mm Hg) 74 06/09/2017 [facility]: [facility] Systolic (mm Hg) 124 06/08/2017 SN[facility]: [facility] Diastolic (mm Hg) 83 06/08/2017 [facility]: [facility] Temperature Oral (F) 96.5 F 06/08/2017 SN[facility]: [facility] Heart Rate 93 {beats}/min 06/08/2017 SNF: [facility] [place] Respitory Rate 20 06/08/2017 SNF: [facility] [place] Systolic (mm Hg) 108 06/08/2017 SNF: [facility] [place] Diastolic (mm Hg) 81 06/08/2017 SN[facility]: [facility] Systolic (mm Hg) 123 06/07/2017 SNF: [facility] [place] Diastolic (mm Hg) 82 06/07/2017 SNF: [...] [place] Diastolic (mm Hg) 73 06/02/2017 SNF: [facility] [place] Temperature Oral (F) 97.7 F 06/02/2017 SNF: [facility] [place] Heart Rate 69 {beats}/min 06/02/2017 SNF: [facility] [place] Respitory Rate 18 06/02/2017 SNF: [facility] [place] Systolic (mm Hg) 146 06/02/2017 SNF: [facility] [place] Diastolic (mm Hg) 63 06/02/2017 SNF: [facility] [place] Systolic (mm Hg) 139 06/01/2017 SNF: [facility] [place] Diastolic (mm Hg) 94 06/01/2017 SNF: [facility] [place] Temperature Oral (F) 98.4 F 06/01/2017 SN[facility]: [facility] Heart Rate 83 {beats}/min 06/01/2017 SN[facility]: [facility] Respitory Rate 18 06/01/2017 SN[facility]: [facility] [place] Systolic (mm Hg) 124 06/01/2017 SN[facility]: [facility] Diastolic (mm Hg) 76 06/01/2017 SN[facility]: [facility] Temperature Oral (F) 98.9 F 06/01/2017 SNF: [facility] Heart Rate 85 {beats}/min 06/01/2017 SNF: [facility] Respitory Rate 18 06/01/2017 SNF: [facility] [place] Systolic (mm Hg) 117 06/01/2017 SNF: [facility] [place] Diastolic (mm Hg) 67 06/01/2017 SN[facility]: [facility] Systolic (mm Hg) 117 05/31/2017 [facility]: [facility] [place] Diastolic (mm Hg) 73 05/31/2017 SN[facility]: [facility] Temperature Oral (F) 97.6 F 05/31/2017 SN[facility]: [facility] Heart Rate 79 {beats}/min 05/31/2017 SNF: [facility] [place] Respitory Rate 18 05/31/2017 SNF: [facility] [place] Systolic (mm Hg) 141 05/31/2017 SNF: [facility] [place] Diastolic (mm Hg) 78 05/31/2017 SNF: [facility] [place] Systolic (mm Hg) 135 05/30/2017 SNF: [facility] [place] Diastolic (mm Hg) 95 05/30/2017 SNF: [facility] [place] Temperature Oral (F) 98.2 F 05/30/2017 SNF: [facility] [place] Heart Rate 85 {beats}/min 05/30/2017 SNF: [facility] [place] Respitory Rate 18 05/30/2017 SNF: [facility] [place] Systolic (mm Hg) 135 05/30/2017 SNF: [facility] [place] Diastolic (mm Hg) 95 05/30/2017 SNF: [facility] [place] Systolic (mm Hg) 119 05/29/2017 SNF: [facility] [place] Diastolic (mm Hg) 86 05/29/2017 SNF: [facility] [place] Temperature Oral (F) 97.7 F 05/29/2017 SN[facility]: [facility] Heart Rate 96 {beats}/min 05/29/2017 SNF: [facility] [place] Respitory Rate 20 05/29/2017 SNF: [facility] [place] Systolic (mm Hg) 147 05/29/2017 SNF: [facility] [place] Diastolic (mm Hg) 84 05/29/2017 SNF: [facility] [place] Systolic (mm Hg) 129 05/28/2017 SNF: [facility] [place] Diastolic (mm Hg) 67 05/28/2017 SN[facility]: [facility] Temperature Oral (F) 98.2 F 05/28/2017 SN[facility]: [facility] [place] Heart Rate 90 {beats}/min 05/28/2017 SNF: [facility] [place] Respitory Rate 22 05/28/2017 SNF: [facility] [place] Systolic (mm Hg) 140 05/28/2017 SNF: [facility] [place] Diastolic (mm Hg) 96 05/28/2017 SNF: [facility] [place] Systolic (mm Hg) 134 05/27/2017 SNF: [facility] [place] Diastolic (mm Hg) 93 05/27/2017 SNF: [facility] [place] Temperature Oral (F) 97.4 F 05/27/2017 SN[facility]: [facility] Heart Rate 88 {beats}/min 05/27/2017 [facility]: [facility] [place] Respitory Rate 19 05/27/2017 SN[facility]: [facility] Systolic (mm Hg) 128 05/27/2017 SN[facility]: [facility] [place] Diastolic (mm Hg) 98 05/27/2017 SNF: [facility] Systolic (mm Hg) 101 05/26/2017 SNF: [facility] [place] Diastolic (mm Hg) 55 05/26/2017 SN[facility]: [facility] Temperature Oral (F) 97.4 F 05/26/2017 SN[facility]: [facility] Heart Rate 82 {beats}/min 05/26/2017 SNF: [facility] Respitory Rate 18 05/26/2017 SNF: [facility] [place] Systolic (mm Hg) 131 05/26/2017 SNF: [facility] [place] Diastolic (mm Hg) 93 05/26/2017 SNF: [facility] [place] Systolic (mm Hg) 122 05/25/2017 SN[facility]: [facility] [place] Diastolic (mm Hg) 80 05/25/2017 SN[facility]: [facility] Temperature Oral (F) 98.8 F 05/25/2017 SNF: [facility] [place] Heart Rate 85 {beats}/min 05/25/2017 [facility]: [facility] [place] Respitory Rate 18 05/25/2017 SNF: [facility] [place] Systolic (mm Hg) 121 05/25/2017 SNF: [facility] [place] Diastolic (mm Hg) 72 05/25/2017 SNF: [facility] [place] Systolic (mm Hg) 133 05/24/2017 SN[facility]: [facility] [place] Diastolic (mm Hg) 90 05/24/2017 SN[facility]: [facility] Temperature Oral (F) 98.3 F 05/24/2017 SNF: [facility] [place] Heart Rate 82 {beats}/min 05/24/2017 SN[facility]: [facility] Respitory Rate 18 05/24/2017 SNF: [facility] [place] Systolic (mm Hg) 152 05/24/2017 SNF: [facility] [place] Diastolic (mm Hg) 69 05/24/2017 SNF: [...] [place] Diastolic (mm Hg) 96 05/13/2017 SN[facility]: [facility] [place] Heart Rate 86 {beats}/min 05/13/2017 SNF: [facility] [place] Temperature Oral (F) 98.4 F 05/13/2017 SNF: [facility] [place] Heart Rate 73 {beats}/min 05/13/2017 SNF: [facility] [place] Respitory Rate 20 05/13/2017 SNF: [facility] [place] Systolic (mm Hg) 120 05/13/2017 SNF: [facility] [place] Diastolic (mm Hg) 69 05/13/2017 SNF: [facility] [place] Systolic (mm Hg) 127 05/12/2017 SNF: [facility] [place] Diastolic (mm Hg) 78 05/12/2017 SN[facility]: [facility] Temperature Oral (F) 97.4 F 05/12/2017 SNF: [facility] [place] Heart Rate 59 {beats}/min 05/12/2017 SNF: [facility] [place] Respitory Rate 18 05/12/2017 SNF: [facility] [place] Systolic (mm Hg) 115 05/12/2017 SN[facility]: [facility] [place] Diastolic (mm Hg) 56 05/12/2017 SN[facility]: [facility] Temperature Oral (F) 97 F 05/12/2017 SN[facility]: [facility] Heart Rate 74 {beats}/min 05/12/2017 SNF: [facility] [place] Respitory Rate 20 05/12/2017 SNF: [facility] [place] Systolic (mm Hg) 117 05/12/2017 SNF: [facility] [place] Diastolic (mm Hg) 66 05/12/2017 SNF: [facility] [place] Systolic (mm Hg) 115 05/11/2017 SNF: [facility] [place] Diastolic (mm Hg) 84 05/11/2017 SN[facility]: [facility] Temperature Oral (F) 97.6 F 05/11/2017 [...] [place] Diastolic (mm Hg) 89 04/30/2017 SNF: [facility] [place] Temperature Oral (F) 97.5 [...] - [place] Heart Rate 75 04/28/2017 [facility] Temperature Oral (F) 97.9 F 04/28/2017 [facility] Systolic (mm Hg) 133 04/28/2017 [facility] Diastolic (mm Hg) 82 04/28/2017 [facility] Respitory Rate 18 04/28/2017 [facility] Heart Rate 75 04/28/2017 [facility] Temperature Oral (F) 98.2 F 04/28/2017 [facility] Systolic (mm Hg) 124 04/28/2017 [facility] Diastolic (mm Hg) 76 04/28/2017 [facility] Respitory Rate 18 04/28/2017 [facility] Respitory Rate 18 04/28/2017 [facility] Temperature Oral (F) 98.6 F 04/28/2017 [facility] Systolic (mm Hg) 131 04/28/2017 [facility] Diastolic (mm Hg) 79 04/28/2017 [facility] Heart Rate 76 04/28/2017 [facility] Weight 109.091 04/12/2017 [facility] BMI Calculated 38.82 04/12/2017 [facility] Height 167.64 cm 04/12/2017 [facility] BMI Calculated 38.82 04/12/2017 [facility] Weight 109.091 04/12/2017 [facility] Height 167.64 cm 04/12/2017 [facility] Encounters Location Location Encounter Encounter Reason Attending ADM DC Status Source Details Type Number For Provider Date Date Visit OD [id number] 782.3 - DAMON 01/27 Active [facility] /[address] [facility] [place] [place] Inpatient [id number] Nayana Cueva 04/12 04/[address] [facility] /2016 [facility] ([place], [place]) Procedures Procedure Code Date Perfomer Comments Source Cholecystectomy [id number] [facility] Excision of pancreas [id number] [facility]
[2018-09-19] MEDS ORDERED: NA CHLORIDE 0.9% 1,000 ML ONE (01:59)
[2018-09-19] MEDS ORDERED: ONDANSETRON 4 MG/2 ML VIAL ONE (01:59)
[2018-09-19 02:22] LABS: Absolute Lymphocytes (CBC) 1.6 K/uL (0.7-4.9); Absolute Monocytes 1.3 K/uL (0.1-1.3); Absolute Neutrophil 16.3 K/uL (1.8-8.0); Basophils % 0.4 % (0-1.3); Eosinophils % 0.1 % (0-4.4); Hematocrit 45.9 % (39.6-49.0); Lymphocytes % 8.1 % (15.3-44.8); MPV 10.1 fL (7.6-11.3); Monocytes % 6.6 % (3.3-12.3); RBC Red Blood Cell Count 5.21 M/uL (4.33-5.43)
[2018-09-19 02:25] LABS: Protime INR 1.05
[2018-09-19] MEDS ORDERED: MORPHINE 4 MG/ML SYR ONE (02:30)
[2018-09-19 02:41] LABS: Albumin 3.7 g/dL (3.4-5.0); Bilirubin Total 0.8 mg/dL (0.2-1.0); Potassium 4.1 mmol/L (3.5-5.1); Protein, Total 7.6 g/dL (6.4-8.2)
--- NOTE | 2018-09-19 03:22 | ER ---
Nurse's Notes [facility] Name: Ketan Pierre Jr Age: 48 yrs Sex: Male : 1970 Arrival Date: 09/19/2018 Time: 00:48 Bed 8 Private MD: Diagnosis: Vomiting;Dehydration;Hematuria, unspecified Presentation: 09/19 00:49 Presenting complaint: Patient states: Had lithotripsy done today, frederick was placed. Pt tl2 began having lower back pain, nausea, and increased blood in frederick. Transition of care: patient was not received from another setting of care. Onset of symptoms was September 18, 2018. Risk Assessment: Do you want to hurt yourself or someone else? Patient reports no desire to harm self or others. Initial Sepsis Screen: Does the patient meet any 2 criteria? No. Patient's initial sepsis screen is negative. Does the patient have a suspected source of infection? No. Patient's initial sepsis screen is negative. Care prior to arrival: None. 00:49 Method Of Arrival: EMS: [facility] tl2 00:49 Acuity: ROCK 3 tl2 Triage Assessment: 00:52 General: Appears in no apparent distress. uncomfortable, Behavior is calm, cooperative, tl2 appropriate for age. Pain: Complains of pain in left low back and right low back. Neuro: Level of Consciousness is awake, alert, obeys commands, Oriented to person, place, time, situation. Cardiovascular: Denies chest pain. Respiratory: Airway is patent Respiratory effort is even, unlabored, Respiratory pattern is regular, symmetrical. GI: Reports nausea. : Frederick in place to gravity drainage Urine is ronald blood. Derm: Skin is pink, warm \T\ dry. Historical: - Allergies: 00:52 NKA; tl2 - Home Meds: 00:52 Insulin: Regular Sub-Q [Active]; Lisinopril Oral [Active]; Simvastatin Oral [Active]; tl2 - PMHx: 00:52 Diabetes - IDDM; pancreatic growth; MEN1; Hypertension; pancreatic cancer; tl2 - Immunization history:: Adult Immunizations up to date. - Social history:: Smoking status: Patient/guardian denies using tobacco. - Ebola Screening: : No symptoms or risks identified at this time. Screenin:54 Abuse screen: Denies threats or abuse. Nutritional screening: No deficits noted. tl2 Tuberculosis screening: No symptoms or risk factors identified. Fall Risk IV access (20 points). Assessment: 00:55 General: see triage assessment. tl2 01:55 Reassessment: MD ordered to flush catheter after 500 mL of fluid have infused. tl2 02:19 Reassessment: Patient appears in no apparent distress at this time. Patient and/or tl2 family updated on plan of care and expected duration. Pain level reassessed. Patient is alert, oriented x 3, equal unlabored respirations, skin warm/dry/pink. Catheter was flushed without resistance, no clots noted. Will continue to monitor urine output. 03:28 Reassessment: Patient and/or family updated on plan of care and expected duration. Pain tl1 level reassessed. Patient is alert, oriented x 3, equal unlabored respirations, skin warm/dry/pink. Patient states feeling better. Patient states symptoms have improved. Vital Signs: 00:52 BP 155 / 90; Pulse 88; Resp 18; Temp 98.9(O); Pulse Ox 99% on R/A; Weight 99.79 kg; tl2 Height 5 ft. 6 in. (167.64 cm); Pain 5/10; 01:55 BP 138 / 79; Pulse 81; Resp 18; Temp 99(O); Pulse Ox 100% ; tl2 02:19 BP 139 / 83; Pulse 68; Resp 17; Pulse Ox 98% on R/A; tl2 03:29 BP 123 / 77; Pulse 80; Resp 15; Temp 98.6; Pulse Ox 99% ; Pain 0/10; tl1 00:52 Body Mass Index 35.51 (99.79 kg, 167.64 cm) tl2 ED Course: 00:48 Patient arrived in ED. tl2 00:50 Triage completed. tl2 00:51 Trevon Gross MD is Attending Physician. tw4 00:52 Arm band placed on right wrist. tl2 00:54 Patient has correct armband on for positive identification. Bed in low position. Call tl2 light in reach. Side rails up X 1. 00:54 Inserted saline lock: 20 gauge in left antecubital area, using aseptic technique. Blood tl2 collected. placed by SHERIDAN Avelar. 03:27 Diet: Po challenge with water. Patient tolerated well. tl1 03:29 Gina Patel, RN is Primary Nurse. tl1 03:47 No provider procedures requiring assistance completed. IV discontinued, intact, tl1 bleeding controlled, No redness/swelling at site. Pressure dressing applied. Administered Medications: 01:48 Drug: NS 0.9% 1000 ml Route: IV; Rate: 1 bolus; Site: left antecubital; tl1 02:45 Follow up: IV Status: Completed infusion tl1 01:48 Drug: Zofran 4 mg Route: IVP; Infused Over: 2 mins; Site: left antecubital; tl1 03:27 Follow up: Response: No adverse reaction; Marked relief of symptoms; Nausea is decreasedtl1 02:21 Drug: morphine 4 mg Route: IVP; Infused Over: 2 mins; Site: left antecubital; tl1 03:27 Follow up: Response: No adverse reaction; Marked relief of symptoms; Pain is decreased tl1 03:17 Not Given (incorrect order): NS 0.9% 1000 ml IV at 125 ml/hr continuous tl1 Outcome: 03:21 Discharge ordered by . tw4 03:48 Discharged to home with family. tl1 03:48 Condition: improved 03:48 Discharge instructions given to patient, family, Instructed on discharge instructions, follow up and referral plans. medication usage, Demonstrated understanding of instructions, follow-up care, medications, Prescriptions given X 2. 03:48 Patient left the ED. tl1 Signatures: Gina Patel, RN RN tl1 Mary Dsouza RN RN tl2 Trevon Gross MD MD tw4
--- NOTE | 2018-09-19 03:22 | EDPHYS ---
Physician Documentation [facility] Name: Ketan Pierre Jr Age: 48 yrs Sex: Male : 1970 Arrival Date: 09/19/2018 Time: 00:48 Bed 8 Private MD: ISAAC Physician Trevon Gross HPI: 09/19 01:58 This 48 yrs old Male presents to ER via EMS with complaints of Blood In tw4 Catheter. 03:21 This 48 yrs old Male presents to ER via EMS with complaints of Blood In tw4 Catheter s/p lithotripsy today. 01:58 The patient presents with urinary symptoms, hematuria. Onset: The symptoms/episode tw4 began/occurred today. Modifying factors: The symptoms are alleviated by nothing, the symptoms are aggravated by nothing. Severity of symptoms: At their worst the symptoms were moderate, in the emergency department the symptoms are unchanged. The patient has been recently seen by a physician: MD Jenkins earlier today. 03:21 Associated signs and symptoms: Pertinent positives: hematuria, nausea, vomiting. tw4 Historical: - Allergies: 00:52 NKA; tl2 - Home Meds: 00:52 Insulin: Regular Sub-Q [Active]; Lisinopril Oral [Active]; Simvastatin Oral [Active]; tl2 - PMHx: 00:52 Diabetes - IDDM; pancreatic growth; MEN1; Hypertension; pancreatic cancer; tl2 - Immunization history:: Adult Immunizations up to date. - Social history:: Smoking status: Patient/guardian denies using tobacco. - Ebola Screening: : No symptoms or risks identified at this time. ROS: 01:58 Constitutional: Negative for fever, chills, and weight loss, Eyes: Negative for injury, tw4 pain, redness, and discharge, Cardiovascular: Negative for chest pain, palpitations, and edema, Respiratory: Negative for shortness of breath, cough, wheezing, and pleuritic chest pain, Abdomen/GI: Negative for abdominal pain, nausea, vomiting, diarrhea, and constipation, Back: Negative for injury and pain. 01:58 : Positive for hematuria, Negative for injury or acute deformity, urinary symptoms, urinary frequency, burning with urination, difficulty urinating, bladder incontinence, foul smelling urine, penile discharge, penile pain, testicular pain Exam: 02:01 Constitutional: This is a well developed, well nourished patient who is awake, alert, tw4 and in no acute distress. Head/Face: Normocephalic, atraumatic. Chest/axilla: Normal chest wall appearance and motion. Nontender with no deformity. No lesions are appreciated. Cardiovascular: Regular rate and rhythm with a normal S1 and S2. No gallops, murmurs, or rubs. Normal PMI, no JVD. No pulse deficits. Respiratory: Lungs have equal breath sounds bilaterally, clear to auscultation and percussion. No rales, rhonchi or wheezes noted. No increased work of breathing, no retractions or nasal flaring. Abdomen/GI: Soft, non-tender, with normal bowel sounds. No distension or tympany. No guarding or rebound. No evidence of tenderness throughout. 02:01 : Male external genitalia: catheter in place draining blood no clots noted in catheter. Vital Signs: 00:52 BP 155 / 90; Pulse 88; Resp 18; Temp 98.9(O); Pulse Ox 99% on R/A; Weight 99.79 kg; tl2 Height 5 ft. 6 in. (167.64 cm); Pain 5/10; 01:55 BP 138 / 79; Pulse 81; Resp 18; Temp 99(O); Pulse Ox 100% ; tl2 02:19 BP 139 / 83; Pulse 68; Resp 17; Pulse Ox 98% on R/A; tl2 03:29 BP 123 / 77; Pulse 80; Resp 15; Temp 98.6; Pulse Ox 99% ; Pain 0/10; tl1 00:52 Body Mass Index 35.51 (99.79 kg, 167.64 cm) tl2 MDM: 00:51 Patient medically screened. tw4 03:18 Differential diagnosis: nonspecific abdominal pain, appendicitis, [place] catheter tw4 problem. Data reviewed: vital signs, nurses notes. Data interpreted: Pulse oximetry: Interpretation: normal. Counseling: I had a detailed discussion with the patient and/or guardian regarding: the historical points, exam findings, and any diagnostic results supporting the discharge/admit diagnosis, lab results. Medication response: Zofran markedly relieved the patient's nausea. Medication response: IVF. Response to treatment: and as a result, I will discharge patient. 09/19 01:36 Order name: CBC with Diff tw4 13 01:36 Order name: PT-INR; Complete Time: 03:00 09/19 03:01 Interpretation: Within normal limits: PT 12.4. 09/19 01:36 Order name: Ptt, Activated; Complete Time: 03:01 09/19 03:01 Interpretation: Within normal limits: PTT 29.4. 09/19 01:36 Order name: CMP; Complete Time: 03:00 09/19 03:00 Interpretation: Normal except: GLUC 217; GFR 65. tw4 Administered Medications: 01:48 Drug: NS 0.9% 1000 ml Route: IV; Rate: 1 bolus; Site: left antecubital; tl1 02:45 Follow up: IV Status: Completed infusion tl1 01:48 Drug: Zofran 4 mg Route: IVP; Infused Over: 2 mins; Site: left antecubital; tl1 03:27 Follow up: Response: No adverse reaction; Marked relief of symptoms; Nausea is decreasedtl1 02:21 Drug: morphine 4 mg Route: IVP; Infused Over: 2 mins; Site: left antecubital; tl1 03:27 Follow up: Response: No adverse reaction; Marked relief of symptoms; Pain is decreased tl1 03:17 Not Given (incorrect order): NS 0.9% 1000 ml IV at 125 ml/hr continuous tl1 Disposition: 09/19/18 03:21 Discharged to Home. Impression: Vomiting, Dehydration, Hematuria, unspecified. - Condition is Fair. - Discharge Instructions: Hematuria, Adult, Nausea and Vomiting, Adult. - Prescriptions for Ibuprofen 800 mg Oral Tablet - take 1 tablet by ORAL route every 12 hours As needed take with food; 20 tablet. Zofran 4 mg Oral Tablet - take 1 tablet by ORAL route every 12 hours As needed; 20 tablet. - Medication Reconciliation Form, Thank You Letter, Antibiotic Education, Prescription Opioid Use form. - Follow up: Private Physician; When: Upon discharge from the Emergency Department; Reason: If symptoms return, Recheck today's complaints, Continuance of care. - Problem is new. - Symptoms have improved. Signatures: Dispatcher [employer] EDMS Gina Patel RN RN tl1 Mary Dsouza RN RN tl2 Trevon Gross MD MD tw4 Corrections: (The following items were deleted from the chart) 03:22 01:58 Associated signs and symptoms: The patient has no apparent associated signs or tw4 symptoms, tw4 03:48 03:21 09/19/2018 03:21 Discharged to Home. Impression: Vomiting; Dehydration; tl1 Hematuria, unspecified. Condition is Fair. Forms are Medication Reconciliation Form, Thank You Letter, Antibiotic Education, Prescription Opioid Use. Follow up: Private Physician; When: Upon discharge from the Emergency Department; Reason: If symptoms return, Recheck today's complaints, Continuance of care. Problem is new. Symptoms have improved. tw4
== END 2018-09-19 03:48 | disposition home or self-care (01) ==
LOC: ER 00:43
DX: R11.10 Vomiting, unspecified (principal); E86.0 Dehydration; R31.9 Hematuria, unspecified; E11.9 Type 2 diabetes mellitus without complications; I10 Essential (primary) hypertension; Z79.4 Long term (current) use of insulin
CPT/HCPCS: 36415; 80053; 85025; 85610; 85730; 96361; 96374; 96375; 99284; J2405; J7030

== ENCOUNTER 2021-12-10 08:46 | Emergency (ER) | payer OTHER ==
--- NOTE | 2021-12-10 09:26 | ER ---
Nurse's Notes [facility] Name: Ketan Pierre Jr Age: 51 yrs Sex: Male : 1970 Arrival Date: 12/10/2021 Time: 08:47 Bed 12 Private MD: Diagnosis: Encounter For A Medication Refill, unspecified Presentation: 12/10 08:52 Chief complaint: Patient states: pt presented to ED for medication refills. Coronavirus rivas screen: Vaccine status: Patient reports receiving the 2nd dose of the covid vaccine. Ebola Screen: Patient denies travel to an Ebola-affected area in the 21 days before illness onset. Initial Sepsis Screen: Does the patient meet any 2 criteria? No. Patient's initial sepsis screen is negative. Does the patient have a suspected source of infection? No. Patient's initial sepsis screen is negative. Risk Assessment: Do you want to hurt yourself or someone else? Patient reports no desire to harm self or others. Onset of symptoms is unknown. 08:52 Method Of Arrival: Ambulatory rivas 08:52 Acuity: ROCK 5 rivas Triage Assessment: 08:53 General: Appears in no apparent distress. Behavior is calm, cooperative. Pain: Denies rivas pain. Historical: - Allergies: 08:53 NKA; rivas - Home Meds: 08:53 Insulin: Regular Sub-Q [Active]; lisinopril Oral [Active]; Simvastatin Oral [Active]; rivas - PMHx: 08:53 Diabetes - IDDM; Hypertension; MEN1; pancreatic cancer; pancreatic growth; rivas - Immunization history:: Adult Immunizations up to date. - Social history:: Smoking status: Patient denies any tobacco usage or history of. Screenin:35 Abuse screen: Denies threats or abuse. Denies injuries from another. Nutritional iw screening: No deficits noted. Tuberculosis screening: No symptoms or risk factors identified. Fall Risk None identified. Assessment: 09:00 General: Appears in no apparent distress. Behavior is calm, cooperative. Pain: Denies iw pain. Neuro: Level of Consciousness is awake, alert, obeys commands, Oriented to person, place, time, situation, Moves all extremities. Cardiovascular: Patient's skin is warm and dry. Respiratory: Respiratory effort is even, unlabored. Derm: Skin is intact, is healthy with good turgor. Musculoskeletal: Range of motion: intact in all extremities. Vital Signs: 08:52 BP 169 / 89; Pulse 65; Resp 17; Temp 98.0(O); Pulse Ox 100% ; Weight 104.33 kg; Height rivas 5 ft. 6 in. (167.64 cm); 08:52 Body Mass Index 37.12 (104.33 kg, 167.64 cm) rivas ED Course: 08:47 Patient arrived in ED. as 08:53 Triage completed. rivas 08:53 Arm band placed on. rivas 08:57 Doe Rodrigues PA is PHCP. [facility] 08:57 Mars Miles MD is Attending Physician. [facility] 09:00 Patient has correct armband on for positive identification. iw 09:12 Zahida Castrejon, RN is Primary Nurse. iw 09:35 No provider procedures requiring assistance completed. Patient did not have IV access iw during this emergency room visit. Administered Medications: No medications were administered Medication: 09:00 VIS not applicable for this client. iw Outcome: 09:25 Discharge ordered by . [facility] 09:35 Discharged to home ambulatory. iw 09:35 Condition: good 09:35 Discharge instructions given to patient, Instructed on discharge instructions, follow up and referral plans. medication usage, Demonstrated understanding of instructions, follow-up care, medications, Prescriptions given X 1. 09:36 Patient left the ED. iw Signatures: Doe Rodrigues PA PA jmm Martinez, Amelia as Williams, Irene, RN SHERIDAN Au-StagerKrystle RN RN
--- NOTE | 2021-12-10 09:26 | EDPHYS ---
Physician Documentation [facility] Name: Ketan Pierre Jr Age: 51 yrs Sex: Male : 1970 Arrival Date: 12/10/2021 Time: 08:47 Bed 12 Private MD: ED Physician Mars Miles HPI: 12/10 09:22 This 51 yrs old Male presents to ER via Ambulatory with complaints of jmm Medication Refill. 09:22 The patient presents to the emergency department requesting refill(s) for: Insulin. The jmm patient chronically suffers from diabetes. The patient has not experienced similar symptoms in the past. It is unknown whether or not the patient has recently seen a physician. Historical: - Allergies: 08:53 NKA; rivas - Home Meds: 08:53 Insulin: Regular Sub-Q [Active]; lisinopril Oral [Active]; Simvastatin Oral [Active]; rivas - PMHx: 08:53 Diabetes - IDDM; Hypertension; MEN1; pancreatic cancer; pancreatic growth; rivas - Immunization history:: Adult Immunizations up to date. - Social history:: Smoking status: Patient denies any tobacco usage or history of. ROS: 09:22 Constitutional: Negative for fever, chills, and weight loss, Cardiovascular: Negative jmm for chest pain, palpitations, and edema, Respiratory: Negative for shortness of breath, cough, wheezing, and pleuritic chest pain. 09:22 All other systems are negative. Exam: 09:22 Constitutional: This is a well developed, well nourished patient who is awake, alert, jmm and in no acute distress. Head/Face: atraumatic. Eyes: EOMI, no conjunctival erythema appreciated ENT: Moist Mucus Membranes Neck: Trachea midline, Supple Chest/axilla: Normal chest wall appearance and motion. Cardiovascular: Regular rate and rhythm. No edema appreciated Respiratory: Normal respirations, no respiratory distress appreciated Abdomen/GI: Non distended Back: Normal ROM Skin: General appearance color normal MS/ Extremity: Moves all extremities, no obvious deformities appreciated, no edema noted to the lower extremities Neuro: Awake and alert Psych: Behavior is normal, Mood is normal, Patient is cooperative and pleasant Vital Signs: 08:52 BP 169 / 89; Pulse 65; Resp 17; Temp 98.0(O); Pulse Ox 100% ; Weight 104.33 kg; Height rivas 5 ft. 6 in. (167.64 cm); 08:52 Body Mass Index 37.12 (104.33 kg, 167.64 cm) rivas MDM: 09:13 Patient medically screened. [facility] 09:22 Data reviewed: vital signs, nurses notes. Counseling: I had a detailed discussion with [facility] the patient and/or guardian regarding: the historical points, exam findings, and any diagnostic results supporting the discharge/admit diagnosis, the need for outpatient follow up, to return to the emergency department if symptoms worsen or persist or if there are any questions or concerns that arise at home. Administered Medications: No medications were administered Disposition: 09:55 Co-signature as Attending Physician, Mars Miles MD I agree with the assessment and kdr plan of care. Disposition Summary: 12/10/21 09:25 Discharge Ordered Location: Home [facility] Condition: Stable [facility] Diagnosis - Encounter For A Medication Refill, unspecified [facility] Followup: [facility] - With: Private Physician - When: 2 - 3 days - Reason: Recheck today's complaints, Continuance of care, Re-evaluation by your physician Discharge Instructions: - Discharge Summary Sheet [facility] Forms: - Medication Reconciliation Form [facility] - Thank You Letter [facility] - Antibiotic Education [facility] - Prescription Opioid Use [facility] Prescriptions: - Humalog KwikPen Insulin U-200 3 ml - take 1 pen by SUBCUTANEOUS route as directed; 1 Pen Needle; Refills: 0, Product [facility] Selection Permitted Signatures: Mars Miles MD MD kdr Mickail, Joel, PA PA [facility] Krystle Olivas RN RN rivas
[2021-12-10 09:46] VITALS: BP 169/89; TEMP 98; O2SAT 100
== END 2021-12-10 09:36 | disposition home or self-care (01) ==
LOC: ER 08:46
DX: Z76.0 Encounter for issue of repeat prescription (principal)
CPT/HCPCS: 99282

== ENCOUNTER 2024-02-28 13:44 | Inpatient (IN) | payer OTHER ==
[2024-02-28] MEDS ORDERED: NA CHLORIDE 0.9% 1,000 ML ONE (14:29)
[2024-02-28] MEDS ORDERED: ONDANSETRON 4 MG/2 ML VIAL ONE (14:29)
[2024-02-28 14:30] LABS: Absolute Basophils 0.1 K/uL (0-0.5); Absolute Eosinophils 0.4 K/uL (0-0.5); Absolute Lymphocytes (CBC) 2.2 K/uL (0.7-4.9); Absolute Monocytes 1.1 K/uL (0.1-1.3); Absolute Neutrophil 10.7 K/uL (1.8-8.0); Basophils % 0.9 % (0-1.3); Eosinophils % 2.8 % (0-4.4); Hemoglobin 15.3 g/dL (13.6-17.9); Lymphocytes % 15.2 % (15.3-44.8); MCH 29.6 pg (27.0-35.0); MCHC 32.6 g/dL (32.0-36.0); MCV 90.8 fL (80-100); MPV 8.7 fL (7.6-11.3); Monocytes % 7.8 % (3.3-12.3); Neutrophils % 73.3 % (41.7-73.7); Platelets 409 thou/uL (152-406); RBC Red Blood Cell Count 5.17 M/uL (4.33-5.43); Red Cell Distribution Width 13.5 % (12.1-15.2)
[2024-02-28 14:35] LABS: PT Prothrombin Time 10.5 SECONDS (9.4-12.5); PTT, Activated Partial Thromb 28.9 SECONDS (24.3-36.9); Protime INR 0.94
[2024-02-28 14:47] LABS: Albumin 3.3 g/dL (3.4-5.0); Albumin/Globulin Ratio 0.8 (1.1-1.8); Anion Gap 7.6 mEq/L (5.0-15.0); Bilirubin Total 0.4 mg/dL (0.2-1.0); Globulin 4.2 g/dL (2.3-3.5); Potassium 3.6 mEq/L (3.5-5.1); Protein, Total 7.5 g/dL (6.4-8.2)
--- NOTE | 2024-02-28 14:56 | RAD REPORT ---
EXAMINATION: ONE VIEW CHEST XR CLINICAL INDICATION: Male, 53 years old. [facility] MAIN Dizziness Bed Name: 2 TECHNIQUE: Frontal chest projection is submitted. Examination is limited by patient positioning and t echnique. COMPARISON: No prior exam. FINDINGS: The lungs are well inflated and clear. No pneumothorax or sizable effusion. The heart is normal in s ize. IMPRESSION: No acute intrathoracic abnormalities.
--- NOTE | 2024-02-28 16:08 | RAD REPORT ---
EXAM: Head Brain Wo Cont HISTORY: [facility] MAIN DIZZINESS COMPARISON: None TECHNIQUE: Multiple contiguous axial images were obtained for a CT of the brain without contrast. Sag ittal and coronal reformats were performed. One or more of the following dose reduction techniques were used: Automated exposure control, adjus tment of the mA and kV according to patient size, and iterative reconstruction. Unless otherwise specified, incidental findings do not require dedicated imaging follow-up. FINDINGS: No evidence of hydrocephalus, intracranial hemorrhage, or extra-axial fluid collection. The brain is normal in morphology. The calvarium is intact. The visualized paranasal sinuses and mastoid air cells are essentially clear . IMPRESSION: No evidence of acute intracranial abnormality.
--- NOTE | 2024-02-28 16:21 | RAD REPORT ---
EXAMINATION: CTA HEAD CLINICAL INDICATION: Male, 53 years old. dizziness TECHNIQUE: Axial CT images were obtained through the head after intravenous contrast utilizing angiog raphic protocol with 3D post-processing (maximum intensity projection images, volume rendered images and/or shaded surface rendered images). One or more of the following dose reduction technique s were used: Automated exposure control, adjustment of the mA and/or kV according to patient size, and/or iterative reconstruction. Unless otherwise specified, incidental findings do not require dedic ated imaging follow-up. COMPARISON: No prior exam. FINDINGS: ICA: The petrous, cavernous, and supraclinoid segments of the bilateral internal carotid arteries are normal. The ophthalmic artery origins are visualized and normal. The posterior communicating arteries are patent. CLYDE: Anterior cerebral arteries are normal bilaterally. The anterior communicating artery is patent. MCA: Middle cerebral arteries are normal bilaterally. CLERICAL DENTIST ASSISTANT: Posterior cerebral arteries are normal bilaterally. Vertebrobasilar: The vertebral arteries are patent. The basilar artery is normal in appearance. 3D images confirm these findings. IMPRESSION: Normal head CTA. No evidence of large vessel occlusion or hemodynamically significant stenosis.
--- NOTE | 2024-02-28 16:23 | RAD REPORT ---
EXAMINATION: Neck Angio CLINICAL INDICATION: Male, 53 years old. [facility] MAIN dizziness Bed Name: 2 TECHNIQUE: Axial CT images were obtained from the aortic arch to the skull base after intravenous con trast utilizing angiographic protocol. Multiplanar reformats, as well as 3D post-processing (maximum intensity projection images, volume rendered images and/or shaded surface rendered images) w ere generated and reviewed. One or more of the following dose reduction techniques were used: Automated exposure control, adjustment of the mA and/or kV according to patient size, and/or iterativ e reconstruction. Unless otherwise specified, incidental findings do not require dedicated imaging follow-up. COMPARISON: No prior exam. FINDINGS: AORTA: The imaged aortic arch is normal. Normal three-vessel configuration of the arch. CCA: No artifact The common carotid arteries are patent and normal in caliber. ICA/ECA: Bilateral internal and external carotid arteries are patent. There is no significant interna l carotid artery stenosis. VERTEBRAL: The cervical vertebral arteries are patent to the skull base. Vertebral arteries are codom inant. SOFT TISSUE: No significant neck soft tissue abnormalities. The visualized lung apices are clear. 3D images confirm these findings. IMPRESSION: No significant flow abnormality of the neck vessels is identified. NASCET criteria used to quantify ICA stenosis, with the following grading scheme: Mild 0-49% stenosis Moderate 50-69% stenosis Severe 70-99% stenosis Reference: [place] Symptomatic Carotid Endarterectomy Trial Collaborators; Dina HEDRICK, Mary ALVARADO, Cresencio RB, et al. Beneficial effect of carotid endarterectomy in symptomatic patients with high-grade carotid stenosis. N Engl J Med. 1990 15;325(7):445-53.
[2024-02-28] MEDS ORDERED: MECLIZINE HCL 12.5 MG TAB ONE (16:35)
--- NOTE | 2024-02-28 18:12 | ER ---
Nurse's Notes Formerly [facility] Name: Ketan Pierre Jr Age: 53 yrs Sex: Male : 1970 Arrival Date: 02/28/2024 Time: 13:44 Bed 2 Private MD: Diagnosis: Weakness;Dizziness and giddiness;Benign paroxysmal vertigo Presentation: 02/27 14:08 Chief complaint: Patient states: Dizziness onset this morning at 1030 when he woke up. cm10 Pt states that he feels like the room is spinning and his blood pressure has been elevated. Coronavirus screen: Client denies travel out of the [place] in the last 14 days. Ebola Screen: Patient denies travel to an Ebola-affected area in the 21 days before illness onset. No symptoms or risks identified at this time. Initial Sepsis Screen: Does the patient meet any 2 criteria? No. Patient's initial sepsis screen is negative. Does the patient have a suspected source of infection? No. Patient's initial sepsis screen is negative. Risk Assessment: Do you want to hurt yourself or someone else? Patient reports no desire to harm self or others. Onset of symptoms was February 28, 2024. 14:08 Method Of Arrival: Wheelchair cm10 14:08 Acuity: ROCK 2 cm10 Triage Assessment: 14:12 General: Appears in no apparent distress. comfortable, Behavior is calm, cooperative. cm10 Neuro: No deficits noted. Level of Consciousness is awake, alert, obeys commands, Oriented to person, place, time, situation, Appropriate for age Reports dizziness. Historical: - Allergies: 14:10 NKA; cm10 - PMHx: 14:10 Diabetes - IDDM; Hypertension; MEN1; pancreatic cancer; pancreatic growth; cm10 - PSHx: 14:10 Splenectomy; Parathyroid removed; Cholecystectomy; Partial Pancreaectomy; cm10 - Immunization history:: Adult Immunizations up to date. - Infectious Disease History:: Denies. - Social history:: Smoking status: Patient denies any tobacco usage or history of. Screenin:24 [facility] ED Fall Risk Assessment (Adult) History of falling in the last 3 months, ph including since admission No falls in past 3 months (0 pts) Confusion or Disorientation No (0 pts) Intoxicated or Sedated No (0 pts) Impaired Gait No (0 pts) Mobility Assist Device Used No (0 pt) Altered Elimination No (0 pt) Score/Fall Risk Level 0 - 2 = Low Risk Oriented to surroundings, Maintained a safe environment. Abuse screen: Denies threats or abuse. Denies injuries from another. Nutritional screening: No deficits noted. Tuberculosis screening: No symptoms or risk factors identified. Assessment: 14:25 General: Appears in no apparent distress. Behavior is calm, cooperative. Pain: Denies ph pain. Neuro: Level of Consciousness is awake, alert, obeys commands, Oriented to person, place, time, situation, Reports dizziness. Cardiovascular: Reports lightheadedness, nausea, vomiting, Capillary refill < 3 seconds in bilateral fingers Patient's skin is warm and dry. Respiratory: Airway is patent Respiratory effort is even, unlabored. GI: Reports nausea, vomiting, Patient currently denies abdominal pain. Derm: Skin is pink, warm \T\ dry. Musculoskeletal: Circulation, motion, and sensation intact. Range of motion: intact in all extremities. 17:26 Reassessment: Patient appears in no apparent distress at this time. Patient and/or iw family updated on plan of care and expected duration. Pain level reassessed. pt reports sitting up and feeling dizzy. 18:29 Reassessment: Patient appears in no apparent distress at this time. Patient and/or iw family updated on plan of care and expected duration. Pain level reassessed. Patient is alert, oriented x 3, equal unlabored respirations, skin warm/dry/pink. 19:00 Reassessment: Patient appears in no apparent distress at this time. Patient and/or jb4 family updated on plan of care and expected duration. Pain level reassessed. Patient is alert, oriented x 3, equal unlabored respirations, skin warm/dry/pink. 20:41 Reassessment: Patient appears in no apparent distress at this time. Patient and/or jb4 family updated on plan of care and expected duration. Pain level reassessed. Patient is alert, oriented x 3, equal unlabored respirations, skin warm/dry/pink. updated pt on plan of care. Vital Signs: 14:08 BP 166 / 97; Pulse 65; Resp 19; Temp 98(O); Pulse Ox 98% on R/A; Weight 104.33 kg; cm10 Height 5 ft. 7 in. ; Pain 0/10; 17:19 BP 144 / 74; Pulse 71; Resp 16; Pulse Ox 98% on R/A; iw 20:41 BP 126 / 67; Pulse 86; Resp 16; Pulse Ox 98% on R/A; jb4 14:08 Body Mass Index 36.02 (104.33 kg, 170.18 cm) cm10 14:08 Pain Scale: Adult cm10 ED Course: 13:47 Patient arrived in ED. ra3 13:49 Tomás Franklin FNP-C [facility]. dr5 13:49 Andrew Melendez MD is Attending Physician. dr5 14:05 Zahida Castrejon, SHERIDAN is Primary Nurse. iw 14:10 Triage completed. cm10 14:12 Arm band placed on Patient placed in an exam room, on a stretcher. cm10 14:22 Initial lab(s) drawn, by me, sent to lab. Inserted saline lock: 20 gauge in right iw antecubital area, using aseptic technique. Blood collected. Flushed with 10 mL NS. 14:23 EKG done, by ED staff, reviewed by Tomás [place]. ph 14:24 Patient has correct armband on for positive identification. Placed in gown. Bed in low ph position. Call light in reach. Side rails up X2. quality assurance monitor final on. Pulse ox on. NIBP on. Door closed. Noise minimized. Warm blanket given. 14:51 Chest Single View XRAY In Process Unspecified. EDMS 15:22 CT Neck Angio In Process Unspecified. EDMS 15:28 Head angio In Process Unspecified. EDMS 15:28 Head Brain Wo Cont In Process Unspecified. EDMS 18:10 Cuauhtemoc Baker MD is Hospitalizing Provider. dr5 21:40 No provider procedures requiring assistance completed. Patient admitted, IV remains in jb4 place. Administered Medications: 14:36 Drug: NS 0.9% IV 1000 ml IV at 1000 ml once Route: IV; Rate: 1000 ml; Site: right iw antecubital; 17:00 Follow up: IV Status: Completed infusion iw 14:36 Drug: Ondansetron IVP 4 mg IVP once; over 2 minutes Route: IVP; Site: right antecubital;iw 18:29 Follow up: Response: No adverse reaction iw 16:40 Drug: Meclizine PO 25 mg PO once Route: PO; iw 18:29 Follow up: Response: No adverse reaction; No change in condition iw 18:22 Drug: Diazepam PO 2 mg PO once Route: PO; iw 19:00 Follow up: Response: No adverse reaction Medication: 14:24 VIS not applicable for this client. ph Outcome: 18:12 Decision to Hospitalize by Provider. dr5 21:40 Admitted to Med/surg accompanied by nurse, family with patient, via stretcher, room jb4 214, with chart, Report called to SHERIDAN Stubbs 21:40 Condition: stable 21:40 Discharge instructions given to patient, family, Instructed on the need for admit, Demonstrated understanding of instructions, 21:42 Patient left the ED. jb4 Signatures: Dispatcher [employer] EDMS Zahida Castrejon, RN RN Kailey Lyon RN RN Kevin Hannah RN RN jb4 Ciara Bryson RN RN cm10 Mignon Sanchez ra3 Tomás Franklin, SEED EXPERT-C SEED EXPERT-Cdr5 Corrections: (The following items were deleted from the chart) 14:12 14:10 PSHx: Partial Pancrectomy; cm10 cm10
--- NOTE | 2024-02-28 18:12 | EDPHYS ---
Physician Documentation [facility] Name: Ketan Pierre Jr Age: 53 yrs Sex: Male : 1970 Arrival Date: 02/28/2024 Time: 13:44 Bed 2 Private MD: ED Physician Andrew Melendez HPI: 02/27 14:47 This 53 yrs old Male presents to ER via Wheelchair with complaints of High dr5 Blood Pressure, Dizziness. 14:47 Onset: The symptoms/episode began/occurred this morning. Modifying factors:. Associated dr5 signs and symptoms: Pertinent positives: dizziness, headache. Pt is a 53 year old presenting with dizziness that started this morning upon waking up, 1 episode of vomiting that resolved the dizziness, and chest pain.. 18:16 Last known normal was 0700 when walking his dog.. dr5 Historical: - Allergies: 14:10 NKA; cm10 - PMHx: 14:10 Diabetes - IDDM; Hypertension; MEN1; pancreatic cancer; pancreatic growth; cm10 - PSHx: 14:10 Splenectomy; Parathyroid removed; Cholecystectomy; Partial Pancreaectomy; cm10 - Immunization history:: Adult Immunizations up to date. - Infectious Disease History:: Denies. - Social history:: Smoking status: Patient denies any tobacco usage or history of. ROS: 14:47 Constitutional: as per hpi dr5 Exam: 14:47 Constitutional: This is a well developed, well nourished patient who is awake, alert, dr5 and in no acute distress. Head/Face: Normocephalic, atraumatic. Cardiovascular: Regular rate and rhythm with a normal S1 and S2. Normal PMI, no JVD. No pulse deficits. Respiratory: Lungs have equal breath sounds bilaterally, clear to auscultation. No rales, rhonchi or wheezes noted. No increased work of breathing, no retractions or nasal flaring. Abdomen/GI: Soft, non-tender, non-distended 14:47 Neuro: Awake and alert, GCS 15, oriented to person, place, time, and situation. Cranial nerves II-XII grossly intact. Motor strength 5/5 in all extremities. Sensory grossly intact. Cerebellar exam normal. Normal gait. 14:47 ECG was reviewed by the Attending Physician. 14:47 ENT: Nares patent. No nasal discharge, no septal abnormalities noted. Tympanic dr5 membranes are normal and external auditory canals are clear. Oropharynx with no redness, swelling, or masses, exudates, or evidence of obstruction, uvula midline. Mucous membranes moist. Vital Signs: 14:08 BP 166 / 97; Pulse 65; Resp 19; Temp 98(O); Pulse Ox 98% on R/A; Weight 104.33 kg; cm10 Height 5 ft. 7 in. ; Pain 0/10; 17:19 BP 144 / 74; Pulse 71; Resp 16; Pulse Ox 98% on R/A; iw 20:41 BP 126 / 67; Pulse 86; Resp 16; Pulse Ox 98% on R/A; jb4 14:08 Body Mass Index 36.02 (104.33 kg, 170.18 cm) cm10 14:08 Pain Scale: Adult cm10 MDM: 13:49 Patient medically screened. dr5 17:51 ED course: Pt reports dizziness resolves when he's not moving. Pt reports dizziness dr5 worsened when he moved on to CT table. Meclizine was given.. 17:52 ED course: CT scans reviewed with no acute abnormality. CXR normal. Bloodwork reviewed dr5 with 15,000 WBC. Normal creatinine, troponin.. 18:12 ED course: Dr. Melendez examined patient and both agree for admission for neurology dr5 consult and MRI.. 18:13 Differential diagnosis: hypertensive crisis, CVA, intracerebral hemorrhage. Data dr5 interpreted: monitoring engineer: Pulse oximetry:. Data reviewed: vital signs, nurses notes. Consideration of Admission/Observation Patient was admitted/placed on observation. Management of patient was discussed with the following: Hospitalist: Dr. Baker. Historians other than the Patient: Spouse/Significant Other: . Care significantly affected by the following chronic conditions: Diabetes, Hypertension, Cancer. Counseling: I had a detailed discussion with the patient and/or guardian regarding the historical points, exam findings, and any diagnostic results supporting the discharge/admit diagnosis, the presence of at least one elevated blood pressure reading (>120/80) during this emergency department visit, the need for further work-up and treatment in the hospital. Medication response: Meclizine - dizziness not resolved. Response to treatment: There is no appreciated change of the patient's symptoms at this time. Awaiting: admitting physician. 18:17 ED course: Attempted to get patient out of bed and unable to walk due to dizziness.. [facility] 02/27 14:14 Order name: CBC with Diff; Complete Time: 14:33 [facility] 02/27 14:14 Order name: Magnesium; Complete Time: 14:50 [facility] 02/27 14:14 Order name: Protime (+inr); Complete Time: 14:36 [facility] 02/27 14:14 Order name: Ptt, Activated; Complete Time: 14:36 [facility] 02/27 14:14 Order name: Troponin High Sensitivity; Complete Time: 14:50 [facility] 02/27 14:14 Order name: CMP; Complete Time: 14:50 [facility] 02/27 20:18 Order name: Urinalysis w/ reflexes [facility] 02/27 20:18 Order name: CBC with Automated Diff [facility] 02/27 20:18 Order name: CBC with Automated Diff [facility] 02/27 20:18 Order name: Comprehensive Metabolic Panel [facility] 02/27 20:18 Order name: Comprehensive Metabolic Panel [facility] 02/27 20:18 Order name: Troponin High Sensitivity [facility] 02/27 20:18 Order name: Troponin High Sensitivity [facility] 02/27 20:18 Order name: Troponin High Sensitivity [facility] 02/27 20:18 Order name: Troponin High Sensitivity [facility] 02/27 14:14 Order name: Chest Single View XRAY; Complete Time: 15:01 [facility] 02/27 14:14 Order name: CT Neck Angio; Complete Time: 16:25 [facility] 02/27 14:20 Order name: Head angio; Complete Time: 16:23 [facility] 02/27 14:53 Order name: Head Brain Wo Cont; Complete Time: 16:08 [facility] 02/27 20:23 Order name: Brain Wo Cont [facility] 02/27 14:14 Order name: EKG; Complete Time: 14:14 [facility] 02/27 14:14 Order name: Cardiac monitoring; Complete Time: 14: [facility] 02/27 14:14 Order name: EKG - Nurse/Tech; Complete Time: 14: [facility] 02/27 14:14 Order name: IV Saline Lock; Complete Time: 14: [facility] 02/27 14:14 Order name: Labs collected and sent; Complete Time: 14: [facility] 02/27 14:14 Order name: NPO; Complete Time: 14: [facility] 02/27 14:14 Order name: O2 Per Protocol; Complete Time: 14: [facility] 02/27 14:14 Order name: O2 Sat Monitoring; Complete Time: 14:37 dr5 EC:47 Rate is 73 beats/min. Rhythm is regular. QRS [place] is Normal. SD interval is prolonged dr5 at 210 msec. QRS interval is normal at 102 msec. QT interval is normal at 392 msec. Administered Medications: 14:36 Drug: NS 0.9% IV 1000 ml IV at 1000 ml once Route: IV; Rate: 1000 ml; Site: right iw antecubital; 17:00 Follow up: IV Status: Completed infusion iw 14:36 Drug: Ondansetron IVP 4 mg IVP once; over 2 minutes Route: IVP; Site: right antecubital;iw 18:29 Follow up: Response: No adverse reaction iw 16:40 Drug: Meclizine PO 25 mg PO once Route: PO; iw 18:29 Follow up: Response: No adverse reaction; No change in condition iw 18:22 Drug: Diazepam PO 2 mg PO once Route: PO; iw 19:00 Follow up: Response: No adverse reaction iw Disposition Summary: 02/28/24 18:12 Hospitalization Ordered Notes: Hospitalization Status: Inpatient Admission dr5 Provider: Cuauhtemoc Baker Location: Telemetry/MedSurg (Inpatient) dr5 Condition: Stable dr5 Problem: new dr5 Symptoms: are unchanged dr5 Bed/Room Type: Standard [facility] Room Assignment: 214(02/28/24 20:20) kl Diagnosis - Weakness dr5 - Dizziness and giddiness dr5 - Benign paroxysmal vertigo dr5 Forms: - Medication Reconciliation Form dr5 - SBAR form dr5 - Leadership Thank You Letter dr5 Addendum: 03/01/2024 06:59 Co-signature as Attending Physician, Andrew Melendez MD I reviewed the patient's care r n provided by the Advanced Practice Provider and agree with the diagnosis and treatment plan. Signatures: Dispatcher [employer] Samantha Marquez RN RN kl Williams, Irene, RN RN iw Nieto, Roman, MD MD rn Martinez, Clarissa, RN RN cm10 Tomás Franklin, RN INTERNAL MEDICINE-C RN INTERNAL MEDICINE-Cdr5 Corrections: (The following items were deleted from the chart) 02/27 14:12 14:10 PSHx: Partial Pancrectomy; cm10 cm10 14:14 14:14 Neck Angio+CT.RAD.BRZ ordered. EDMS EDMS 14:38 14:14 Chest Single View+RAD.RAD.BRZ ordered. EDMS EDMS 17:52 17:51 ENT: Nares patent. No nasal discharge, no septal abnormalities noted. Tympanic dr5 membranes are normal and external auditory canals are clear. Oropharynx with no redness, swelling, or masses, exudates, or evidence of obstruction, uvula midline. Mucous membranes moist. dr5 20:20 18:12 dr5 kl
[2024-02-28] MEDS ORDERED: DIAZEPAM 2 MG TABLET ONE (18:18)
[2024-02-28] MEDS ORDERED: ACETAMINOPHEN 325 MG TABLET PO PRN (20:10)
--- NOTE | 2024-02-28 20:22 | P.HP ---
Certification for Inpatient Patient admitted to: Observation With expected LOS: <2 Midnights Practitioner: I am a practitioner with admitting privileges, knowledge of patient current condition, hospital course, and medical plan of care. 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 Had an episode of nausea and vomiting. Patient woke up with dizziness this morning and was associated with high blood pressure. Patient is a poor historian hence most of the history is obtained from the chart review and also talking to the family members at the bedside. Feeling generalized weakness denies any chest pain or shortness of breath. Patient was assessed in the ER and is admitted for further management Allergies No Known Allergies Allergy (Unverified 02/08/16 06:57) Home medications list reviewed: Yes Home Medications: Clopidogrel Bisulfate [Plavix*] 75 mg PO DAILY 02/29/24 Metoprolol Succinate [Toprol Xl*] 25 mg PO DAILY 02/29/24 - Past Medical/Surgical History Past Medical History: Reviewed- Non-Contributory Past Surgical History: Reviewed- Non-Contributory - Social History Smoking Status: Never smoker Review of Systems 10-point ROS is otherwise unremarkable Physical Examination - Vital Signs Temperature: 98.2 F Blood Pressure: 166/96 Pulse: 62 Respirations: 18 Pulse Ox (%): 94 - Physical Exam General: Alert, Mild distress, Obese HEENT: Atraumatic, Normocephalic Neck: Supple Respiratory: Clear to auscultation bilaterally, Normal air movement Cardiovascular: Regular rate/rhythm, Normal S1 S2 Capillary refill: <2 Seconds Gastrointestinal: Soft and benign, W/out hepatosplenomegaly Musculoskeletal: No clubbing, No swelling Integumentary: No rashes Neurological: Normal strength at 5/5 x4 extr, Sensation intact, Normal reflexes 2+ Lymphatics: No axilla or inguinal lymphadenopathy - Studies Laboratory Data (last 24 hrs) 02/28/24 02/28/24 02/28/24 14:18 14:18 14:18 WBC 14.60 H Hgb 15.3 Hct 47.0 Plt Count 409 H PT 10.5 INR 0.94 APTT 28.9 Sodium 138 Potassium 3.6 BUN 11 Creatinine 1.03 Glucose 136 H Magnesium 2.0 Total Bilirubin 0.4 AST 18 ALT 25 Alkaline Phosphatase 129 H Assessment and Plan - Plan Dizziness To rule out CVA Stroke workup is negative so far Patient had a CT, CTA, CTA of neck No signs of acute stroke seen. Patient still continues to have dizziness Will get an MRI of the brain Accelerated hypertension Antihypertensives titrated Continue home medications and titrate as needed Hydralazine as needed Hyperlipidemia Continue statin Diabetes Insulin sliding scale Accu-Chek before every meal and at bedtime M EN type I Continue home medications and titrate as needed History of pancreatic cancer status post partial pancreatectomy Follow-up as outpatient with heme oncology GI/DVT prophylaxis Advanced directive full code Discharge Plan: Home Plan to discharge in: 48 Hours - Advance Directives Does patient have a Living Will: No Does patient have a Durable POA for Healthcare: No - Code Status/Comfort Care Code Status: Full Code Time Spent Managing Pts Care (In Minutes): 48
[2024-02-28 22:21] VITALS: BMI 38.7
[2024-02-28] MEDS: ONDANSETRON 4 MG/2 ML VIAL IV PRN (22:28)
[2024-02-28] MEDS: NA CHLORIDE 0.9% 1,000 ML IV SCH (22:29)
[2024-02-29 01:45] LABS: Specific Gravity 1.024 (1.005-1.030); Sqamous Epithelial None Seen /HPF (None Seen); Urine Bacteria None Seen /HPF (<20); Urine Bilirubin NEGATIVE (Negative); Urine Blood Negative (Negative); Urine Clarity Clear (Clear); Urine Color Colorless (Yellow); Urine Culture Reflex Order NOT NEEDED; Urine Glucose NEGATIVE (Negative); Urine Ketones NEGATIVE (Negative); Urine Microscopic Reflex YN ORDER UMIC; Urine Mucus Slight /HPF (None Seen); Urine Nitrite NEGATIVE (Negative); Urine Protein 1+ (Negative); Urine RBC <5 /HPF (None Seen); Urine Urobilinogen Normal (Normal); Urine WBC <5 /HPF (<5)
[2024-02-29 05:29] LABS: Absolute Basophils 0.2 K/uL (0-0.5); Absolute Eosinophils 0.3 K/uL (0-0.5); Absolute Lymphocytes (CBC) 3.2 K/uL (0.7-4.9); Absolute Neutrophil 10.2 K/uL (1.8-8.0); Basophils % 1.1 % (0-1.3); Eosinophils % 1.7 % (0-4.4); Hematocrit 45.4 % (39.6-49.0); Hemoglobin 14.9 g/dL (13.6-17.9); Lymphocytes % 21.4 % (15.3-44.8); MCH 29.8 pg (27.0-35.0); MCHC 32.9 g/dL (32.0-36.0); MCV 90.5 fL (80-100); MPV 8.8 fL (7.6-11.3); Monocytes % 6.7 % (3.3-12.3); Neutrophils % 69.1 % (41.7-73.7); Platelets 398 thou/uL (152-406); RBC Red Blood Cell Count 5.01 M/uL (4.33-5.43); Red Cell Distribution Width 13.7 % (12.1-15.2)
[2024-02-29] MEDS: AMLODIPINE 5 MG TAB PO SCH (05:52)
[2024-02-29 05:59] LABS: Albumin 2.9 g/dL (3.4-5.0); Albumin/Globulin Ratio 0.7 (1.1-1.8); Anion Gap 17.1 mEq/L (5.0-15.0); Bilirubin Total 0.6 mg/dL (0.2-1.0); Potassium 4.1 mEq/L (3.5-5.1); Protein, Total 6.9 g/dL (6.4-8.2)
[2024-02-29] MEDS: METOPROLOL XL 25 MG TAB PO SCH (09:10)
[2024-02-29] MEDS: CLOPIDOGREL 75 MG TABLET PO SCH (09:10)
[2024-02-29] MEDS: ENOXAPARIN 40 MG/0.4 ML SQ SCH (09:10)
--- NOTE | 2024-02-29 13:37 | P.PN ---
Subjective Date of Service: 02/29/24 Chief Complaint: Dizziness Patient reports vertigo with lying and standing, worse with standing. He denies any headache but endorsed nausea and one vomiting episode. He denies any visual loss. He denies any tinnitus. Patient reports history of MENS type I with other family members including the son and her mother being diagnosed with pituitary adenoma. Patient states his mom had intracranial surgery for pituitary adenoma. Physical Examination - Vital Signs Temperature: 98.9 F Blood Pressure: 121/68 Pulse: 80 Respirations: 17 Pulse Ox (%): 95 - Studies Laboratory Data (last 24 hrs) 02/29/24 02/29/24 02/28/24 05:11 05:11 14:18 WBC 14.70 H Hgb 14.9 Hct 45.4 Plt Count 398 PT 10.5 INR 0.94 APTT 28.9 Sodium 142 Potassium 4.1 D BUN 12 Creatinine 0.96 Glucose 167 H Magnesium Total Bilirubin 0.6 AST 20 ALT 26 Alkaline Phosphatase 120 H 02/28/24 02/28/24 14:18 14:18 WBC 14.60 H Hgb 15.3 Hct 47.0 Plt Count 409 H PT INR APTT Sodium 138 Potassium 3.6 BUN 11 Creatinine 1.03 Glucose 136 H Magnesium 2.0 Total Bilirubin 0.4 AST 18 ALT 25 Alkaline Phosphatase 129 H Assessment And Plan - Plan Physical examination General: Alert and oriented x3, NAD, HEENT: Conjunctiva not pale, anicteric sclera, EOMI, Neck: Supple, no elevated JVD Heart: Heart sounds 1 and 2 normal, regular rhythm, normal rate, no pedal edema Lungs: Clear to auscultation bilaterally, adequate breath sounds bilaterally, no rhonchi or crackles. Abdomen: Soft, nondistended, nontender, normal bowel sounds. Extremities: No tenderness, no deformity Skin: Normal skin turgor, no rash, no nodules or ulcers. Neuro: No focal motor deficit. Normal speech. Psychiatry: Normal mood, no agitation. Assessment and plan Dizziness/vertigo History of MEN type I Differential diagnosis include intracranial tumor, benign positional vertigo or vestibular neuritis. Stroke workup is negative so far Patient had a CT, CTA, CTA of neck, no possible aneurysm or stenosis reported. MRI of the brain is pending. Georgina maneuver Symptomatic management with meclizine as needed. PT consult for vestibular rehab Accelerated hypertension Blood pressure improved and patient is currently normotensive. Continue home antihypertensive IV Hydralazine as needed MEN type I Obtain MRI of the brain to evaluate for pituitary adenoma. History of pancreatic cancer status post partial pancreatectomy Follow-up as outpatient with heme oncology DVT prophylaxis: Lovenox Advanced directive full code
[2024-02-29] MEDS ORDERED: MECLIZINE HCL 12.5 MG TAB PO PRN (13:48)
[2024-02-29] MEDS: HYDRALAZINE HCL 20 MG/ML VIAL IV PRN (21:12)
[2024-03-01 00:41] VITALS: O2SAT 94
--- NOTE | 2024-03-01 10:05 | RAD REPORT ---
EXAMINATION: Brain W/Wo Cont CLINICAL INDICATION: [facility] MAIN N Vertigo Assess for intracranial lesion TECHNIQUE: Multiplanar multisequence MR images of the brain were obtained before and after intravenous administr ation of 20 mL MultiHance. COMPARISON: Head CT and CT angiogram 02/28/2024 FINDINGS: No parenchymal signal abnormality. Diffusion weighted/ADC mapping images do not reveal evidence of an acute infarction or other diffusio n signal abnormality. No evidence of intracranial hemorrhage or susceptibility signal abnormality. Ventricles are normal caliber. Midline structures are unremarkable. No abnormal enhancement or mass effect. No extra-axial fluid collection. No fluid within the visualized sinuses/mastoids. IMPRESSION: No acute intracranial abnormality seen. No abnormal enhancement or mass effect.
--- NOTE | 2024-03-01 10:35 | P.DS ---
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 Patient was assessed in the ER, head CT negative. Patient was admitted for further management. Hospital Course: Patient admitted to the medical floor and the following medical problems addressed: Dizziness/vertigo History of MEN type I Differential diagnosis include intracranial tumor, benign positional vertigo or vestibular neuritis. Stroke workup was negative Patient had a CT, CTA, CTA of neck, no possible aneurysm or stenosis reported. MRI of the brain did not show any acute intracranial disease or lesion or mass effect. Patient dizziness resolved. Differential diagnosis includes vestibular neuritis, malignant hypertensive urinary or benign positional vertigo Georgina maneuver taught. Mild leukocytosis noted. No sepsis. Patient prescribed Augmentin briefly for possible URI. Malignant hypertension Blood pressure improved with amlodipine and metoprolol Patient home medication reviewed and noted patient was taking nifedipine 60 mg daily and Toprol-XL 25 mg daily. Patient felt his antihypertensives have not been working. He was prescribed telmisartan-HCTZ but he has not been taking it. Patient encouraged to continue the telmisartan-HCTZ and the Toprol-XL given history of CAD and diabetes. Nifedipine replaced with amlodipine given that patient had a good response with amlodipine during the hospital stay. MEN type I MRI of the brain did not show any lesion or mass effect, and did not indicate any adenoma History of pancreatic cancer status post partial pancreatectomy Follow-up as outpatient with heme oncology. Vital Signs/Physical Exam: Temp Pulse Resp BP Pulse Ox 98.2 F 67 20 157/79 H 98 03/01/24 08:00 03/01/24 08:00 03/01/24 08:00 03/01/24 08:00 03/01/24 08:00 General: Alert, In no apparent distress, Oriented x3 HEENT: Mucous membr. moist/pink, Sclerae nonicteric Neck: Supple, JVD not distended Respiratory: Clear to auscultation bilaterally, Normal air movement Cardiovascular: No edema, Regular rate/rhythm, Normal S1 S2 Gastrointestinal: Normal bowel sounds, Soft and benign, Non-distended, No tenderness Musculoskeletal: No swelling Integumentary: No rashes, No cyanosis Neurological: Normal speech, Normal strength at 5/5 x4 extr Laboratory Data at Discharge: WBC 14.70 thou/uL (4.3-10.9) H 02/29/24 05:11 Hgb 14.9 g/dL (13.6-17.9) 02/29/24 05:11 Hct 45.4 % (39.6-49.0) 02/29/24 05:11 Plt Count 398 thou/uL (152-406) 02/29/24 05:11 PT 10.5 SECONDS (9.4-12.5) 02/28/24 14:18 INR 0.94 02/28/24 14:18 APTT 28.9 SECONDS (24.3-36.9) 02/28/24 14:18 Sodium 142 mEq/L (136-145) 02/29/24 05:11 Potassium 4.1 mEq/L (3.5-5.1) D 02/29/24 05:11 BUN 12 mg/dL (7-18) 02/29/24 05:11 Creatinine 0.96 mg/dL (0.70-1.30) 02/29/24 05:11 Glucose 167 mg/dL (74-106) H 02/29/24 05:11 Magnesium 2.0 mg/dL (1.6-2.4) 02/28/24 14:18 Total Bilirubin 0.6 mg/dL (0.2-1.0) 02/29/24 05:11 AST 20 U/L (15-37) 02/29/24 05:11 ALT 26 U/L (16-61) 02/29/24 05:11 Alkaline Phosphatase 120 U/L (45-117) H 02/29/24 05:11 Home Medications: Clopidogrel Bisulfate [Plavix*] 75 mg PO DAILY 02/29/24 Metoprolol Succinate [Toprol Xl*] 25 mg PO DAILY 02/29/24 Amlodipine [Norvasc*] 5 mg PO DAILY #30 tab 03/01/24 Amox/Clavulanate [Augmentin 875-125 Tab] 1 each PO BID #10 tab 03/01/24 Meclizine HCl 25 mg PO TID PRN #20 tab 03/01/24 New Medications: Amox/Clavulanate [Augmentin 875-125 Tab] 1 each PO BID #10 tab Meclizine HCl 25 mg PO TID PRN #20 tab PRN Reason: Dizziness Amlodipine [Norvasc*] 5 mg PO DAILY #30 tab Diet: ADA Activity: Fall precautions Followup: Francie Craig MD [Primary Care Provider] - 1-2 Weeks Time spent managing pt's care (in minutes): 35
[2024-03-01] MEDS ORDERED: INSULIN REGULAR (HUMAN) 100 UNIT/ML SQ SCH (11:30)
--- NOTE | 2024-03-01 12:36 | EKG ---
Test Date: 2024-02-28 Test Time: 14:19:03 Fur Comber: PH MEASUREMENT RESULTS: Intervals: Rate: 73 LA: 210 QRSD: 102 QT: 392 QTc: 431 Story: P: 58 LA: 210 QRS: -53 T: 47 INTERPRETIVE STATEMENTS: Sinus rhythm with 1st degree AV block Pulmonary disease pattern Incomplete right bundle branch block Left anterior fascicular block Minimal voltage criteria for LVH, may be normal variant Abnormal ECG Compared to ECG 07/17/2018 18:26:18 First degree AV block now present Left anterior fascicular block now present Left ventricular hypertrophy now present Electronically Signed On 03-01-24 12:34:39 CDT by [place]
[2024-03-01 14:12] VITALS: BP 171/75; TEMP 98
== END 2024-03-01 12:05 | disposition home or self-care (01) | DRG 149 ==
LOC: ER 13:44 → ERHOLD 20:10 → 2ND 20:56 → OBSVTOIN 02-29 11:11
PROVIDERS: ADMIT Family Medicine; ATTEND Internal Medicine
DX: H81.10 Benign paroxysmal vertigo, unspecified ear (principal); E78.5 Hyperlipidemia, unspecified; I10 Essential (primary) hypertension; E11.9 Type 2 diabetes mellitus without complications; E66.9 Obesity, unspecified; M79.2 Neuralgia and neuritis, unspecified; Z90.81 Acquired absence of spleen; Z68.38 Body mass index [BMI] 38.0-38.9, adult; Z85.07 Personal history of malignant neoplasm of pancreas; Z79.02 Long term (current) use of antithrombotics/antiplatelets; Z90.49 Acquired absence of other specified parts of digestive tract; Z79.899 Other long term (current) drug therapy; Z90.411 Acquired partial absence of pancreas
CPT/HCPCS: 36415; 70450; 70496; 70498; 70553; 71045; 80053; 81001; 82947; 83036; 83735; 84484; 85025; 85610; 85730; 93005; 94760; 96361; 96374; 99285; A9577; G0378; J0360; J1650; J2405; J7030; J8597; Q9967